=== PATIENT | male | born 1985 | race Caucasian/White ===

== ENCOUNTER 2018-01-03 23:23 | Emergency (ER) | payer BC, SELFPAY ==
--- OUTSIDE RECORDS SUMMARY | 2018-01-03 23:26 | XMS REPORT | Clinical Summary ---
:1985 Author Organization [facility] Address [address] [place] [address] Care Team Providers Name Role Phone Asked, No Pcp Primary Care Provider Unavailable Allergies No Known Allergies Current Medications No known medications Active Problems Not on file Encounters Date Type Specialty Care Team Description 01/11/2017 Emergency Emergency Medicine [place], Venessa Etienne MD Left lower quadrant pain (Primary Dx) after 01/02/2017 Social History Tobacco Use Types Packs/Day Years Used Date Current Every Day Smoker Alcohol Use Drinks/Week oz/Week Comments No Sex Assigned at Date Recorded Not on file Last Filed Vital Signs Vital Sign Reading Time Taken Blood Pressure 138/72 01/11/2017 3:10 PM CDT Pulse 68 01/11/2017 3:10 PM CDT Temperature 37.3 C (99.1 F) 01/11/2017 12:10 PM CDT Respiratory Rate 16 01/11/2017 3:10 PM CDT Oxygen Saturation 96% 01/11/2017 3:10 PM CDT Inhaled Oxygen Concentration - - Weight - - Height 182.9 cm (6') 01/11/2017 12:11 PM CDT Body Mass Index - - Plan of Treatment Health Maintenance Due Date Last Done Comments INFLUENZA VACCINE 03/05/[address] Abdomen Pelvis W Contrast (01/11/2017 2:27 PM) Specimen Performing Laboratory [facility] [address] [place] [address] Narrative EXAMINATION:CT ABDOMEN PELVIS W CONTRAST CLINICAL HISTORY:LLQ abdominal pain TECHNIQUE: Multiple axial images of the abdomen and pelvis were obtained following intravenous administration of iodinated contrast. Sagittal and coronal computerized reformatted images were also obtained. CT scans are performed using radiation dose reduction techniques. Technical factors are evaluated and adjusted to ensure appropriate moderation of exposure. Automated dose management technology is applied to adjust radiation exposure while achieving a diagnostic quality image. COMPARISON:11/05/2015 FINDINGS: Since previous examination, the patient has undergone right hemicolectomy. No bowel obstruction is present. There are no inflammatory changes around the large or small bowel. There are some diverticula within the colon without findings of diverticulitis. The spleen, adrenal glands, pancreas, gallbladder, and kidneys are normal. Mild diffuse fatty infiltration of liver is present. Abdominal aorta is normal in caliber. There is no lymphadenopathy or ascites. A healed midline ventral incision from laparotomy is present. A small fat- containing periumbilical hernia is noted. A small fat-containing right inguinal hernia is seen. There is no pelvic mass or pelvic lymphadenopathy. Bladder is partially distended with urine. Volume loss is present in the lung bases. Osseous structures are intact. IMPRESSION: No acute findings are seen. The patient has undergone right hemicolectomy since previous examination. No bowel obstruction is present. [facility]-[id number] Procedure Note Hm Interface, Radiology Results Incoming - 01/11/2017 2:40 PM CDT EXAMINATION: CT ABDOMEN PELVIS W CONTRAST CLINICAL HISTORY: LLQ abdominal pain TECHNIQUE: Multiple axial images of the abdomen and pelvis were obtained following intravenous administration of iodinated contrast. Sagittal and coronal computerized reformatted images were also obtained. CT scans are performed using radiation dose reduction techniques. Technical factors are evaluated and adjusted to ensure appropriate moderation of exposure. Automated dose management technology is applied to adjust radiation exposure while achieving a diagnostic quality image. COMPARISON: 11/05/2015 FINDINGS: Since previous examination, the patient has undergone right hemicolectomy. No bowel obstruction is present. There are no inflammatory changes around the large or small bowel. There are some diverticula within the colon without findings of diverticulitis. The spleen, adrenal glands, pancreas, gallbladder, and kidneys are normal. Mild diffuse fatty infiltration of liver is present. Abdominal aorta is normal in caliber. There is no lymphadenopathy or ascites. A healed midline ventral incision from laparotomy is present. A small fat- containing periumbilical hernia is noted. A small fat-containing right inguinal hernia is seen. There is no pelvic mass or pelvic lymphadenopathy. Bladder is partially distended with urine. Volume loss is present in the lung bases. Osseous structures are intact. IMPRESSION: No acute findings are seen. The patient has undergone right hemicolectomy since previous examination. No bowel obstruction is present. [id number] Urinalysis (01/11/2017 12:35 PM) Component Value Ref Range Glucose, UA Negative Negative Bilirubin, UA Negative Negative Ketones, UA Trace (A) Negative Specific gravity, UA 1.025 1.001 - 1.035 Blood, UA Trace (A) Negative pH, UA 5.5 5.0 - 8.5 Protein, UA Negative Negative Urobilinogen, UA <2.0 <2.0 Nitrite, UA Negative Negative Leukocyte esterase, UA Negative Negative Color, UA Yellow Appearance, UA Clear Specimen Performing Laboratory Urine DEPARTMENT OF PATHOLOGY AND GENOMIC MEDICINE, [address] [address] Estimated GFR (01/11/2017 12:25 PM) Component Value Ref Range GFR Non Af Amer 77 mL/min/1.73 m2 GFR Af Amer >90 mL/min/1.73 m2 Comment: Chronic kidney disease: <60 mL/min/1.73m2 Kidney failure: <15 mL/min/1.73m2 The estimated GFR is calculated from the IDMS-traceable Modification of Diet in Renal Disease Equation. The accuracy of the calculation is poor when the creatinine is normal. Calculated values >90 mL/min/1.73m2 are not reported. This equation has not been validated in children (<18 years), women, the elderly (>70 years), or ethnic groups other than Caucasians and Americans. Specimen Performing Laboratory Plasma specimen [facility] DEPARTMENT OF PATHOLOGY AND GENOMIC MEDICINE [address] [place] [id number] Lactic acid, I-Stat (01/11/2017 12:25 PM) Component Value Ref Range Lactic acid, I-Stat 2.4 (H) 0.5 - 2.2 mmol/L Specimen Performing Laboratory Plasma specimen [facility] DEPARTMENT OF PATHOLOGY AND GENOMIC MEDICINE [address] [place] [id number] Manual differential (01/11/2017 12:25 PM) Component Value Ref Range Manual differential PERFORMED Neutrophils 62.0 39.0 - 69.0 % Lymphocytes 22.0 (L) 25.0 - 45.0 % Monocytes 8.0 0.0 - 10.0 % Eosinophils 8.0 (H) 0.0 - 5.0 % Basophils 0.0 0.0 - 1.0 % Metamyelocytes 0 % Promyelocytes 0 % Platelet slide review [place]ha adequate Anisocytosis Moderate Polychromasia Moderate Ovalocytes Moderate Enlarged platelets Moderate (A) Specimen Performing Laboratory [facility] DEPARTMENT OF PATHOLOGY AND GENOMIC MEDICINE [address] [place] [id number] Amylase level (01/11/2017 12:25 PM) Component Value Ref Range Amylase 11 (L) 14 - 97 U/L Specimen Performing Laboratory Plasma specimen [facility] DEPARTMENT OF PATHOLOGY AND GENOMIC MEDICINE [address] [place] [id number] Comprehensive metabolic panel (01/11/2017 12:25 PM) Component Value Ref Range Sodium 137 135 - 148 mEq/L Potassium 3.5 3.5 - 5.0 mEq/L CO2 21 (L) 24 - 31 mEq/L Chloride 100 98 - 112 mEq/L Glucose 105 (H) 65 - 99 mg/dL Calcium 9.1 8.3 - 10.2 mg/dL BUN 14 6 - 20 mg/dL Creatinine 1.1 0.7 - 1.2 mg/dL Alkaline phosphatase 62 40 - 129 U/L ALT 43 5 - 50 U/L AST 25 10 - 50 U/L Total bilirubin 0.4 0.0 - 1.2 mg/dL Albumin 3.5 3.5 - 5.0 g/dL Protein 7.1 6.3 - 8.3 g/dL Comment: Arnold 4.6-7.0 g/dL 1 week 4.4-7.6 g/dL 7 months-1year5.1-7.3 g/dL 1-2 years5.6-7.5 g/dL >3 years6.0-8.0 g/dL 18-150 6.3-8.3 g/dL Anion gap 16 (H) 7 - 15 mEq/L Comment: Starting from November , anion gap calculation no longer incorporates potassium. Please note the change. A/G ratio 1.0 0.7 - 3.8 Specimen Performing Laboratory Plasma specimen [facility] DEPARTMENT OF PATHOLOGY AND [facility] MEDICINE [address] [place] [id number] after 01/02/2017
[2018-01-04] MEDS ORDERED: HYDROCODONE/APAP 10/325 TAB ONE (00:09)
--- NOTE | 2018-01-04 00:53 | EDPHYS ---
Physician Documentation [facility] Name: James Cuba Age: 32 yrs Sex: Male : 1985 Arrival Date: 01/03/2018 Time: 23:27 Bed 12 Private MD: ED Physician Tito Garcia HPI: 01/04 01:00 This 32 yrs old Male presents to ER via Ambulatory with complaints of Left pm1 elbow pain. 01:00 The patient or guardian complains of pain. The complaints affect the left elbow. pm1 Context: resulted from lifting or pulling, Patient working on his car and felt a pop in his left elbow two months ago. Patient reports pain is increased in the past few days. Onset: The symptoms/episode began/occurred 2 month(s) ago. Treatment prior to arrival includes: no previous treatment. Modifying factors: The symptoms are alleviated by remaining still, the symptoms are aggravated by bending arm. Associated signs and symptoms: Pertinent positives: Decreased ROM due to pain, Pertinent negatives: erythema, fever, numbness, tingling. Severity of symptoms: in the emergency department the symptoms are actually worse. The patient has not recently seen a physician. Historical: - Allergies: 01/03 23:35 No Known Allergies; bb - Home Meds: 23:35 albuterol sulfate 90 mcg/actuation Inhl HFAA 2 puffs as needed [Active]; citalopram 10 bb mg tab 1 tab once daily [Active]; Skelaxin 800 mg Oral tab 1 tab as needed [Active]; - PMHx: 23:35 hypoglycemia, asthma, gynecomastia; bb - PSHx: 23:35 Bowel resection; bb - Immunization history:: Adult Immunizations up to date. - Social history:: Smoking status: Patient/guardian denies using tobacco, Patient uses alcohol, occasionally. Patient/guardian denies using street drugs. - Ebola Screening: : No symptoms or risks identified at this time. ROS: 01/04 01:00 Constitutional: Negative for fever, chills, and weight loss, Eyes: Negative for injury, pm1 pain, redness, and discharge, ENT: Negative for injury, pain, and discharge, Neck: Negative for injury, pain, and swelling, Cardiovascular: Negative for chest pain, palpitations, and edema, Respiratory: Negative for shortness of breath, cough, wheezing, and pleuritic chest pain, Abdomen/GI: Negative for abdominal pain, nausea, vomiting, diarrhea, and constipation, Back: Negative for injury and pain. Skin: Negative for injury, rash, and discoloration, Neuro: Negative for headache, weakness, numbness, tingling, and seizure. MS/extremity: Positive for pain, of the left elbow, Negative for deformity, paresthesias, tingling. Exam: 01:00 Constitutional: This is a well developed, well nourished patient who is awake, alert, pm1 and in no acute distress. Head/Face: Normocephalic, atraumatic. 01:00 Skin: Warm, dry with normal turgor. Normal color with no rashes, no lesions, and no evidence of cellulitis. 01:00 Musculoskeletal/extremity: Extremities: grossly normal except: noted in the left elbow: pain, There is no evidence of deformity, Circulation is intact in all extremities. Pulses: noted to be 2+ in the left radial artery, Sensation intact. 01:00 Neuro: Orientation: is normal, Mentation: is normal, Gait: is steady, at a normal pace, without difficulty. Vital Signs: 01/03 23:35 BP 132 / 91; Pulse 98; Resp 20 S; Temp 97.3(O); Pulse Ox 96% on R/A; Weight 99.79 kg (R); Height 6 ft. 0 in. (182.88 cm) (R); Pain 9/10; 01/04 01:25 BP 144 / 92; Pulse 92; Resp 18 S; Temp 97.7(O); Pulse Ox 95% on R/A; Pain 8/10; 01/03 23:35 Body Mass Index 29.84 (99.79 kg, 182.88 cm) MDM: 00:10 Patient medically screened. pm1 00:52 Data reviewed: vital signs. Data interpreted: Pulse oximetry: on room air is 96 %. pm1 Interpretation: normal. Counseling: I had a detailed discussion with the patient and/or guardian regarding: the historical points, exam findings, and any diagnostic results supporting the discharge/admit diagnosis, radiology results, the need for outpatient follow up, a orthopedic surgeon, to return to the emergency department if symptoms worsen or persist or if there are any questions or concerns that arise at home. 01/03 23:36 Order name: XRAY Elbow LEFT 3 view; Complete Time: 16:49 bb 01/04 01:12 Order name: Sling; Complete Time: 01:13 pm1 Administered Medications: 00:06 Drug: [place] 10 mg-325 mg 1 tabs Route: PO; bb 00:59 Follow up: Response: No adverse reaction; Pain is unchanged, physician notified bb 01:20 Drug: morphine 4 mg Route: IM; Site: right gluteus; bb 01:28 Follow up: Response: Pain is decreased bb 01:20 Drug: Zofran 4 mg Route: PO; bb 01:29 Follow up: Response: No adverse reaction bb Disposition: 01/04/18 00:53 Discharged to Home. Impression: Pain in left elbow. - Condition is Stable. - Discharge Instructions: Arm Sling Use, [id number]. - Prescriptions for Tramadol 50 mg Oral Tablet - take 1 tablet by ORAL route every 8 hours as needed; 12 tablet. - Medication Reconciliation Form, Thank You Letter, Prescription Opioid Use form. - Follow up: Emergency Department; When: As needed; Reason: Worsening of condition. Follow up: Sly Pruitt MD; When: 2 - 3 days; Reason: Recheck today's complaints, Continuance of care, Re-evaluation by your physician. - Problem is new. - Symptoms have improved. Addendum: 01/06/2018 07:08 Co-signature as Attending Physician, Tito Garcia MD I agree with the assessment and c conklin plan of care. Signatures: Dispatcher [employer] Tito Aguilar MD MD cha Ballard, Brenda, RN RN bb Cory Barnett NP AVIONICS TEST TECHNICIAN pm1 Corrections: (The following items were deleted from the chart) 01/04 00:52 00:52 Counseling: I had a detailed discussion with the patient and/or guardian pm1 regarding: the historical points, exam findings, and any diagnostic results supporting the discharge/admit diagnosis, radiology results, the need for outpatient follow up, a orthopedic surgeon, to return to the emergency department if symptoms worsen or persist or if there are any questions or concerns that arise at home, pm1 01:32 00:53 01/04/2018 00:53 Discharged to Home. Impression: Pain in left elbow. Condition is bb Stable. Forms are Medication Reconciliation Form, Thank You Letter, Antibiotic Education, Prescription Opioid Use. Follow up: Emergency Department; When: As needed; Reason: Worsening of condition. Follow up: Sly Pruitt; When: 2 - 3 days; Reason: Recheck today's complaints, Continuance of care, Re-evaluation by your physician. Problem is new. Symptoms have improved. pm1
--- NOTE | 2018-01-04 00:53 | ER ---
Nurse's Notes [facility] Name: James Cuba Age: 32 yrs Sex: Male : 1985 Arrival Date: 01/03/2018 Time: 23:27 Bed 12 Private MD: Diagnosis: Pain in left elbow Presentation: 01/03 23:32 Presenting complaint: Patient states: he was working on his vehicle a couple of months bb ago and heard something pop in his left elbow was trying to wait for his insurance to kick in but tonight the pain has gotten much worse. Transition of care: patient was not received from another setting of care. Onset of symptoms was January 03, 2018. Risk Assessment: Do you want to hurt yourself or someone else? Patient reports no desire to harm self or others. Initial Sepsis Screen: Does the patient meet any 2 criteria? No. Patient's initial sepsis screen is negative. Does the patient have a suspected source of infection? No. Patient's initial sepsis screen is negative. Care prior to arrival: None. 23:32 Method Of Arrival: Ambulatory bb 23:32 Acuity: KIKI 4 bb Historical: - Allergies: 23:35 No Known Allergies; bb - Home Meds: 23:35 albuterol sulfate 90 mcg/actuation Inhl HFAA 2 puffs as needed [Active]; citalopram 10 bb mg tab 1 tab once daily [Active]; Skelaxin 800 mg Oral tab 1 tab as needed [Active]; - PMHx: 23:35 hypoglycemia, asthma, gynecomastia; bb - PSHx: 23:35 Bowel resection; bb - Immunization history:: Adult Immunizations up to date. - Social history:: Smoking status: Patient/guardian denies using tobacco, Patient uses alcohol, occasionally. Patient/guardian denies using street drugs. - Ebola Screening: : No symptoms or risks identified at this time. Screenin:37 Abuse screen: Denies threats or abuse. Nutritional screening: No deficits noted. bb Tuberculosis screening: No symptoms or risk factors identified. Fall Risk None identified. Assessment: 23:37 General: Appears uncomfortable, Behavior is cooperative, agitated, Reports pain in left bb elbow. Pain: Complains of pain in left elbow Pain currently is 9 out of 10 on a pain scale. Neuro: Level of Consciousness is awake, alert, obeys commands, Oriented to person, place, time, situation. Cardiovascular: No deficits noted. Respiratory: Respiratory effort is unlabored. GI: No signs and/or symptoms were reported involving the gastrointestinal system. : No signs and/or symptoms were reported regarding the genitourinary system. Derm: Skin is pink, warm \T\ dry. Musculoskeletal: Capillary refill < 3 seconds, Reports pain in left elbow. 01/04 00:59 Reassessment: pt states pain medication did not help his pain at all EDP notified no bb new orders received. 01:10 Reassessment: pt requested pain medication so that he could go home and sleep notified bb EDP new orders received pt medicated see OCT. 01:30 Reassessment: Patient is alert, oriented x 3, equal unlabored respirations, skin bb warm/dry/pink. sling placed to left arm, pt verbalized understanding of and agrees to plan of care discharge instructions given pt ambulated with steady gait to exit accompanied by family. Vital Signs: 01/03 23:35 BP 132 / 91; Pulse 98; Resp 20 S; Temp 97.3(O); Pulse Ox 96% on R/A; Weight 99.79 kg bb (R); Height 6 ft. 0 in. (182.88 cm) (R); Pain 9/10; 01/04 01:25 BP 144 / 92; Pulse 92; Resp 18 S; Temp 97.7(O); Pulse Ox 95% on R/A; Pain 8/10; bb 01/03 23:35 Body Mass Index 29.84 (99.79 kg, 182.88 cm) bb ED Course: 01/03 23:27 Patient arrived in ED. es 23:34 Triage completed. bb 23:35 Arm band placed on right wrist. Patient placed in an exam room, on a stretcher, on bb pulse oximetry. Family accompanied patient. 23:37 Sophia Ayala, RN is Primary Nurse. bb 23:37 Patient has correct armband on for positive identification. Call light in reach. bb 23:56 X-ray completed. Portable x-ray completed in exam room. Patient tolerated procedure jw2 well. 23:59 XRAY Elbow LEFT 3 view In Process Unspecified. EDMS 01/04 00:09 Cory Barnett NP is PHCP. pm1 00:09 Tito Garcia MD is Attending Physician. pm1 00:53 Sly Pruitt MD is Referral Physician. pm1 01:32 No provider procedures requiring assistance completed. Patient did not have IV access bb during this emergency room visit. Administered Medications: 00:06 Drug: [place] 10 mg-325 mg 1 tabs Route: PO; bb 00:59 Follow up: Response: No adverse reaction; Pain is unchanged, physician notified bb 01:20 Drug: morphine 4 mg Route: IM; Site: right gluteus; bb 01:28 Follow up: Response: Pain is decreased bb 01:20 Drug: Zofran 4 mg Route: PO; bb 01:29 Follow up: Response: No adverse reaction bb Outcome: 00:53 Discharge ordered by MD. pm1 01:32 Discharged to home ambulatory, with family. bb 01:32 Condition: stable 01:32 Discharge instructions given to patient, Instructed on discharge instructions, follow up and referral plans. medication usage, Demonstrated understanding of instructions, follow-up care, medications, Prescriptions given X 1. 01:32 Patient left the ED. bb Signatures: Dispatcher [employer] Kate Clayton Brenda, NASIR RN bb Cory Barnett, EDITH SENIOR CATEGORY MANAGER pm1 Fatmata Jefferson jw2
[2018-01-04] MEDS ORDERED: MORPHINE 4 MG/ML SYR ONE (01:21)
[2018-01-04] MEDS ORDERED: ONDANSETRON 4 MG (ODT) TAB ONE (01:21)
[2018-01-04 01:40] VITALS: BP 132/91; TEMP 97.3; O2SAT 96
--- NOTE | 2018-01-04 10:32 | RAD REPORT ---
EXAM DESCRIPTION: RAD - Elbow Left 3 View - 01/03/2018 11:58 pm CLINICAL HISTORY: Left elbow pain following trauma COMPARISON: None. FINDINGS: No fracture is identified and no elevated posterior fat pad. There is no dislocation or pe riosteal reaction noted. No foreign body or air in the soft tissue. Soft tissue assessment is limite d. IMPRESSION: No acute bone or joint finding. Concerns for soft tissue injury can be addressed with MR imaging.
== END 2018-01-04 01:32 | disposition home or self-care (01) ==
LOC: ER 23:23
DX: M25.522 Pain in left elbow (principal); J45.909 Unspecified asthma, uncomplicated; E16.2 Hypoglycemia, unspecified
CPT/HCPCS: 96372; 99284

== ENCOUNTER 2018-04-10 20:49 | Emergency (ER) | payer BC ==
--- OUTSIDE RECORDS SUMMARY | 2018-04-10 20:51 | XMS REPORT | Clinical Summary ---
:1985 Author Organization [facility] Address [address] [place] [id number] Care Team Providers Name Role Phone Asked, No Pcp Primary Care Provider Unavailable Allergies No Known Allergies Current Medications No known medications Active Problems Not on file Social History Tobacco Use Types Packs/Day Years Used Date Current Every Day Smoker Alcohol Use Drinks/Week oz/Week Comments No Sex Assigned at Date Recorded Not on file Last Filed Vital Signs Not on file Plan of Treatment Health Maintenance Due Date Last Done Comments INFLUENZA VACCINE 03/05/2018 Results Not on fileafter 04/09/2017
[2018-04-10] MEDS ORDERED: NA CHLORIDE 0.9% 2,000 ML ONE (21:33)
[2018-04-10] MEDS ORDERED: KETOROLAC 30 MG/ML INJ ONE (21:33)
--- NOTE | 2018-04-10 21:57 | RAD REPORT ---
EXAM DESCRIPTION: Jessica Single View04/10/2018 9:38 pm CLINICAL HISTORY: cough COMPARISON: February 2017 FINDINGS: The lungs appear clear of acute infiltrate. The heart is normal size IMPRESSION: No acute abnormalities displayed
[2018-04-10 22:00] LABS: Absolute Lymphocytes (CBC) 2.3 K/uL (0.7-4.9); Absolute Monocytes 0.8 K/uL (0.1-1.3); Absolute Neutrophil 4.5 K/uL (1.8-8.0); Basophils % 0.5 % (0-1.3); Eosinophils % 1.7 % (0-4.4); Hematocrit 47.9 % (39.6-49.0); Lymphocytes % 29.9 % (15.3-44.8); MCV 87.4 fL (80-100); MPV 8.3 fL (7.6-11.3); Monocytes % 9.9 % (3.3-12.3); RBC Red Blood Cell Count 5.48 M/uL (4.33-5.43)
[2018-04-10 23:05] LABS: Urine Blood NEGATIVE (NEG); Urine Glucose NEGATIVE (NEG); Urine Protein NEGATIVE (NEG); Urine pH 6.5 (5.0-7.0)
[2018-04-10 23:06] LABS: ALT/SGPT 71 U/L (12-78); AST/SGOT 30 U/L (15-37); Albumin 3.5 g/dL (3.4-5.0); Alkaline Phosphatase 54 U/L (45-117); BUN Blood Urea Nitrogen 17 mg/dL (7-18); Bicarbonate 28 mmol/L (21-32); Bilirubin Total 0.3 mg/dL (0.2-1.0); Glucose Level 75 mg/dL (74-106); Lipase 162 U/L (73-393); Potassium 3.9 mmol/L (3.5-5.1); Protein, Total 6.8 g/dL (6.4-8.2); Sodium Level 142 mmol/L (136-145); Troponin (Emerg Dept Use Only) < 0.02 ng/mL (0.0-0.045)
--- NOTE | 2018-04-10 23:31 | EDPHYS ---
Physician Documentation [facility] Name: James Cuba Age: 32 yrs Sex: Male : 1985 Arrival Date: 04/10/2018 Time: 20:50 Bed 27 Private MD: ED Physician Konstantin Mckinney HPI: 04/10 23:18 This 32 yrs old Male presents to ER via Ambulatory with complaints of Pain ps1 All Over, Nausea, Headache. 23:18 patient is s/p appendectomy and hemicolectomy several years ago with chronic diarrhea ps1 presenting with non-specific myalgias, chills, not feeling well for 2 days. Non-localizable pain but just feels as though he is getting worse. Has not taken any medications to improve situation. . Historical: - Allergies: 20:59 No Known Allergies; aj - Home Meds: 20:59 citalopram 10 mg tab 1 tab once daily [Active]; albuterol sulfate 90 mcg/actuation Inhl aj HFAA 2 puffs as needed [Active]; Skelaxin 800 mg Oral tab 1 tab as needed [Active]; Cialis oral oral [Active]; - PMHx: 20:59 Diabetes - NIDDM; aj - PSHx: 20:59 Bowel resection; Breast reduction; Appendectomy; Tonsillectomy; aj - Immunization history:: Adult Immunizations up to date. - Social history:: Smoking status: Patient/guardian denies using tobacco. - Ebola Screening: : Patient negative for fever greater than or equal to 101.5 degrees Fahrenheit, and additional compatible Ebola Virus Disease symptoms Patient denies exposure to infectious person Patient denies travel to an Ebola-affected area in the 21 days before illness onset No symptoms or risks identified at this time. ROS: 23:18 Eyes: Negative for injury, pain, redness, and discharge, ENT: Negative for injury, ps1 pain, and discharge, Cardiovascular: Negative for chest pain, palpitations, and edema, Respiratory: Negative for shortness of breath, cough, wheezing, and pleuritic chest pain, Back: Negative for injury and pain, Skin: Negative for injury, rash, and discoloration. 23:18 Constitutional: Positive for body aches, chills, fatigue. 23:18 Abdomen/GI: Positive for abdominal pain, nausea, vomiting, and diarrhea. Exam: 23:18 Constitutional: This is a well developed, well nourished patient who is awake, alert, ps1 and in no acute distress. Head/Face: Normocephalic, atraumatic. Eyes: Pupils equal round and reactive to light, extra-ocular motions intact. Lids and lashes normal. Conjunctiva and sclera are non-icteric and not injected. Chest/axilla: Normal chest wall appearance and motion. Nontender with no deformity. No lesions are appreciated. Cardiovascular: Regular rate and rhythm. No gallops, murmurs, or rubs. Normal PMI, no JVD. No pulse deficits. Respiratory: Lungs have equal breath sounds bilaterally, clear to auscultation and percussion. No rales, rhonchi or wheezes noted. No increased work of breathing, no retractions or nasal flaring. Abdomen/GI: Soft, non-tender, with normal bowel sounds. No distension or tympany. No guarding or rebound. No evidence of tenderness throughout. Skin: Warm, dry with normal turgor. Normal color with no rashes, no lesions, and no evidence of cellulitis. MS/ Extremity: Pulses equal, no cyanosis. Neurovascular intact. Full, normal range of motion. Neuro: Awake and alert, GCS 15, oriented to person, place, time, and situation. Cranial nerves II-XII grossly intact. Sensory grossly intact. 23:18 Constitutional: The patient appears patient appears uncomfortable but able to answer questions appropriately. 23:18 Psych: Behavior/mood is Affect is flat. Vital Signs: 20:59 BP 146 / 91; Pulse 85; Resp 16; Temp 98.8; Pulse Ox 96% on R/A; Weight 108.86 kg; aj Height 6 ft. 0 in. (182.88 cm); 22:07 BP 135 / 81; Pulse 83; Resp 18; Pulse Ox 100% on R/A; Pain 10/10; mg2 23:22 Pulse 85; Resp 18; Pulse Ox 100% on R/A; Pain 10/10; mg2 23:56 BP 130 / 70; Pulse 80; Resp 18; Pulse Ox 100% on R/A; Pain 2/10; mg2 20:59 Body Mass Index 32.55 (108.86 kg, 182.88 cm) aj MDM: 21:25 Patient medically screened. ps1 23:29 Data reviewed: vital signs, nurses notes, lab test result(s), radiologic studies, and ps1 as a result, I will discharge patient, prescribe pain medication. 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 04/10 21:18 Order name: CBC with Diff; Complete Time: 22:23 ps1 04/10 21:18 Order name: Lactate; Complete Time: 23:03 ps1 04/10 21:18 Order name: Lipase; Complete Time: 23:08 ps1 04/10 21:18 Order name: Troponin (emerg Dept Use Only); Complete Time: 23:08 ps1 04/10 21:18 Order name: CMP; Complete Time: 23:08 ps1 04/10 21:59 Order name: Urine Dipstick--Ancillary (enter results) rg2 04/10 21:18 Order name: Chest Single View XRAY; Complete Time: 22:12 ps1 04/10 21:59 Order name: Urine Dipstick-Ancillary; Complete Time: 23:08 EDMS 04/10 21:18 Order name: Accucheck; Complete Time: 21:52 ps1 04/10 21:18 Order name: Cardiac monitoring; Complete Time: 21:52 ps1 04/10 21:18 Order name: EKG - Nurse/Tech; Complete Time: 22:27 ps1 04/10 21:18 Order name: IV Saline Lock - Large Bore; Complete Time: 21:52 ps1 04/10 21:18 Order name: Labs collected and sent; Complete Time: 21:52 ps1 04/10 21:18 Order name: O2 Per Protocol; Complete Time: 21:52 ps1 04/10 21:18 Order name: O2 Sat Monitoring; Complete Time: 21:53 ps1 04/10 21:18 Order name: Urine Dipstick-Ancillary (obtain specimen); Complete Time: 21:53 ps1 Administered Medications: 21:52 Drug: TORadol 30 mg Route: IVP; Site: right antecubital; mg2 22:57 Follow up: Response: No adverse reaction mg2 21:53 Drug: NS 0.9% (30 ml/kg) 30 ml/kg Route: IV; Rate: bolus; Site: right antecubital; mg2 23:00 Follow up: Response: No adverse reaction; IV Status: Completed infusion mg2 23:42 Drug: Zofran 4 mg Route: IVP; Site: right antecubital; mg2 23:42 Follow up: Response: No adverse reaction mg2 23:43 Drug: Bentyl 20 mg Route: PO; mg2 23:56 Follow up: Response: No adverse reaction; Marked relief of symptoms mg2 23:43 Drug: morphine 4 mg Route: IVP; Site: right antecubital; mg2 23:55 Follow up: Response: No adverse reaction; Marked relief of symptoms mg2 23:50 Drug: Decadron - Dexamethasone 10 mg Route: IVP; Site: right antecubital; mg2 23:55 Follow up: Response: No adverse reaction; Medication administered at discharge. mg2 Disposition: 04/10/18 23:30 Discharged to Home. Impression: Viral syndrome. - Condition is Stable. - Discharge Instructions: Viral Gastroenteritis, Adult, [id number]. - Prescriptions for Anaprox DS 550 mg Oral Tablet - take 1 tablet by ORAL route every 12 hours As needed; 20 tablet. Bentyl 20 mg Oral Tablet - take 1 tablet by ORAL route every 6 hours As needed; 20 tablet. Carafate 1 gram Oral Tablet - take 1 tablet by ORAL route 4 times per day take on an empty stomach, beginning on waking and last dose at bedtime; 100 tablet. Zofran 4 mg Oral Tablet - take 1 tablet by ORAL route every 12 hours As needed; 20 tablet. - Medication Reconciliation Form, Thank You Letter, Antibiotic Education, Prescription Opioid Use form. - Follow up: Private Physician; When: As needed; Reason: Recheck today's complaints, Continuance of care, Re-evaluation by your physician. Follow up: Emergency Department; When: As needed; Reason: Fever > 102 F, Trouble breathing, Worsening of condition. - Problem is new. - Symptoms have improved. Signatures: Dispatcher [employer] EDMS Madelyn Seymour RN RN Konstantin Lopez MD MD ps1 Kelli Billingsley RN RN [id number] Anthony Meehan RN RN mg2 Corrections: (The following items were deleted from the chart) 23:57 23:30 04/10/2018 23:30 Discharged to Home. Impression: Viral syndrome. Condition is mg2 Stable. Forms are Medication Reconciliation Form, Thank You Letter, Antibiotic Education, Prescription Opioid Use. Follow up: Private Physician; When: As needed; Reason: Recheck today's complaints, Continuance of care, Re-evaluation by your physician. Follow up: Emergency Department; When: As needed; Reason: Fever > 102 F, Trouble breathing, Worsening of condition. Problem is new. Symptoms have improved. ps1
--- NOTE | 2018-04-10 23:31 | ER ---
Nurse's Notes [facility] Name: James Cuba Age: 32 yrs Sex: Male : 1985 Arrival Date: 04/10/2018 Time: 20:50 Bed 27 Private MD: Diagnosis: Viral syndrome Presentation: 04/10 20:57 Presenting complaint: Patient states: Body aches, nausea, fatigue since yesterday. aj Transition of care: patient was not received from another setting of care. Onset of symptoms was April 10, 2018. Risk Assessment: Do you want to hurt yourself or someone else? Patient reports no desire to harm self or others. Initial Sepsis Screen: Does the patient meet any 2 criteria? No. Patient's initial sepsis screen is negative. Does the patient have a suspected source of infection? No. Patient's initial sepsis screen is negative. Care prior to arrival: None. 20:57 Method Of Arrival: Ambulatory 20:57 Acuity: KIKI 4 aj Triage Assessment: 20:59 General: Appears in no apparent distress. comfortable, Behavior is calm, cooperative, aj appropriate for age. Pain: Complains of pain in right lower quadrant. Neuro: Level of Consciousness is awake, alert, obeys commands, Oriented to person, place, time, situation, Appropriate for age. Respiratory: Airway is patent Respiratory effort is even, unlabored, Respiratory pattern is regular, symmetrical. GI: Reports lower abdominal pain, nausea. Derm: Skin is intact, is healthy with good turgor, Skin is pink, warm \T\ dry. normal. Historical: - Allergies: 20:59 No Known Allergies; aj - Home Meds: 20:59 citalopram 10 mg tab 1 tab once daily [Active]; albuterol sulfate 90 mcg/actuation Inhl aj HFAA 2 puffs as needed [Active]; Skelaxin 800 mg Oral tab 1 tab as needed [Active]; Cialis oral oral [Active]; - PMHx: 20:59 Diabetes - NIDDM; aj - PSHx: 20:59 Bowel resection; Breast reduction; Appendectomy; Tonsillectomy; aj - Immunization history:: Adult Immunizations up to date. - Social history:: Smoking status: Patient/guardian denies using tobacco. - Ebola Screening: : Patient negative for fever greater than or equal to 101.5 degrees Fahrenheit, and additional compatible Ebola Virus Disease symptoms Patient denies exposure to infectious person Patient denies travel to an Ebola-affected area in the 21 days before illness onset No symptoms or risks identified at this time. Screenin:07 Abuse screen: Denies threats or abuse. Denies injuries from another. Nutritional mg2 screening: No deficits noted. Tuberculosis screening: No symptoms or risk factors identified. Fall Risk IV access (20 points). Assessment: 22:05 General: Appears uncomfortable, Behavior is cooperative, restless. Pain: Complains of mg2 pain in right lower quadrant Pain does not radiate. Pain currently is 10 out of 10 on a pain scale. Quality of pain is described as aching, Pain began gradually, 1 day ago. Is intermittent, Alleviated by medications. Neuro: Level of Consciousness is awake, alert, obeys commands, Oriented to person, place, time, situation. Cardiovascular: Capillary refill < 3 seconds Patient's skin is warm and dry. Respiratory: Airway is patent Respiratory effort is even, unlabored, Respiratory pattern is regular, symmetrical. GI: Reports upper abdominal pain. GI: Abdomen is round non-distended. : No signs and/or symptoms were reported regarding the genitourinary system. EENT: No signs and/or symptoms were reported regarding the EENT system. Derm: Skin is intact, Skin is pink, warm \T\ dry. normal. Musculoskeletal: No deficits noted. 23:57 Reassessment: Patient appears in no apparent distress at this time. Patient and/or mg2 family updated on plan of care and expected duration. Pain level reassessed. Patient is alert, oriented x 3, equal unlabored respirations, skin warm/dry/pink. Vital Signs: 20:59 BP 146 / 91; Pulse 85; Resp 16; Temp 98.8; Pulse Ox 96% on R/A; Weight 108.86 kg; aj Height 6 ft. 0 in. (182.88 cm); 22:07 BP 135 / 81; Pulse 83; Resp 18; Pulse Ox 100% on R/A; Pain 10/10; mg2 23:22 Pulse 85; Resp 18; Pulse Ox 100% on R/A; Pain 10/10; mg2 23:56 BP 130 / 70; Pulse 80; Resp 18; Pulse Ox 100% on R/A; Pain 2/10; mg2 20:59 Body Mass Index 32.55 (108.86 kg, 182.88 cm) aj ED Course: 20:50 Patient arrived in ED. am2 20:58 Triage completed. aj 20:59 Arm band placed on right wrist. Patient placed in an exam room. aj 21:10 Konstantin Mckinney MD is Attending Physician. ps1 21:25 Anthony Meehan, RN is Primary Nurse. mg2 21:36 Chest Single View XRAY In Process Unspecified. EDMS 21:53 Inserted saline lock: 20 gauge in right antecubital area, using aseptic technique. mg2 Blood collected. 22:07 Patient has correct armband on for positive identification. Side rails up X 1. Pulse ox mg2 on. NIBP on. 23:56 No provider procedures requiring assistance completed. IV discontinued, intact, mg2 bleeding controlled, No redness/swelling at site. Pressure dressing applied. Administered Medications: 21:52 Drug: TORadol 30 mg Route: IVP; Site: right antecubital; mg2 22:57 Follow up: Response: No adverse reaction mg2 21:53 Drug: NS 0.9% (30 ml/kg) 30 ml/kg Route: IV; Rate: bolus; Site: right antecubital; mg2 23:00 Follow up: Response: No adverse reaction; IV Status: Completed infusion mg2 23:42 Drug: Zofran 4 mg Route: IVP; Site: right antecubital; mg2 23:42 Follow up: Response: No adverse reaction mg2 23:43 Drug: Bentyl 20 mg Route: PO; mg2 23:56 Follow up: Response: No adverse reaction; Marked relief of symptoms mg2 23:43 Drug: morphine 4 mg Route: IVP; Site: right antecubital; mg2 23:55 Follow up: Response: No adverse reaction; Marked relief of symptoms mg2 23:50 Drug: Decadron - Dexamethasone 10 mg Route: IVP; Site: right antecubital; mg2 23:55 Follow up: Response: No adverse reaction; Medication administered at discharge. mg2 Outcome: 23:30 Discharge ordered by . ps1 23:57 Discharged to home ambulatory. mg2 23:57 Condition: stable 23:57 Discharge instructions given to patient, Instructed on discharge instructions, follow up and referral plans. medication usage, Demonstrated understanding of instructions, follow-up care, medications, Prescriptions given X 4. 23:57 Patient left the ED. mg2 Signatures: Dispatcher [employer] Madelyn Carrera, NASIR RN aj Madelyn Baum am2 Konstantin Mckinney MD MD ps1 Anthony Meehan RN RN mg2
[2018-04-10] MEDS ORDERED: ONDANSETRON 4 MG/2 ML VIAL ONE (23:32)
[2018-04-10] MEDS ORDERED: MORPHINE 4 MG/ML SYR ONE (23:32)
[2018-04-10] MEDS ORDERED: DICYCLOMINE HCL 10 MG CAP ONE (23:32)
[2018-04-10] MEDS ORDERED: DEXAMETHASONE 4 MG/ML VIAL ONE (23:51)
[2018-04-11 02:08] VITALS: TEMP 98.8
[2018-04-11 02:10] VITALS: O2SAT 100
[2018-04-11 02:12] VITALS: BP 130/70
--- NOTE | 2018-04-11 11:49 | EKG ---
Test Date: 2018-04-10 Test Time: 22:24:01 [employer]: MEASUREMENT RESULTS: Intervals: Rate: 68 OR: 156 QRSD: 120 QT: 398 QTc: 423 [place]: P: 54 OR: 156 QRS: 71 T: 64 INTERPRETIVE STATEMENTS: Normal sinus rhythm Nonspecific intraventricular conduction delay Borderline ECG Compared to ECG 02/14/2017 19:34:25 Intraventricular conduction delay now present Sinus arrhythmia no longer present Incomplete right bundle-branch block no longer present Electronically Signed On 04-11-18 11:48:13 CDT by Jarad Allen
== END 2018-04-10 23:57 | disposition home or self-care (01) ==
LOC: ER 20:49
DX: B34.9 Viral infection, unspecified (principal); E11.9 Type 2 diabetes mellitus without complications
CPT/HCPCS: 36415; 71045; 80053; 81003; 83605; 83690; 84484; 85025; 93005; 96361; 96365; 96374; 96375; 99284; J2405; J7030

== ENCOUNTER 2018-05-24 18:43 | Emergency (ER) | payer BC ==
--- OUTSIDE RECORDS SUMMARY | 2018-05-24 18:45 | XMS REPORT | Clinical Summary ---
:1985 Author Organization [facility] Address [address] [place] [id number] Care Team Providers Name Role Phone Asked, [...] INFLUENZA VACCINE 03/05/2018 Results Not on fileafter 05/23/2017
[2018-05-24] MEDS ORDERED: HYDROMORPHONE HCL 1 MG/ML INJ ONE ×2 (18:59→19:23)
[2018-05-24] MEDS ORDERED: NA CHLORIDE 0.9% 1,000 ML ONE ×2 (18:59→19:31)
[2018-05-24] MEDS ORDERED: ONDANSETRON 4 MG/2 ML VIAL ONE (18:59)
[2018-05-24 19:11] LABS: Absolute Lymphocytes (CBC) 2.9 K/uL (0.7-4.9); Basophils % 0.5 % (0-1.3); Eosinophils % 4.9 % (0-4.4); Hematocrit 50.9 % (39.6-49.0); Lymphocytes % 25.3 % (15.3-44.8); MCH 30.7 pg (27.0-35.0); MCV 88.6 fL (80-100); Monocytes % 8.4 % (3.3-12.3); RBC Red Blood Cell Count 5.75 M/uL (4.33-5.43)
[2018-05-24 19:19] LABS: ALT/SGPT 21 U/L (12-78); AST/SGOT 19 U/L (15-37); Albumin 3.3 g/dL (3.4-5.0); Alkaline Phosphatase 52 U/L (45-117); BUN Blood Urea Nitrogen 10 mg/dL (7-18); Bicarbonate 29 mmol/L (21-32); Bilirubin Direct < 0.1 mg/dL (0-0.2); Bilirubin Total 0.2 mg/dL (0.2-1.0); Glucose Level 118 mg/dL (74-106); Lipase 107 U/L (73-393); Potassium 4.2 mmol/L (3.5-5.1); Protein, Total 6.4 g/dL (6.4-8.2); Sodium Level 137 mmol/L (136-145)
--- NOTE | 2018-05-24 20:09 | RAD REPORT ---
EXAM DESCRIPTION: CT - Abdomen Pelvis W Contrast - 05/24/2018 7:45 pm CLINICAL HISTORY: Abdominal pain/epigastric pain COMPARISON: April 2017 TECHNIQUE: Computed axial tomography of the abdomen pelvis was obtained. 100 cc Isovue-300 was admin istered intravenously. Oral contrast was not requested which limits evaluation of bowel. All CT scans are performed using dose optimization technique as appropriate and may include automated exposure control or mA/KV adjustment according to patient size. FINDINGS: Liver has a diminished attenuation consistent with fatty infiltration Spleen, pancreas, adrenal and kidneys appear unremarkable. Right hemicolectomy has been performed. There is no evidence of diverticulitis. Bilateral inguinal hernias contain fat. Small umbilical hernia is seen. IMPRESSION: No acute abnormality is displayed.
--- NOTE | 2018-05-24 20:10 | RAD REPORT ---
EXAM DESCRIPTION: Jessica Single View05/24/2018 7:09 pm CLINICAL HISTORY: abd pain COMPARISON: February 2017 FINDINGS: The lungs appear clear of acute infiltrate. The heart is normal size IMPRESSION: No acute abnormalities displayed
[2018-05-24] MEDS ORDERED: METHYLPREDNISOLONE 125 MG INJ ONE (20:57)
--- NOTE | 2018-05-24 21:33 | EDPHYS ---
Physician Documentation [facility] Name: James Cuba Age: 32 yrs Sex: Male : 1985 Arrival Date: 05/24/2018 Time: 18:45 Bed 24 Private MD: ED Physician Luke Mcgill HPI: 05/24 19:05 This 32 yrs old Male presents to ER via Ambulatory with complaints of cp Abdominal Pain. 19:05 The patient presents with abdominal pain in the upper abdomen. cp 19:05 Onset: The symptoms/episode began/occurred suddenly, about 10 minutes [employer]. cp 19:05 The symptoms do not radiate. Associated signs and symptoms: Pertinent positives: cp nausea, Pertinent negatives: blood in stools, chest pain, diarrhea, fever, palpitations, testicular pain, vomiting. The symptoms are described as constant. Modifying factors: the symptoms are aggravated by movement, pressure. Severity of pain: in the emergency department the pain is unchanged. Historical: - Allergies: 18:57 No Known Allergies; aj1 - Home Meds: 18:57 Baclofen Oral [Active]; "mood stabilizer, I think it starts with C" [Active]; aj1 - PMHx: 18:57 hypoglycemia, asthma, gynecomastia; Bipolar disorder; Back pain; aj1 - PSHx: 18:57 Bowel resection; Appendectomy; aj1 - Immunization history:: Flu vaccine is not up to date. - Social history:: Smoking status: Patient/guardian denies using tobacco, Patient uses alcohol, on a daily basis. Reports drinking 2 beers daily. - Ebola Screening: : Patient denies travel to an Ebola-affected area in the 21 days before illness onset. ROS: 19:10 Constitutional: Negative for body aches, chills, fever, poor PO intake. cp 19:10 Eyes: Negative for injury, pain, redness, and discharge. cp 19:10 ENT: Negative for drainage from ear(s), ear pain, sore throat, difficulty swallowing, difficulty handling secretions. 19:10 Cardiovascular: Negative for chest pain, edema, palpitations. 19:10 Respiratory: Negative for cough, shortness of breath, wheezing. 19:10 Abdomen/GI: Positive for abdominal pain, nausea, Negative for vomiting, diarrhea, constipation, dysphagia, black/tarry stool, rectal bleeding. 19:10 Back: Negative for radiated pain. 19:10 : Negative for urinary symptoms, testicular pain 19:10 Skin: Negative for cellulitis, rash. 19:10 Neuro: Negative for altered mental status, dizziness, weakness. 19:10 All other systems are negative. Exam: 19:15 Constitutional: The patient appears alert, awake, non-diaphoretic, non-toxic, well cp developed, well nourished, in obvious distress, moderately distressed, in obvious pain, uncomfortable. 19:15 Head/Face: Normocephalic, atraumatic. cp 19:15 Eyes: Pupils equal round and reactive to light, extra-ocular motions intact. Lids and cp lashes normal. Conjunctiva and sclera are non-icteric and not injected. Cornea within normal limits. Periorbital areas with no swelling, redness, or edema. ENT: Nares patent. No nasal discharge, no septal abnormalities noted. Tympanic membranes are normal and external auditory canals are clear. Oropharynx with no redness, swelling, or masses, exudates, or evidence of obstruction, uvula midline. Mucous membranes moist. Chest/axilla: Normal chest wall appearance and motion. Nontender with no deformity. No lesions are appreciated. 19:15 Cardiovascular: Rate: tachycardic, Rhythm: regular, Heart sounds: murmur, not appreciated, rub, not appreciated, gallop, not appreciated, Edema: is not appreciated. 19:15 Respiratory: the patient does not display signs of respiratory distress, Respirations: normal, no use of accessory muscles, no retractions, no tachypnea, labored breathing, is not present. 19:15 Respiratory: Breath sounds: are clear throughout, no decreased breath sounds, no stridor, no wheezing. 19:15 Abdomen/GI: Inspection: distension, that is mild, Bowel sounds: active, all quadrants, Palpation: soft, in all quadrants, severe abdominal tenderness, in the right upper quadrant and left upper quadrant, rebound tenderness, is not appreciated, voluntary guarding, is elicited in the right upper quadrant and left upper quadrant. 19:15 Back: pain, is absent, ROM is normal. 19:15 Skin: cellulitis, is not appreciated, no rash present. 19:15 Neuro: Orientation: to person, place \\T\\ time. Mentation: is normal, Cerebellar function: is grossly normal, Motor: moves all fours, strength is normal, Sensation: is normal. Vital Signs: 18:57 BP 139 / 105; Pulse 115; Resp 28; Pulse Ox 95% on R/A; Weight 108.86 kg (R); Height 6 aj1 ft. 0 in. (182.88 cm) (R); Pain 10/10; 19:11 BP 143 / 94; Pulse 103; Resp 20; Pulse Ox 97% on R/A; kr2 20:27 BP 122 / 82; Pulse 89; Resp 16; Temp 98.1(O); Pulse Ox 98% 2 lpm ; kr2 21:45 BP 126 / 87; Pulse 80; Resp 16; Pulse Ox 99% on R/A; kr2 18:57 Body Mass Index 32.55 (108.86 kg, 182.88 cm) aj1 MDM: 18:54 Patient medically screened. cp 19:00 Differential diagnosis: appendicitis, bowel obstruction, cholecystitis, Cholelithiasis, cp diverticulitis, gastritis, pancreatitis, Peptic Ulcer Disease, Perf. Duodenal Ulcer, Perf. Gastric Ulcer, Ureterolithiasis, urinary tract infection, perforated bowel. 21:30 Data reviewed: vital signs, nurses notes, lab test result(s), radiologic studies, CT cp scan, plain films. 21:30 Response to treatment: the patient's symptoms have markedly improved after treatment. cp 21:32 ED course: VSS. Pain markedly improved. CT abdomen/pelvis negative for acute findings. cp Review of ED records show patient with concern for Crohns' disease. Will give IV steroids and treat with oral steroids and discharge to home for continued monitoring. Recommend f/u with GI. 05/24 18:49 Order name: Basic Metabolic Panel; Complete Time: 19:25 cp 05/24 18:49 Order name: CBC with Diff; Complete Time: 19:25 cp 05/24 19:36 Interpretation: Normal except: WBC 11.5; RBC 5.75; HCT 50.9; EOSINOPHIL % 4.9; EOSA 0.6.cp 05/24 18:49 Order name: Creatinine for Radiology; Complete Time: 19:35 cp 05/24 18:49 Order name: Hepatic Function; Complete Time: 19:25 cp 05/24 18:49 Order name: Lipase; Complete Time: 19:25 cp 05/24 18:53 Order name: ETOH Level cp 05/24 18:49 Order name: XRAY Chest (1 view); Complete Time: 20:24 cp 05/24 20:24 Interpretation: Report review. 05/24 18:50 Order name: CT Abd/Pelvis - W/Contrast: no oral contrast; Complete Time: 20:24 cp 05/24 20:20 Order name: Urine Dipstick--Ancillary (enter results) mw2 05/24 18:49 Order name: IV Saline Lock; Complete Time: 19:08 cp 05/24 18:49 Order name: Labs collected and sent; Complete Time: 19:08 cp 05/24 18:49 Order name: Urine Dipstick-Ancillary (obtain specimen); Complete Time: 20:24 cp Administered Medications: 18:59 Drug: Dilaudid 1 mg Route: IVP; Site: right antecubital; kr2 19:20 Follow up: Response: No adverse reaction; Pain is decreased; Pain is decreased but kr2 still severe 19:00 Drug: NS 0.9% 1000 ml Route: IV; Rate: 1 bolus; Site: right antecubital; kr2 20:06 Follow up: Response: No adverse reaction; IV Status: Completed infusion kr2 19:00 Drug: Zofran 4 mg Route: IVP; Site: right antecubital; kr2 19:20 Follow up: Response: No adverse reaction kr2 19:20 Drug: Dilaudid 1 mg Route: IVP; Site: right antecubital; kr2 20:05 Follow up: Response: No adverse reaction; Pain is decreased kr2 19:45 Drug: NS 0.9% 1000 ml Route: IV; Rate: 1 bolus; Site: right antecubital; kr2 21:00 Follow up: Response: No adverse reaction; IV Status: Completed infusion kr2 21:04 Drug: SOLU-Medrol 125 mg Route: IVP; Site: right antecubital; kr2 21:52 Follow up: Response: No adverse reaction kr2 21:39 Drug: Bentyl 20 mg Route: PO; kr2 21:52 Follow up: Response: Medication administered at discharge. kr2 21:39 Drug: GI Cocktail without - (Maalox Suspension 30 ml, Lidocaine Liquid 2 % 15 kr2 ml) Route: PO; 21:53 Follow up: Response: Medication administered at discharge. kr2 Disposition: 05/25 19:21 Co-signature as Attending Physician, Luke Mcgill MD. rn Disposition: 05/24/18 21:32 Discharged to Home. Impression: Other abdominal pain - with history of Crohn's disease. - Condition is Stable. - Discharge Instructions: Abdominal Pain, Adult, Crohn Disease. - Prescriptions for docusate sodium 100 mg Oral capsule - take 1 capsule by ORAL route 2 times per day As needed while taking pain medications; 20 capsule. Tylenol- Codeine #3 300-30 mg Oral Tablet - take 2 tablets by ORAL route every 6 hours As needed; 20 tablet. Medrol (Dusty) 4 mg Oral Tablets, Dose Pack - take 1 tablet by ORAL route as directed - follow package instructions; 1 packet. promethazine 25 mg Oral Tablet - take 1 tablet by ORAL route every 6 hours As needed; 20 tablet. - Medication Reconciliation Form, Thank You Letter, Antibiotic Education, Prescription Opioid Use, Work release form form. - Follow up: Nicholas Ding MD; When: 5 - 6 days; Reason: Recheck today's complaints. - Problem is new. - Symptoms have improved. Signatures: Dispatcher [employer] EDCarmen Zee RN RN aj1 Luke Mcgill MD MD rn Page, Corey, PA PA cp Ashleigh Warner RN RN kr2 Corrections: (The following items were deleted from the chart) 05/24 19:36 19:25 Normal except: WBC 11.5; RBC 5.75; HCT 50.9; EOSINOPHIL % 4.9. cp cp 22:01 21:32 05/24/2018 21:32 Discharged to Home. Impression: Other abdominal pain - with kr2 history of Crohn's disease. Condition is Stable. Forms are Medication Reconciliation Form, Thank You Letter, Antibiotic Education, Prescription Opioid Use. Follow up: Nicholas Ding; When: 5 - 6 days; Reason: Recheck today's complaints. Problem is new. Symptoms have improved. cp 05/25 06:20 10 19:05 The patient presents with abdominal pain that is diffuse, cp cp
--- NOTE | 2018-05-24 21:33 | ER ---
Nurse's Notes [facility] Name: James Cuba Age: 32 yrs Sex: Male : 1985 Arrival Date: 05/24/2018 Time: 18:45 Bed 24 Private MD: Diagnosis: Other abdominal pain-with history of Crohn's disease Presentation: 05/24 18:53 Presenting complaint: Patient states: He was at [employer] eating and having a drink when aj1 he suddenly started having severe epigastric pain. Reports pain starting approximately 10 minutes ago. Patient is restless, guarding, moaning appears distressed. Reports that he has been taking antibiotics for the past week to "get rid of any infection because my allergies are really bad". Transition of care: patient was not received from another setting of care. Onset of symptoms was May 24, 2018. Risk Assessment: Do you want to hurt yourself or someone else? Patient reports no desire to harm self or others. Initial Sepsis Screen: Does the patient meet any 2 criteria? HR > 90 bpm. No. Patient's initial sepsis screen is negative. Does the patient have a suspected source of infection? Yes: Acute abdominal pain. Care prior to arrival: None. 18:53 Method Of Arrival: Ambulatory aj1 18:53 Acuity: KIKI 2 aj1 Triage Assessment: 18:57 General: Appears distressed, uncomfortable, Behavior is cooperative, agitated, aj1 restless. Pain: Complains of pain in abdomen Pain currently is 10 out of 10 on a pain scale. Noted to be grimacing, guarding, moaning, resistant to movement, restless. Neuro: Level of Consciousness is awake, alert, obeys commands. Cardiovascular: Patient's skin is warm and dry. Respiratory: Airway is patent Respiratory effort is even, unlabored, Respiratory pattern is regular, symmetrical. GI: Reports upper abdominal pain. Historical: - Allergies: 18:57 No Known Allergies; aj1 - Home Meds: 18:57 Baclofen Oral [Active]; "mood stabilizer, I think it starts with C" [Active]; aj1 - PMHx: 18:57 hypoglycemia, asthma, gynecomastia; Bipolar disorder; Back pain; aj1 - PSHx: 18:57 Bowel resection; Appendectomy; aj1 - Immunization history:: Flu vaccine is not up to date. - Social history:: Smoking status: Patient/guardian denies using tobacco, Patient uses alcohol, on a daily basis. Reports drinking 2 beers daily. - Ebola Screening: : Patient denies travel to an Ebola-affected area in the 21 days before illness onset. Screenin:00 Abuse screen: Denies threats or abuse. Denies injuries from another. Nutritional kr2 screening: No deficits noted. Tuberculosis screening: No symptoms or risk factors identified. Fall Risk None identified. Assessment: 19:00 General: Appears in no apparent distress. uncomfortable, well groomed, Behavior is kr2 cooperative, restless, moaning . Pain: Complains of pain in epigastric area, umbilical area, right upper quadrant and left upper quadrant Pain radiates to abdomen Pain currently is 10 out of 10 on a pain scale. Quality of pain is described as sharp, shooting, stabbing, Pain began suddenly, Is continuous, Alleviated by nothing. Aggravated by increased activity, Noted to be grimacing, guarding, moaning. Neuro: Level of Consciousness is awake, alert, obeys commands, Oriented to person, place, time, situation. Cardiovascular: Capillary refill < 3 seconds in bilateral fingers Patient's skin is warm and dry. Respiratory: Airway is patent Respiratory effort is even, unlabored, Respiratory pattern is regular, symmetrical. GI: Bowel sounds present X 4 quads. Abd is soft X 4 quads Abdomen is tender to palpation X 4 quads. EENT: Oral mucosa is moist. Derm: Skin is intact, is healthy with good turgor, Skin is pink, warm \\T\\ dry. Musculoskeletal: Circulation, motion, and sensation intact. 20:10 Reassessment: Patient appears in no apparent distress at this time. Patient and/or kr2 family updated on plan of care and expected duration. Pain level reassessed. Patient sleeping, saturation 88% on room air, awakens easily, oxygen placed on via NC \\T\\ 2 LPM, saturation up to 96%. Patient provided urinal. Urine specimen obtained as ordered. 20:57 Reassessment: Patient appears in no apparent distress at this time. Patient and/or kr2 family updated on plan of care and expected duration. Pain level reassessed. Solu-Medrol on hold at this time per provider Patient states feeling better. 21:00 Reassessment: Per MONSTER Ruffin. give solu-medrol, see MAR. Patient alert, no distress, kr2 oxygen removed. 21:45 Reassessment: Patient appears in no apparent distress at this time. Patient and/or kr2 family updated on plan of care and expected duration. Pain level reassessed. Patient is alert, oriented x 3, equal unlabored respirations, skin warm/dry/pink. Patient's saturations on room air staying above 95%. Vital Signs: 18:57 BP 139 / 105; Pulse 115; Resp 28; Pulse Ox 95% on R/A; Weight 108.86 kg (R); Height 6 aj1 ft. 0 in. (182.88 cm) (R); Pain 10/10; 19:11 BP 143 / 94; Pulse 103; Resp 20; Pulse Ox 97% on R/A; kr2 20:27 BP 122 / 82; Pulse 89; Resp 16; Temp 98.1(O); Pulse Ox 98% 2 lpm ; kr2 21:45 BP 126 / 87; Pulse 80; Resp 16; Pulse Ox 99% on R/A; kr2 18:57 Body Mass Index 32.55 (108.86 kg, 182.88 cm) aj1 ED Course: 18:45 Patient arrived in ED. tw3 18:47 Ashleigh Warner, NASIR is Primary Nurse. kr2 18:48 Tito Isidro PA is PHCP. cp 18:48 Hunter Doyle MD is Attending Physician. cp 18:55 Triage completed. aj1 18:57 Arm band placed on Patient placed in an exam room, Patient triaged at bedside. roberto Gillespie PA at bedside during triage. 18:58 Inserted saline lock: 18 gauge in right antecubital area, using aseptic technique. ss Blood collected. 19:01 Patient has correct armband on for positive identification. Bed in low position. Call kr2 light in reach. Side rails up X2. Pulse ox on. NIBP on. Door closed. Warm blanket given. Head of bed elevated. 19:10 XRAY Chest (1 view) In Process Unspecified. EDMS 19:[address] via wheelchair. nj 19:43 CT completed. Patient tolerated procedure well. Patient moved back from CT. nj 19:45 CT Abd/Pelvis - W/Contrast: no oral contrast In Process Unspecified. EDMS 20:08 ETOH Level Sent. kr2 20:53 Luke Mcgill MD is Attending Physician. cp 21:31 Nicholas Ding MD is Referral Physician. cp 21:55 No provider procedures requiring assistance completed. IV discontinued, intact, kr2 bleeding controlled, No redness/swelling at site. Pressure dressing applied. Administered Medications: 18:59 Drug: Dilaudid 1 mg Route: IVP; Site: right antecubital; kr2 19:20 Follow up: Response: No adverse reaction; Pain is decreased; Pain is decreased but kr2 still severe 19:00 Drug: NS 0.9% 1000 ml Route: IV; Rate: 1 bolus; Site: right antecubital; kr2 20:06 Follow up: Response: No adverse reaction; IV Status: Completed infusion kr2 19:00 Drug: Zofran 4 mg Route: IVP; Site: right antecubital; kr2 19:20 Follow up: Response: No adverse reaction kr2 19:20 Drug: Dilaudid 1 mg Route: IVP; Site: right antecubital; kr2 20:05 Follow up: Response: No adverse reaction; Pain is decreased kr2 19:45 Drug: NS 0.9% 1000 ml Route: IV; Rate: 1 bolus; Site: right antecubital; kr2 21:00 Follow up: Response: No adverse reaction; IV Status: Completed infusion kr2 21:04 Drug: SOLU-Medrol 125 mg Route: IVP; Site: right antecubital; kr2 21:52 Follow up: Response: No adverse reaction kr2 21:39 Drug: Bentyl 20 mg Route: PO; kr2 21:52 Follow up: Response: Medication administered at discharge. kr2 21:39 Drug: GI Cocktail without - (Maalox Suspension 30 ml, Lidocaine Liquid 2 % 15 kr2 ml) Route: PO; 21:53 Follow up: Response: Medication administered at discharge. kr2 Outcome: 21:32 Discharge ordered by . cp 21:55 Discharged to home ambulatory, with family. kr2 21:55 Condition: improved 21:55 Discharge instructions given to patient, family, Instructed on discharge instructions, follow up and referral plans. medication usage, Demonstrated understanding of instructions, follow-up care, medications, Prescriptions given X 4. 22:01 Patient left the ED. kr2 Signatures: Dispatcher [employer] EDMS Carmen Browne RN RN aj1 Felecia Hodge RN RN ss Page, Corey, PA PA cp Jordan, Nathan nj Wade, [facility] tw3 Ashleigh Warner RN RN kr2 Corrections: (The following items were deleted from the chart) 20:48 20:27 BP 122 / 82; Pulse 89bpm; Resp 16bpm; Pulse Ox 98% RA; kr2 kr2 21:59 20:27 BP 122 / 82; Pulse 89bpm; Resp 16bpm; Pulse Ox 98% RA; Temp 98.1F Oral; kr2 kr2 22:01 21:45 Reassessment: Patient appears in no apparent distress at this time. Patient kr2 and/or family updated on plan of care and expected duration. Pain level reassessed. Patient is alert, oriented x 3, equal unlabored respirations, skin warm/dry/pink. kr2 22:01 21:00 Reassessment: Per MONSTER Ruffin. give solu-medrol, see MAR kr2 kr2 22:01 21:00 Reassessment: Per MONSTER Ruffin. give solu-medrol, see MAR. Patient alert, no kr2 distressed, oxygen removed. kr2
[2018-05-24 21:34] LABS: Urine Blood TRACE (NEG); Urine Glucose NEGATIVE (NEG); Urine Protein NEGATIVE (NEG); Urine Specific Gravity 1.015 (1.005-1.030)
[2018-05-24] MEDS ORDERED: MAGNE/ALUM HYDROXD 30 ML UCUP ONE (21:41)
[2018-05-24] MEDS ORDERED: DICYCLOMINE HCL 10 MG CAP ONE (21:41)
[2018-05-24] MEDS ORDERED: LIDOCAINE VISCOUS 2% SOLN 15 ML UDC ONE (21:41)
[2018-05-24 22:08] VITALS: TEMP 98.1
[2018-05-24 22:09] VITALS: BP 126/87; O2SAT 99
== END 2018-05-24 22:01 | disposition home or self-care (01) ==
LOC: ER 18:43
DX: R10.10 Upper abdominal pain, unspecified (principal); K50.90 Crohn's disease, unspecified, without complications; F31.9 Bipolar disorder, unspecified
CPT/HCPCS: 36415; 71045; 74177; 80048; 80076; 80320; 81003; 83690; 85025; 96361; 96374; 96375; 99284; J1170; J2405; J2930; J7030; Q9967

== ENCOUNTER 2018-06-12 19:24 | Emergency (ER) | payer BC ==
--- OUTSIDE RECORDS SUMMARY | 2018-06-12 19:26 | XMS REPORT | Clinical Summary ---
:1985 Author Organization [facility] Address [address] [place] [id number] Care Team Providers Name Role Phone Asked, [...] INFLUENZA VACCINE 03/05/2018 Results Not on fileafter 06/11/2017
[2018-06-12] MEDS ORDERED: NA CHLORIDE 0.9% 1,000 ML ONE (19:54)
[2018-06-12] MEDS ORDERED: ASPIRIN EC 81 MG TAB PO ONE (19:54)
[2018-06-12] MEDS ORDERED: ASPIRIN 81 MG CHEWABLE TABLET ONE (20:03)
[2018-06-12 20:10] LABS: Absolute Lymphocytes (CBC) 1.7 K/uL (0.7-4.9); Absolute Monocytes 0.7 K/uL (0.1-1.3); Absolute Neutrophil 5.5 K/uL (1.8-8.0); Basophils % 0.7 % (0-1.3); Eosinophils % 2.6 % (0-4.4); Hematocrit 48.5 % (39.6-49.0); Lymphocytes % 20.7 % (15.3-44.8); MCH 30.3 pg (27.0-35.0); MCV 89.2 fL (80-100); MPV 7.9 fL (7.6-11.3); Monocytes % 8.2 % (3.3-12.3); RBC Red Blood Cell Count 5.43 M/uL (4.33-5.43)
[2018-06-12 20:11] LABS: Protime INR 0.9
[2018-06-12 20:29] LABS: ALT/SGPT 59 U/L (12-78); AST/SGOT 25 U/L (15-37); Albumin 3.6 g/dL (3.4-5.0); Alkaline Phosphatase 70 U/L (45-117); BUN Blood Urea Nitrogen 12 mg/dL (7-18); Bicarbonate 29 mmol/L (21-32); Bilirubin Direct < 0.1 mg/dL (0-0.2); Bilirubin Total 0.3 mg/dL (0.2-1.0); Glucose Level 170 mg/dL (74-106); Magnesium 2.3 mg/dL (1.8-2.4); NT PRO-BNP 7 pg/mL (<125); Potassium 4.1 mmol/L (3.5-5.1); Protein, Total 7.1 g/dL (6.4-8.2); Sodium Level 138 mmol/L (136-145); Troponin (Emerg Dept Use Only) < 0.02 ng/mL (0.0-0.045)
--- NOTE | 2018-06-12 20:35 | RAD REPORT ---
EXAM DESCRIPTION: USExtrem Venous W Compress Bil06/12/2018 8:22 pm CLINICAL HISTORY: Bilateral leg pain COMPARISON: none FINDINGS: The common femoral, superficial femoral, popliteal and posterior tibial veins bilaterally are compressible and demonstrate augmentation. Doppler demonstrates good flow. IMPRESSION: No evidence of deep venous thrombosis involving either lower extremity.
[2018-06-12] MEDS ORDERED: KETOROLAC 30 MG/ML INJ ONE (20:54)
--- NOTE | 2018-06-12 21:01 | RAD REPORT ---
EXAM DESCRIPTION: Jessica Single View06/12/2018 8:35 pm CLINICAL HISTORY: Chest pain COMPARISON: May 2018 FINDINGS: The lungs appear clear of acute infiltrate. The heart is normal size IMPRESSION: No acute abnormalities displayed
--- NOTE | 2018-06-12 23:50 | EDPHYS ---
Physician Documentation [facility] Name: James Cuba Age: 33 yrs Sex: Male : 1985 Arrival Date: 06/12/2018 Time: 19:26 Bed 20 Private MD: ED Physician Pramod Dunn HPI: 06/12 19:45 This 33 yrs old Male presents to ER via Ambulatory with complaints of High cp Blood Pressure, Leg Pain, Chest Pain. 19:45 The patient has elevated blood pressure and discovered this at home, with a home device.cp 19:45 Onset: The symptoms/episode began/occurred gradually. Associated signs and symptoms: cp Pertinent positives: chest pain, bilateral leg pain. 19:45 Severity of symptoms: At its worst the blood pressure was 158 mm Hg. cp 19:45 Patient reports PCP stopped prescribed lisinopril for blood pressure due to complaints cp of leg pain. Patient reports noticing elevated blood pressure today and chest pain for past 2-3 days. Historical: - Allergies: 19:30 No Known Allergies; aj1 - Home Meds: 19:30 "mood stabilizer, I think it starts with C" [Active]; albuterol sulfate 90 aj1 mcg/actuation Inhl HFAA 2 puffs as needed [Active]; Baclofen Oral [Active]; Cialis Oral [Active]; citalopram 10 mg tab 1 tab once daily [Active]; Skelaxin 800 mg Oral tab 1 tab as needed [Active]; - PMHx: 19:30 Back pain; Bipolar disorder; Diabetes - NIDDM; hypoglycemia, asthma, gynecomastia; aj1 - Immunization history:: Flu vaccine is not up to date. - Social history:: Smoking status: Patient/guardian denies using tobacco. - Ebola Screening: : Patient denies travel to an Ebola-affected area in the 21 days before illness onset. ROS: 19:50 Constitutional: Negative for body aches, chills, fever, poor PO intake. cp 19:50 Eyes: Negative for injury, pain, redness, and discharge. cp 19:50 Neck: Negative for pain with movement, pain at rest, stiffness. 19:50 Cardiovascular: Positive for chest pain, Negative for edema, palpitations. 19:50 Respiratory: Negative for cough, shortness of breath, wheezing. 19:50 Abdomen/GI: Negative for abdominal pain, nausea, vomiting, and diarrhea, constipation, black/tarry stool, rectal bleeding. 19:50 : Negative for urinary symptoms. 19:50 Skin: Negative for cellulitis, rash. 19:50 Neuro: Negative for altered mental status, dizziness, headache, syncope, near syncope, weakness. 19:50 All other systems are negative. Exam: 19:58 ECG was reviewed by the Attending Physician. cp 20:00 Constitutional: The patient appears in no acute distress, alert, awake, cp non-diaphoretic, non-toxic, well developed, well nourished. 20:00 Head/Face: Normocephalic, atraumatic. Eyes: Pupils equal round and reactive to light, cp extra-ocular motions intact. Lids and lashes normal. Conjunctiva and sclera are non-icteric and not injected. Cornea within normal limits. Periorbital areas with no swelling, redness, or edema. ENT: Nares patent. No nasal discharge, no septal abnormalities noted. Tympanic membranes are normal and external auditory canals are clear. Oropharynx with no redness, swelling, or masses, exudates, or evidence of obstruction, uvula midline. Mucous membranes moist. Neck: Trachea midline, no thyromegaly or masses palpated, and no cervical lymphadenopathy. Supple, full range of motion without nuchal rigidity, or vertebral point tenderness. No Meningismus. Chest/axilla: Normal chest wall appearance and motion. Nontender with no deformity. No lesions are appreciated. 20:00 Cardiovascular: Rate: normal, Rhythm: regular, Pulses: Pulses are 2+ in right radial artery and left radial artery. Heart sounds: murmur, not appreciated, rub, not appreciated, gallop, not appreciated, Edema: is not appreciated, JVD: is not appreciated. 20:00 Respiratory: the patient does not display signs of respiratory distress, Respirations: normal, no use of accessory muscles, no retractions, no splinting, no tachypnea, labored breathing, is not present, Breath sounds: are clear throughout, no decreased breath sounds, no stridor, no wheezing. 20:00 Abdomen/GI: Inspection: abdomen appears normal, Bowel sounds: active, all quadrants, Palpation: abdomen is soft and non-tender, in all quadrants, rebound tenderness, is not appreciated, involuntary guarding, is not appreciated. 20:00 Back: pain, is absent, ROM is normal. 20:00 Musculoskeletal/extremity: DVT Exam: no swelling, no erythema, no increased warmth, pain, that is moderate, of the right leg, of the left leg. 20:00 Skin: cellulitis, is not appreciated, no rash present. 20:00 Neuro: Orientation: to person, place \\T\\ time. Mentation: is normal, Cerebellar function: is grossly normal, Motor: is normal, Sensation: is normal. 22:37 ECG was reviewed by the Attending Physician. cp Vital Signs: 19:30 BP 140 / 86; Pulse 99; Resp 20; Temp 97.2; Pulse Ox 96% on R/A; Weight 111.13 kg (R); aj1 Height 6 ft. 0 in. (182.88 cm) (R); Pain 6/10; 20:30 BP 115 / 66; Pulse 83; Resp 18; Pulse Ox 97% on R/A; jb4 21:20 BP 134 / 86; Pulse 81; Resp 18; Pulse Ox 98% on R/A; jb4 22:51 BP 134 / 76; Pulse 86; Resp 18; Pulse Ox 98% on R/A; jb4 23:52 BP 134 / 69; Pulse 76; Resp 16; Pulse Ox 97% on R/A; jb4 19:30 Body Mass Index 33.23 (111.13 kg, 182.88 cm) aj1 MDM: 19:37 Patient medically screened. cp 20:00 Differential diagnosis: hypertensive crisis, Malignant HTN, CVA, intracerebral cp hemorrhage, acute IA, DVT. 23:49 Data reviewed: vital signs, nurses notes, lab test result(s), EKG, radiologic studies, cp plain films, ultrasound. 23:49 Test interpretation: by ED physician or midlevel provider: ECG, plain radiologic cp studies. Counseling: I had a detailed discussion with the patient and/or guardian regarding: the historical points, exam findings, and any diagnostic results supporting the discharge/admit diagnosis, lab results, radiology results, the need for outpatient follow up, a family practitioner, to return to the emergency department if symptoms worsen or persist or if there are any questions or concerns that arise at home. Response to treatment: the patient's symptoms have markedly improved after treatment, VSS. Pain improved with IV fluids and meds. Blood pressure improved. Will discharge to home for continued monitoring. 06/12 19:41 Order name: Basic Metabolic Panel; Complete Time: 20:35 cp 06/12 20:35 Interpretation: Normal except: GLUC 170; GFR 69. 06/12 19:41 Order name: CBC with Diff; Complete Time: 20:35 cp 06/12 19:41 Order name: LFT's; Complete Time: 20:35 06/12 20:46 Interpretation: Normal except: A/G 1.0. 06/12 19:41 Order name: Magnesium; Complete Time: 20:35 cp 06/12 19:41 Order name: NT PRO-BNP; Complete Time: 20:35 cp 06/12 19:41 Order name: PT-INR; Complete Time: 20:35 06/12 19:41 Order name: Troponin (emerg Dept Use Only); Complete Time: 20:35 06/12 19:41 Order name: XRAY Chest (1 view); Complete Time: 21:14 06/12 21:14 Interpretation: Report review. 06/12 19:41 Order name: EKG; Complete Time: 19:42 06/12 19:41 Order name: US Extremity Venous W Compression Gabriel; Complete Time: 20:45 06/12 20:46 Interpretation: Report reviewed. 06/12 22:30 Order name: Troponin I; Complete Time: 23:48 06/12 19:41 Order name: Cardiac monitoring; Complete Time: 19:58 06/12 19:41 Order name: EKG - Nurse/Tech; Complete Time: 19:57 06/12 19:41 Order name: IV Saline Lock; Complete Time: 19:57 06/12 19:41 Order name: Labs collected and sent; Complete Time: 19:57 06/12 19:41 Order name: O2 Per Protocol; Complete Time: 19:57 cp 06/12 19:41 Order name: O2 Sat Monitoring; Complete Time: 19:57 06/12 22:30 Order name: EKG; Complete Time: 22:30 06/12 22:30 Order name: EKG - Nurse/Tech; Complete Time: 22:37 cp EC:58 Rate is 88 beats/min. Rhythm is regular. TX interval is normal. QRS interval is cp prolonged at 118 msec. QT interval is normal. T waves are Flattened in lead aVL. Interpreted by me. Reviewed by me. 22:37 Rate is 66 beats/min. Rhythm is regular. TX interval is normal. QRS interval is cp prolonged at 116 msec. QT interval is normal. Interpreted by me. Reviewed by me. Administered Medications: 19:57 Drug: NS 0.9% 1000 ml Route: IV; Rate: 1 bolus; Site: right antecubital; jb4 21:00 Follow up: Response: No adverse reaction; IV Status: Completed infusion jb4 19:57 Drug: Aspirin Chewable Tablet 324 mg Route: PO; jb4 22:37 Follow up: Response: No adverse reaction jb4 20:48 Drug: TORadol 30 mg Route: IVP; Site: right antecubital; jb4 22:37 Follow up: Response: No adverse reaction; Pain is decreased jb4 Disposition: 06/12/18 23:49 Discharged to Home. Impression: Chest pain, unspecified, Elevated blood-pressure reading, without diagnosis of hypertension, Hyperglycemia, unspecified, Pain in left leg, Pain in right leg. - Condition is Stable. - Discharge Instructions: Nonspecific Chest Pain, Hyperglycemia, Musculoskeletal Pain, Blood Glucose Monitoring, Adult, How to Take Your Blood Pressure, [id number], Aspirin and Your Heart. - Prescriptions for Anaprox DS 550 mg Oral Tablet - take 1 tablet by ORAL route every 12 hours As needed; 20 tablet. - Medication Reconciliation Form, Thank You Letter, Antibiotic Education, Prescription Opioid Use form. - Follow up: Private Physician; When: Tomorrow; Reason: Recheck today's complaints. - Problem is new. - Symptoms have improved. Addendum: 06/14/2018 04:06 Co-signature as Attending Physician, Pramod Dunn MD I agree with the assessment and w a plan of care. Signatures: Dispatcher [employer] EDCarmen Zee RN RN aj1 Tito Isidro PA PA cp Bryson, James, RN RN jb4 Pramod Dunn MD MD me Corrections: (The following items were deleted from the chart) 06/13 00:06 06/12 23:49 06/12/2018 23:49 Discharged to Home. Impression: Chest pain, unspecified; jb4 Elevated blood-pressure reading, without diagnosis of hypertension; Hyperglycemia, unspecified; Pain in left leg; Pain in right leg. Condition is Stable. Forms are Medication Reconciliation Form, Thank You Letter, Antibiotic Education, Prescription Opioid Use. Follow up: Private Physician; When: Tomorrow; Reason: Recheck today's complaints. Problem is new. Symptoms have improved. cp
--- NOTE | 2018-06-12 23:50 | ER ---
Nurse's Notes [facility] Name: James Cuba Age: 33 yrs Sex: Male : 1985 Arrival Date: 06/12/2018 Time: 19:26 Bed 20 Private MD: Diagnosis: Chest pain, unspecified;Elevated blood-pressure reading, without diagnosis of hypertension;Hyperglycemia, unspecified;Pain in left leg;Pain in right leg Presentation: 06/12 19:28 Presenting complaint: Patient states: "I started blood pressure medicine Saturday because aj1 my blood pressure was high. Today they took me off of it because my legs were like Mayank horses, I checked my blood pressure when I got home and it was 158/104." Reports chest tightness since Saturday. Transition of care: patient was not received from another setting of care. Onset of symptoms was June 2018. Risk Assessment: Do you want to hurt yourself or someone else? Patient reports no desire to harm self or others. Initial Sepsis Screen: Does the patient meet any 2 criteria? No. Patient's initial sepsis screen is negative. Does the patient have a suspected source of infection? No. Patient's initial sepsis screen is negative. Care prior to arrival: None. 19:28 Method Of Arrival: Ambulatory aj1 19:28 Acuity: KIKI 3 aj1 Triage Assessment: 19:30 General: Appears in no apparent distress. comfortable, Behavior is calm, cooperative, aj1 appropriate for age. Pain: Complains of pain in mid-sternal area Pain currently is 6 out of 10 on a pain scale. Neuro: Level of Consciousness is awake, alert, obeys commands. Cardiovascular: Reports chest pain, Patient's skin is warm and dry. Respiratory: Airway is patent Respiratory effort is even, unlabored, Respiratory pattern is regular, symmetrical. Historical: - Allergies: 19:30 No Known Allergies; aj1 - Home Meds: 19:30 "mood stabilizer, I think it starts with C" [Active]; albuterol sulfate 90 aj1 mcg/actuation Inhl HFAA 2 puffs as needed [Active]; Baclofen Oral [Active]; Cialis Oral [Active]; citalopram 10 mg tab 1 tab once daily [Active]; Skelaxin 800 mg Oral tab 1 tab as needed [Active]; - PMHx: 19:30 Back pain; Bipolar disorder; Diabetes - NIDDM; hypoglycemia, asthma, gynecomastia; aj1 - Immunization history:: Flu vaccine is not up to date. - Social history:: Smoking status: Patient/guardian denies using tobacco. - Ebola Screening: : Patient denies travel to an Ebola-affected area in the 21 days before illness onset. Screenin:00 Abuse screen: Denies threats or abuse. Nutritional screening: No deficits noted. jb4 Tuberculosis screening: No symptoms or risk factors identified. Fall Risk None identified. Assessment: 19:55 Reassessment: Patient appears in no apparent distress at this time. Pt taken to u/s at aa1 this time via wheelchair. 20:00 General: Appears in no apparent distress. uncomfortable, Behavior is calm, cooperative, jb4 appropriate for age. Pain: Complains of pain in chest, right leg and left leg Pain does not radiate. Pain currently is 6 out of 10 on a pain scale. at worst was 10 out of 10 on a pain scale. Pain began 2-3 days ago. Neuro: Level of Consciousness is awake, alert, obeys commands, Oriented to person, place, time, situation. Cardiovascular: Reports chest tightness. Heart tones S1 S2 present Patient's skin is warm and dry. Rhythm is sinus rhythm. Respiratory: Airway is patent Respiratory effort is even, unlabored, Respiratory pattern is regular, symmetrical, Breath sounds are clear bilaterally. GI: No signs and/or symptoms were reported involving the gastrointestinal system. : No signs and/or symptoms were reported regarding the genitourinary system. EENT: No signs and/or symptoms were reported regarding the EENT system. Derm: Skin is intact, Skin is pink, warm \\T\\ dry. Musculoskeletal: Circulation, motion, and sensation intact. 21:19 Reassessment: Patient appears in no apparent distress at this time. Patient and/or jb4 family updated on plan of care and expected duration. Pain level reassessed. Patient is alert, oriented x 3, equal unlabored respirations, skin warm/dry/pink. Patient states feeling better. 22:27 Reassessment: Patient appears in no apparent distress at this time. Patient and/or jb4 family updated on plan of care and expected duration. Pain level reassessed. Patient is alert, oriented x 3, equal unlabored respirations, skin warm/dry/pink. 23:15 Reassessment: Patient appears in no apparent distress at this time. Patient and/or jb4 family updated on plan of care and expected duration. Pain level reassessed. Patient is alert, oriented x 3, equal unlabored respirations, skin warm/dry/pink. 06/13 00:04 Reassessment: Patient appears in no apparent distress at this time. Patient and/or jb4 family updated on plan of care and expected duration. Pain level reassessed. Patient is alert, oriented x 3, equal unlabored respirations, skin warm/dry/pink. discussed D/c, F/u with pt, denies questions or concerns. Vital Signs: 06/12 19:30 BP 140 / 86; Pulse 99; Resp 20; Temp 97.2; Pulse Ox 96% on R/A; Weight 111.13 kg (R); aj1 Height 6 ft. 0 in. (182.88 cm) (R); Pain 6/10; 20:30 BP 115 / 66; Pulse 83; Resp 18; Pulse Ox 97% on R/A; jb4 21:20 BP 134 / 86; Pulse 81; Resp 18; Pulse Ox 98% on R/A; jb4 22:51 BP 134 / 76; Pulse 86; Resp 18; Pulse Ox 98% on R/A; jb4 23:52 BP 134 / 69; Pulse 76; Resp 16; Pulse Ox 97% on R/A; jb4 19:30 Body Mass Index 33.23 (111.13 kg, 182.88 cm) aj1 ED Course: 19:26 Patient arrived in ED. al2 19:30 Triage completed. aj1 19:30 Arm band placed on Patient placed in an exam room. aj1 19:32 Tito Isidro PA is PHCP. cp 19:32 Prmaod Dunn MD is Attending Physician. cp 19:36 Cristi Dickey, NASIR is Primary Nurse. jb4 19:50 Initial lab(s) drawn, by me, sent to lab. Inserted saline lock: 18 gauge in right aa1 antecubital area, using aseptic technique. Blood collected. 20:00 Patient has correct armband on for positive identification. Bed in low position. Call jb4 light in reach. Side rails up X 1. classroom monitor on. Pulse ox on. NIBP on. 20:00 Patient maintains SpO2 saturation greater than 95% on room air. jb4 20:22 US Extremity Venous W Compression Gabriel In Process Unspecified. EDMS 20:36 XRAY Chest (1 view) In Process Unspecified. EDMS 06/13 00:05 No provider procedures requiring assistance completed. jb4 00:05 IV discontinued, intact, bleeding controlled. jb4 Administered Medications: 06/12 19:57 Drug: NS 0.9% 1000 ml Route: IV; Rate: 1 bolus; Site: right antecubital; jb4 21:00 Follow up: Response: No adverse reaction; IV Status: Completed infusion jb4 19:57 Drug: Aspirin Chewable Tablet 324 mg Route: PO; jb4 22:37 Follow up: Response: No adverse reaction jb4 20:48 Drug: TORadol 30 mg Route: IVP; Site: right antecubital; jb4 22:37 Follow up: Response: No adverse reaction; Pain is decreased jb4 Outcome: 23:49 Discharge ordered by MD. smith 06/13 00:06 Discharged to home ambulatory. jb4 Condition: stable Discharge instructions given to patient, Instructed on discharge instructions, follow up and referral plans. medication usage, Demonstrated understanding of instructions, follow-up care, medications, Prescriptions given X 1. 00:06 Patient left the ED. jb4 Signatures: Dispatcher [employer] EDCarmen Zee RN RN aj1 Shahida Marroquin RN RN aa1 Tito Isidro PA PA cp Bryson, James, RN RN jb4 [place] Frost2
[2018-06-13 00:32] VITALS: TEMP 97.2
[2018-06-13 00:37] VITALS: BP 134/69; O2SAT 97
--- NOTE | 2018-06-13 07:07 | EKG ---
Test Date: 2018-06-12 Test Time: 22:30:47 Slubber Frame Changer: CONG MEASUREMENT RESULTS: Intervals: Rate: 66 DE: 158 QRSD: 116 QT: 406 QTc: 425 [place]: P: 37 DE: 158 QRS: 83 T: 72 INTERPRETIVE STATEMENTS: Normal sinus rhythm Incomplete right bundle branch block Borderline ECG Compared to ECG 06/12/2018 19:44:17 No significant changes Electronically Signed On 06-13-18 07:06:57 STADIUM MANAGER by Jarad Allen
--- NOTE | 2018-06-13 07:08 | EKG ---
Test Date: 2018-06-12 Test Time: 19:44:17 Box Feeder: CONG MEASUREMENT RESULTS: Intervals: Rate: 88 CT: 142 QRSD: 118 QT: 378 QTc: 457 [place]: P: 70 CT: 142 QRS: 82 T: 75 INTERPRETIVE STATEMENTS: Normal sinus rhythm Incomplete right bundle branch block Borderline ECG Compared to ECG 04/10/2018 22:24:01 Incomplete right bundle-branch block now present Intraventricular conduction delay no longer present Electronically Signed On 06-13-18 07:07:00 RELATIONS MGR by Jarad Allen
== END 2018-06-13 00:06 | disposition home or self-care (01) ==
LOC: ER 19:24
DX: R03.0 Elevated blood-pressure reading, without diagnosis of hypertension (principal); E11.65 Type 2 diabetes mellitus with hyperglycemia; M79.605 Pain in left leg; M79.604 Pain in right leg; F31.9 Bipolar disorder, unspecified
CPT/HCPCS: 36415; 71045; 80048; 80076; 83735; 83880; 84484; 85025; 85610; 93005; 93970; 96361; 96374; 99285; J7030

== ENCOUNTER 2018-09-05 22:12 | Emergency (ER) | payer BC ==
--- OUTSIDE RECORDS SUMMARY | 2018-09-05 22:14 | XMS REPORT | Clinical Summary ---
:1985 Author Organization [facility] Address [address] [place] [address] Care Team Providers Name Role Phone Asked, No Pcp Primary Care Provider Unavailable Allergies No Known Allergies Medications No known medications Active Problems Not on file Social History Tobacco Use Types Packs/Day Years Used Date Current Every Day Smoker Alcohol Use Drinks/Week oz/Week Comments No Sex Assigned at Date Recorded Not on file Job Start Date Occupation Industry Not on file Not on file Not on file Travel History Travel Start Travel End No recent travel history available. Last Filed Vital Signs Not on file Plan of Treatment Health Maintenance Due Date Last Done Comments INFLUENZA VACCINE 03/05/2018 Results Not on fileafter 09/04/2017 Advance Directives Patient has advance care planning documents on file. For more information, please contact:[facility] [place] [address]
[2018-09-05] MEDS ORDERED: ALBUTEROL 2.5 MG/3 ML NEB SOL ONE (22:42)
[2018-09-05] MEDS ORDERED: IPRATROPIUM BROM 0.5MG/2.5ML ONE (22:42)
[2018-09-05] MEDS ORDERED: AZITHROMYCIN 250 MG TAB ONE (22:51)
[2018-09-05] MEDS ORDERED: predniSONE 20 MG TAB ONE (22:51)
--- NOTE | 2018-09-05 23:07 | ER ---
Nurse's Notes [facility] Name: James Cuba Age: 33 yrs Sex: Male : 1985 Arrival Date: 09/05/2018 Time: 22:14 Bed X-Ray Private MD: Farhad Newman Diagnosis: Dyspnea;Asthma Presentation: 09/05 22:25 Presenting complaint: Patient states: he had been having shortness of breath, coughing, bb difficulty breathing for several days he has used his albuterol inhaler and neb txs with no improvement along with OTC medication. Transition of care: patient was not received from another setting of care. Onset of symptoms was September 02, 2018. Risk Assessment: Do you want to hurt yourself or someone else? Patient reports no desire to harm self or others. Initial Sepsis Screen: Does the patient meet any 2 criteria? No. Patient's initial sepsis screen is negative. Does the patient have a suspected source of infection? No. Patient's initial sepsis screen is negative. Care prior to arrival: None. 22:25 Method Of Arrival: Ambulatory bb 22:25 Acuity: KIKI 3 bb Historical: - Allergies: 22:30 No Known Allergies; bb - Home Meds: 22:30 albuterol sulfate 90 mcg/actuation Inhl HFAA 2 puffs as needed [Active]; Cialis Oral bb [Active]; citalopram 10 mg tab 1 tab once daily [Active]; Albuterol Nebulizer [Active]; - PMHx: 22:30 Back pain; Bipolar disorder; Diabetes - NIDDM; hypoglycemia, asthma, gynecomastia; bb Asthma; - PSHx: 22:30 Appendectomy; Tonsillectomy; Bowel resection; gynocomastia; bb - Immunization history:: Adult Immunizations unknown. - Social history:: Smoking status: Patient uses tobacco products, smokes one-half pack cigarettes per day, Patient uses alcohol, on a daily basis. Patient/guardian denies using street drugs. - Ebola Screening: : No symptoms or risks identified at this time. Screenin/02 00:02 Abuse screen: Denies threats or abuse. Nutritional screening: No deficits noted. tl2 Tuberculosis screening: No symptoms or risk factors identified. Fall Risk None identified. Assessment: 09/05 22:30 General: Appears in no apparent distress. uncomfortable, Behavior is calm, cooperative, tl2 appropriate for age. Pain: Denies pain. Neuro: Level of Consciousness is awake, alert, obeys commands, Oriented to person, place, time, situation. Cardiovascular: Denies chest pain. Respiratory: Reports shortness of breath cough that is Airway is patent Respiratory effort is even, labored, Respiratory pattern is tachypnea Breath sounds with wheezes bilaterally. GI: No signs and/or symptoms were reported involving the gastrointestinal system. : No signs and/or symptoms were reported regarding the genitourinary system. Derm: Skin is pink, warm \T\ dry. 09/06 00:01 Reassessment: Patient appears in no apparent distress at this time. Patient and/or tl2 family updated on plan of care and expected duration. Pain level reassessed. Patient is alert, oriented x 3, equal unlabored respirations, skin warm/dry/pink. pt verbalized understanding of discharge instructions, need for follow up and prescription usage. Vital Signs: 09/05 22:30 BP 141 / 97; Pulse 86; Resp 18 S; Temp 97.9(O); Pulse Ox 96% on R/A; Weight 113.4 kg bb (R); Height 6 ft. 0 in. (182.88 cm) (R); Pain 0/10; 09/06 00:01 BP 113 / 79; Pulse 78; Resp 18; Pulse Ox 96% on R/A; tl2 09/05 22:30 Body Mass Index 33.91 (113.40 kg, 182.88 cm) bb ED Course: 09/05 22:14 Patient arrived in ED. am2 22:14 Farhad Newman MD is Private Physician. am2 22:22 Tito Garcia MD is Attending Physician. farhan 22:27 Triage completed. bb 22:30 Arm band placed on Patient placed in an exam room, on a stretcher, on pulse oximetry. bb 22:30 Patient has correct armband on for positive identification. Bed in low position. Call tl2 light in reach. Side rails up X 1. 22:30 No provider procedures requiring assistance completed. Patient did not have IV access tl2 during this emergency room visit. 22:41 Radiology exam delayed due to patient receiving breathing treatment at this time. az 22:43 Beatris Roa, RN is Primary Nurse. tl1 23:07 Farhad Newman MD is Referral Physician. [facility] 23:07 Aayush Pennington MD is Referral Physician. [facility] 23:39 Chest Pa And Lat (2 Views) XRAY In Process Unspecified. EDMS Administered Medications: 22:35 Drug: Albuterol - atroVENT (3:1) (2.5 mg - 0.5 mg) 3 ml Route: Nebulizer; tl1 09/06 00:04 Follow up: Response: No adverse reaction tl2 09/05 22:43 Drug: predniSONE 60 mg Route: PO; tl1 09/06 00:04 Follow up: Response: No adverse reaction tl2 09/05 22:43 Drug: Zithromax 500 mg Route: PO; tl1 09/06 00:05 Follow up: Response: No adverse reaction tl2 Outcome: 09/05 23:07 Discharge ordered by . [facility] 09/06 00:03 Discharged to home ambulatory. tl2 Condition: stable Discharge instructions given to patient, Instructed on discharge instructions, follow up and referral plans. medication usage, Demonstrated understanding of instructions, follow-up care, medications. 00:05 Patient left the ED. tl2 Signatures: Dispatcher [employer] EDMS Tito Garcia MD MD cha Ballard, Brenda, RN RN bb Lasagna, Tonya, RN RN tl1 Janet Bernal RN RN tl2 Madelyn Baum [facility] Jen Marte
--- NOTE | 2018-09-05 23:08 | EDPHYS ---
Physician Documentation [facility] Name: James Cuba Age: 33 yrs Sex: Male : 1985 Arrival Date: 09/05/2018 Time: 22:14 Bed X-Ray Private MD: Farhad Newman ED Physician Tito Garcia HPI: 09/05 22:36 This 33 yrs old Male presents to ER via Ambulatory with complaints of farhan Breathing Difficulty. 22:36 The patient has shortness of breath at rest, with light activity. Onset: The farhan symptoms/episode began/occurred 3 day(s) ago. Duration: The symptoms are continuous, and are steadily getting worse. The patient's shortness of breath is aggravated by nothing. Associated signs and symptoms: The patient has no apparent associated signs or symptoms. Severity of symptoms: At their worst the symptoms were mild moderate in the emergency department the symptoms are unchanged. The patient has experienced similar episodes in the past, several times. Historical: - Allergies: 22:30 No Known Allergies; bb - Home Meds: 22:30 albuterol sulfate 90 mcg/actuation Inhl HFAA 2 puffs as needed [Active]; Cialis Oral bb [Active]; citalopram 10 mg tab 1 tab once daily [Active]; Albuterol Nebulizer [Active]; - PMHx: 22:30 Back pain; Bipolar disorder; Diabetes - NIDDM; hypoglycemia, asthma, gynecomastia; bb Asthma; - PSHx: 22:30 Appendectomy; Tonsillectomy; Bowel resection; gynocomastia; bb - Immunization history:: Adult Immunizations unknown. - Social history:: Smoking status: Patient uses tobacco products, smokes one-half pack cigarettes per day, Patient uses alcohol, on a daily basis. Patient/guardian denies using street drugs. - Ebola Screening: : No symptoms or risks identified at this time. ROS: 22:38 Constitutional: Negative for fever, chills, and weight loss, Eyes: Negative for injury, farhan pain, redness, and discharge, ENT: Negative for injury, pain, and discharge, Neck: Negative for injury, pain, and swelling, Cardiovascular: Negative for chest pain, palpitations, and edema, Abdomen/GI: Negative for abdominal pain, nausea, vomiting, diarrhea, and constipation, Back: Negative for injury and pain, : Negative for injury, bleeding, discharge, and swelling, MS/Extremity: Negative for injury and deformity, Skin: Negative for injury, rash, and discoloration, Neuro: Negative for headache, weakness, numbness, tingling, and seizure, Psych: Negative for depression, anxiety, suicide ideation, homicidal ideation, and hallucinations, Allergy/Immunology: Negative for hives, rash, and allergies, Endocrine: Negative for neck swelling, polydipsia, polyuria, polyphagia, and marked weight changes, Hematologic/Lymphatic: Negative for swollen nodes, abnormal bleeding, and unusual bruising. 22:38 Respiratory: Positive for cough, with white sputum, wheezing, expiratory. Exam: 22:38 Constitutional: This is a well developed, well nourished patient who is awake, alert, farhan and in no acute distress. Head/Face: Normocephalic, atraumatic. Eyes: Pupils equal round and reactive to light, extra-ocular motions intact. Lids and lashes normal. Conjunctiva and sclera are non-icteric and not injected. Cornea within normal limits. Periorbital areas with no swelling, redness, or edema. ENT: Nares patent. No nasal discharge, no septal abnormalities noted. Tympanic membranes are normal and external auditory canals are clear. Oropharynx with no redness, swelling, or masses, exudates, or evidence of obstruction, uvula midline. Mucous membranes moist. Neck: Trachea midline, no thyromegaly or masses palpated, and no cervical lymphadenopathy. Supple, full range of motion without nuchal rigidity, or vertebral point tenderness. No Meningismus. Chest/axilla: Normal chest wall appearance and motion. Nontender with no deformity. No lesions are appreciated. Cardiovascular: Regular rate and rhythm with a normal S1 and S2. No gallops, murmurs, or rubs. Normal PMI, no JVD. No pulse deficits. Abdomen/GI: Soft, non-tender, with normal bowel sounds. No distension or tympany. No guarding or rebound. No evidence of tenderness throughout. Back: No spinal tenderness. No costovertebral tenderness. Full range of motion. Male : Normal genitalia with no discharge or lesions. Skin: Warm, dry with normal turgor. Normal color with no rashes, no lesions, and no evidence of cellulitis. MS/ Extremity: Pulses equal, no cyanosis. Neurovascular intact. Full, normal range of motion. Neuro: Awake and alert, GCS 15, oriented to person, place, time, and situation. Cranial nerves II-XII grossly intact. Motor strength 5/5 in all extremities. Sensory grossly intact. Cerebellar exam normal. Normal gait. Psych: Awake, alert, with orientation to person, place and time. Behavior, mood, and affect are within normal limits. 22:38 Respiratory: mild respiratory distress is noted, Respirations: labored breathing, that is mild, Breath sounds: bronchial sounds, rhonchi, wheezing: expiratory Vital Signs: 22:30 BP 141 / 97; Pulse 86; Resp 18 S; Temp 97.9(O); Pulse Ox 96% on R/A; Weight 113.4 kg (R); Height 6 ft. 0 in. (182.88 cm) (R); Pain 0/10; 09/06 00:01 BP 113 / 79; Pulse 78; Resp 18; Pulse Ox 96% on R/A; tl2 09/05 22:30 Body Mass Index 33.91 (113.40 kg, 182.88 cm) MDM: 09/05 22:22 Patient medically screened. [facility] 22:38 Data reviewed: vital signs, nurses notes, radiologic studies, plain films. [facility] 09/05 22:35 Order name: Chest Pa And Lat (2 Views) XRAY [facility] Administered Medications: 22:35 Drug: Albuterol - atroVENT (3:1) (2.5 mg - 0.5 mg) 3 ml Route: Nebulizer; 1 09/06 00:04 Follow up: Response: No adverse reaction [facility] 09/05 22:43 Drug: predniSONE 60 mg Route: PO; 1 09/06 00:04 Follow up: Response: No adverse reaction 2 09/05 22:43 Drug: Zithromax 500 mg Route: PO; 1 09/06 00:05 Follow up: Response: No adverse reaction 2 Disposition: 09/05/18 23:07 Discharged to Home. Impression: Dyspnea, Asthma. - Condition is Stable. - Discharge Instructions: Asthma, Adult, Asthma, Adult, [id number]. - Prescriptions for Albuterol Sulfate 2.5 mg /3 mL (0.083 %) Inhalation Solution for Nebulization - inhale 1 unit by NEBULIZATION route every 8 hours As needed; 1 box. Zithromax Z- Dusty 250 mg Oral Tablet - take 1 tablet by ORAL route as directed for 5 days Day 1 - take two (2) tablets one time. Day 2, 3, 4 , 5 take one (1) tablet once daily.; 6 tablet. Prednisone 20 mg Oral Tablet - take 2 tablet by ORAL route once daily for 5 days; 10 tablet. Albuterol Sulfate 90 mcg/actuation - inhale 1-2 puff by INHALATION route every 4-6 hours; 1 Inhaler. - Medication Reconciliation Form, Thank You Letter, Antibiotic Education, Prescription Opioid Use form. - Follow up: Farhad Newman; When: 2 - 3 days; Reason: Recheck today's complaints, Continuance of care, Re-evaluation by your physician. Follow up: Aayush Pennington MD; When: 2 - 3 days; Reason: Recheck today's complaints, Continuance of care, Re-evaluation by your physician. - Problem is new. - Symptoms have improved. Signatures: Dispatcher [employer] EDMS Tito Garcia MD MD cha Ballard, Brenda RN RN Beatris Valentino RN RN tl1 Janet Bernal RN RN tl2 Corrections: (The following items were deleted from the chart) 09/05 23:07 23:07 09/05/2018 23:07 Discharged to Home. Impression: Dyspnea; Asthma. Condition is farhan Stable. Discharge Instructions: Asthma, Adult, Asthma, Adult, [id number]. Prescriptions for Albuterol Sulfate 2.5 mg /3 mL (0.083 %) Inhalation Solution for Nebulization - inhale 1 unit by NEBULIZATION route every 8 hours As needed; 1 box, Zithromax Z-Dusty 250 mg Oral Tablet - take 1 tablet by ORAL route as directed for 5 days Day 1 - take two (2) tablets one time. Day 2, 3, 4 , 5 take one (1) tablet once daily.; 6 tablet, Prednisone 20 mg Oral Tablet - take 2 tablet by ORAL route once daily for 5 days; 10 tablet, Albuterol Sulfate 90 mcg/actuation - inhale 1-2 puff by INHALATION route every 4-6 hours; 1 Inhaler. and Forms are Medication Reconciliation Form, Thank You Letter, Antibiotic Education, Prescription Opioid Use. Follow up: Farhad Newman; When: 2 - 3 days; Reason: Recheck today's complaints, Continuance of care, Re-evaluation by your physician. Problem is new. Symptoms have improved. [facility] 09/06 00:05 09/05 23:07 09/05/2018 23:07 Discharged to Home. Impression: Dyspnea; Asthma. Condition tl2 is Stable. Discharge Instructions: Asthma, Adult, Asthma, Adult, [id number]. Prescriptions for Albuterol Sulfate 2.5 mg /3 mL (0.083 %) Inhalation Solution for Nebulization - inhale 1 unit by NEBULIZATION route every 8 hours As needed; 1 box, Zithromax Z-Dusty 250 mg Oral Tablet - take 1 tablet by ORAL route as directed for 5 days Day 1 - take two (2) tablets one time. Day 2, 3, 4 , 5 take one (1) tablet once daily.; 6 tablet, Prednisone 20 mg Oral Tablet - take 2 tablet by ORAL route once daily for 5 days; 10 tablet, Albuterol Sulfate 90 mcg/actuation - inhale 1-2 puff by INHALATION route every 4-6 hours; 1 Inhaler. and Forms are Medication Reconciliation Form, Thank You Letter, Antibiotic Education, Prescription Opioid Use. Follow up: Farhad Newman; When: 2 - 3 days; Reason: Recheck today's complaints, Continuance of care, Re-evaluation by your physician. Follow up: Aayush Pennington; When: 2 - 3 days; Reason: Recheck today's complaints, Continuance of care, Re-evaluation by your physician. Problem is new. Symptoms have improved. [facility]
[2018-09-06 00:39] VITALS: TEMP 97.9; O2SAT 96
[2018-09-06 00:41] VITALS: BP 113/79
--- NOTE | 2018-09-06 07:43 | RAD REPORT ---
EXAM DESCRIPTION: RAD - Chest Pa And Lat (2 Views) - 09/05/2018 11:38 pm CLINICAL HISTORY: Cough, shortness of breath COMPARISON: June 2018 TECHNIQUE: PA and lateral views of the chest were obtained. FINDINGS: The lungs are clear. Lung markings are similar to comparison. Left hilar fullness is stab le. Heart size is normal and central vasculature is within normal limits. No pleural effusion or pne umothorax seen. No acute bony finding noted. No aortic abnormality. IMPRESSION: No acute cardiopulmonary process. No significant interval change.
== END 2018-09-06 00:05 | disposition home or self-care (01) ==
LOC: ER 22:12
DX: J45.909 Unspecified asthma, uncomplicated (principal); R06.00 Dyspnea, unspecified; F31.9 Bipolar disorder, unspecified; F17.210 Nicotine dependence, cigarettes, uncomplicated
CPT/HCPCS: 71046; 94640; 99284; J7512

== ENCOUNTER 2018-12-21 17:44 | Emergency (ER) | payer SELFPAY ==
--- OUTSIDE RECORDS SUMMARY | 2018-12-21 17:47 | XMS REPORT | Clinical Summary ---
:1985 Author Organization [facility] Address [address] [place] [address] Care Team Providers Name Role Phone Asked, [...] Due Date Last Done Comments INFLUENZA VACCINE 03/05/2019 Results Not on fileafter 12/20/2017 Advance Directives Patient has advance care planning documents on file. For more information, please contact:[facility] [place] [address]
[2018-12-21] MEDS ORDERED: LEVALBUTEROL 1.25 MG/3 ML NEB ONE ×2 (18:24→20:27)
[2018-12-21] MEDS ORDERED: IPRATROPIUM BROM 0.5MG/2.5ML ONE (18:24)
[2018-12-21 18:38] LABS: Absolute Lymphocytes (CBC) 2.2 K/uL (0.7-4.9); Absolute Monocytes 0.9 K/uL (0.1-1.3); Absolute Neutrophil 6.3 K/uL (1.8-8.0); Basophils % 0.7 % (0-1.3); Eosinophils % 1.6 % (0-4.4); Hematocrit 52.5 % (39.6-49.0); MPV 7.7 fL (7.6-11.3); Monocytes % 9.5 % (3.3-12.3); RBC Red Blood Cell Count 6.05 M/uL (4.33-5.43)
[2018-12-21] MEDS ORDERED: NA CHLORIDE 0.9% 1,000 ML ONE (18:43)
[2018-12-21] MEDS ORDERED: METHYLPREDNISOLONE 125 MG INJ ONE (18:43)
[2018-12-21 19:06] LABS: ALT/SGPT 31 U/L (12-78); AST/SGOT 18 U/L (15-37); Albumin 3.5 g/dL (3.4-5.0); Alkaline Phosphatase 93 U/L (45-117); BUN Blood Urea Nitrogen 15 mg/dL (7-18); Bicarbonate 22 mmol/L (21-32); Bilirubin Total 0.3 mg/dL (0.2-1.0); Glucose Level 117 mg/dL (74-106); Protein, Total 7.5 g/dL (6.4-8.2); Sodium Level 143 mmol/L (136-145); Troponin (Emerg Dept Use Only) < 0.02 ng/mL (0.0-0.045)
[2018-12-21] MEDS ORDERED: FENTANYL CITR 100 MCG/2 ML ONE (19:53)
--- NOTE | 2018-12-21 20:01 | RAD REPORT ---
EXAM DESCRIPTION: RAD - Chest Pa And Lat (2 Views) - 12/21/2018 7:22 pm CLINICAL HISTORY: COUGH Chest pain. COMPARISON: Chest Pa And Lat (2 Views) dated 09/05/2018; Chest Single View dated 06/12/2018; Chest Sing le View dated 05/24/2018; Chest Single View dated 04/10/2018 FINDINGS: The lungs are clear. The heart is normal in size. No displaced fractures. IMPRESSION: No acute or concerning finding suspected.
--- NOTE | 2018-12-21 20:01 | RAD REPORT ---
EXAM DESCRIPTION: CT - Chest Abd Pelvis Wo Con - 12/21/2018 7:50 pm CLINICAL HISTORY: Chest and abdomen pain. chest pain, back pain COMPARISON: CTANGIO CHEST FOR PE dated 11/07/2012 TECHNIQUE: A limited noncontrast study was performed. All CT scans are performed using dose optimization technique as appropriate and may include automated exposure control or mA/KV adjustment according to patient size. FINDINGS: The lungs are clear.No pleural or pericardial effusion.No intrathoracic adenopathy. The liver, spleen, pancreas, adrenal glands and kidneys are within normal limits. No bowel obstruction, free air, free fluid or abscess. Appendectomy. Small fat containing umbilical h ernia. No pathologic lymphadenopathy in the abdomen or pelvis. No worrisome osseous finding. Small fat containing right inguinal hernia. IMPRESSION: No acute process is identified.
--- NOTE | 2018-12-21 21:28 | EDPHYS ---
Physician Documentation [facility] Name: James Cuba Age: 33 yrs Sex: Male : 1985 Arrival Date: 12/21/2018 Time: 17:47 Bed 25 Private MD: ED Physician Nadir Ochoa HPI: 12/21 18:15 This 33 yrs old Male presents to ER via Ambulatory with complaints of Cough, jmm Back Pain. 18:15 The patient or guardian reports cough. Onset: The symptoms/episode began/occurred jmm gradually, 3 day(s) ago. Associated signs and symptoms: Pertinent positives: chest pain, with cough. This is a 33 year old male with a history of asthma, bipolar, DM that presents to the ED with complaints of cough worsening today with chest pain and lower back pain with cough. Patient denies similar episode of pain with cough. Patient has used home albuterol with no relief. . Historical: - Allergies: 20:08 No Known Allergies; la1 - PMHx: 18:05 Asthma; Back pain; Bipolar disorder; Diabetes - NIDDM; ph 20:08 hypoglycemia, asthma, gynecomastia; la1 - PSHx: 18:05 Appendectomy; Tonsillectomy; Bowel resection; gynocomastia; ph - Immunization history:: Adult Immunizations up to date. - Social history:: Smoking status: Patient/guardian denies using tobacco. - Ebola Screening: : No symptoms or risks identified at this time. ROS: 18:15 Constitutional: Negative for fever, chills, and weight loss. [facility] 18:15 Cardiovascular: Positive for chest pain, with cough. 18:15 Respiratory: Positive for cough, wheezing. 18:15 Back: Positive for pain at rest. 18:15 All other systems are negative. Exam: 18:15 Head/Face: atraumatic. Eyes: EOMI, no conjunctival erythema appreciated ENT: Moist jm Mucus Membranes Neck: Trachea midline, Supple Chest/axilla: Normal chest wall appearance and motion. 18:15 Constitutional: The patient appears alert, awake, anxious. 18:15 Cardiovascular: Rate: normal, Rhythm: regular. 18:15 Respiratory: mild respiratory distress is noted, Respirations: normal, Breath sounds: wheezing: that is moderate, is scattered. 18:15 Abdomen/GI: Inspection: abdomen appears normal, Bowel sounds: normal, Palpation: abdomen is soft and non-tender, in all quadrants. 18:15 Back: ROM is normal. 18:15 Musculoskeletal/extremity: ROM: intact in all extremities. 18:15 Skin: Appearance: Color: normal in color. 18:15 Neuro: Orientation: is normal, Mentation: is normal, Memory: is normal. 18:15 Psych: Behavior/mood is pleasant, cooperative, anxious. Vital Signs: 18:03 BP 125 / 90; Pulse 108; Resp 18; Temp 97.6; Pulse Ox 98% on R/A; la1 20:08 BP 124 / 74; Pulse 97; Resp 20; Temp 98.6; Pulse Ox 98% on R/A; la1 21:14 BP 116 / 90; Pulse 94; Resp 18; Temp 98.2; Pulse Ox 98% on R/A; la1 MDM: 18:13 Patient medically screened. [facility] 21:27 Data reviewed: vital signs, nurses notes. Counseling: I had a detailed discussion with domenico the patient and/or guardian regarding: the historical points, exam findings, and any diagnostic results supporting the discharge/admit diagnosis, radiology results, the need for outpatient follow up, to return to the emergency department if symptoms worsen or persist or if there are any questions or concerns that arise at home. 21:43 ED course: Decreased wheezing on reevaluation. VS have been stable. Imaging studies [facility] negative. Patient is advised to follow up with PCP and otherwise given strict return precautions. Patient understood and agrees with the plan of care. . 12/21 18:14 Order name: CBC with Diff; Complete Time: 19:05 [facility] 12/21 18:14 Order name: CMP; Complete Time: 19:09 [facility] 12/21 18:14 Order name: Chest Pa And Lat (2 Views) XRAY; Complete Time: 20:02 [facility] 12/21 18:14 Order name: Troponin (emerg Dept Use Only); Complete Time: 19:09 [facility] 12/21 18:28 Order name: Flu; Complete Time: 20:55 [facility] 12/21 18:14 Order name: Saline Lock; Complete Time: 18:29 [facility] 12/21 19:28 Order name: CT Chest Abdomen Pelvis W/O Contrast; Complete Time: 20:02 [facility] 12/21 18:14 Order name: EKG - Nurse/Tech; Complete Time: 18:34 [facility] Administered Medications: 18:16 Drug: Xopenex (3) 1.25 mg Route: Inhalation; la1 18:34 Drug: NS 0.9% 1000 ml Route: IV; Rate: 1 bolus; Site: left forearm; la1 19:30 Follow up: IV Status: Completed infusion la1 18:34 Drug: SOLU-Medrol 125 mg Route: IVP; Site: left forearm; la1 20:07 Follow up: Response: No adverse reaction la1 19:42 Drug: fentaNYL (PF) 25 mcg Route: IVP; Site: left antecubital; rv 20:07 Follow up: Response: No adverse reaction; Pain is decreased la1 21:36 Follow up: Response: No adverse reaction; Pain is decreased la1 20:16 Drug: Xopenex (3) 1.25 mg Route: Inhalation; la1 20:16 Not Given (Other Intervention Used): Magnesium Sulfate 1 grams IVPB once over 1 hrs la1 Disposition: 12/21/18 21:27 Discharged to Home. Impression: Unspecified asthma with (acute) exacerbation. - Condition is Stable. - Discharge Instructions: Asthma, Adult. - Prescriptions for Prednisone 20 mg Oral Tablet - take 3 tablet by ORAL route once daily for 5 days; 15 tablet. - Medication Reconciliation Form, Thank You Letter, Antibiotic Education, Prescription Opioid Use, Work release form form. - Follow up: Private Physician; When: Tomorrow; Reason: Recheck today's complaints, Continuance of care, Re-evaluation by your physician. Addendum: 12/25/2018 22:33 Co-signature as Attending Physician, Nadir Ochoa MD. g s Signatures: Dispatcher [employer] EDMS Barrett Crow PA PA Charly Wilburn RN RN la1 Madai Downs RN RN Nadir Ochoa MD MD Girish Mayen, RN RN rv Corrections: (The following items were deleted from the chart) 12/21 21:36 21:27 12/21/2018 21:27 Discharged to Home. Impression: Unspecified asthma with (acute) la1 exacerbation. Condition is Stable. Forms are Medication Reconciliation Form, Thank You Letter, Antibiotic Education, Prescription Opioid Use. Follow up: Private Physician; When: Tomorrow; Reason: Recheck today's complaints, Continuance of care, Re-evaluation by your physician. domenico
--- NOTE | 2018-12-21 21:28 | ER ---
Nurse's Notes [facility] Name: James Cuba Age: 33 yrs Sex: Male : 1985 Arrival Date: 12/21/2018 Time: 17:47 Bed 25 Private MD: Diagnosis: Unspecified asthma with (acute) exacerbation Presentation: 12/21 18:03 Presenting complaint: Patient states: Persistent cough x 4 days, coughing up yellow ph mucus, also reports slight SOB and pain in back and chest. Transition of care: patient was not received from another setting of care. Onset of symptoms was December 21, 2018. Risk Assessment: Do you want to hurt yourself or someone else? Patient reports no desire to harm self or others. Initial Sepsis Screen: Does the patient meet any 2 criteria? No. Patient's initial sepsis screen is negative. Does the patient have a suspected source of infection? Yes: Productive cough/pneumonia. Care prior to arrival: None. 18:03 Method Of Arrival: Ambulatory ph 18:03 Acuity: KIKI 3 ph Triage Assessment: 20:08 General: Appears in no apparent distress. Behavior is calm, cooperative. Pain: Denies la1 pain. Musculoskeletal: Circulation, motion, and sensation intact. Historical: - Allergies: 20:08 No Known Allergies; la1 - PMHx: 18:05 Asthma; Back pain; Bipolar disorder; Diabetes - NIDDM; ph 20:08 hypoglycemia, asthma, gynecomastia; la1 - PSHx: 18:05 Appendectomy; Tonsillectomy; Bowel resection; gynocomastia; ph - Immunization history:: Adult Immunizations up to date. - Social history:: Smoking status: Patient/guardian denies using tobacco. - Ebola Screening: : No symptoms or risks identified at this time. Screenin:08 Abuse screen: Denies threats or abuse. Nutritional screening: No deficits noted. la1 Tuberculosis screening: No symptoms or risk factors identified. Fall Risk None identified. Assessment: 20:07 Reassessment: Patient appears in no apparent distress at this time. No changes from la1 previously documented assessment. Patient and/or family updated on plan of care and expected duration. Pain level reassessed. Patient is alert, oriented x 3, equal unlabored respirations, skin warm/dry/pink. 20:08 General: Appears in no apparent distress. Behavior is calm, cooperative. Pain: Denies la1 pain. Neuro: Level of Consciousness is awake, alert, obeys commands, Oriented to person, place, time, situation. Cardiovascular: Capillary refill < 3 seconds Patient's skin is warm and dry. Respiratory: Airway is patent Respiratory effort is even, unlabored, Respiratory pattern is regular, symmetrical, Breath sounds with wheezes bilaterally. GI: No signs and/or symptoms were reported involving the gastrointestinal system. : No signs and/or symptoms were reported regarding the genitourinary system. 21:35 Reassessment: Patient appears in no apparent distress at this time. No changes from la1 previously documented assessment. Patient and/or family updated on plan of care and expected duration. Pain level reassessed. Patient is alert, oriented x 3, equal unlabored respirations, skin warm/dry/pink. Patient states feeling better. Patient states symptoms have improved. Vital Signs: 18:03 BP 125 / 90; Pulse 108; Resp 18; Temp 97.6; Pulse Ox 98% on R/A; la1 20:08 BP 124 / 74; Pulse 97; Resp 20; Temp 98.6; Pulse Ox 98% on R/A; la1 21:14 BP 116 / 90; Pulse 94; Resp 18; Temp 98.2; Pulse Ox 98% on R/A; la1 ED Course: 17:47 Patient arrived in ED. tw3 17:56 Barrett Crow PA is PHCP. [facility] 17:56 Nadir Ochoa MD is Attending Physician. [facility] 17:58 Charly Thornton, RN is Primary Nurse. la1 18:04 Triage completed. ph 18:05 Arm band placed on Patient placed in an exam room, on a stretcher, on pulse oximetry. ph 18:28 Initial lab(s) drawn, by sd, sent to lab. Inserted saline lock: 20 gauge in left lt1 forearm, using aseptic technique. 19:16 Chest Pa And Lat (2 Views) XRAY In Process Unspecified. EDMS 19:[address] 19:51 CT completed. Patient tolerated procedure well. Patient moved back from CT. mw3 19:51 CT Chest Abdomen Pelvis W/O Contrast In Process Unspecified. EDMS 20:08 Bed in low position. Call light in reach. Side rails up X 1. la1 21:36 No provider procedures requiring assistance completed. IV discontinued, intact, la1 bleeding controlled, No redness/swelling at site. Pressure dressing applied. Administered Medications: 18:16 Drug: Xopenex (3) 1.25 mg Route: Inhalation; la1 18:34 Drug: NS 0.9% 1000 ml Route: IV; Rate: 1 bolus; Site: left forearm; la1 19:30 Follow up: IV Status: Completed infusion la1 18:34 Drug: SOLU-Medrol 125 mg Route: IVP; Site: left forearm; la1 20:07 Follow up: Response: No adverse reaction la1 19:42 Drug: fentaNYL (PF) 25 mcg Route: IVP; Site: left antecubital; rv 20:07 Follow up: Response: No adverse reaction; Pain is decreased la1 21:36 Follow up: Response: No adverse reaction; Pain is decreased la1 20:16 Drug: Xopenex (3) 1.25 mg Route: Inhalation; la1 20:16 Not Given (Other Intervention Used): Magnesium Sulfate 1 grams IVPB once over 1 hrs la1 Outcome: 21:27 Discharge ordered by . yoni 21:36 Discharged to home ambulatory. la1 21:36 Condition: stable 21:36 Discharge instructions given to patient, Instructed on discharge instructions, follow up and referral plans. medication usage, Demonstrated understanding of instructions, follow-up care, medications, Prescriptions given X 1. 21:36 Patient left the ED. la1 Signatures: Dispatcher [employer] EDMS Barrett Crow PA PA jmm Hagler, Ervin eh Attema, Lee RN RN la1 Madai Downs RN RN ph Wade, Shannon tw3 Olivia Knight mw3 Girish Mayen RN RN rv Tran, Jazlyn 1
[2018-12-21 21:56] VITALS: O2SAT 98
[2018-12-21 21:59] VITALS: BP 116/90; TEMP 98.2
--- NOTE | 2018-12-22 12:52 | EKG ---
Test Date: 2018-12-21 Test Time: 18:36:18 Law Enforcement Officer: [employer] MEASUREMENT RESULTS: Intervals: Rate: 89 MN: 144 QRSD: 108 QT: 380 QTc: 462 [place]: P: 67 MN: 144 QRS: 73 T: 68 INTERPRETIVE STATEMENTS: Normal sinus rhythm Incomplete right bundle branch block Borderline ECG Compared to ECG 06/12/2018 22:30:47 No significant changes Electronically Signed On 12-22-18 12:50:42 CDT by Ishaan Ga
== END 2018-12-21 21:36 | disposition home or self-care (01) ==
LOC: ER 17:44
DX: J45.901 Unspecified asthma with (acute) exacerbation (principal)
CPT/HCPCS: 36415; 71046; 71250; 74176; 80053; 84484; 85025; 87804; 93005; 99285; J2930; J3010; J7030

== ENCOUNTER 2019-05-22 02:16 | Emergency (ER) | payer SELFPAY ==
[2019-05-22] MEDS ORDERED: ONDANSETRON 4 MG/2 ML VIAL ONE (02:37)
[2019-05-22] MEDS ORDERED: predniSONE 20 MG TAB ONE (03:41)
[2019-05-22] MEDS ORDERED: FAMOTIDINE 20 MG TAB ONE (03:42)
[2019-05-22 04:00] LABS: Absolute Lymphocytes (CBC) 2.4 K/uL (0.7-4.9); Basophils % 1.2 % (0-1.3); Hematocrit 46.9 % (39.6-49.0); Lymphocytes % 28.2 % (15.3-44.8); RBC Red Blood Cell Count 5.33 M/uL (4.33-5.43)
[2019-05-22 04:10] LABS: BUN Blood Urea Nitrogen 12 mg/dL (7-18); Bicarbonate 28 mmol/L (21-32); Glucose Level 94 mg/dL (74-106); Potassium ND mmol/L (3.5-5.1); Sodium Level 142 mmol/L (136-145)
--- NOTE | 2019-05-22 04:40 | EDPHYS ---
Physician Documentation [facility] Name: James Cuba Age: 33 yrs Sex: Male : 1985 Arrival Date: 05/22/2019 Time: 02:14 Bed 8 Private MD: ED Physician Hunter Doyle HPI: 05/22 04:30 This 33 yrs old Male presents to ER via EMS with complaints of Flu Symptoms. kdr 04:30 The patient or guardian reports cough, that is intermittent, described as mild, kdr difficulty breathing, flu symptoms, arthralgias, myalgias, no appetite. Onset: The symptoms/episode began/occurred gradually, 2 day(s) ago. Modifying factors: The symptoms are alleviated by nothing. the symptoms are aggravated by. Associated signs and symptoms: Pertinent positives: chest pain, diarrhea, nausea, rhinorrhea, vomiting, Conogestion, this patient has no pertinent positive symptoms. Severity of symptoms: At their worst the symptoms were moderate in the emergency department the symptoms are unchanged. The patient has not experienced similar symptoms in the past. The patient has not recently seen a physician. Historical: - Allergies: 02:19 Morphine; ak1 - Home Meds: 02:19 None [Active]; ak1 - PMHx: 02:19 Asthma; Bipolar disorder; hypoglycemia, asthma, gynecomastia; Diabetes - NIDDM; Back ak1 pain; - PSHx: 02:19 Appendectomy; Tonsillectomy; Bowel resection; gynocomastia; ak1 - Immunization history:: Adult Immunizations unknown. - Social history:: Smoking status: Patient uses tobacco products, smokes one pack cigarettes per day. - Ebola Screening: : No symptoms or risks identified at this time. ROS: 04:30 Constitutional: Negative for weight loss - he has had subjective fever and chills Eyes: kdr Negative for injury, pain, redness, and discharge, Neck: Negative for injury, pain, and swelling, Cardiovascular: Negative for chest pain, palpitations, and edema, Abdomen/GI: Negative for abdominal pain, nausea, vomiting, diarrhea, and constipation, Back: Negative for injury and pain, : Negative for injury, bleeding, discharge, and swelling, MS/Extremity: Negative for injury and deformity, Skin: Negative for injury, rash, and discoloration, Neuro: Negative for headache, weakness, numbness, tingling, and seizure activity. Psych: Negative for depression, anxiety, suicide ideation, homicidal ideation, and hallucinations, Allergy/Immunology: Negative for hives, rash, and allergies, Endocrine: Negative for neck swelling, polydipsia, polyuria, polyphagia, and marked weight changes, Hematologic/Lymphatic: Negative for swollen nodes, abnormal bleeding, and unusual bruising. 04:30 ENT: Positive for nasal discharge, rhinorrhea, sinus congestion. 04:30 Respiratory: Positive for cough, dyspnea on exertion, shortness of breath, on exertion. Negative for hemoptysis, orthopnea, pleurisy. Exam: 04:30 Constitutional: This is a well developed, well nourished patient who is awake, alert, kdr and in mild distress. Head/Face: Normocephalic, atraumatic. Eyes: Pupils equal round and reactive to light, extra-ocular motions intact. Lids and lashes normal. Conjunctiva and sclera are non-icteric and not injected. Cornea within normal limits. Periorbital areas with no swelling, redness, or edema. Neck: Trachea midline, no thyromegaly or masses palpated, and no cervical lymphadenopathy. Supple, full range of motion without nuchal rigidity, or vertebral point tenderness. No Meningismus. Chest/axilla: Normal chest wall appearance and motion. Nontender with no deformity. No lesions are appreciated. Cardiovascular: Regular rate and rhythm with a normal S1 and S2. No gallops, murmurs, or rubs. Normal PMI, no JVD. No pulse deficits. Respiratory: Lungs have equal breath sounds bilaterally, clear to auscultation and percussion. No rales, rhonchi or wheezes noted. No increased work of breathing, no retractions or nasal flaring. Abdomen/GI: Soft, non-tender, with normal bowel sounds. No distension or tympany. No guarding or rebound. No evidence of tenderness throughout. Back: No spinal tenderness. No costovertebral tenderness. Full range of motion. Skin: Warm, dry with normal turgor. Normal color with no rashes, no lesions, and no evidence of cellulitis. MS/ Extremity: Pulses equal, no cyanosis. Neurovascular intact. Full, normal range of motion. Neuro: Awake and alert, GCS 15, oriented to person, place, time, and situation. Cranial nerves II-XII grossly intact. Motor strength 5/5 in all extremities. Sensory grossly intact. Cerebellar exam normal. Normal gait. Psych: Awake, alert, with orientation to person, place and time. Behavior, mood, and affect are within normal limits. Vital Signs: 02:15 BP 130 / 85; Pulse 90; Resp 20; Temp 97.8(O); Pulse Ox 98% on R/A; Weight 99.79 kg (R); ak1 Height 6 ft. 0 in. (182.88 cm) (R); Pain 08/14; 04:26 BP 101 / 60; Pulse 73; Resp 20; Pulse Ox 97% on R/A; ak1 02:15 Body Mass Index 29.84 (99.79 kg, 182.88 cm) ak1 MDM: 04:30 Data reviewed: vital signs, nurses notes, lab test result(s). Counseling: I had a kdr detailed discussion with the patient and/or guardian regarding: the historical points, exam findings, and any diagnostic results supporting the discharge/admit diagnosis, lab results, the need for outpatient follow up. 04:39 Patient medically screened. kdr 05/22 02:31 Order name: Flu; Complete Time: 03:35 ak1 05/22 02:31 Order name: CBC with Diff; Complete Time: 04:29 ak1 05/22 02:31 Order name: Basic Metabolic Panel; Complete Time: 04:29 ak1 05/22 03:21 Order name: Labs - recollect needed; Complete Time: 03:51 em1 Administered Medications: 02:47 Drug: Zofran 4 mg Route: IVP; Site: left forearm; ak1 03:51 Follow up: Response: No adverse reaction; Nausea is decreased ak1 03:44 Drug: predniSONE 60 mg Route: PO; ea 03:44 Drug: Pepcid 20 mg Route: PO; ea Disposition: 05/22/19 04:39 Discharged to Home. Impression: Acute upper respiratory infection, unspecified, Viral infection of unspecified site. - Condition is Stable. - Discharge Instructions: Upper Respiratory Infection, Adult, [id number], Viral Respiratory Infection, [id number]. - Prescriptions for Zyrtec- D 5-120 mg Oral Tablet Sustained Release 12 hr - take 1 tablet by ORAL route every 12 hours As needed; 20 tablet. Medrol (Dusty) 4 mg Oral Tablets, Dose Pack - take 1 tablet by ORAL route as directed - follow package instructions; 1 packet. Ibuprofen 800 mg Oral Tablet - take 1 tablet by ORAL route every 12 hours As needed take with food; 20 tablet. - Medication Reconciliation Form, Thank You Letter form. - Follow up: Private Physician; When: 2 - 3 days; Reason: If symptoms return, Further diagnostic work-up, Recheck today's complaints, Continuance of care, Re-evaluation by your physician. - Problem is new. - Symptoms have improved. Signatures: Dispatcher [employer] EDMS Hunter Doyle MD MD kdr Martinez, Eric emBetina Miller RN RN akEvelyn Mackey RN RN laine Corrections: (The following items were deleted from the chart) 04:48 04:39 05/22/2019 04:39 Discharged to Home. Impression: Acute upper respiratory ak1 infection, unspecified; Viral infection of unspecified site. Condition is Stable. Forms are Medication Reconciliation Form, Thank You Letter, Antibiotic Education, Prescription Opioid Use. Follow up: Private Physician; When: 2 - 3 days; Reason: If symptoms return, Further diagnostic work-up, Recheck today's complaints, Continuance of care, Re-evaluation by your physician. Problem is new. Symptoms have improved. kdr
--- NOTE | 2019-05-22 04:40 | ER ---
Nurse's Notes [facility] Name: James Cuba Age: 33 yrs Sex: Male : 1985 Arrival Date: 05/22/2019 Time: 02:14 Bed 8 Private MD: Diagnosis: Acute upper respiratory infection, unspecified;Viral infection of unspecified site Presentation: 05/22 02:21 Presenting complaint: EMS states: pt with allergy and flu symptoms for 4 days. pt ak1 started OTC medications that are not helping. pt c/o cough, pt c/o nausea. pt given albuterol and Atrovent neb in route. Transition of care: patient was not received from another setting of care. Onset of symptoms is unknown. Risk Assessment: Do you want to hurt yourself or someone else? Patient reports no desire to harm self or others. Initial Sepsis Screen: Does the patient meet any 2 criteria? No. Patient's initial sepsis screen is negative. Does the patient have a suspected source of infection? No. Patient's initial sepsis screen is negative. Care prior to arrival: None. 02:21 Acuity: KIKI 4 ak1 02:21 Method Of Arrival: EMS: [facility] ak1 Triage Assessment: 02:21 General: Appears in no apparent distress. Behavior is cooperative. ak1 Historical: - Allergies: 02:19 Morphine; ak1 - Home Meds: 02:19 None [Active]; ak1 - PMHx: 02:19 Asthma; Bipolar disorder; hypoglycemia, asthma, gynecomastia; Diabetes - NIDDM; Back ak1 pain; - PSHx: 02:19 Appendectomy; Tonsillectomy; Bowel resection; gynocomastia; ak1 - Immunization history:: Adult Immunizations unknown. - Social history:: Smoking status: Patient uses tobacco products, smokes one pack cigarettes per day. - Ebola Screening: : No symptoms or risks identified at this time. Screenin:19 Abuse screen: Denies threats or abuse. Denies injuries from another. Nutritional ak1 screening: No deficits noted. Tuberculosis screening: No symptoms or risk factors identified. Fall Risk None identified. Assessment: 02:16 General: Appears in no apparent distress. Behavior is calm, cooperative. Pain: Denies ak1 pain. Neuro: No deficits noted. Cardiovascular: No deficits noted. Respiratory: Reports cough that is Airway is patent Respiratory effort is unlabored. GI: Abdomen is round non-distended, Reports nausea. : No signs and/or symptoms were reported regarding the genitourinary system. EENT: Reports nasal discharge. Derm: No signs and/or symptoms reported regarding the dermatologic system. Musculoskeletal: No signs and/or symptoms reported regarding the musculoskeletal system. 04:25 Reassessment: pt ambulated to restroom. pt informed of wait for lab results. ak1 Vital Signs: 02:15 BP 130 / 85; Pulse 90; Resp 20; Temp 97.8(O); Pulse Ox 98% on R/A; Weight 99.79 kg (R); ak1 Height 6 ft. 0 in. (182.88 cm) (R); Pain 08/14; 04:26 BP 101 / 60; Pulse 73; Resp 20; Pulse Ox 97% on R/A; ak1 02:15 Body Mass Index 29.84 (99.79 kg, 182.88 cm) ak1 ED Course: 02:14 Patient arrived in ED. ak1 02:15 Arm band placed on Patient placed in an exam room, on a stretcher, Patient notified of ak1 wait time. 02:19 Patient has correct armband on for positive identification. Bed in low position. Call ak1 light in reach. Side rails up X 1. Pulse ox on. NIBP on. 02:19 Maintain EMS IV. Dressing intact. Site clean \T\ dry. Gauge \T\ site: 18g left forearm. ak 1 02:20 Hunter Doyle MD is Attending Physician. kdr 02:22 Triage completed. ak1 02:47 Betina Hameed, NASIR is Primary Nurse. ak1 04:41 No provider procedures requiring assistance completed. ak1 04:48 IV discontinued, intact, bleeding controlled, No redness/swelling at site. Pressure ak1 dressing applied. Administered Medications: 02:47 Drug: Zofran 4 mg Route: IVP; Site: left forearm; ak1 03:51 Follow up: Response: No adverse reaction; Nausea is decreased ak1 03:44 Drug: predniSONE 60 mg Route: PO; ea 03:44 Drug: Pepcid 20 mg Route: PO; ea Outcome: 04:39 Discharge ordered by . kdr 04:41 Discharged to home ambulatory, with family. ak1 04:41 Condition: stable 04:41 Discharge instructions given to patient, Instructed on discharge instructions, follow up and referral plans. no drinking with medication, no driving heavy equipment, medication usage, Demonstrated understanding of instructions, follow-up care, medications, Prescriptions given X 3. 04:48 Patient left the ED. ak1 Signatures: Hunter Doyle MD MD kdr Krenek, Amber RN RN ak1 Evelyn Ochoa RN RN ea Corrections: (The following items were deleted from the chart) 02:20 02:16 Inserted saline lock: 18 gauge in left forearm, using aseptic technique. ak1 ak1
[2019-05-22 05:25] VITALS: BP 101/60; O2SAT 97
== END 2019-05-22 04:48 | disposition home or self-care (01) ==
LOC: ER 02:16
DX: J06.9 Acute upper respiratory infection, unspecified (principal); B34.9 Viral infection, unspecified; Z88.6 Allergy status to analgesic agent; F17.210 Nicotine dependence, cigarettes, uncomplicated
CPT/HCPCS: 36415; 80048; 85025; 87804; 96374; 99284; J2405; J7512

== ENCOUNTER 2019-07-10 10:15 | Emergency (ER) | payer SELFPAY ==
[2012-03-02 11:47] VITALS: BP 131/84
[2019-07-10] MEDS ORDERED: KETOROLAC 30 MG/ML INJ ONE (10:56)
[2019-07-10] MEDS ORDERED: HYDROCODONE/APAP 7.5/325 MG TAB ONE (10:57)
[2019-07-10 11:00] LABS: Urine Blood NEGATIVE (NEG); Urine Glucose NEGATIVE (NEG); Urine Protein NEGATIVE (NEG); Urine Specific Gravity 1.025 (1.005-1.030)
--- NOTE | 2019-07-10 12:30 | RAD REPORT ---
EXAM DESCRIPTION: CT - Stone Protocol - 07/10/2019 12:21 pm CLINICAL HISTORY: Flank pain. FLANK PAIN COMPARISON: Abdomen Pelvis W Contrast dated 05/24/2018 TECHNIQUE: Axial images were obtained without oral or IV contrast. Lack of contrast limits solid org an and vascular assessment. The [id number] spans the entirety of the system partially obscuring uppermost abdomen and lung bases. Coronal reformatted images were obtained and reviewed. All CT scans are performed using dose optimization technique as appropriate and may include automated exposure control or mA/KV adjustment according to patient size. FINDINGS: The lower lung dotson are clear. Imaged portions of the liver and spleen show no suspicious findings on non-contrast imaging. The panc reas and adrenal glands are normal. No pathologic lymphadenopathy in the abdomen or pelvis. No urinary tract stones or obstructive uropathy. No bowel obstruction, free air, free fluid or abscess. Right hemicolectomy is been performed.Small fa t containing umbilical hernia. No significant bony abnormality. IMPRESSION: No urinary tract stones or obstructive uropathy.
--- NOTE | 2019-07-10 12:40 | ER ---
Nurse's Notes [facility] Name: James Cuba Age: 34 yrs Sex: Male : 1985 Arrival Date: 07/10/2019 Time: 10:15 Bed 20 Private MD: Diagnosis: Low back pain Presentation: 07/10 10:28 Presenting complaint: Patient states: pain started 0700 complain all over but more em specifically in lower back, left are and chest pressure, denies fever, reports nausea. Transition of care: patient was not received from another setting of care. Onset of symptoms was July 10, 2019. Risk Assessment: Do you want to hurt yourself or someone else? Patient reports no desire to harm self or others. Initial Sepsis Screen: Does the patient meet any 2 criteria? No. Patient's initial sepsis screen is negative. Does the patient have a suspected source of infection? No. Patient's initial sepsis screen is negative. Care prior to arrival: None. 10:28 Method Of Arrival: Ambulatory em 10:28 Method Of Arrival: Ambulatory em 10:53 Acuity: KIKI 3 iw Historical: - Allergies: 10:30 Morphine; em - PMHx: 10:30 Asthma; Bipolar disorder; Back pain; Diabetes - NIDDM; hypoglycemia, asthma, em gynecomastia; - Immunization history:: Last tetanus immunization: up to date Flu vaccine is not up to date. - Social history:: Smoking status: Patient uses tobacco products. - Ebola Screening: : Patient negative for fever greater than or equal to 101.5 degrees Fahrenheit, and additional compatible Ebola Virus Disease symptoms Patient denies exposure to infectious person Patient denies travel to an Ebola-affected area in the 21 days before illness onset No symptoms or risks identified at this time. Screenin:36 Abuse screen: Denies threats or abuse. Nutritional screening: No deficits noted. em Tuberculosis screening: No symptoms or risk factors identified. Fall Risk None identified. Assessment: 10:30 General: Appears in no apparent distress. uncomfortable, Behavior is calm, cooperative, em Denies fever. Pain: Complains of pain in low back area Pain currently is 7 out of 10 on a pain scale. Pain began this morning. Neuro: Level of Consciousness is awake, alert, obeys commands, Oriented to person, place, time, situation, Appropriate for age. Cardiovascular: Capillary refill < 3 seconds Patient's skin is warm and dry. Respiratory: Airway is patent Respiratory effort is even, unlabored, Respiratory pattern is regular, symmetrical. GI: Abdomen is flat, Reports nausea, Patient currently denies vomiting. : Denies burning with urination. Derm: Skin is intact, is healthy with good turgor, Skin is pink, warm \T\ dry. Musculoskeletal: Capillary refill < 3 seconds, Range of motion: intact in all extremities. 10:45 Reassessment: Patient appears in no apparent distress at this time. I agree with the iw assessment made by TEMO Holloway. 11:45 Reassessment: Patient appears in no apparent distress at this time. Patient and/or em family updated on plan of care and expected duration. Pain level reassessed. Patient is alert, oriented x 3, equal unlabored respirations, skin warm/dry/pink. rates pain 3/10 Patient states feeling better. Patient states symptoms have improved. 12:58 Reassessment: Patient appears in no apparent distress at this time. Patient and/or em family updated on plan of care and expected duration. Pain level reassessed. Patient is alert, oriented x 3, equal unlabored respirations, skin warm/dry/pink. Vital Signs: 10:35 BP 135 / 99; Pulse 84; Resp 18; Temp 98.4(O); Pulse Ox 97% on R/A; Weight 99.79 kg; em Height 6 ft. 0 in. (182.88 cm); Pain 7/10; 11:46 BP 112 / 73; Pulse 67; Resp 18; Pulse Ox 95% on R/A; em 12:59 BP 111 / 63; Pulse 64; Resp 16; Pulse Ox 97% on R/A; Pain 3/10; em 10:35 Body Mass Index 29.84 (99.79 kg, 182.88 cm) em ED Course: 10:15 Patient arrived in ED. as 10:18 Analy [facility] kb 10:18 Hunter Doyle MD is Attending Physician. kb 10:21 Jewel Rajput LVN is Primary Nurse. em 10:35 Arm band placed on. em 10:36 Patient has correct armband on for positive identification. Bed in low position. Call em light in reach. 10:41 Urine collected: clean catch specimen, clear, Amount Voided: 40mL. ms 10:50 CT Stone Protocol In Process Unspecified. EDMS 10:53 Triage completed. iw 12:57 No provider procedures requiring assistance completed. Patient did not have IV access em during this emergency room visit. Administered Medications: 11:00 Drug: TORadol 30 mg Route: IM; Site: right deltoid; em 12:00 Follow up: Response: No adverse reaction; Pain is decreased em 11:00 Drug: Gilbert (7.5 mg-325 mg) 1 tabs Route: PO; em 12:00 Follow up: Response: No adverse reaction; Marked relief of symptoms; RASS: Alert and em Calm (0) Outcome: 12:39 Discharge ordered by . kb 12:57 Discharged to home ambulatory. em 12:57 Condition: good 12:57 Discharge instructions given to patient, Instructed on discharge instructions, follow up and referral plans. no drinking with medication, no driving heavy equipment, medication usage, Demonstrated understanding of instructions, follow-up care, medications, Prescriptions given X 2. 13:06 Patient left the ED. em Signatures: Dispatcher [employer] EDAnaly Chen, TOOL AND DIE REPAIR-C TOOL AND DIE REPAIR-Ckb Jewel Rajput, BASEBALL COACH BASEBALL COACH em Marissa Jenkins as Brittani Shaver, NASIR RN Soni Barton ms Corrections: (The following items were deleted from the chart) 10:30 10:25 Presenting complaint: em em 13:00 12:17 Response: No adverse reaction; Pain is decreased em em
--- NOTE | 2019-07-10 12:40 | EDPHYS ---
Physician Documentation [facility] Name: James Cuba Age: 34 yrs Sex: Male : 1985 Arrival Date: 07/10/2019 Time: 10:15 Bed 20 Private MD: ED Physician Hunter Doyle HPI: 07/10 10:33 This 34 yrs old Male presents to ER via Ambulatory with complaints of Pain kb All Over. 10:33 The patient presents with pain that is acute, and decreased range of motion, and kb tenderness. The symptoms are located in the low back. Onset: The symptoms/episode began/occurred this morning, at 07:00. The pain does not radiate. Associated signs and symptoms: Pertinent positives: none. The problem was sustained without known cause. Modifying factors: The patient symptoms are alleviated by nothing, the patient symptoms are aggravated by any movement. Severity of symptoms: At their worst the symptoms were moderate, in the emergency department the symptoms are unchanged. The patient has not experienced similar symptoms in the past. The patient has not recently seen a physician. Pt c/o low back pain that started at 0700. Denies any injury or trauma, urinary symptoms. Pt reports he moved the box out of his truck yesterday and pushed/pulled it through the yard. "but that was yesterday and I wasn't hurting yesterday.". Historical: - Allergies: 10:30 Morphine; em - PMHx: 10:30 Asthma; Bipolar disorder; Back pain; Diabetes - NIDDM; hypoglycemia, asthma, em gynecomastia; - Immunization history:: Last tetanus immunization: up to date Flu vaccine is not up to date. - Social history:: Smoking status: Patient uses tobacco products. - Ebola Screening: : Patient negative for fever greater than or equal to 101.5 degrees Fahrenheit, and additional compatible Ebola Virus Disease symptoms Patient denies exposure to infectious person Patient denies travel to an Ebola-affected area in the 21 days before illness onset No symptoms or risks identified at this time. ROS: 10:31 Constitutional: Negative for fever, chills, and weight loss, Neck: Negative for injury, kb pain, and swelling, Cardiovascular: Negative for chest pain, palpitations, and edema, Respiratory: Negative for shortness of breath, cough, wheezing, and pleuritic chest pain, Abdomen/GI: Negative for abdominal pain, nausea, vomiting, diarrhea, and constipation, : Negative for injury, bleeding, discharge, and swelling, MS/Extremity: Negative for injury and deformity, Skin: Negative for injury, rash, and discoloration, Neuro: Negative for headache, weakness, numbness, tingling, and seizure. 10:31 Back: Positive for pain at rest, pain with movement, of the low back area and mid back area. Exam: 10:31 Constitutional: This is a well developed, well nourished patient who is awake, alert, kb and in no acute distress. Head/Face: Normocephalic, atraumatic. Chest/axilla: Normal chest wall appearance and motion. Nontender with no deformity. No lesions are appreciated. Cardiovascular: Regular rate and rhythm with a normal S1 and S2. No gallops, murmurs, or rubs. Normal PMI, no JVD. No pulse deficits. Respiratory: Lungs have equal breath sounds bilaterally, clear to auscultation and percussion. No rales, rhonchi or wheezes noted. No increased work of breathing, no retractions or nasal flaring. Abdomen/GI: Soft, non-tender, with normal bowel sounds. No distension or tympany. No guarding or rebound. No evidence of tenderness throughout. Skin: Warm, dry with normal turgor. Normal color with no rashes, no lesions, and no evidence of cellulitis. MS/ Extremity: Pulses equal, no cyanosis. Neurovascular intact. Full, normal range of motion. Neuro: Awake and alert, GCS 15, oriented to person, place, time, and situation. Cranial nerves II-XII grossly intact. Motor strength 5/5 in all extremities. Sensory grossly intact. Cerebellar exam normal. Normal gait. 10:31 Back: pain, that is moderate, of the left low back and right low back, ROM is painful, with all movement, normal spinal alignment noted. Vital Signs: 10:35 BP 135 / 99; Pulse 84; Resp 18; Temp 98.4(O); Pulse Ox 97% on R/A; Weight 99.79 kg; em Height 6 ft. 0 in. (182.88 cm); Pain 7/10; 11:46 BP 112 / 73; Pulse 67; Resp 18; Pulse Ox 95% on R/A; em 12:59 BP 111 / 63; Pulse 64; Resp 16; Pulse Ox 97% on R/A; Pain 3/10; em 10:35 Body Mass Index 29.84 (99.79 kg, 182.88 cm) em MDM: 10:19 Patient medically screened. kb 10:31 Data reviewed: vital signs, nurses notes. Data interpreted: Pulse oximetry: on room air kb is 100 %. Interpretation: normal. 12:38 Counseling: I had a detailed discussion with the patient and/or guardian regarding: the kb historical points, exam findings, and any diagnostic results supporting the discharge/admit diagnosis, lab results, radiology results, the need for outpatient follow up, a family practitioner, to return to the emergency department if symptoms worsen or persist or if there are any questions or concerns that arise at home. 07/10 10:41 Order name: Urine Dipstick--Ancillary (enter results); Complete Time: 11:05 eb 07/10 10:28 Order name: CT Stone Protocol; Complete Time: 12:38 kb 07/10 10:28 Order name: Urine Dipstick-Ancillary (obtain specimen); Complete Time: 10:41 kb Administered Medications: 11:00 Drug: TORadol 30 mg Route: IM; Site: right deltoid; em 12:00 Follow up: Response: No adverse reaction; Pain is decreased em 11:00 Drug: Hiram (7.5 mg-325 mg) 1 tabs Route: PO; em 12:00 Follow up: Response: No adverse reaction; Marked relief of symptoms; RASS: Alert and em Calm (0) Disposition: 16:48 Co-signature as Attending Physician, Hunter Doyle MD I agree with the assessment and kdr plan of care. Disposition: 07/10/19 12:39 Discharged to Home. Impression: Low back pain. - Condition is Stable. - Discharge Instructions: Back Injury Prevention, Jecg-rg-Hebb, Back Pain, Adult, Pdyy-wz-Ydvr, Back Exercises, Tlji-[id number]. - Prescriptions for Cyclobenzaprine 10 mg Oral Tablet - take 1 tablet by ORAL route every 8 hours As needed; 21 tablet. Diclofenac Sodium 75 mg Oral Tablet, Delayed Release (E.C.) - take 1 tablet by ORAL route 2 times per day As needed; 30 tablet. - Medication Reconciliation Form, Thank You Letter, Antibiotic Education, Prescription Opioid Use, Work release form form. - Follow up: Emergency Department; When: As needed; Reason: Worsening of condition. Follow up: Private Physician; When: 2 - 3 days; Reason: Recheck today's complaints, Continuance of care, Re-evaluation by your physician. Signatures: Dispatcher [employer] EDAnaly Chen, MASHA LAB TECH-Hunter Reynolds MD MD kdr Munoz, Edgar, FULFILLMENT MAIL CLERK FULFILLMENT MAIL CLERK em Corrections: (The following items were deleted from the chart) 13:06 12:39 07/10/2019 12:39 Discharged to Home. Impression: Low back pain. Condition is em Stable. Forms are Medication Reconciliation Form, Thank You Letter, Antibiotic Education, Prescription Opioid Use. Follow up: Emergency Department; When: As needed; Reason: Worsening of condition. Follow up: Private Physician; When: 2 - 3 days; Reason: Recheck today's complaints, Continuance of care, Re-evaluation by your physician. kb
== END 2019-07-10 13:06 | disposition home or self-care (01) ==
LOC: ER 10:15
DX: M54.5 Low back pain (principal); Z72.0 Tobacco use; Z88.5 Allergy status to narcotic agent
CPT/HCPCS: 74176; 76377; 81003; 96372; 99284

== ENCOUNTER 2020-04-01 00:16 | Emergency (ER) | payer SELFPAY ==
--- OUTSIDE RECORDS SUMMARY | 2020-04-01 00:18 | XMS REPORT | Clinical Summary ---
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
[2020-04-01] MEDS ORDERED: THIAMINE 200 MG/2 ML INJ ONE (00:37)
[2020-04-01] MEDS ORDERED: ONDANSETRON 4 MG/2 ML VIAL ONE ×2 (00:38→01:51)
[2020-04-01] MEDS ORDERED: KETOROLAC 30 MG/ML INJ ONE (00:38)
[2020-04-01] MEDS ORDERED: NA CHLORIDE 0.9% 1,000 ML ONE ×2 (00:38→01:45)
[2020-04-01] MEDS ORDERED: DIAZEPAM 10 MG/2 ML INJ SYRINGE ONE (00:38)
[2020-04-01 00:52] LABS: Absolute Lymphocytes (CBC) 3.1 K/uL (0.7-4.9); Hematocrit 49.5 % (39.6-49.0); Lymphocytes % 31.8 % (15.3-44.8); MPV 8.3 fL (7.6-11.3); RBC Red Blood Cell Count 5.46 M/uL (4.33-5.43)
[2020-04-01] MEDS ORDERED: FENTANYL CITR 100 MCG/2 ML ONE (00:55)
[2020-04-01 01:07] LABS: ALT/SGPT 81 U/L (12-78); AST/SGOT 32 U/L (15-37); Albumin 3.7 g/dL (3.4-5.0); Alkaline Phosphatase 66 U/L (45-117); BUN Blood Urea Nitrogen 15 mg/dL (7-18); Bicarbonate 23 mmol/L (21-32); Bilirubin Total 0.3 mg/dL (0.2-1.0); Glucose Level 121 mg/dL (74-106); Potassium 3.2 mmol/L (3.5-5.1); Protein, Total 7.4 g/dL (6.4-8.2); Sodium Level 142 mmol/L (136-145); Troponin (Emerg Dept Use Only) < 0.02 ng/mL (0.0-0.045)
--- NOTE | 2020-04-01 01:57 | ER ---
Nurse's Notes [facility] Name: James Cuba Age: 34 yrs Sex: Male : 1985 Arrival Date: 04/01/2020 Time: 00:18 Bed 5 Private MD: Diagnosis: Strain of muscle and tendon of back wall of thorax;Alcohol abuse with intoxication;Bipolar disorder;Type 2 diabetes mellitus;Hypokalemia Presentation: 04/01 00:21 Chief complaint: EMS states: he has left scapular pain tonight. alcohol on board. mg2 denies recent trauma. Coronavirus screen: Client denies travel out of the [place] in the last 14 days. Ebola Screen: No symptoms or risks identified at this time. Initial Sepsis Screen: Does the patient meet any 2 criteria? No. Patient's initial sepsis screen is negative. Does the patient have a suspected source of infection? No. Patient's initial sepsis screen is negative. Risk Assessment: Do you want to hurt yourself or someone else? Patient reports no desire to harm self or others. Onset of symptoms was April 01, 2020. 00:21 Method Of Arrival: EMS: [facility] [place] Acuity: KIKI 3 mg2 Triage Assessment: 04:21 Injury Description: just pain. mg2 Historical: - Allergies: 00:24 Morphine; mg2 - Home Meds: 00:24 Baclofen Oral [Active]; Flexeril Oral [Active]; mg2 - PMHx: 00:24 Asthma; Back pain; Bipolar disorder; Diabetes - NIDDM; hypoglycemia, asthma, mg2 gynecomastia; - PSHx: 00:24 bowel resection; tumor removal; mg2 - Immunization history:: Flu vaccine status is unknown. - Social history:: Smoking status: unknown Patient uses alcohol, patient/guardian reports recent binge of alcohol consumption. Screenin:24 Abuse screen: Denies threats or abuse. Nutritional screening: No deficits noted. ea Tuberculosis screening: No symptoms or risk factors identified. Fall Risk None identified. Assessment: 00:40 General: Appears in no apparent distress. Behavior is restless. General: Smells of mg2 alcohol. Pain: Complains of pain in posterior aspect of left shoulder. Neuro: Level of Consciousness is awake, alert, obeys commands, Oriented to person, place, time, situation. Cardiovascular: Capillary refill < 3 seconds Patient's skin is warm and dry. Respiratory: Airway is patent Respiratory effort is even, unlabored, Respiratory pattern is regular, symmetrical. GI: No signs and/or symptoms were reported involving the gastrointestinal system. : No signs and/or symptoms were reported regarding the genitourinary system. EENT: No signs and/or symptoms were reported regarding the EENT system. Derm: Skin is intact, is healthy with good turgor, Skin is flushed. Musculoskeletal: Circulation, motion, and sensation intact. Capillary refill < 3 seconds, Reports pain in left scapular area. 01:17 Reassessment: Patient and/or family updated on plan of care and expected duration. Pain ea level reassessed. Patient states feeling better. Patient states symptoms have improved. 02:02 Reassessment: patient for dc after completing the potassium drip. mg2 02:38 Reassessment: Patient and/or family updated on plan of care and expected duration. Pain ea level reassessed. Pt resting with eyes closed, respirations even and unlabored, chest expansions even and symmetrical. 03:00 Reassessment: Sulma () [phone]. ea Vital Signs: 00:19 BP 122 / 81 RA; Pulse 116; Resp 19; Temp 98.4; Pulse Ox 99% ; mg2 00:21 Resp 18; Temp 98.4; Pulse Ox 100% on R/A; Weight 111.13 kg; Height 6 ft. 0 in. (182.88 mg2 cm); 00:42 BP 112 / 78 LA; Pulse 111; Resp 18; Pulse Ox 95% on R/A; mg2 01:18 BP 112 / 78; Pulse 97; Resp 18; Pulse Ox 98% on R/A; ea 02:02 Pulse 102; Resp 18; Pulse Ox 97% on R/A; mg2 02:09 BP 100 / 62; mg2 04:17 BP 110 / 70; Pulse 90; Resp 18; Pulse Ox 99% on R/A; ea 00:21 Body Mass Index 33.23 (111.13 kg, 182.88 cm) mg2 ED Course: 00:18 Patient arrived in ED. iw 00:20 Tito Garcia MD is Attending Physician. farhan 00:21 Anthony Meehan, NASIR is Primary Nurse. mg2 00:23 Triage completed. mg2 00:23 Arm band placed on. mg2 00:25 Patient has correct armband on for positive identification. Bed in low position. Call ea light in reach. Side rails up X2. 00:39 No provider procedures requiring assistance completed. Inserted saline lock: 20 gauge mg2 in right antecubital area, using aseptic technique. Blood collected. by NASIR Rivas. 00:59 Chest Single View XRAY In Process Unspecified. EDMS 01:33 Shoulder Left (2 View) XRAY In Process Unspecified. EDMS 01:54 Chetan Seymour MD is Referral Physician. farhan 03:12 UDS Sent. ds4 04:21 IV discontinued, intact, bleeding controlled, No redness/swelling at site. Pressure mg2 dressing applied. 04:49 Sling applied to left arm. mg2 Administered Medications: 00:28 Not Given (Duplicate Order): morphine 4 mg IVP once; RASS on ADMIN: Combtv4, Very farhan Agttd3, Agttd2, Rstlss1, AlertClm0, Drwsy-1, Lt Sdtn-2, Mod Sdtn-3, Dp Sdtn-4, UnArsble-5 00:38 Drug: Zofran (Ondansetron) 4 mg Route: IVP; Site: right antecubital; mg2 01:17 Follow up: Response: No adverse reaction ea 00:39 Drug: Valium 5 mg Route: IVP; Site: right antecubital; mg2 01:18 Follow up: Response: No adverse reaction ea 00:39 Drug: TORadol 30 mg Route: IVP; Site: right antecubital; mg2 01:18 Follow up: Response: No adverse reaction ea 00:39 Drug: NS 0.9% 1000 ml Route: IV; Rate: 1 bolus; Site: right antecubital; mg2 04:11 Follow up: Response: No adverse reaction; IV Status: Completed infusion; IV Intake: mg2 1000ml 00:39 Drug: Thiamine 100 mg Route: IV; Rate: bolus; Site: right antecubital; mg2 04:11 Follow up: Response: No adverse reaction; IV Status: Completed infusion mg2 00:46 Drug: fentaNYL (PF) 50 mcg Route: IVP; Site: right antecubital; ea 01:17 Follow up: Response: No adverse reaction; Pain is decreased; RASS: Alert and Calm (0) ea 01:36 Drug: NS 0.9% 1000 ml Route: IV; Rate: 1 bolus; Site: right antecubital; ea 04:11 Follow up: Response: No adverse reaction; IV Status: Completed infusion; IV Intake: mg2 1000ml 01:43 Drug: Zofran (Ondansetron) 4 mg Route: IVP; Site: right antecubital; ea 02:30 Follow up: Response: No adverse reaction; Nausea is decreased ea 01:54 Not Given (Duplicate Order): Potassium Effervescent Tablet 50 mEq PO once; dissolve in [facility] 4 ounces of water or juice 02:01 Drug: Decadron - Dexamethasone 10 mg Route: IVP; Site: right antecubital; mg2 03:30 Follow up: Response: No adverse reaction ea 02:01 Drug: Potassium Chloride 20 mEq Route: IV; Rate: calculated rate; Site: right mg2 antecubital; 04:06 Follow up: Response: No adverse reaction; IV Status: Completed infusion ea 02:01 Drug: Phenergan 12.5 mg Route: IVP; Site: right antecubital; mg2 03:30 Follow up: Response: No adverse reaction; Nausea is decreased ea Intake: 04:11 IV: 1000ml; Total: 1000ml. mg2 04:11 IV: 1000ml; Total: 2000ml. mg2 Output: 03:04 Urine: 700ml (Voided); Total: 700ml. mg2 Outcome: 01:56 Discharge ordered by . [facility] 04:49 Discharged to home via wheelchair. mg2 04:49 Condition: stable 04:49 Discharge instructions given to patient, family, Instructed on discharge instructions, follow up and referral plans. Demonstrated understanding of instructions, follow-up care, medications, Prescriptions given X 3. 04:50 Patient left the ED. mg2 Signatures: Dispatcher [employer] EDNH Tito Garcia MD MD cha Williams, Irene, RN RN iw Swanson, Donovan ds4 Evelyn Ochoa RN RN ea Gardose, Michele, RN RN mg2 Corrections: (The following items were deleted from the chart) 00:42 00:19 BP 122 / 81; Pulse 116bpm; Resp 19bpm; Pulse Ox 99%; Temp 98.4F; ea mg2
--- NOTE | 2020-04-01 01:57 | EDPHYS ---
Physician Documentation [facility] Name: James Cuba Age: 34 yrs Sex: Male : 1985 Arrival Date: 04/01/2020 Time: 00:18 Bed 5 Private MD: ED Physician Tito Garica HPI: 04/01 00:24 This 34 yrs old Male presents to ER via EMS with complaints of Arm Injury. farhan 00:24 The patient or guardian complains of decreased range of motion, pain, that is acute. farhan The complaints affect the anterior aspect of left shoulder, left bicep, posterior aspect of left shoulder and left tricep. Historical: - Allergies: 00:24 Morphine; mg2 - Home Meds: 00:24 Baclofen Oral [Active]; Flexeril Oral [Active]; mg2 - PMHx: 00:24 Asthma; Back pain; Bipolar disorder; Diabetes - NIDDM; hypoglycemia, asthma, mg2 gynecomastia; - PSHx: 00:24 bowel resection; tumor removal; mg2 - Immunization history:: Flu vaccine status is unknown. - Social history:: Smoking status: unknown Patient uses alcohol, patient/guardian reports recent binge of alcohol consumption. ROS: 00:25 Constitutional: Negative for fever, chills, and weight loss, Eyes: Negative for injury, farhan pain, redness, and discharge, ENT: Negative for injury, pain, and discharge, Neck: Negative for injury, pain, and swelling, Respiratory: Negative for shortness of breath, cough, wheezing, and pleuritic chest pain, Abdomen/GI: Negative for abdominal pain, nausea, vomiting, diarrhea, and constipation, : Negative for injury, bleeding, discharge, and swelling, Skin: Negative for injury, rash, and discoloration, Neuro: Negative for headache, weakness, numbness, tingling, and seizure, Psych: Negative for depression, anxiety, suicide ideation, homicidal ideation, and hallucinations, Allergy/Immunology: Negative for hives, rash, and allergies, Endocrine: Negative for neck swelling, polydipsia, polyuria, polyphagia, and marked weight changes, Hematologic/Lymphatic: Negative for swollen nodes, abnormal bleeding, and unusual bruising. 00:25 Cardiovascular: Positive for palpitations. 00:25 Respiratory: Positive for cough. 00:25 Abdomen/GI: Negative for abdominal pain. 00:25 MS/extremity: Positive for decreased range of motion, pain, tenderness, of the left trapezius and left scapular area. Exam: 00:26 Constitutional: This is a well developed, well nourished patient who is awake, alert, farhan and in no acute distress. Head/Face: Normocephalic, atraumatic. Eyes: Pupils equal round and reactive to light, extra-ocular motions intact. Lids and lashes normal. Conjunctiva and sclera are non-icteric and not injected. Cornea within normal limits. Periorbital areas with no swelling, redness, or edema. ENT: Nares patent. No nasal discharge, no septal abnormalities noted. Tympanic membranes are normal and external auditory canals are clear. Oropharynx with no redness, swelling, or masses, exudates, or evidence of obstruction, uvula midline. Mucous membranes moist. Neck: Trachea midline, no thyromegaly or masses palpated, and no cervical lymphadenopathy. Supple, full range of motion without nuchal rigidity, or vertebral point tenderness. No Meningismus. Chest/axilla: Normal chest wall appearance and motion. Nontender with no deformity. No lesions are appreciated. Respiratory: Lungs have equal breath sounds bilaterally, clear to auscultation and percussion. No rales, rhonchi or wheezes noted. No increased work of breathing, no retractions or nasal flaring. Abdomen/GI: Soft, non-tender, with normal bowel sounds. No distension or tympany. No guarding or rebound. No evidence of tenderness throughout. Male : Normal genitalia with no discharge or lesions. Skin: Warm, dry with normal turgor. Normal color with no rashes, no lesions, and no evidence of cellulitis. MS/ Extremity: Pulses equal, no cyanosis. Neurovascular intact. Full, normal range of motion. Neuro: Awake and alert, GCS 15, oriented to person, place, time, and situation. Cranial nerves II-XII grossly intact. Motor strength 5/5 in all extremities. Sensory grossly intact. Cerebellar exam normal. Normal gait. Psych: Awake, alert, with orientation to person, place and time. Behavior, mood, and affect are within normal limits. 00:26 Cardiovascular: Rate: tachycardic, Rhythm: regular, Pulses: Pulses are 4+ in bilateral radial, brachial, femoral, popliteal, posterior tibial and and dorsalis pedis arteries.. Heart sounds: normal, Edema: is not appreciated, JVD: is not appreciated. 00:26 Back: pain, that is mild, that is moderate, ROM is painful, normal spinal alignment noted, CVA tenderness, is absent, muscle spasm, is appreciated in the left scapular area and left subscapular area. Vital Signs: 00:19 BP 122 / 81 RA; Pulse 116; Resp 19; Temp 98.4; Pulse Ox 99% ; mg2 00:21 Resp 18; Temp 98.4; Pulse Ox 100% on R/A; Weight 111.13 kg; Height 6 ft. 0 in. (182.88 mg2 cm); 00:42 BP 112 / 78 LA; Pulse 111; Resp 18; Pulse Ox 95% on R/A; mg2 01:18 BP 112 / 78; Pulse 97; Resp 18; Pulse Ox 98% on R/A; ea 02:02 Pulse 102; Resp 18; Pulse Ox 97% on R/A; mg2 02:09 BP 100 / 62; mg2 04:17 BP 110 / 70; Pulse 90; Resp 18; Pulse Ox 99% on R/A; ea 00:21 Body Mass Index 33.23 (111.13 kg, 182.88 cm) mg2 MDM: 00:29 Patient medically screened. [facility] 01:53 Differential diagnosis: dislocation, closed fracture, contusion, tendonitis. [facility] 04/01 00:24 Order name: CBC with Diff; Complete Time: 01:02 [facility] 04/01 00:24 Order name: Comprehensive Metabolic Panel; Complete Time: 01:51 [facility] 04/01 00:24 Order name: ETOH Level; Complete Time: 01:51 [facility] 04/01 00:24 Order name: UDS [facility] 04/01 00:24 Order name: Troponin (emerg Dept Use Only); Complete Time: 01:51 [facility] 04/01 03:13 Order name: Urine Dipstick--Ancillary (enter results) ds4 04/01 00:24 Order name: Chest Single View XRAY [facility] 04/01 01:02 Order name: Shoulder Left (2 View) XRAY [facility] 04/01 00:24 Order name: EKG; Complete Time: 00:25 [facility] 04/01 00:24 Order name: EKG - Nurse/Tech; Complete Time: 00:39 [facility] 04/01 00:24 Order name: Bilateral blood pressure; Complete Time: 00:39 farhan 04/01 01:52 Order name: Sling; Complete Time: 04:49 farhan Administered Medications: 00:28 Not Given (Duplicate Order): morphine 4 mg IVP once; RASS on ADMIN: Combtv4, Very farhan Agttd3, Agttd2, Rstlss1, AlertClm0, Drwsy-1, Lt Sdtn-2, Mod Sdtn-3, Dp Sdtn-4, UnArsble-5 00:38 Drug: Zofran (Ondansetron) 4 mg Route: IVP; Site: right antecubital; mg2 01:17 Follow up: Response: No adverse reaction ea 00:39 Drug: Valium 5 mg Route: IVP; Site: right antecubital; mg2 01:18 Follow up: Response: No adverse reaction ea 00:39 Drug: TORadol 30 mg Route: IVP; Site: right antecubital; mg2 01:18 Follow up: Response: No adverse reaction ea 00:39 Drug: NS 0.9% 1000 ml Route: IV; Rate: 1 bolus; Site: right antecubital; mg2 04:11 Follow up: Response: No adverse reaction; IV Status: Completed infusion; IV Intake: mg2 1000ml 00:39 Drug: Thiamine 100 mg Route: IV; Rate: bolus; Site: right antecubital; mg2 04:11 Follow up: Response: No adverse reaction; IV Status: Completed infusion mg2 00:46 Drug: fentaNYL (PF) 50 mcg Route: IVP; Site: right antecubital; ea 01:17 Follow up: Response: No adverse reaction; Pain is decreased; RASS: Alert and Calm (0) ea 01:36 Drug: NS 0.9% 1000 ml Route: IV; Rate: 1 bolus; Site: right antecubital; ea 04:11 Follow up: Response: No adverse reaction; IV Status: Completed infusion; IV Intake: mg2 1000ml 01:43 Drug: Zofran (Ondansetron) 4 mg Route: IVP; Site: right antecubital; ea 02:30 Follow up: Response: No adverse reaction; Nausea is decreased ea 01:54 Not Given (Duplicate Order): Potassium Effervescent Tablet 50 mEq PO once; dissolve in [facility] 4 ounces of water or juice 02:01 Drug: Decadron - Dexamethasone 10 mg Route: IVP; Site: right antecubital; mg2 03:30 Follow up: Response: No adverse reaction ea 02:01 Drug: Potassium Chloride 20 mEq Route: IV; Rate: calculated rate; Site: right mg2 antecubital; 04:06 Follow up: Response: No adverse reaction; IV Status: Completed infusion ea 02:01 Drug: Phenergan 12.5 mg Route: IVP; Site: right antecubital; mg2 03:30 Follow up: Response: No adverse reaction; Nausea is decreased ea Disposition: 04/01/20 01:56 Discharged to Home. Impression: Strain of muscle and tendon of back wall of thorax, Alcohol abuse with intoxication, Bipolar disorder, Type 2 diabetes mellitus, Hypokalemia. - Condition is Stable. - Discharge Instructions: Alcohol Intoxication, Back Pain, Adult, Type 2 Diabetes Mellitus, Diagnosis, Adult, Potassium Content of Foods, Alcohol Intoxication, [id number], Alcohol Abuse and Nutrition, Back Pain, Adult, [id number]-[id number], Type 2 Diabetes Mellitus, Diagnosis, Adult, Dmad-gj-Apmm, Hypokalemia. - Prescriptions for Ibuprofen 600 mg Oral Tablet - take 1 tablet by ORAL route every 8 hours As needed take with food; 21 tablet. Medrol (Dusty) 4 mg Oral Tablets, Dose Pack - take 1 tablet by ORAL route as directed - follow package instructions; 1 packet. Cyclobenzaprine 5 mg Oral Tablet - take 1 tablet by ORAL route 3 times per day As needed; 15 tablet. - Medication Reconciliation Form, Thank You Letter, Antibiotic Education, Prescription Opioid Use form. - Work release form (04/01/20 04:53). ea - Family Work Release (04/01/20 04:53). ea - Follow up: Private Physician; When: 1 - 2 days; Reason: Recheck today's complaints, Continuance of care, Re-evaluation by your physician. Follow up: Chetan Seymour MD; When: 2 - 3 days; Reason: Recheck today's complaints, Continuance of care, Re-evaluation by your physician. - Problem is new. - Symptoms have improved. Signatures: Dispatcher [employer] Tito Palumbo MD MD cha Antunez, Elena, RN RN ea Gardose, Michele, RN RN mg2 Corrections: (The following items were deleted from the chart) 04:50 01:56 04/01/2020 01:56 Discharged to Home. Impression: Strain of muscle and tendon of mg2 back wall of thorax; Alcohol abuse with intoxication; Bipolar disorder; Type 2 diabetes mellitus; Hypokalemia. Condition is Stable. Forms are Medication Reconciliation Form, Thank You Letter, Antibiotic Education, Prescription Opioid Use. Follow up: Private Physician; When: 1 - 2 days; Reason: Recheck today's complaints, Continuance of care, Re-evaluation by your physician. Follow up: Chetan Seymour; When: 2 - 3 days; Reason: Recheck today's complaints, Continuance of care, Re-evaluation by your physician. Problem is new. Symptoms have improved. farhan
[2020-04-01] MEDS ORDERED: POTASSIUM 25 MEQ EFFERV TAB ONE (02:05)
[2020-04-01] MEDS ORDERED: PROMETHAZINE INJ 25 MG/ML AMP ONE (02:07)
[2020-04-01] MEDS ORDERED: dexAMETHasone 10 MG/ML VIAL ONE (02:07)
[2020-04-01] MEDS ORDERED: NA CHLORIDE 0.9% 500 ML ONE (02:08)
[2020-04-01] MEDS ORDERED: KCL 20 MEQ/100 mL IVPB 20 MEQ/100 ML BAG IV ONE (02:08)
[2020-04-01 03:48] LABS: Barbiturates NEGATIVE (NEGATIVE); Benzodiazepines NEGATIVE (NEGATIVE); Cocaine NEGATIVE (NEGATIVE); METHAMPHETAM NEGATIVE (NEGATIVE); Methadone NEGATIVE (NEGATIVE); Opiates NEGATIVE (NEGATIVE); Phencyclidine NEGATIVE (NEGATIVE); THC Cannibis NEGATIVE (NEGATIVE)
[2020-04-01 04:04] LABS: Urine Blood NEGATIVE (NEG); Urine Glucose NEGATIVE (NEG); Urine Protein NEGATIVE (NEG); Urine pH 5.5 (5.0-7.0)
--- NOTE | 2020-04-01 07:15 | RAD REPORT ---
EXAM DESCRIPTION: RAD - Chest Single View - 04/01/2020 12:58 am CLINICAL HISTORY: COUGH, left-sided chest and scapular pain TECHNIQUE: AP portable chest image was obtained 04/01/2020 12:58 am . FINDINGS: Lung volumes are low. Lung dotson are clear. Interstitial pattern within normal range. Hea rt and vasculature are normal. No measurable pleural effusion and no pneumothorax. No acute bony abno rmality seen. No acute aortic findings suspected. IMPRESSION: No acute cardiopulmonary process. No suspicious change from comparison.
--- NOTE | 2020-04-01 07:53 | EKG ---
Test Date: 2020-04-01 Test Time: 00:34:01 Senior Quality Manager: ANTIONETTE MEASUREMENT RESULTS: Intervals: Rate: 112 OR: 150 QRSD: 116 QT: 354 QTc: 483 [place]: P: 75 OR: 150 QRS: 83 T: 70 INTERPRETIVE STATEMENTS: Sinus tachycardia Incomplete right bundle branch block Borderline ECG Compared to ECG 12/21/2018 18:36:18 Sinus rhythm no longer present Electronically Signed On 04-01-20 07:53:05 CDT by Jarad Allen
--- NOTE | 2020-04-01 08:07 | RAD REPORT ---
EXAM DESCRIPTION: RAD - Shoulder Left 2 View - 04/01/2020 1:33 am CLINICAL HISTORY: PAINleft shoulder and scapular pain COMPARISON: No comparisons TECHNIQUE: Internal and external rotation views of the left shoulder were obtained. FINDINGS: There is no fracture or dislocation. AC joint is normal in appearance. No acute or suspici ous findings. IMPRESSION: Negative two-view left shoulder examination for acute findings.
[2020-04-05 09:35] VITALS: TEMP 98.4
[2020-04-05 10:00] VITALS: BP 110/70; O2SAT 99
== END 2020-04-01 04:50 | disposition home or self-care (01) ==
LOC: ER 00:16
DX: S29.012A Strain of muscle and tendon of back wall of thorax, initial encounter (principal); F10.129 Alcohol abuse with intoxication, unspecified; E87.6 Hypokalemia; F31.9 Bipolar disorder, unspecified; E11.9 Type 2 diabetes mellitus without complications; Z88.5 Allergy status to narcotic agent
CPT/HCPCS: 36415; 71045; 80053; 80307; 80320; 81003; 84484; 85025; 93005; 96365; 96366; 96375; 99284; J1100; J2405; J2550; J3010; J3360; J3411; J3480; J7030; J7040

== ENCOUNTER 2020-04-04 10:09 | Emergency (ER) | payer SELFPAY ==
[2012-03-02 11:47] VITALS: BP 131/84
--- OUTSIDE RECORDS SUMMARY | 2020-04-04 11:08 | XMS REPORT | Clinical Summary ---
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
[2020-04-04] MEDS ORDERED: ONDANSETRON 4 MG/2 ML VIAL ONE (11:23)
[2020-04-04] MEDS ORDERED: MEPERIDINE HCL 50 MG/ML ONE ×2 (11:23→12:49)
[2020-04-04 11:33] LABS: Absolute Lymphocytes (CBC) 2.5 K/uL (0.7-4.9); Basophils % 0.7 % (0-1.3); Hematocrit 51.1 % (39.6-49.0); Lymphocytes % 29.1 % (15.3-44.8); RBC Red Blood Cell Count 5.66 M/uL (4.33-5.43)
[2020-04-04 11:49] LABS: Albumin 3.5 g/dL (3.4-5.0); Bilirubin Direct 0.1 mg/dL (0-0.2); Bilirubin Total 0.5 mg/dL (0.2-1.0); Potassium 4.1 mmol/L (3.5-5.1); Protein, Total 7.4 g/dL (6.4-8.2)
--- NOTE | 2020-04-04 12:20 | RAD REPORT ---
EXAM DESCRIPTION: CT - Abdomen Pelvis W Contrast - 04/04/2020 12:04 pm CLINICAL HISTORY: Abdominal pain COMPARISON: 2018 TECHNIQUE: Computed axial tomography of the abdomen pelvis was obtained. 100 cc Isovue-300 was admin istered intravenously. Oral contrast was not requested which limits evaluation of bowel. All CT scans are performed using dose optimization technique as appropriate and may include automated exposure control or mA/KV adjustment according to patient size. FINDINGS: Due to technical factors images in the arterial and venous phase were not obtained. Delaye d images were obtained Fatty liver Spleen, pancreas, adrenal and kidneys appear unremarkable. Right toño colectomy. No obstruction. No evidence diverticulitis. Small bilateral inguinal hernias contain fat. Small umbilical hernia IMPRESSION: No acute abnormality is displayed.
[2020-04-04] MEDS ORDERED: DICYCLOMINE HCL 10 MG CAP ONE (12:49)
--- NOTE | 2020-04-04 12:49 | ER ---
Nurse's Notes [facility] Name: James Cuba Age: 34 yrs Sex: Male : 1985 Arrival Date: 04/04/2020 Time: 10:11 Bed 30 Private MD: Diagnosis: Diarrhea, unspecified;Generalized abdominal pain Presentation: 04/04 10:43 Chief complaint: Patient states: abd pain, diarrhea. Pt states "I was here recently for aa5 the diarrhea". Pt sates "I feel like my head is foggy and it's hard to concentrate". Pt denies vomiting. 10:43 Coronavirus screen: Client denies travel out of the [place] in the last 14 days. Ebola aa5 Screen: Patient negative for fever greater than or equal to 101.5 degrees Fahrenheit, and additional compatible Ebola Virus Disease symptoms. Initial Sepsis Screen: Does the patient meet any 2 criteria? No. Patient's initial sepsis screen is negative. Does the patient have a suspected source of infection? No. Patient's initial sepsis screen is negative. Risk Assessment: Do you want to hurt yourself or someone else? Patient reports no desire to harm self or others. Onset of symptoms was March 2020. 10:43 Acuity: KIKI 3 aa5 10:43 Method Of Arrival: Wheelchair aa5 Historical: - Allergies: 10:47 Morphine; aa5 - PMHx: 10:47 Asthma; Back pain; Bipolar disorder; Diabetes - NIDDM; hypoglycemia, asthma, aa5 gynecomastia; - PSHx: 10:47 Bowel resection; tumor removal; aa5 - Immunization history:: Adult Immunizations unknown. - Social history:: Smoking status: Patient reports the use of cigarette tobacco products, smokes one-half pack cigarettes per day. - Family history:: not pertinent. - Hospitalizations: : No recent hospitalization is reported. Screenin:08 Abuse screen: Denies threats or abuse. Nutritional screening: No deficits noted. em Tuberculosis screening: No symptoms or risk factors identified. Fall Risk None identified. Assessment: 11:15 General: Appears in no apparent distress. uncomfortable, Behavior is calm, cooperative, em appropriate for age, Denies fever. Pain: Complains of pain in right upper quadrant and left upper quadrant Pain currently is 6 out of 10 on a pain scale. Neuro: Level of Consciousness is awake, alert, obeys commands, Oriented to person, place, time, situation, Appropriate for age. Cardiovascular: Denies chest pain, shortness of breath, Capillary refill < 3 seconds Patient's skin is warm and dry. Respiratory: Airway is patent Respiratory effort is even, unlabored, Respiratory pattern is regular, symmetrical. GI: Abdomen is round non-distended, Bowel sounds present X 4 quads. Abd is soft X 4 quads Abdomen is tender to palpation in right upper quadrant and left upper quadrant Reports diarrhea, nausea, Patient currently denies vomiting. Derm: Skin is intact, is healthy with good turgor, Skin is pink, warm \\T\\ dry. Musculoskeletal: Capillary refill < 3 seconds, Range of motion: intact in all extremities. 12:30 Reassessment: pt reports pain is coming back, provider notified, received new orders. em Vital Signs: 10:45 BP 151 / 89; Pulse 85; Resp 20 S; Temp 97.6(TE); Pulse Ox 97% on R/A; Weight 108.86 kg aa5 (R); Height 6 ft. 0 in. (182.88 cm) (R); Pain 7/10; 12:43 BP 148 / 79; Pulse 78; Resp 18; Pulse Ox 99% on R/A; em 10:45 Body Mass Index 32.55 (108.86 kg, 182.88 cm) aa5 ED Course: 10:11 Patient arrived in ED. ag5 10:45 Arm band placed on. aa5 10:46 Triage completed. aa5 10:51 Luke Mcgill MD is Attending Physician. rn 11:08 Jewel Rajput RN is Primary Nurse. em 11:08 Patient has correct armband on for positive identification. Bed in low position. Call em light in reach. Pulse ox on. NIBP on. 11:18 Initial lab(s) drawn, by me, sent to lab. Inserted saline lock: 20 gauge in left em antecubital area, using aseptic technique. Blood collected. 11:57 CT Abd/Pelvis - IV Contrast Only In Process Unspecified. EDMS 12:42 No provider procedures requiring assistance completed. em 13:13 IV discontinued, intact, bleeding controlled, No redness/swelling at site. Pressure em dressing applied. Administered Medications: 11:20 Drug: Zofran (Ondansetron) 4 mg Route: IVP; Site: left antecubital; em 12:00 Follow up: Response: No adverse reaction; Marked relief of symptoms; Nausea is decreasedem 11:22 Drug: Demerol 50 mg Route: IVP; Site: left antecubital; em 12:00 Follow up: Response: No adverse reaction; Marked relief of symptoms; Pain is decreased em 12:42 Drug: Demerol 50 mg Route: IVP; Site: left antecubital; em 13:13 Follow up: Response: No adverse reaction; Marked relief of symptoms; Pain is decreased em 12:42 Drug: Bentyl 20 mg Route: PO; em 13:13 Follow up: Response: No adverse reaction em 13:10 Drug: LoMOTIL 2 tabs Route: PO; em 13:13 Follow up: Response: Medication administered at discharge. em Outcome: 12:48 Discharge ordered by MD. rn 13:12 Discharged to home ambulatory. em 13:12 Condition: good 13:12 Discharge instructions given to patient, Instructed on discharge instructions, follow up and referral plans. medication usage, Demonstrated understanding of instructions, follow-up care, medications, Prescriptions given X 2. 13:14 Patient left the ED. em Signatures: Dispatcher [employer] Jewel Hancock RN RN em Nieto, Roman, MD MD rn Calderon, Audri, RN RN aa5 Louann Martinez ag5 Corrections: (The following items were deleted from the chart) 10:49 10:43 Chief complaint: Patient states: abd pain, diarrhea. Pt states "I was here aa5 recently for the diarrhea". Pt sates "I feel like my head is foggy and it's hard to concentrate" aa5
--- NOTE | 2020-04-04 12:49 | EDPHYS ---
Physician Documentation [facility] Name: James Cuba Age: 34 yrs Sex: Male : 1985 Arrival Date: 04/04/2020 Time: 10:11 Bed 30 Private MD: ED Physician Luke Mcgill HPI: 04/04 11:32 This 34 yrs old Male presents to ER via Wheelchair with complaints of rn Abdominal Pain, Diarrhea. 11:32 The patient presents to the emergency department with nausea, diarrhea, abdominal pain. rn 11:32 Onset: The symptoms/episode began/occurred at an unknown time. Possible causes: rn unknown. The symptoms are aggravated by nothing. The symptoms are alleviated by nothing. Severity of symptoms: At their worst the symptoms were moderate in the emergency department the symptoms are unchanged. The patient has experienced similar episodes in the past. The patient has not recently seen a physician. Reports abd pain, non-bloody diarrhea, similar episodes in past, no fever, no vomiting, + mild nausea. Reports generalized weakness and dehydration. . Historical: - Allergies: 10:47 Morphine; aa5 - PMHx: 10:47 Asthma; Back pain; Bipolar disorder; Diabetes - NIDDM; hypoglycemia, asthma, aa5 gynecomastia; - PSHx: 10:47 Bowel resection; tumor removal; aa5 - Immunization history:: Adult Immunizations unknown. - Social history:: Smoking status: Patient reports the use of cigarette tobacco products, smokes one-half pack cigarettes per day. - Family history:: not pertinent. - Hospitalizations: : No recent hospitalization is reported. ROS: 11:32 Constitutional: Negative for fever, chills, and weight loss, Eyes: Negative for injury, rn pain, redness, and discharge, Cardiovascular: Negative for chest pain, palpitations, and edema, Respiratory: Negative for shortness of breath, cough, wheezing, and pleuritic chest pain, Abdomen/GI: Negative for constipation MS/Extremity: Negative for injury and deformity, Skin: Negative for injury, rash, and discoloration, Neuro: Negative for headache, numbness, tingling, and seizure. Exam: 11:32 Constitutional: This is a well developed, well nourished patient who is awake, alert, rn appears uncomfortable Head/Face: Normocephalic, atraumatic. Cardiovascular: Regular rate and rhythm. No pulse deficits. Respiratory: No increased work of breathing, no retractions or nasal flaring. Abdomen/GI: soft, + tenderness all 4 quadrants, no distension Skin: Warm, dry MS/ Extremity: Pulses equal, no cyanosis. Neurovascular intact. Full, normal range of motion. Equal circumference. Neuro: Awake and alert, GCS 15 Vital Signs: 10:45 BP 151 / 89; Pulse 85; Resp 20 S; Temp 97.6(TE); Pulse Ox 97% on R/A; Weight 108.86 kg aa5 (R); Height 6 ft. 0 in. (182.88 cm) (R); Pain 7/10; 12:43 BP 148 / 79; Pulse 78; Resp 18; Pulse Ox 99% on R/A; em 10:45 Body Mass Index 32.55 (108.86 kg, 182.88 cm) aa5 MDM: 10:51 Patient medically screened. rn 12:45 Differential diagnosis: Nonspecific abd pain, gastritis, diverticulitis, viral rn gastroenteritis, gastroenteritis. Data reviewed: vital signs, nurses notes, lab test result(s), radiologic studies, CT scan, and as a result, I will discharge patient. Counseling: I had a detailed discussion with the patient and/or guardian regarding: the historical points, exam findings, and any diagnostic results supporting the discharge/admit diagnosis, lab results, radiology results, the need for outpatient follow up, to return to the emergency department if symptoms worsen or persist or if there are any questions or concerns that arise at home. Special discussion: Based on the patient's Hx, exam, and Dx evaluation, there is no indication for emergent surgery or inpatient Tx. It is understood by the patient/guardian that if the Sx's persist or worsen they need to return immediately for re-evaluation. I discussed with the patient/guardian in detail that at this point there is no indication for admission to the hospital. It is understood, however, that if the symptoms persist or worsen the patient needs to return immediately for re-evaluation. 04/04 11: Order name: Basic Metabolic Panel; Complete Time: 11:55 rn 04/04 11: Order name: CBC with Diff; Complete Time: : rn 04/04 11: Order name: Hepatic Function; Complete Time: : rn 04/04 11:01 Order name: Lipase; Complete Time: 11:55 rn 04/04 11:01 Order name: CT Abd/Pelvis - IV Contrast Only; Complete Time: 12:54 rn 04/04 11:01 Order name: IV Start; Complete Time: 11:23 rn 04/04 11:01 Order name: Labs collected and sent; Complete Time: 11:23 rn Administered Medications: 11:20 Drug: Zofran (Ondansetron) 4 mg Route: IVP; Site: left antecubital; em 12:00 Follow up: Response: No adverse reaction; Marked relief of symptoms; Nausea is decreasedem 11:22 Drug: Demerol 50 mg Route: IVP; Site: left antecubital; em 12:00 Follow up: Response: No adverse reaction; Marked relief of symptoms; Pain is decreased em 12:42 Drug: Demerol 50 mg Route: IVP; Site: left antecubital; em 13:13 Follow up: Response: No adverse reaction; Marked relief of symptoms; Pain is decreased em 12:42 Drug: Bentyl 20 mg Route: PO; em 13:13 Follow up: Response: No adverse reaction em 13:10 Drug: LoMOTIL 2 tabs Route: PO; em 13:13 Follow up: Response: Medication administered at discharge. em Disposition: 04/04/20 12:48 Discharged to Home. Impression: Diarrhea, unspecified, Generalized abdominal pain. - Condition is Stable. - Discharge Instructions: Abdominal Pain, Adult, Diarrhea, Adult. - Prescriptions for Zofran ODT 4 mg Oral tablet,disintegrating - place 1 tablet by TRANSLINGUAL route every 8 hours As needed; 20 tablet. Bentyl 20 mg Oral Tablet - take 1 tablet by ORAL route every 6 hours As needed; 20 tablet. - Work release form, Medication Reconciliation Form, Thank You Letter, Antibiotic Education, Prescription Opioid Use form. - Follow up: Private Physician; When: As needed; Reason: Recheck today's complaints, Re-evaluation by your physician. - Problem is new. - Symptoms have improved. Signatures: Dispatcher [employer] Jewel Hancock RN RN em Luke Mcgill MD MD rn Calderon, Audri, RN RN aa5 Corrections: (The following items were deleted from the chart) 13:14 12:48 04/04/2020 12:48 Discharged to Home. Impression: Diarrhea, unspecified; em Generalized abdominal pain. Condition is Stable. Forms are Medication Reconciliation Form, Thank You Letter, Antibiotic Education, Prescription Opioid Use. Follow up: Private Physician; When: As needed; Reason: Recheck today's complaints, Re-evaluation by your physician. Problem is new. Symptoms have improved. rn
[2020-04-04] MEDS ORDERED: DIPHENOX/ATROP SULF 1 TAB PO ONE (13:14)
== END 2020-04-04 13:14 | disposition home or self-care (01) ==
LOC: ER 10:09
DX: R19.7 Diarrhea, unspecified (principal); F17.210 Nicotine dependence, cigarettes, uncomplicated; Z88.5 Allergy status to narcotic agent
CPT/HCPCS: 36415; 74177; 80048; 80076; 83690; 85025; 96374; 96375; 99284; J2175; J2405; Q9967

== ENCOUNTER 2020-05-17 20:33 | Emergency (ER) | payer SELFPAY ==
--- OUTSIDE RECORDS SUMMARY | 2020-05-17 20:35 | XMS REPORT | Clinical Summary ---
:1985 Author Organization [facility] Address [address] [place] [id number] Care Team Providers Name Role Phone Asked, Pcp Primary Care Provider Unavailable Allergies No Known Active Allergies Medications No known medications Active Problems Not on file Surgical History Surgery Date Site/Laterality Comments APPENDECTOMY TONSILLECTOMY COLECTOMY PARTIAL / TOTAL partia l EXPLORATORY LAPAROTOMY Medical History Medical History Date Comments Gynecomastia Bowel trouble Pt states "My bowel collapsed." Social History Tobacco Use Types Packs/Day Years Used Date Current Every Day Smoker Alcohol Use Drinks/Week oz/Week Comments No Sex Assigned at Date Recorded Not on file Last Filed Vital Signs Not on file Plan of Treatment Health Maintenance Due Date Last Done Comments INFLUENZA VACCINE 03/05/2020 Results Not on fileafter 05/17/2019 Advance Directives For more information, please contact: [phone] Type Date 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
[2020-05-17 20:56] LABS: Absolute Lymphocytes (CBC) 2.7 K/uL (0.7-4.9); Basophils % 0.8 % (0-1.3); Hematocrit 50.1 % (39.6-49.0); Lymphocytes % 28.4 % (15.3-44.8); MPV 7.7 fL (7.6-11.3); RBC Red Blood Cell Count 5.71 M/uL (4.33-5.43)
[2020-05-17] MEDS ORDERED: ONDANSETRON 4 MG/2 ML VIAL ONE ×2 (21:03→22:27)
[2020-05-17] MEDS ORDERED: FENTANYL CITR 100 MCG/2 ML ONE (21:03)
[2020-05-17] MEDS ORDERED: NA CHLORIDE 0.9% 1,000 ML ONE (21:03)
[2020-05-17 21:07] LABS: Albumin 4.1 g/dL (3.4-5.0); Bilirubin Direct 0.1 mg/dL (0-0.2); Bilirubin Total 0.3 mg/dL (0.2-1.0); Potassium 3.6 mmol/L (3.5-5.1); Protein, Total 7.6 g/dL (6.4-8.2)
[2020-05-17] MEDS ORDERED: PANTOPRAZOLE 40 MG INJ ONE (21:21)
[2020-05-17] MEDS ORDERED: MEPERIDINE HCL 50 MG/ML ONE (21:21)
--- NOTE | 2020-05-17 22:52 | ER ---
Nurse's Notes [facility] Name: James Cuba Age: 34 yrs Sex: Male : 1985 Arrival Date: 05/17/2020 Time: 20:34 Bed 8 Private MD: Diagnosis: Epigastric pain Presentation: 05/17 20:34 Chief complaint: EMS states: "pt reports a history of bowel resection and has periodic jd3 times of sharp stabbing pain.". Coronavirus screen: At this time, the client does not indicate any symptoms associated with coronavirus-19. Ebola Screen: Patient negative for fever greater than or equal to 101.5 degrees Fahrenheit, and additional compatible Ebola Virus Disease symptoms. Initial Sepsis Screen: Does the patient meet any 2 criteria? No. Patient's initial sepsis screen is negative. Does the patient have a suspected source of infection? No. Patient's initial sepsis screen is negative. Risk Assessment: Do you want to hurt yourself or someone else? Patient reports no desire to harm self or others. Onset of symptoms was May 17, 2020. 20:34 Method Of Arrival: EMS: [facility] jd3 20:34 Acuity: KIKI 3 jd3 Historical: - Allergies: 20:36 Morphine; jd3 20:39 Phenergan; jd3 - Home Meds: 20:36 Flexeril Oral [Active]; Baclofen Oral [Active]; jd3 - PMHx: 20:36 hypoglycemia, asthma, gynecomastia; Diabetes - NIDDM; Bipolar disorder; Back pain; jd3 Asthma; - PSHx: 20:36 tumor removal; Bowel resection; jd3 - Immunization history:: Adult Immunizations up to date. - Social history:: Smoking status: unknown. Screenin:10 Abuse screen: Denies threats or abuse. Denies injuries from another. Nutritional lp1 screening: No deficits noted. Tuberculosis screening: No symptoms or risk factors identified. 22:53 Fall Risk None identified. lp1 Assessment: 21:09 General: Appears uncomfortable, Behavior is anxious, restless. Pain: Complains of pain lp1 in right upper quadrant and right lower quadrant Pain currently is 10 out of 10 on a pain scale. Quality of pain is described as sharp, Pain began gradually, Noted to be agitated, guarding, moaning, restless. Neuro: Level of Consciousness is awake, alert, obeys commands, Oriented to person, place, situation. Cardiovascular: Capillary refill < 3 seconds in bilateral fingers. Respiratory: Respiratory effort is even. GI: Abdomen is round Bowel sounds present X 4 quads. Abdomen is tender to palpation in right upper quadrant and right lower quadrant. : No signs and/or symptoms were reported regarding the genitourinary system. EENT: No signs and/or symptoms were reported regarding the EENT system. Derm: Skin is intact, Skin is diaphoretic, Skin is normal. Musculoskeletal: No deficits noted. 22:10 Reassessment: Patient returned from CT at this time, tolerating glycerin swab, reports lp1 nausea; Provider notified. 22:53 Reassessment: Patient ambulated to bathroom independently at this time. lp1 Vital Signs: 20:36 BP 126 / 73 LA Supine (auto/lg); Pulse 106 MON; Resp 22 S; Pulse Ox 96% on R/A; Weight ds4 111.13 kg (R); Height 6 ft. 0 in. (182.88 cm) (R); Pain 8/10; 22:00 BP 121 / 60; Pulse 82; Resp 18; Pulse Ox 96% on R/A; lp1 20:36 Body Mass Index 33.23 (111.13 kg, 182.88 cm) ds4 ED Course: 20:34 Patient arrived in ED. jd3 20:35 Tito Isidro PA is PHCP. cp 20:35 Hari Head MD is Attending Physician. cp 20:36 Triage completed. jd3 20:37 Arm band placed on. jd3 20:37 Inserted saline lock: 20 gauge in right forearm, using aseptic technique. Blood ea collected. 21:08 Tamika Chow, RN is Primary Nurse. lp1 21:10 Patient has correct armband on for positive identification. Bed in low position. Call lp1 light in reach. Pulse ox on. NIBP on. 22:03 CT Abd/Pelvis - IV Contrast Only In Process Unspecified. EDMS 22:50 IV discontinued, No redness/swelling at site. Pressure dressing applied. lp1 22:51 Justin Guerrier MD is Referral Physician. cp 22:52 No provider procedures requiring assistance completed. lp1 Administered Medications: 20:52 Drug: Zofran (Ondansetron) 4 mg Route: IVP; Site: right forearm; ea 21:30 Follow up: Response: No adverse reaction lp1 20:55 Drug: fentaNYL (PF) 25 mcg Route: IVP; Site: right forearm; ea 21:10 Follow up: Response: Pain is unchanged, physician notified ea 20:55 Drug: NS 0.9% 1000 ml Route: IV; Rate: 1 bolus; Site: right forearm; ea 22:21 Follow up: IV Status: Completed infusion; IV Intake: 1000ml lp1 21:04 Not Given (Patient Refused): fentaNYL (PF) 25 mcg IVP once; RASS on ADMIN: Combtv4, ea Very Agttd3, Agttd2, Rstlss1, AlertClm0, Drwsy-1, Lt Sdtn-2, Mod Sdtn-3, Dp Sdtn-4, UnArsble-5 21:13 Drug: Demerol 50 mg {Note: raas 0.} Route: IVP; Site: right forearm; ea 21:30 Follow up: Response: Pain is decreased lp1 21:13 Drug: ProTONIX 40 mg Route: IVP; Site: right forearm; ea 22:22 Follow up: Response: No adverse reaction lp1 22:21 Drug: Zofran (Ondansetron) 4 mg {Note: Verbal order per MONSTER De La Cruz.} Route: IVP; lp1 Site: right forearm; 22:50 Follow up: Response: Nausea is decreased lp1 Intake: 22:21 IV: 1000ml; Total: 1000ml. lp1 Outcome: 22:51 Discharge ordered by . cp 22:55 Discharged to home ambulatory, with family. lp1 22:55 Condition: good 22:55 Discharge instructions given to patient, Instructed on discharge instructions, follow up and referral plans. medication usage, Demonstrated understanding of instructions, follow-up care, medications, Prescriptions given X 3. 23:03 Patient left the ED. lp1 Signatures: Dispatcher [employer] EDMS Tamika Chow RN RN lp1 Walter Sousa ds4 Tito Isidro PA PA cp Antunez, Elena, RN RN ea Davies, Jonathon RN RN jd3 Corrections: (The following items were deleted from the chart) 20:38 20:36 111.13 kg Reported; Height 6 ft. 0 in. Reported; BMI: 33.2; Pain 8/10; jd3 ds4
--- NOTE | 2020-05-17 22:52 | EDPHYS ---
Physician Documentation [facility] Name: James Cuba Age: 34 yrs Sex: Male : 1985 Arrival Date: 05/17/2020 Time: 20:34 Bed 8 Private MD: ED Physician Hari Head HPI: 05/17 21:00 This 34 yrs old Male presents to ER via EMS with complaints of Abdominal Pain.cp 21:00 The patient presents with abdominal pain. cp 21:00 Onset: The symptoms/episode began/occurred suddenly, today. The symptoms do not cp radiate. Associated signs and symptoms: Pertinent positives: constipation, nausea, Pertinent negatives: blood in stools, diarrhea, dysuria, fever, vomiting. The symptoms are described as sharp. Severity of pain: in the emergency department the pain is unchanged despite EMS interventions. The patient has experienced similar episodes in the past, multiple times. Historical: - Allergies: 20:36 Morphine; jd3 20:39 Phenergan; jd3 - Home Meds: 20:36 Flexeril Oral [Active]; Baclofen Oral [Active]; jd3 - PMHx: 20:36 hypoglycemia, asthma, gynecomastia; Diabetes - NIDDM; Bipolar disorder; Back pain; jd3 Asthma; - PSHx: 20:36 tumor removal; Bowel resection; jd3 - Immunization history:: Adult Immunizations up to date. - Social history:: Smoking status: unknown. ROS: 21:05 Constitutional: Negative for chills, fever, poor PO intake. cp 21:05 Eyes: Negative for injury, pain, redness, and discharge. cp 21:05 ENT: Negative for ear pain, sore throat, difficulty swallowing, difficulty handling secretions. 21:05 Cardiovascular: Negative for chest pain, edema, palpitations. 21:05 Respiratory: Negative for cough, shortness of breath, wheezing. 21:05 Abdomen/GI: Positive for abdominal pain, nausea, Negative for vomiting, diarrhea, constipation. 21:05 Back: Negative for radiated pain. 21:05 : Negative for urinary symptoms, testicular pain 21:05 Neuro: Negative for altered mental status, headache, weakness. 21:05 All other systems are negative. Exam: 21:10 Constitutional: The patient appears in no acute distress, alert, awake, cp non-diaphoretic, non-toxic, well developed, well nourished, uncomfortable. 21:10 Head/Face: Normocephalic, atraumatic. cp 21:10 Eyes: Periorbital structures: appear normal, Conjunctiva: normal, no exudate, no injection, Sclera: no appreciated abnormality, Lids and lashes: appear normal, bilaterally. 21:10 ENT: External ear(s): are unremarkable, Nose: is normal, Posterior pharynx: Airway: no evidence of obstruction, patent. 21:10 Chest/axilla: Inspection: normal, Palpation: is normal, no crepitus, no tenderness. 21:10 Cardiovascular: Rate: tachycardic, Rhythm: regular. 21:10 Respiratory: the patient does not display signs of respiratory distress, Respirations: normal, no use of accessory muscles, no retractions, labored breathing, is not present, Breath sounds: are clear throughout, no decreased breath sounds. 21:10 Abdomen/GI: Inspection: scar(s), midline incisional scar, Bowel sounds: active, all quadrants, Palpation: soft, in all quadrants, severe abdominal tenderness, in the epigastric area, rebound tenderness, is not appreciated, voluntary guarding, is elicited in the epigastric area. 21:10 Back: pain, is absent, ROM is normal. 21:10 Neuro: Orientation: to person, place \T\ time. Mentation: is normal. Vital Signs: 20:36 BP 126 / 73 LA Supine (auto/lg); Pulse 106 MON; Resp 22 S; Pulse Ox 96% on R/A; Weight ds4 111.13 kg (R); Height 6 ft. 0 in. (182.88 cm) (R); Pain 8/10; 22:00 BP 121 / 60; Pulse 82; Resp 18; Pulse Ox 96% on R/A; lp1 20:36 Body Mass Index 33.23 (111.13 kg, 182.88 cm) ds4 MDM: 20:45 Patient medically screened. cp 21:00 Differential diagnosis: bowel obstruction, cholecystitis, Cholelithiasis, cp gastroesophageal reflux disease, non-specific abd pain, pancreatitis, Peptic Ulcer Disease, Perf. Duodenal Ulcer, Perf. Gastric Ulcer, Ureterolithiasis, urinary tract infection. 22:50 Data reviewed: vital signs, nurses notes, lab test result(s), radiologic studies, CT cp scan. 22:50 Counseling: I had a detailed discussion with the patient and/or guardian regarding: the cp historical points, exam findings, and any diagnostic results supporting the discharge/admit diagnosis, lab results, radiology results, to return to the emergency department if symptoms worsen or persist or if there are any questions or concerns that arise at home. Response to treatment: the patient's symptoms have markedly improved after treatment. Special discussion: Based on the patient's Hx, exam, and Dx evaluation, there is no indication for emergent surgery or inpatient Tx. It is understood by the patient/guardian that if the Sx's persist or worsen they need to return immediately for re-evaluation. 05/17 20:37 Order name: Basic Metabolic Panel; Complete Time: 21:22 ea 05/17 21:22 Interpretation: Normal except: CL 108; GFR 73. cp 05/17 20:37 Order name: CBC with Diff; Complete Time: 21:03 05/17 21:03 Interpretation: Normal except: RBC 5.71; HCT 50.1. cp 05/17 20:37 Order name: Hepatic Function; Complete Time: 21:22 ea 05/17 20:37 Order name: Lipase; Complete Time: 21:22 05/17 20:46 Order name: CT Abd/Pelvis - IV Contrast Only 05/17 20:37 Order name: IV Saline Lock; Complete Time: 20:38 ea 05/17 20:37 Order name: Labs collected and sent; Complete Time: 20:59 ea Administered Medications: 20:52 Drug: Zofran (Ondansetron) 4 mg Route: IVP; Site: right forearm; ea 21:30 Follow up: Response: No adverse reaction lp1 20:55 Drug: fentaNYL (PF) 25 mcg Route: IVP; Site: right forearm; ea 21:10 Follow up: Response: Pain is unchanged, physician notified ea 20:55 Drug: NS 0.9% 1000 ml Route: IV; Rate: 1 bolus; Site: right forearm; ea 22:21 Follow up: IV Status: Completed infusion; IV Intake: 1000ml lp1 21:04 Not Given (Patient Refused): fentaNYL (PF) 25 mcg IVP once; RASS on ADMIN: Combtv4, ea Very Agttd3, Agttd2, Rstlss1, AlertClm0, Drwsy-1, Lt Sdtn-2, Mod Sdtn-3, Dp Sdtn-4, UnArsble-5 21:13 Drug: Demerol 50 mg {Note: raas 0.} Route: IVP; Site: right forearm; ea 21:30 Follow up: Response: Pain is decreased lp1 21:13 Drug: ProTONIX 40 mg Route: IVP; Site: right forearm; ea 22:22 Follow up: Response: No adverse reaction lp1 22:21 Drug: Zofran (Ondansetron) 4 mg {Note: Verbal order per MONSTER De La Cruz.} Route: IVP; lp1 Site: right forearm; 22:50 Follow up: Response: Nausea is decreased lp1 Disposition: 05/18 01:15 Co-signature as Attending Physician, Hari Head MD. [email or web address] Disposition: 05/17/20 22:51 Discharged to Home. Impression: Epigastric pain. - Condition is Stable. - Discharge Instructions: Abdominal Pain, Adult. - Prescriptions for Bentyl 20 mg Oral Tablet - take 2 tablets by ORAL route every 6 hours As needed; 30 tablet. Protonix 40 mg Oral Tablet - take 1 tablet by ORAL route once daily; 30 tablet. Zofran 4 mg Oral Tablet - take 1 tablet by ORAL route every 12 hours As needed; 20 tablet. - Medication Reconciliation Form, Thank You Letter, Antibiotic Education, Prescription Opioid Use form. - Follow up: Justin Guerrier MD; When: 1 - 2 days; Reason: Recheck today's complaints. - Problem is new. - Symptoms have improved. Signatures: Dispatcher [employer] EDPR Tamika Chow RN RN lp1 Tito Isidro PA PA cp Antunez, Elena, RN RN ea Davies, Jonathon, RN RN jd3 Holmes, Maurice, MD MD 7 Corrections: (The following items were deleted from the chart) 05/17 23:03 22:51 05/17/2020 22:51 Discharged to Home. Impression: Epigastric pain. Condition is lp1 Stable. Forms are Medication Reconciliation Form, Thank You Letter, Antibiotic Education, Prescription Opioid Use. Follow up: Justin Guerrier; When: 1 - 2 days; Reason: Recheck today's complaints. Problem is new. Symptoms have improved. cp
[2020-05-17 23:11] VITALS: O2SAT 96
[2020-05-17 23:13] VITALS: BP 121/60
--- NOTE | 2020-05-18 10:53 | RAD REPORT ---
EXAM DESCRIPTION: CT - Abdomen Pelvis W Contrast - 05/18/2020 6:44 am CLINICAL HISTORY: EPIGASTRIC PAIN COMPARISON: 04/04/2020. TECHNIQUE: CT ABDOMEN PELVIS WITH IV CONTRAST on 05/17/2020 8:46 PM CDT This exam was performed according to our departmental dose-optimization program, which includes autom ated exposure control, adjustment of the mA and/or kV according to patient size and/or use of iterati ve reconstruction technique. FINDINGS: Lower lungs are clear. Abdomen: Liver is fatty in attenuation. There is no biliary dilatation. Gallbladder is decompressed. Right hemicolectomy was performed. The pancreas and spleen are normal in appearance. The adrenal glan ds and kidneys are unremarkable. Abdominal aorta is normal in course and caliber without aneurysm. There is no free air. There is no r etroperitoneal adenopathy. Pelvis: There is no bowel obstruction. Urinary bladder is unremarkable. There is no free fluid. Skeleton: There are no acute osseous findings. No suspicious bony lesions. IMPRESSION: No acute process. Electronically signed by: Sherman Sandoval MD 05/17/2020 10:27 PM CDT Due to temporary technical issues with the PACS/Fluency reporting system, reports are being signed by the in house radiologist without review as a courtesy to ensure prompt reporting. The interpreting r adiologist is fully responsible for the content of the report.
== END 2020-05-17 23:03 | disposition home or self-care (01) ==
LOC: ER 20:33
DX: R10.13 Epigastric pain (principal); F31.9 Bipolar disorder, unspecified; Z88.5 Allergy status to narcotic agent; Z88.8 Allergy status to other drugs, medicaments and biological substances
CPT/HCPCS: 36415; 74177; 80048; 80076; 83690; 85025; 96361; 96374; 96375; 99284; C9113; J2175; J2405; J3010; J7030; Q9967

== ENCOUNTER 2020-12-04 09:38 | Emergency (ER) | payer SELFPAY ==
[2020-12-04 10:08] LABS: Hematocrit 44.5 % (39.6-49.0); MPV 7.6 fL (7.6-11.3); RBC Red Blood Cell Count 5.02 M/uL (4.33-5.43)
[2020-12-04 10:09] LABS: Absolute Lymphocytes (CBC) 1.2 K/uL (0.7-4.9); Basophils % 0.5 % (0-1.3); Lymphocytes % 16.1 % (15.3-44.8)
[2020-12-04] MEDS ORDERED: ONDANSETRON 4 MG/2 ML VIAL ONE (10:10)
[2020-12-04] MEDS ORDERED: NA CHLORIDE 0.9% 1,000 ML ONE (10:10)
[2020-12-04] MEDS ORDERED: MEPERIDINE HCL 50 MG/ML ONE (10:10)
[2020-12-04 10:47] LABS: ALT/SGPT 44 U/L (12-78); AST/SGOT 18 U/L (15-37); Albumin 3.3 g/dL (3.4-5.0); Alkaline Phosphatase 60 U/L (45-117); BUN Blood Urea Nitrogen 14 mg/dL (7-18); Bicarbonate 26 mmol/L (21-32); Bilirubin Direct < 0.1 mg/dL (0-0.2); Bilirubin Total 0.4 mg/dL (0.2-1.0); Glucose Level 89 mg/dL (74-106); Lipase 223 U/L (73-393); Potassium 3.8 mmol/L (3.5-5.1); Protein, Total 6.4 g/dL (6.4-8.2); Sodium Level 143 mmol/L (136-145)
--- NOTE | 2020-12-04 10:48 | RAD REPORT ---
EXAM DESCRIPTION: CTAbdomen Pelvis W Contrast - 12/04/2020 10:25 am CLINICAL HISTORY: Abdominal pain. ABD PAIN COMPARISON: Abdomen Pelvis W Contrast dated 05/17/2020; Abdomen Pelvis W Contrast dated 0; Abdomen Pelvis W Contrast dated 05/24/2018; Abdomen Pelvis W Contrast dated 04/25/2017 TECHNIQUE: Biphasic CT imaging of the abdomen and pelvis was performed with 100 ml non-ionic IV cont rast. All CT scans are performed using dose optimization technique as appropriate and may include automated exposure control or mA/KV adjustment according to patient size. FINDINGS: The lung bases are clear. The liver demonstrates diffuse fatty infiltration. The spleen, pancreas, adrenal glands and kidneys a re within normal limits. No bowel obstruction, free air, free fluid or abscess. Ovoid 5 cm fatty structure in the right lower quadrant is unchanged. The appendix is normal. No evidence of significant lymphadenopathy. No suspicious bony findings. IMPRESSION: No acute intra-abdominal or pelvic finding. Diffuse fatty liver.
--- NOTE | 2020-12-04 10:53 | RAD REPORT ---
EXAM DESCRIPTION: US - Scrotum Testicles - 12/04/2020 10:23 am CLINICAL HISTORY: testicular pain Pain and swelling COMPARISON: No comparisons FINDINGS: The right testicle 4.4 x 3.4 x 2.2 cm. No intratesticular masses or evidence of testicular torsion. The left testicle 4.1 x 3.0 x 2.3 cm. No intratesticular masses or evidence of testicular torsion. Both epididymides are normal in size and appearance. No pathologic fluid collections. Small left varicocele. IMPRESSION: Unremarkable study.
[2020-12-04 11:18] LABS: Urine Blood Trace-intact (Negative); Urine Glucose Trace (Negative); Urine Protein Negative (Negative); Urine pH 5.5 (5.0-7.0)
--- NOTE | 2020-12-04 11:22 | ER ---
Nurse's Notes [facility] Name: James Cuba Age: 35 yrs Sex: Male : 1985 Arrival Date: 12/04/2020 Time: 09:39 Bed 7 Private MD: Diagnosis: Generalized abdominal pain Presentation: 12/04 09:40 Chief complaint: EMS states: Abdominal pain that radiates to testicles x 1 hour. NS hb bolus and Fentanyl 100mcg administered to 20g RAC MUSIC THERAPIST. Coronavirus screen: At this time, the client does not indicate any symptoms associated with coronavirus-19. Ebola Screen: No symptoms or risks identified at this time. Initial Sepsis Screen: Does the patient meet any 2 criteria? No. Patient's initial sepsis screen is negative. Does the patient have a suspected source of infection? No. Patient's initial sepsis screen is negative. Risk Assessment: Do you want to hurt yourself or someone else? Patient reports no desire to harm self or others. Onset of symptoms was December 04, 2020. 09:40 Method Of Arrival: EMS: [facility] 09:40 Acuity: KIKI 3 hb Triage Assessment: 09:41 General: Appears uncomfortable, Behavior is cooperative. Pain: Pain currently is 10 out hb of 10 on a pain scale. EENT: No signs and/or symptoms were reported regarding the EENT system. Neuro: Level of Consciousness is awake, alert, obeys commands, Oriented to person, place, time, situation. Cardiovascular: Patient's skin is warm and dry. Respiratory: Respiratory effort is even, unlabored, Respiratory pattern is regular, symmetrical. GI: Reports lower abdominal pain, upper abdominal pain. : No signs and/or symptoms were reported regarding the genitourinary system. Derm: Skin is pink, warm \T\ dry. Musculoskeletal: No signs and/or symptoms reported regarding the musculoskeletal system. Historical: - Allergies: 09:43 Morphine; hb 09:43 Phenergan; hb - PMHx: 09:43 Asthma; Back pain; Bipolar disorder; Diabetes - NIDDM; hypoglycemia, asthma, hb gynecomastia; - PSHx: 09:43 tumor removal; Bowel resection; hb - Immunization history:: Adult Immunizations up to date. - Social history:: Smoking status: Patient denies any tobacco usage or history of. Screenin:44 Abuse screen: Denies threats or abuse. Denies injuries from another. Nutritional hb screening: No deficits noted. Tuberculosis screening: No symptoms or risk factors identified. Fall Risk None identified. Assessment: 09:45 General: see triage . hb 10:30 Reassessment: Patient appears in no apparent distress at this time. Patient and/or hb family updated on plan of care and expected duration. Pain level reassessed. Patient is alert, oriented x 3, equal unlabored respirations, skin warm/dry/pink. 11:30 Reassessment: Patient appears in no apparent distress at this time. Patient and/or hb family updated on plan of care and expected duration. Pain level reassessed. Patient is alert, oriented x 3, equal unlabored respirations, skin warm/dry/pink. Vital Signs: 09:40 BP 141 / 96; Pulse 86; Resp 18; Temp 98.2; Pulse Ox 95% on R/A; Pain 10/10; hb 11:00 BP 109 / 65; Pulse 88; Resp 17; Pulse Ox 92% ; hb ED Course: 09:39 Patient arrived in ED. hb 09:40 Analy Shankar FNP-C is PHCP. kb 09:40 Josh Olsen MD is Attending Physician. kb 09:40 Arm band placed on. hb 09:43 Triage completed. hb 09:44 Patient has correct armband on for positive identification. Bed in low position. Call hb light in reach. 09:44 Maintain EMS IV. Dressing intact. Good blood return noted. Site clean \T\ dry. Gauge \T\ hb site: 20g RAC. 09:46 Jennie Mccarthy, RN is Primary Nurse. hb 10:23 Ultrasound completed. Patient tolerated well. sg3 10:32 CT completed. Patient tolerated procedure well. Patient moved back from CT. mw3 11:37 No provider procedures requiring assistance completed. IV discontinued, intact, hb bleeding controlled, No redness/swelling at site. Administered Medications: 09:45 Drug: NS 0.9% 1000 ml Route: IV; Rate: 1000 ml; Site: right antecubital; ap3 10:40 Follow up: Response: No adverse reaction; IV Status: Completed infusion; IV Intake: hb 1000ml 09:45 Drug: Zofran (Ondansetron) 4 mg Route: IVP; Site: right antecubital; ap3 10:30 Follow up: Response: No adverse reaction hb 09:45 Drug: Demerol (meperidine) 50 mg Route: IVP; Site: right antecubital; ap3 10:20 Follow up: Response: No adverse reaction hb 09:49 CANCELLED (Other Intervention Used): morphine 4 mg IVP once; RASS on ADMIN: Combtv4, kb Very Agttd3, Agttd2, Rstlss1, AlertClm0, Drwsy-1, Lt Sdtn-2, Mod Sdtn-3, Dp Sdtn-4, UnArsble-5 11:10 Drug: fentaNYL (PF) 50 mcg {Note: pt alert complaining of pain 05/14.} Route: IVP; ap3 Site: right antecubital; 11:41 Follow up: Response: No adverse reaction hb 11:21 Drug: Bentyl (dicyclomine) 20 mg Route: PO; hb 11:41 Follow up: Response: No adverse reaction hb 11:30 Drug: TORadol (ketorolac) 30 mg Route: IVP; Site: right antecubital; hb 11:41 Follow up: Response: Medication administered at discharge. hb Intake: 10:40 IV: 1000ml; Total: 1000ml. hb Outcome: 11:22 Discharge ordered by . kb 11:37 Discharged to home ambulatory. hb 11:37 Condition: stable 11:37 Discharge instructions given to patient, Instructed on discharge instructions, follow up and referral plans. medication usage, Demonstrated understanding of instructions, follow-up care, medications, Prescriptions given X 3. 11:42 Patient left the ED. hb Signatures: Analy Shankar, APRIL-C BINDERY MACHINE SETTER-Jennie Wright, RN RN Porsha Spencer 3 Madelyn Davidson RN RN ap3 Olivia Knight mw3
--- NOTE | 2020-12-04 11:22 | EDPHYS ---
Physician Documentation [facility] Name: James Cuba Age: 35 yrs Sex: Male : 1985 Arrival Date: 12/04/2020 Time: 09:39 Bed 7 Private MD: ED Physician Josh Olsen HPI: 12/04 11:10 This 35 yrs old Male presents to ER via EMS with complaints of Abdominal Pain.kb 11:10 The patient presents with abdominal pain that is diffuse. Onset: The symptoms/episode kb began/occurred at 08:30. The symptoms do not radiate. Associated signs and symptoms: Pertinent positives: testicular pain. The symptoms are described as constant. Modifying factors: The symptoms are alleviated by nothing, the symptoms are aggravated by pressure. Severity of pain: At its worst the pain was severe in the emergency department the pain is unchanged. The patient has not experienced similar symptoms in the past. The patient has not recently seen a physician. Pt reports diffuse abd and testicular pain that started at 0830.. Historical: - Allergies: 09:43 Morphine; hb 09:43 Phenergan; hb - PMHx: 09:43 Asthma; Back pain; Bipolar disorder; Diabetes - NIDDM; hypoglycemia, asthma, hb gynecomastia; - PSHx: 09:43 tumor removal; Bowel resection; hb - Immunization history:: Adult Immunizations up to date. - Social history:: Smoking status: Patient denies any tobacco usage or history of. ROS: 11:07 Constitutional: Negative for fever, chills, and weight loss, Cardiovascular: Negative kb for chest pain, palpitations, and edema, Respiratory: Negative for shortness of breath, cough, wheezing, and pleuritic chest pain, : Negative for injury, bleeding, discharge, and swelling, MS/Extremity: Negative for injury and deformity, Skin: Negative for injury, rash, and discoloration, Neuro: Negative for headache, weakness, numbness, tingling, and seizure. 11:07 Abdomen/GI: Positive for abdominal pain, Negative for nausea, vomiting, and diarrhea. 11:10 : Positive for testicular pain kb Exam: 11:07 Constitutional: This is a well developed, well nourished patient who is awake, alert, kb and in no acute distress. Head/Face: Normocephalic, atraumatic. Cardiovascular: Regular rate and rhythm with a normal S1 and S2. No gallops, murmurs, or rubs. No pulse deficits. Respiratory: Respirations even and unlabored. No increased work of breathing, no retractions or nasal flaring. Skin: Warm, dry with normal turgor. Normal color. MS/ Extremity: Pulses equal, no cyanosis. Neurovascular intact. Full, normal range of motion. Neuro: Awake and alert, GCS 15, oriented to person, place, time, and situation. Moves all extremities. Normal gait. 11:07 Abdomen/GI: Inspection: abdomen appears normal, Bowel sounds: normal, Palpation: moderate abdominal tenderness, in all quadrants. 11:07 : Male external genitalia: tenderness, of the left testicle and right testicle is noted, that is moderate. Vital Signs: 09:40 BP 141 / 96; Pulse 86; Resp 18; Temp 98.2; Pulse Ox 95% on R/A; Pain 10/10; hb 11:00 BP 109 / 65; Pulse 88; Resp 17; Pulse Ox 92% ; hb MDM: 09:40 Patient medically screened. kb 11:06 Data reviewed: vital signs, nurses notes. Data interpreted: Pulse oximetry: on room air kb is 95 %. Interpretation: normal. Counseling: I had a detailed discussion with the patient and/or guardian regarding: the historical points, exam findings, and any diagnostic results supporting the discharge/admit diagnosis, lab results, radiology results, the need for outpatient follow up, a family practitioner, a smoke chaser, to return to the emergency department if symptoms worsen or persist or if there are any questions or concerns that arise at home. 12/04 09:41 Order name: Basic Metabolic Panel kb 12/04 09:41 Order name: CBC with Diff kb 12/04 09:41 Order name: Hepatic Function kb 12/04 09:41 Order name: Lipase kb 12/04 10:13 Order name: CBC with Automated Diff; Complete Time: 10:19 EDMS 12/04 10:47 Order name: Basic Metabolic Panel; Complete Time: 10:52 EDMS 12/04 09:41 Order name: CT Abd/Pelvis - IV Contrast Only kb 12/04 09:41 Order name: US Scrotum Testicles kb 12/04 10:47 Order name: Liver (Hepatic) Function; Complete Time: 10:52 EDMS 12/04 10:47 Order name: Lipase; Complete Time: 10:52 EDMS 12/04 10:49 Order name: CT; Complete Time: 10:52 EDMS 12/04 10:54 Order name: US; Complete Time: 11:02 EDMS 12/04 11:18 Order name: Urine Dipstick-Ancillary; Complete Time: 11:21 EDMS 12/04 09:41 Order name: IV Saline Lock; Complete Time: 10:11 kb 12/04 09:41 Order name: Labs collected and sent; Complete Time: 10:11 kb Administered Medications: 09:45 Drug: NS 0.9% 1000 ml Route: IV; Rate: 1000 ml; Site: right antecubital; ap3 10:40 Follow up: Response: No adverse reaction; IV Status: Completed infusion; IV Intake: hb 1000ml 09:45 Drug: Zofran (Ondansetron) 4 mg Route: IVP; Site: right antecubital; ap3 10:30 Follow up: Response: No adverse reaction hb 09:45 Drug: Demerol (meperidine) 50 mg Route: IVP; Site: right antecubital; ap3 10:20 Follow up: Response: No adverse reaction hb 09:49 CANCELLED (Other Intervention Used): morphine 4 mg IVP once; RASS on ADMIN: Combtv4, kb Very Agttd3, Agttd2, Rstlss1, AlertClm0, Drwsy-1, Lt Sdtn-2, Mod Sdtn-3, Dp Sdtn-4, UnArsble-5 11:10 Drug: fentaNYL (PF) 50 mcg {Note: pt alert complaining of pain 05/14.} Route: IVP; ap3 Site: right antecubital; 11:41 Follow up: Response: No adverse reaction hb 11:21 Drug: Bentyl (dicyclomine) 20 mg Route: PO; hb 11:41 Follow up: Response: No adverse reaction hb 11:30 Drug: TORadol (ketorolac) 30 mg Route: IVP; Site: right antecubital; hb 11:41 Follow up: Response: Medication administered at discharge. hb Disposition: 12/05 11:07 Co-signature as Attending Physician, Josh Olsen MD. ma2 Disposition: 12/04/20 11:22 Discharged to Home. Impression: Generalized abdominal pain. - Condition is Stable. - Discharge Instructions: Abdominal Pain, Adult, [id number]. - Prescriptions for Bentyl 20 mg Oral Tablet - take 1 tablet by ORAL route every 6 hours As needed; 20 tablet. Zofran 4 mg Oral Tablet - take 1 tablet by ORAL route every 6 hours As needed; 20 tablet. Diclofenac Sodium 75 mg Oral Tablet, Delayed Release (E.C.) - take 1 tablet by ORAL route 2 times per day As needed; 30 tablet. - Medication Reconciliation Form, Thank You Letter, Antibiotic Education, Prescription Opioid Use form. - Work release form (12/04/20 12:00). aa5 - Follow up: Emergency Department; When: As needed; Reason: Worsening of condition. Follow up: Private Physician; When: 2 - 3 days; Reason: Recheck today's complaints, Continuance of care, Re-evaluation by your physician. Signatures: Dispatcher [employer] EDMS Analy Shankar, APRIL-C HORSE SHOW MANAGER-Jennie Wright, NASIR RN Josh Olsen MD MD ma2 Madelyn Davidson RN RN ap3 Cecelia Abad RN aa5 Corrections: (The following items were deleted from the chart) 12/04 09:49 09:41 morphine 4 mg IVP once; RASS on ADMIN: Combtv4, Very Agttd3, Agttd2, Rstlss1, kb AlertClm0, Drwsy-1, Lt Sdtn-2, Mod Sdtn-3, Dp Sdtn-4, UnArsble-5 ordered. kb 11:42 11:22 12/04/2020 11:22 Discharged to Home. Impression: Generalized abdominal pain. hb Condition is Stable. Forms are Medication Reconciliation Form, Thank You Letter, Antibiotic Education, Prescription Opioid Use. Follow up: Emergency Department; When: As needed; Reason: Worsening of condition. Follow up: Private Physician; When: 2 - 3 days; Reason: Recheck today's complaints, Continuance of care, Re-evaluation by your physician. kb
[2020-12-04] MEDS ORDERED: FENTANYL CITR 100 MCG/2 ML ONE (11:26)
[2020-12-04] MEDS ORDERED: DICYCLOMINE HCL 10 MG CAP ONE (11:39)
[2020-12-04] MEDS ORDERED: KETOROLAC 30 MG/ML INJ ONE (11:50)
[2020-12-04 11:51] VITALS: TEMP 98.2
[2020-12-04 11:52] VITALS: BP 109/65; O2SAT 92
== END 2020-12-04 11:42 | disposition home or self-care (01) ==
LOC: ER 09:38
DX: R10.84 Generalized abdominal pain (principal); J45.909 Unspecified asthma, uncomplicated; F31.9 Bipolar disorder, unspecified; E11.9 Type 2 diabetes mellitus without complications
CPT/HCPCS: 36415; 74177; 76870; 80048; 80076; 81003; 82565; 83690; 85025; 96361; 96374; 96375; 99284; J2175; J2405; J3010; J7030; Q9967

== ENCOUNTER 2021-06-01 18:10 | Emergency (ER) | payer SELFPAY ==
--- NOTE | 2021-06-01 19:07 | RAD REPORT ---
EXAM DESCRIPTION: RAD - Chest Single View - 06/01/2021 6:47 pm CLINICAL HISTORY: COUGH COMPARISON: Chest Single View dated 04/01/2020; Chest Pa And Lat (2 Views) dated 12/21/2018; Chest Pa And Lat (2 Views) dated 09/05/2018; Chest Single View dated 06/12/2018 FINDINGS: Lines: None. Lungs: No evidence of edema or pneumonia. Pleural: No significant pleural effusions or pneumothorax. Cardiac: The heart size is within normal limits. Bones: No acute fractures. Other: IMPRESSION: No acute cardiopulmonary disease.
--- NOTE | 2021-06-01 19:50 | EDPHYS ---
Physician Documentation [facility] Name: James Cuba Age: 36 yrs Sex: Male : 1985 Arrival Date: 06/01/2021 Time: 18:13 Bed 17 Private MD: ED Physician Hari Head HPI: 06/01 19:15 This 36 yrs old Male presents to ER via Ambulatory with complaints of Cough, cp Breathing Difficulty, Diarrhea. 19:15 The patient or guardian reports cough, that is intermittent, with no sputum, difficulty cp breathing. Onset: The symptoms/episode began/occurred 4 day(s) ago. Severity of symptoms: in the emergency department the symptoms are unchanged, despite home interventions. Associated signs and symptoms: Pertinent positives: diarrhea, nausea, bowel incontinence, Pertinent negatives: chest pain, fever, vomiting. Historical: - Allergies: 18:19 Morphine; ch5 18:19 Phenergan; ch5 - Home Meds: 18:19 citalopram [Active]; Prilosec Oral [Active]; ch5 - PMHx: 18:19 Asthma; Back pain; Bipolar disorder; hypoglycemia, asthma, gynecomastia; ch5 - Immunization history:: Adult Immunizations not immunized. - Social history:: Smoking status: Patient reports the use of cigarette tobacco products, smokes one-half pack cigarettes per day. ROS: 19:20 Constitutional: Negative for body aches, chills, fever, poor PO intake. cp 19:20 Eyes: Negative for injury, pain, redness, and discharge. cp 19:20 ENT: Negative for ear pain, sore throat, difficulty swallowing, difficulty handling secretions. 19:20 Cardiovascular: Negative for chest pain. 19:20 Respiratory: Positive for cough, with no reported sputum, shortness of breath, at rest. 19:20 Abdomen/GI: Positive for abdominal pain, diarrhea, bowel incontinence, Negative for constipation. 19:20 Back: Negative for radiated pain. 19:20 Neuro: Negative for altered mental status, headache, weakness. 19:20 All other systems are negative. Exam: 19:25 Constitutional: The patient appears in no acute distress, alert, awake, cp non-diaphoretic, non-toxic, well developed, well nourished, obese. 19:25 Head/Face: Normocephalic, atraumatic. cp 19:25 Eyes: Periorbital structures: appear normal, Conjunctiva: normal, no exudate, no injection, Sclera: no appreciated abnormality, Lids and lashes: appear normal, bilaterally. 19:25 ENT: External ear(s): are unremarkable, Nose: is normal, Mouth: Lips: moist, Oral mucosa: pink and intact, moist, Posterior pharynx: Airway: no evidence of obstruction, patent, Tonsils: are normal in appearance, erythema, is not appreciated, exudate, is not appreciated. 19:25 Neck: ROM/movement: is normal, is supple, without pain, no range of motions limitations, no meningismus. 19:25 Chest/axilla: Inspection: normal, Palpation: is normal, no crepitus, no tenderness. 19:25 Cardiovascular: Rate: tachycardic, Rhythm: regular, Edema: is not appreciated, JVD: is not appreciated. 19:25 Respiratory: the patient does not display signs of respiratory distress, Respirations: labored breathing, is not present, intercostal retractions, are absent, Breath sounds: bronchial sounds, that are moderate, are heard diffusely, stridor, is not appreciated, + upper airway congestion. wheezing: that is mild, is heard diffusely. 19:25 Abdomen/GI: Inspection: obese Bowel sounds: active, all quadrants, Palpation: soft, in all quadrants, mild abdominal tenderness, in the right lower quadrant and left lower quadrant, rebound tenderness, is not appreciated, involuntary guarding, is not appreciated. 19:25 Back: pain, is absent, ROM is normal. 19:25 Skin: no rash present. 19:25 Neuro: Orientation: to person, place \T\ time. Mentation: is normal, Motor: moves all fours, strength is normal, Sensation: is normal. Vital Signs: 18:16 BP 150 / 117; Pulse 114; Resp 24; Temp 98.7(TE); Pulse Ox 96% on R/A; Weight 124.74 kg; ch5 Height 6 ft. (182.88 cm); Pain 4/10; 19:30 BP 143 / 89; Pulse 117; Resp 22; Pulse Ox 97% on R/A; cc4 18:16 Body Mass Index 37.30 (124.74 kg, 182.88 cm) [facility] MDM: 19:11 Patient medically screened. cp 19:45 Data reviewed: vital signs, nurses notes. cp 06/01 19:31 Order name: Basic Metabolic Panel cp 06/01 18:33 Order name: XRAY Chest (1 view); Complete Time: 19:19 rn 06/01 19:31 Order name: EKG; Complete Time: 19:32 cp 06/01 19:31 Order name: Cardiac monitoring cp 06/01 19:31 Order name: EKG - Nurse/Tech cp 06/01 19:31 Order name: IV Saline Lock cp 06/01 19:31 Order name: Labs collected and sent 06/01 19:31 Order name: O2 Per Protocol cp 06/01 19:31 Order name: O2 Sat Monitoring cp Administered Medications: No medications were administered Disposition: 06/02 03:43 Co-signature as Attending Physician, Hari Head MD. 7 Disposition Summary: 06/01/21 19:49 Eloped Disposition: after being seen by provider cp Problem: new cp Symptoms: are unchanged cp Reason: other cp Condition: Stable cp Diagnosis - Unspecified asthma with (acute) exacerbation cp Followup: cp - With: Private Physician - When: As needed - Reason: Worsening of condition Signatures: Dispatcher [employer] EDMS Tito Isidro PA PA cp Hari Head MD MD 7 Martínez Puente, RN RN ch5 Emelyn Valencia RN RN cc4 Corrections: (The following items were deleted from the chart) 06/01 19:52 19:40 PMHx: Diabetes - NIDDM; cc4 cc4
--- NOTE | 2021-06-01 19:50 | ER ---
Nurse's Notes [facility] Name: James Cuba Age: 36 yrs Sex: Male : 1985 Arrival Date: 06/01/2021 Time: 18:13 Bed 17 Private MD: Diagnosis: Unspecified asthma with (acute) exacerbation Presentation: 06/01 18:16 Chief complaint: Patient states: SHOB, Cough, stool incontinence at night x 4 days. ch5 Coronavirus screen: Vaccine status: Patient reports being unvaccinated. Ebola Screen: Patient negative for fever greater than or equal to 101.5 degrees Fahrenheit, and additional compatible Ebola Virus Disease symptoms Patient denies exposure to infectious person. Patient denies travel to an Ebola-affected area in the 21 days before illness onset. No symptoms or risks identified at this time. Initial Sepsis Screen: Does the patient meet any 2 criteria? No. Patient's initial sepsis screen is negative. Does the patient have a suspected source of infection? No. Patient's initial sepsis screen is negative. Risk Assessment: Do you want to hurt yourself or someone else? Patient reports no desire to harm self or others. 18:16 Method Of Arrival: Ambulatory 5 18:16 Acuity: KIKI 3 ch5 19:40 Onset of symptoms was May 28, 2021. cc4 Triage Assessment: 18:19 General: Appears uncomfortable, Behavior is cooperative, agitated. Respiratory: Airway ch5 is patent Respiratory effort is labored, dry cough Onset: The symptoms/episode began/occurred the patient has moderate shortness of breath. Historical: - Allergies: 18:19 Morphine; ch5 18:19 Phenergan; ch5 - Home Meds: 18:19 citalopram [Active]; Prilosec Oral [Active]; ch5 - PMHx: 18:19 Asthma; Back pain; Bipolar disorder; hypoglycemia, asthma, gynecomastia; ch5 - Immunization history:: Adult Immunizations not immunized. - Social history:: Smoking status: Patient reports the use of cigarette tobacco products, smokes one-half pack cigarettes per day. Screenin:42 Abuse screen: Denies threats or abuse. Nutritional screening: No deficits noted. sl2 Tuberculosis screening: No symptoms or risk factors identified. Fall Risk None identified. Assessment: 18:41 Reassessment: Portable CXR in progress at bedside. sl2 18:42 General: Appears in no apparent distress. uncomfortable, well developed, Behavior is sl2 calm, cooperative, Reports Persistent Cough and SOB. Pain: Complains of pain in Generalized body ache Pain currently is 4 out of 10 on a pain scale. at worst was 6 out of 10 on a pain scale. Quality of pain is described as aching, Pain began gradually. Neuro: No deficits noted. Cardiovascular: No deficits noted. Respiratory: Airway is patent Trachea midline Respiratory effort is even, unlabored, Respiratory pattern is regular, Breath sounds are clear Breath sounds are diminished bilaterally. GI: Reports constipation. : No deficits noted. EENT: No deficits noted. Derm: No deficits noted. Musculoskeletal: No deficits noted. 19:30 Reassessment: MONSTER Ruffin \\T\\ myself in assessing pt with freq. nonproductive cough noted; cc4 CM applied \\T\\ monitoring sinus tachycardia with no ectopy; VR 117; O2 sat 97% on RA; expiratory wheezing noted bilaterally lung dotson; reports h/o asthma as a child; reports being unvaccinated for Covid-19; changing into gown. 19:35 Reassessment: Instructed on swabbing for flu and covid; states, "I have had that done 5 cc4 times" instructed on need to test due to symptoms; allowing only partial swab, stating that's enough; MONSTER Gillespie in speaking with pt need for proper swab to pssibly receive monal-clonal antibodies if postive with pt stating that "She's not going to the back of my nose". 19:40 Cardiovascular: Rhythm is sinus tachycardia. cc4 Vital Signs: 18:16 BP 150 / 117; Pulse 114; Resp 24; Temp 98.7(TE); Pulse Ox 96% on R/A; Weight 124.74 kg; ch5 Height 6 ft. (182.88 cm); Pain 4/10; 19:30 BP 143 / 89; Pulse 117; Resp 22; Pulse Ox 97% on R/A; cc4 18:16 Body Mass Index 37.30 (124.74 kg, 182.88 cm) 5 ED Course: 18:13 Patient arrived in ED. mr 18:19 Triage completed. 5 18:19 Arm band placed on right wrist. 5 18:40 Alka Mckeon, RN is Primary Nurse. sl2 18:42 Patient has correct armband on for positive identification. Bed in low position. sl2 18:47 XRAY Chest (1 view) In Process Unspecified. EDMS 18:58 Tito Isidro PA is PHCP. cp 18:58 Luke Mcglil MD is Attending Physician. cp 19:20 Hari Head MD is Attending Physician. cp 19:40 No provider procedures requiring assistance completed. cc4 19:40 Patient did not have IV access during this emergency room visit. cc4 Administered Medications: No medications were administered Outcome: 19:40 Condition: stable cc4 19:40 Eloped from patient exam room, after seeing physician 1940- exited ER # 17 fully cc4 dressed stating, "Have a good evening" \\T\\ ambulated thru exit of ED. 20:00 Patient left the ED. cc4 Signatures: Dispatcher [employer] EDNY Fany Araujo mr Tito Isidro PA PA cp Martínez Puente, RN RN ch5 Emelyn Valencia RN RN cc4 Alka Mckeon, RN RN sl2 Corrections: (The following items were deleted from the chart) 19:52 19:40 PMHx: Diabetes - NIDDM; cc4 cc4
[2021-06-01 20:07] VITALS: TEMP 98.7
[2021-06-01 20:08] VITALS: BP 143/89; O2SAT 97
== END 2021-06-01 20:00 | disposition left against medical advice (07) ==
LOC: ER 18:10
DX: J45.901 Unspecified asthma with (acute) exacerbation (principal); F17.210 Nicotine dependence, cigarettes, uncomplicated; Z88.5 Allergy status to narcotic agent; Z88.8 Allergy status to other drugs, medicaments and biological substances
CPT/HCPCS: 71045; 93005; 99284

== ENCOUNTER 2021-06-03 17:26 | Inpatient (IN) | payer SELFPAY ==
[2021-06-03 18:01] LABS: Absolute Lymphocytes (CBC) 1.3 K/uL (0.7-4.9); Basophils % 0.3 % (0-1.3); Hematocrit 50.8 % (39.6-49.0); Lymphocytes % 13.7 % (15.3-44.8); MPV 7.4 fL (7.6-11.3); RBC Red Blood Cell Count 5.81 M/uL (4.33-5.43)
[2021-06-03 18:16] LABS: Albumin 3.6 g/dL (3.4-5.0); Bilirubin Direct 0.2 mg/dL (0-0.2); Bilirubin Total 0.6 mg/dL (0.2-1.0); Potassium 3.9 mmol/L (3.5-5.1); Protein, Total 8.2 g/dL (6.4-8.2)
[2021-06-03] MEDS ORDERED: ONDANSETRON 4 MG/2 ML VIAL ONE (18:47)
[2021-06-03] MEDS ORDERED: KETOROLAC 30 MG/ML INJ ONE (18:47)
[2021-06-03] MEDS ORDERED: METHYLPREDNISOLONE 125 MG INJ ONE (18:47)
[2021-06-03] MEDS ORDERED: NA CHLORIDE 0.9% 1,000 ML ONE (18:47)
[2021-06-03] MEDS ORDERED: ALBUTEROL 2.5 MG/3 ML NEB SOL ONE ×3 (19:30→22:47)
--- NOTE | 2021-06-03 19:41 | RAD REPORT ---
EXAM DESCRIPTION: CT - Chest For Pe Angio - 06/03/2021 7:22 pm CLINICAL HISTORY: cough COMPARISON: 2019 TECHNIQUE: Dynamically enhanced axial 3 mm thick images of the chest were obtained during administra tion of <100> mL Isovue 370 IV contrast. Coronal and oblique reconstruction images were generated and reviewed. Exam utilizes a protocol for optimal evaluation of pulmonary arterial tree. Maximum intensity projections 3D imaging was utilized All CT scans are performed using dose optimization technique as appropriate and may include automated exposure control or mA/KV adjustment according to patient size. FINDINGS: Suboptimal opacification the pulmonary arteries. A gross pulmonary embolus is not seen. A thoracic aortic aneurysm is not noted. A pleural effusion is not seen. A pericardial effusion is not seen. 1 centimeter ground-glass opacity right upper lobe Fatty liver IMPRESSION: No gross central pulmonary embolus seen 1 centimeter ground-glass opacity right upper lobe probably inflammatory or infectious. Neoplasm is d oubtful. A followup unenhanced CT chest in 3 months recommended for re-evaluation
--- NOTE | 2021-06-03 19:42 | RAD REPORT ---
EXAM DESCRIPTION: Alisat Single View06/03/2021 7:17 pm CLINICAL HISTORY: cough COMPARISON: CT chest June 03, 2021 FINDINGS: 1 centimeter right upper lobe opacity seen on CT chest same date not visualized on this e xam. Please refer to CT chest report for recommendation The lungs appear clear of acute infiltrate. The heart is normal size
--- NOTE | 2021-06-03 19:49 | EDPHYS ---
Physician Documentation [facility] Name: James Cuba Age: 36 yrs Sex: Male : 1985 Arrival Date: 06/03/2021 Time: 17:26 Bed 18 Private MD: ED Physician Josh Olsen HPI: 06/03 18:03 This 36 yrs old Male presents to ER via Wheelchair with complaints of Cough, kb Chest Pain. 18:03 The patient or guardian reports cough, that is intermittent, described as moderate, kb difficulty breathing, flu symptoms, myalgias. Onset: The symptoms/episode began/occurred 5 day(s) ago. Severity of symptoms: At their worst the symptoms were moderate, in the emergency department the symptoms are unchanged. Modifying factors: The symptoms are alleviated by nothing, the symptoms are aggravated by nothing. Associated signs and symptoms: Pertinent positives: chest pain, nausea, vomiting, Pertinent negatives: diarrhea, ear ache, fever, rhinorrhea, sore throat. The patient has not experienced similar symptoms in the past. The patient has not recently seen a physician. Pt reports cough, congestion, shortness of breath, headache, bodyaches from top of head to pelvis, left abd pain, n/v for 5 days. Historical: - Allergies: 17:31 Morphine; aa5 17:31 Phenergan; aa5 - Home Meds: 22:49 citalopram [Active]; Prilosec Oral [Active]; df1 - PMHx: 17:31 Asthma; Back pain; Bipolar disorder; hypoglycemia, asthma, gynecomastia; aa5 - PSHx: 20:40 Appendectomy; Tonsillectomy; bowel resection; df1 - Immunization history:: Client reports having NOT received the Covid vaccine. - Social history:: Smoking status: Patient reports the use of cigarette tobacco products. ROS: 18:02 Cardiovascular: Negative for chest pain, palpitations, and edema. kb 18:02 Constitutional: Positive for body aches, fatigue, malaise. 18:02 ENT: Positive for sinus congestion. 18:02 Respiratory: Positive for cough, dyspnea on exertion, shortness of breath, Negative for hemoptysis, orthopnea, pleurisy. 18:02 Abdomen/GI: Positive for abdominal pain, nausea and vomiting, Negative for diarrhea, constipation. 18:02 Neuro: Positive for headache. 18:02 All other systems are negative. Exam: 17:52 Constitutional: This is a well developed, well nourished patient who is awake, alert, kb and in no acute distress. Head/Face: Normocephalic, atraumatic. ENT: Moist Mucous membranes Cardiovascular: Regular rate and rhythm with a normal S1 and S2. No gallops, murmurs, or rubs. No pulse deficits. Skin: Warm, dry with normal turgor. Normal color. MS/ Extremity: Pulses equal, no cyanosis. Neurovascular intact. Full, normal range of motion. Neuro: Awake and alert, GCS 15, oriented to person, place, time, and situation. Moves all extremities. Normal gait. Psych: Awake, alert, with orientation to person, place and time. Behavior, mood, and affect are within normal limits. 17:52 Respiratory: the patient does not display signs of respiratory distress, Respirations: normal, Breath sounds: wheezing: expiratory that is mild, that is moderate, is scattered. 17:52 Abdomen/GI: Inspection: abdomen appears normal, Bowel sounds: normal, Palpation: soft, in all quadrants, moderate abdominal tenderness, in the left upper quadrant and left lower quadrant. 17:53 ECG was reviewed by the Attending Physician. Vital Signs: 17:29 BP 138 / 99; Pulse 109; Resp 24 S; Temp 98.7(TE); Pulse Ox 95% on R/A; Weight 124.74 kg aa5 (R); Height 6 ft. 2 in. (187.96 cm) (R); 18:15 BP 120 / 69; Pulse 109; Resp 16; Temp 98.2; Pulse Ox 99% on 2 lpm NC; sl2 20:26 BP 153 / 70; Pulse 118; Resp 24; Pulse Ox 93% on 3 lpm NC; Pain 10/10; sl2 22:47 BP 146 / 91; Pulse 111; Resp 24; Pulse Ox 91% on 4 lpm NC; Pain 0/10; df1 17:29 Body Mass Index 35.31 (124.74 kg, 187.96 cm) aa5 MDM: 17:32 Patient medically screened. 18:02 Data reviewed: vital signs, nurses notes. Data interpreted: Pulse oximetry: on room air kb is 95 %. Interpretation: normal. 19:46 Counseling: I had a detailed discussion with the patient and/or guardian regarding: the kb historical points, exam findings, and any diagnostic results supporting the discharge/admit diagnosis, lab results, radiology results, the need for further work-up and treatment in the hospital. Physician consultation: Charly FLANAGAN was contacted at 19:47, regarding admission, to the telemetry unit. patient's condition, and will see patient in ED, shortly. 06/03 17:33 Order name: Flu; Complete Time: 18:25 kb 06/03 17:33 Order name: COVID-19 SARS RT PCR (Document "Date of Onset" if Symptomatic); Complete kb Time: 18:49 06/03 17:33 Order name: Basic Metabolic Panel; Complete Time: 18:18 kb 06/03 17:33 Order name: CBC with Diff; Complete Time: 18:05 kb 06/03 17:33 Order name: Hepatic Function; Complete Time: 18:18 kb 06/03 17:33 Order name: Lipase; Complete Time: 18:18 kb 06/03 17:52 Order name: [place] Screen Profile; Complete Time: 19:02 kb 06/03 18:57 Order name: Chest Single View XRAY; Complete Time: 19:45 kb 06/03 19:07 Order name: CT Chest For PE Angio; Complete Time: 19:45 kb 06/03 20:00 Order name: ABG kb 06/03 17:33 Order name: IV Saline Lock; Complete Time: 17:43 kb 06/03 17:33 Order name: Labs collected and sent; Complete Time: 17:43 kb EC:53 Rate is 115 beats/min. Rhythm is regular. QRS [place] is Normal. MS interval is normal at kb 138 msec. QRS interval is normal at 106 msec. QT interval is normal at 330 msec. Administered Medications: 17:50 Drug: Zofran (Ondansetron) 4 mg Route: IVP; Site: right antecubital; sl2 18:28 Follow up: Response: No adverse reaction; Nausea is decreased sl2 17:53 Drug: NS 0.9% 1000 ml Route: IV; Rate: 1000 ml; Site: right antecubital; sl2 18:28 Follow up: Response: No adverse reaction sl2 20:28 Follow up: IV Status: Completed infusion; IV Intake: 1000ml sl2 17:53 Drug: SOLU-Medrol (methylPrednisoLONE) 125 mg Route: IVP; Site: right antecubital; sl2 18:28 Follow up: Response: No adverse reaction sl2 17:59 Drug: Ketorolac 30 mg Route: IVP; Site: right antecubital; sl2 18:28 Follow up: Response: No adverse reaction; Pain is decreased sl2 18:31 Drug: DuoNeb (albuterol 2.5 mg, ipratropium 0.5 mg) (3:1) (2.5 mg - 0.5 mg) 3 ml Route: sl2 Nebulizer; 20:28 Follow up: Response: Marked relief of symptoms sl2 20:10 Drug: Albuterol 2.5 mg Route: Inhalation; sl2 20:27 Follow up: Response: Marked relief of symptoms sl2 20:16 Drug: Magnesium Sulfate 1 grams Route: IVPB; Infused Over: 30 mins; Site: right sl2 antecubital; 20:39 Drug: traMADol 50 mg Route: PO; df1 21:46 Follow up: Response: Pain is decreased la1 21:50 Drug: Albuterol 2.5 mg Route: Inhalation; la1 21:50 Drug: Albuterol 2.5 mg Route: Inhalation; la1 Disposition Summary: 06/03/21 19:48 Hospitalization Ordered Hospitalization Status: Observation kb Provider: Harpreet Mcgill Location: Telemetry/MedSurg (observation) kb Condition: Stable kb Problem: new kb Symptoms: are unchanged kb Bed/Room Type: Standard Room Assignment: 220(06/03/21 21:45) Diagnosis - Unspecified asthma with (acute) exacerbation kb - Hypoxia kb Forms: - Medication Reconciliation Form kb - SBAR form kb Addendum: 06/05/2021 23:02 Co-signature as Attending Physician, Josh Olsen MD PA/MULTIFOCAL LENS INSPECTOR's history reviewed, m a2 patient interviewed, and examined. I agree with assessment and care plan and confirm the diagnosis (es) above. Signatures: Dispatcher [employer] Analy Ramirez, Cecelia Goodrich RN RN aa5 Charly Thornton FNP-C FNP-Shreyas1 Holly Nascimento RN RN Josh Olsen MD MD ma2 Barb Huynh df1 Alka Mckeon, RN RN sl2 Corrections: (The following items were deleted from the chart) 06/03 19:04 18:19 Abdomen Pelvis W Con+CT.RAD.BRZ ordered. EDMS EDMS 19:04 18:21 Chest For PE Angio+CT.RAD.BRZ ordered. EDMS EDMS 21:45 19:48 kb cg
--- NOTE | 2021-06-03 19:49 | ER ---
Nurse's Notes [facility] Name: James Cuba Age: 36 yrs Sex: Male : 1985 Arrival Date: 06/03/2021 Time: 17:26 Bed 18 Private MD: Diagnosis: Unspecified asthma with (acute) exacerbation;Hypoxia Presentation: 06/03 17:29 Chief complaint: Patient states: "I hurt from the top of my head, my eyeballs, my aa5 chest, and my stomach". Pt reports productive cough, pt reports he was seen here yesterday and eloped. Coronavirus screen: cough unrelated to allergies. Ebola Screen: No symptoms or risks identified at this time. Initial Sepsis Screen: Does the patient meet any 2 criteria? RR > 20 per min. HR > 90 bpm. Yes Does the patient have a suspected source of infection? Yes: Productive cough/pneumonia. Risk Assessment: Do you want to hurt yourself or someone else? Patient reports no desire to harm self or others. Onset of symptoms was May 2021. 17:29 Acuity: KIKI 3 aa5 17:29 Method Of Arrival: Wheelchair aa5 22:45 Note Pt completed 2nd Albuterol trt. Pt 91% on 4 L NC R24. Symptoms have not improved. df1 Historical: - Allergies: 17:31 Morphine; aa5 17:31 Phenergan; aa5 - Home Meds: 22:49 citalopram [Active]; Prilosec Oral [Active]; df1 - PMHx: 17:31 Asthma; Back pain; Bipolar disorder; hypoglycemia, asthma, gynecomastia; aa5 - PSHx: 20:40 Appendectomy; Tonsillectomy; bowel resection; df1 - Immunization history:: Client reports having NOT received the Covid vaccine. - Social history:: Smoking status: Patient reports the use of cigarette tobacco products. Screenin:30 Abuse screen: Denies threats or abuse. sl2 17:30 Nutritional screening: No deficits noted. Tuberculosis screening: No symptoms or risk sl2 factors identified. Fall Risk None identified. Assessment: 17:40 General: Appears distressed, uncomfortable, unkempt, well developed, Behavior is sl2 cooperative, anxious, crying, fussy, restless, Reports cough, abdominal pain. 17:40 Pain: Complains of pain in left lower quadrant and left upper quadrant Pain does not sl2 radiate. Pain currently is 8 out of 10 on a pain scale. at worst was 10 out of 10 on a pain scale. level that patient reports is acceptable is 2 out of 10 on a pain scale. Quality of pain is described as aching, sharp, shooting. Pain: Pain began gradually. Neuro: No deficits noted. Cardiovascular: No deficits noted. Respiratory: Reports cough that is Breath sounds are diminished GI: No deficits noted. GI: No deficits noted. Reports lower abdominal pain, upper abdominal pain, nausea, Patient currently denies diarrhea. : : No deficits noted. EENT: No deficits noted. Derm: No deficits noted. Musculoskeletal: No deficits noted. 20:26 Respiratory: Airway is patent Trachea midline Respiratory effort is even, labored, sl2 Respiratory pattern is regular, symmetrical, Breath sounds with wheezes bilaterally. Vital Signs: 17:29 BP 138 / 99; Pulse 109; Resp 24 S; Temp 98.7(TE); Pulse Ox 95% on R/A; Weight 124.74 kg aa5 (R); Height 6 ft. 2 in. (187.96 cm) (R); 18:15 BP 120 / 69; Pulse 109; Resp 16; Temp 98.2; Pulse Ox 99% on 2 lpm NC; sl2 20:26 BP 153 / 70; Pulse 118; Resp 24; Pulse Ox 93% on 3 lpm NC; Pain 10/10; sl2 22:47 BP 146 / 91; Pulse 111; Resp 24; Pulse Ox 91% on 4 lpm NC; Pain 0/10; df1 17:29 Body Mass Index 35.31 (124.74 kg, 187.96 cm) aa5 ED Course: 17:26 Patient arrived in ED. as 17:27 Analy Shankar FNP-C [facility] kb 17:27 Josh Olsen MD is Attending Physician. kb 17:29 Arm band placed on. aa5 17:30 Patient has correct armband on for positive identification. Bed in low position. sl2 night monitor on. Pulse ox on. 17:30 Oxygen administration via nasal cannula \\T\\ 2L/min. sl2 17:31 Triage completed. aa5 17:40 Initial lab(s) drawn, by me, sent to lab. Inserted saline lock: 20 gauge in right 3 antecubital area, using aseptic technique. Blood collected. 17:48 Alka Mckeon, RN is Primary Nurse. sl2 17:55 COVID-19 SARS RT PCR (Document "Date of Onset" if Symptomatic) Sent. dh3 17:55 Flu Sent. dh3 18:10 [place] Screen Profile Sent. dh3 19:17 Chest Single View XRAY In Process Unspecified. EDMS 19:22 CT Chest For PE Angio In Process Unspecified. EDMS 19:47 Luke Mcgill MD is Hospitalizing Provider. kb 19:48 Harpreet Mcgill MD is Hospitalizing Provider. kb 20:16 ABG Sent. sl2 22:49 No provider procedures requiring assistance completed. df1 23:07 Patient admitted, IV remains in place. df1 Administered Medications: 17:50 Drug: Zofran (Ondansetron) 4 mg Route: IVP; Site: right antecubital; sl2 18:28 Follow up: Response: No adverse reaction; Nausea is decreased sl2 17:53 Drug: NS 0.9% 1000 ml Route: IV; Rate: 1000 ml; Site: right antecubital; sl2 18:28 Follow up: Response: No adverse reaction sl2 20:28 Follow up: IV Status: Completed infusion; IV Intake: 1000ml sl2 17:53 Drug: SOLU-Medrol (methylPrednisoLONE) 125 mg Route: IVP; Site: right antecubital; sl2 18:28 Follow up: Response: No adverse reaction sl2 17:59 Drug: Ketorolac 30 mg Route: IVP; Site: right antecubital; sl2 18:28 Follow up: Response: No adverse reaction; Pain is decreased sl2 18:31 Drug: DuoNeb (albuterol 2.5 mg, ipratropium 0.5 mg) (3:1) (2.5 mg - 0.5 mg) 3 ml Route: sl2 Nebulizer; 20:28 Follow up: Response: Marked relief of symptoms sl2 20:10 Drug: Albuterol 2.5 mg Route: Inhalation; sl2 20:27 Follow up: Response: Marked relief of symptoms sl2 20:16 Drug: Magnesium Sulfate 1 grams Route: IVPB; Infused Over: 30 mins; Site: right sl2 antecubital; 20:39 Drug: traMADol 50 mg Route: PO; df1 21:46 Follow up: Response: Pain is decreased la1 21:50 Drug: Albuterol 2.5 mg Route: Inhalation; la1 21:50 Drug: Albuterol 2.5 mg Route: Inhalation; la1 Intake: 20:28 IV: 1000ml; Total: 1000ml. sl2 Outcome: 19:48 Decision to Hospitalize by Provider. kb 23:06 Admitted to Tele accompanied by tech. df1 23:06 Condition: stable 23:06 Instructed on the need for admit. 23:07 Patient left the ED. df1 Signatures: Dispatcher [employer] EDMS Analy Shankar, TEACHER VOCATIONAL TRAINING-C TEACHER VOCATIONAL TRAINING-Marissa Douglas Audri, NASIR RN aa5 Charly Thornton FNP-C TEACHER VOCATIONAL TRAINING-Shreyas1 Ariadne Field dh3 Barb Huynh df1 Alka Mckoen RN RN sl2 Corrections: (The following items were deleted from the chart) 18:26 18:15 BP 120 / 69; Pulse 109bpm; Resp 16bpm; Pulse Ox 99%; Temp 98.2F; sl2 sl2
--- NOTE | 2021-06-03 20:11 | P.HP ---
Certification for Inpatient Patient admitted to: Inpatient With expected LOS: >2 Midnights Patient will require the following post-hospital care: None Practitioner: I am a practitioner with admitting privileges, knowledge of patient current condition, hospital course, and medical plan of care. Services: Services provided to patient in accordance with Admission requirements found in Title 42 Section 412.3 of the Code of Federal Regulations Patient History Date of Service: 06/03/21 Primary Care Provider: Dr. Jett Reason for admission: Asthma exacerbation History of Present Illness: 36-year-old male with history of asthma, bipolar disorder presents emergency department for shortness of breath. Patient reports ongoing shortness of breath over the course of the last day or two. On exam patient did have significant expiratory wheezing found to be hypoxic with saturations in the high 80s on room air labs were unremarkable aside from glucose 218, ABG pending. Patient still wheezing and hypoxic after multiple rounds of nebulizer treatments and IV steroids, ED progress to admit for further evaluation and management of asthma exacerbation. CT a chest demonstrated 1 cm groundglass opacity right upper lobe probably inflammatory infectious neoplasm is doubtful follow-up CT in 3 months recommended. Allergies morphine Allergy (Unverified 11/14/14 19:13) Unknown NKDA Allergy (Uncoded 09/20/15 18:50) Unknown No Known Allergies Allergy (Uncoded 04/10/16 17:23) Unknown Home Medications: Albuterol Inhaler [Ventolin Inhaler*] 1 puff IH Q6HP PRN 10/23/14 Metformin HCl [Glucophage*] 500 mg PO DAILY 10/23/14 Ciprofloxacin HCl [Cipro] 500 mg PO BID #10 tablet 10/25/14 Hydrocodone/Acetaminophen [Vicodin 5-300 mg Tablet] 1 each PO Q4H PRN #40 tablet 10/25/14 Promethazine Tab [Phenergan -Tab] 25 mg PO Q6HP PRN #10 tab 10/25/14 metroNIDAZOLE [Flagyl] 500 mg PO Q6H #20 tablet 10/25/14 - Past Medical/Surgical History Diabetic: Yes -: Asthma -: kidney stones -: chronic pain -: Diabetes type 2 -: Colitis -: tonsillectomy -: tumor removal from chest Psychosocial/ Personal History: Patient lives at home with his patient - Family History Father -: Heart disease, Hypertension, Diabetes, Liver disease - Social History Smoking Status: Current every day smoker Counseled patient to stop smoking for: less than 10 minutes Smoking therapy provided: No (Patient declined) Alcohol use: Yes CD- Drugs: No Caffeine use: Yes Place of Residence: Home Review of Systems 10-point ROS is otherwise unremarkable Respiratory: Cough, Shortness of Breath, SOB with Excertion, Wheezing Physical Examination - Physical Exam General: Alert, In no apparent distress, Oriented x3 HEENT: Atraumatic, PERRLA, Mucous membr. moist/pink, EOMI, Sclerae nonicteric Neck: Supple, 2+ carotid pulse no bruit, No LAD, Without JVD or thyroid abnormality Respiratory: Expiratory wheezes Cardiovascular: Regular rate/rhythm, Normal S1 S2 Gastrointestinal: Normal bowel sounds, No tenderness Musculoskeletal: No tenderness Integumentary: No rashes Neurological: Normal gait, Normal speech, Normal strength at 5/5 x4 extr, Normal tone, Normal affect Lymphatics: No axilla or inguinal lymphadenopathy - Studies Laboratory Data (last 24 hrs) 06/03/21 17:40: WBC 9.70, Hgb 16.9, Hct 50.8 H, Plt Count 333 06/03/21 17:40: Sodium 138, Potassium 3.9, BUN 13, Creatinine 1.28, Glucose 218 H, Total Bilirubin 0.6, AST 26, ALT 72, Alkaline Phosphatase 91, Lipase 165 Microbiology Data (last 24 hrs): 06/03/21 17:49 Nasopharnyx Influenza Type A Antigen Screen - Final 06/03/21 17:49 Nasopharnyx Influenza Type B Antigen Screen - Final Assessment and Plan - Plan Assessment: Acute hypoxic respiratory failure secondary to asthma exacerbation Incidental finding 1 cm groundglass pulmonary groundglass opacity Diabetes mellitus type 2 Bipolar disorder Tobacco abuse Plan: Acute hypoxic respiratory failure secondary to asthma exacerbation: Continue with scheduled nebs, IV steroids,ICS pulmonology consult in place. Supplemental oxygen as needed. Potassium magnesium protocols in place. Dispo clinical improvement over the course next 24 to 48 hours. Incidental finding 1 cm groundglass pulmonary groundglass opacity: Discussed with patient, recommendation is for 3-month follow-up CT. CT doubt neoplasm. Diabetes mellitus type 2: A [facility] Accu-Chek sliding scale insulin continue home meds Bipolar disorder: Continue home meds Tobacco abuse: Counseled on need for tobacco cessation, patient declined inpatient treatment. DVT PPX: Lovenox Code status: Full Discharge Plan: Home Plan to discharge in: 48 Hours - Advance Directives Does patient have a Living Will: No Does patient have a Durable POA for Healthcare: No - Code Status/Comfort Care Code Status Assessed: Yes (Full code) Critical Care: No Time Spent Managing Pts Care (In Minutes): 55
[2021-06-03] MEDS ORDERED: MAGNESIUM SULFATE 1 gm IVPB 1 GM/100 ML BAG IV ONE (20:56)
[2021-06-03] MEDS ORDERED: TRAMADOL HCL 50 MG TAB ONE (21:34)
[2021-06-03] MEDS ORDERED: ONDANSETRON 4 MG/2 ML VIAL IV PRN (23:19)
[2021-06-03] MEDS ORDERED: GLUCAGON 1 MG/VIAL IM PRN (23:19)
[2021-06-03] MEDS: INSULIN -REGULAR HUMAN 50 UNIT/0.5 ML ML SQ SCH (23:19)
[2021-06-03] MEDS ORDERED: D50W 25 GM/50 ML SYRINGE IV PRN (23:19)
[2021-06-04] MEDS ORDERED: CITALOPRAM 10 MG TABLET PO ONE (00:06)
[2021-06-04] MEDS ORDERED: NICOTINE 14 MG/PAT TD ONE (00:08)
[2021-06-04] MEDS: METHYLPREDNISOLONE 40 MG INJ IV SCH ×3 (00:28→21:02)
[2021-06-04] MEDS ORDERED: MELATONIN 5 MG TABLET PO ONE (00:47)
[2021-06-04 00:52] LABS: Arterial Blood Carboxyhemoglob 0.9 % (0-1.5); Blood Gas Oxyhemoglobin 92.5 % (94-97); Blood O2 Saturation 94.8 % (92-98.5)
[2021-06-04 01:28] LABS: Urine Appearance CLEAR (Clear); Urine Bilirubin NEGATIVE (Negative); Urine Blood TRACE (Negative); Urine Color YELLOW (Yellow); Urine Glucose 3+ (Negative); Urine Protein NEGATIVE (Negative); Urine Specific Gravity >=1.030 (1.005-1.030)
[2021-06-04 01:44] LABS: Urine Microscopic Reflex ORDER UMIC
[2021-06-04 01:45] LABS: Urine Bacteria <20 /HPF (NONE SEEN)
[2021-06-04] MEDS: ALBUTEROL 2.5 MG/3 ML NEB SOL NEB SCH ×4 (02:00→20:00)
[2021-06-04] MEDS: IPRATROPIUM BROM 0.5MG/2.5ML NEB SCH ×4 (02:00→20:00)
[2021-06-04 05:51] LABS: Absolute Lymphocytes (CBC) 0.9 K/uL (0.7-4.9); Basophils % 0.3 % (0-1.3); Lymphocytes % 6.9 % (15.3-44.8); MPV 7.6 fL (7.6-11.3); RBC Red Blood Cell Count 5.42 M/uL (4.33-5.43)
[2021-06-04 06:17] LABS: Albumin 3.4 g/dL (3.4-5.0); Bilirubin Total 0.3 mg/dL (0.2-1.0); Magnesium 2.6 mg/dL (1.8-2.4); Potassium 4.7 mmol/L (3.5-5.1); Protein, Total 7.9 g/dL (6.4-8.2); Thyroid Stimulating Hormone 0.246 uIU/mL (0.360-3.740)
--- NOTE | 2021-06-04 06:19 | P.PN ---
Date of Service: 06/04/21 Subjective: no acute events overnight. Continues on BiPAP 40% FiO2 feels like he is breathing more comfortably, but states it gets worse if he takes the mask off no new complaints ROS: 10 point ROS as noted above, otherwise negative Physical exam GEN: Alert, oriented, NAD HEENT: BiPAP mask in place CV: Regular rate and rhythm, no edema Pulm: Tachypnea, mild labored respirations on BiPAP, bilateral expiratory wheezing throughout ABD: Soft, nontender, nondistended MSK: No joint tenderness Integumentary: No rashes Neuro: Normal speech, normal affect Problem List Acute hypoxic respiratory failure secondary to asthma/COPD exacerbation Incidental finding 1 cm groundglass pulmonary groundglass opacity Hyperglycemia, without diagnosis diabetes mellitus type 2 Bipolar disorder Tobacco abuse Likely COPD exacerbation Continued nebs, steroids, inhalers BiPAP as needed Pulmonology consulted Wean oxygen as tolerated Patient feels as though he is improving, still on 40% FiO2, with SpO2: 90% CT negative for PE, noted right 1 cm pulmonary groundglass opacitylikely inflammatory versus infectious. Counseled patient on nicotine dependence/cessation. Patient agreeable to nicotine replacement with patch. His goal is to quit Hyperglycemia, patient denies history of diabetes mellitus type 2, will obtain A1c Time Spent Managing Pts Care (In Minutes): 35 VTE: Lovenox Code: Full Dispo: Anticipate discharge home in ~2 days
[2021-06-04 06:23] LABS: Blood Morphology Comment NOT SEEN (NOT SEEN); Platelet Estimate ADEQ; White Blood Cell Scan OK (OK)
[2021-06-04] MEDS: INSULIN -REGULAR HUMAN 50 UNIT/0.5 ML ML SQ SCH ×4 (08:38→21:04)
[2021-06-04] MEDS: ENOXAPARIN 40 MG/0.4 ML SQ SCH (08:38)
[2021-06-04] MEDS: DULERA 200/5 (MOMETASONE/FORMOTEROL) INHALER IH SCH ×2 (08:38→21:00)
[2021-06-04] MEDS: NICOTINE 21 MG/PAT TD SCH (11:53)
[2021-06-04] MEDS ORDERED: TRAZODONE 50 MG TABLET PO PRN (12:34)
[2021-06-04] MEDS: ACETAMINOPHEN 500 MG TAB PO PRN ×2 (18:04→21:04)
[2021-06-04] MEDS ORDERED: BISACODYL E.C. 5 MG TAB PO ONE (19:04)
[2021-06-04 21:34] VITALS: BMI 30.8
[2021-06-05] MEDS: IPRATROPIUM BROM 0.5MG/2.5ML NEB SCH ×4 (02:00→20:10)
[2021-06-05] MEDS: ALBUTEROL 2.5 MG/3 ML NEB SOL NEB SCH ×4 (02:00→20:10)
[2021-06-05 04:06] LABS: Absolute Lymphocytes (CBC) 0.9 K/uL (0.7-4.9); Basophils % 0.1 % (0-1.3); Hematocrit 45.9 % (39.6-49.0); Lymphocytes % 3.7 % (15.3-44.8); RBC Red Blood Cell Count 5.22 M/uL (4.33-5.43)
[2021-06-05 04:21] LABS: Albumin 3.2 g/dL (3.4-5.0); Bilirubin Total 0.2 mg/dL (0.2-1.0); Protein, Total 7.1 g/dL (6.4-8.2)
[2021-06-05 04:31] LABS: Magnesium 2.3 mg/dL (1.8-2.4); Potassium 4.4 mmol/L (3.5-5.1)
[2021-06-05 04:40] LABS: Blood Morphology Comment NOT SEEN (NOT SEEN); Platelet Estimate ADEQ
[2021-06-05 04:52] LABS: C-Reactive Protein 33.3 mg/L (<3.00)
[2021-06-05] MEDS ORDERED: AZITHROMYCIN IV 500 MG in NA CHLORIDE 0.9% 250 ML IVPB SCH (05:00)
[2021-06-05] MEDS ORDERED: AZITHROMYCIN 500 MG INJ IVPB ONE (06:27)
[2021-06-05] MEDS ORDERED: NA CHLORIDE 0.9% 250 ML ONE (06:36)
--- NOTE | 2021-06-05 07:26 | RAD REPORT ---
EXAM DESCRIPTION: RAD - Chest Single View - 06/05/2021 5:31 am CLINICAL HISTORY: SOB, Elevated WBC COMPARISON: June 03 CT chest, June 03 portable chest TECHNIQUE: AP portable chest image was obtained 06/05/2021 5:31 am . FINDINGS: No new or progressive lung parenchymal process. Interstitial pattern is stable. Heart and vasculature are normal. No measurable pleural effusion and no pneumothorax. No acute bony abnormality seen. No acute aortic findings suspected. CT chest finding detailed June 03 is not clearly eviden t on this examination. IMPRESSION: Stable chest examination compared to June 03 portable study. Please see CT chest report of June 03 for finding warranting follow-up.
[2021-06-05] MEDS ORDERED: POLYETHYL GLY 3350 17 GM/DOSE PO ONE (07:28)
[2021-06-05] MEDS: INSULIN -REGULAR HUMAN 50 UNIT/0.5 ML ML SQ SCH ×4 (07:30→21:00)
[2021-06-05] MEDS: NICOTINE 21 MG/PAT TD SCH (08:28)
[2021-06-05] MEDS: ACETAMINOPHEN 500 MG TAB PO PRN (08:28)
[2021-06-05] MEDS: ENOXAPARIN 40 MG/0.4 ML SQ SCH (08:29)
[2021-06-05] MEDS: METHYLPREDNISOLONE 40 MG INJ IV SCH ×2 (08:30→21:00)
[2021-06-05] MEDS: GUAIFENESIN 600 MG SA TAB PO SCH ×2 (08:30→21:00)
[2021-06-05] MEDS: DULERA 200/5 (MOMETASONE/FORMOTEROL) INHALER IH SCH ×2 (08:32→21:00)
[2021-06-05] MEDS ORDERED: CODEINE 30MG/APAP 300MG TAB PO PRN (08:44)
[2021-06-05] MEDS ORDERED: CEFTRIAXONE 1 GM/NS 50 ML 1 GM/50 ML BAG IV SCH (09:00)
[2021-06-05] MEDS: levoFLOXacin 750 MG TAB PO SCH (09:09)
[2021-06-05] MEDS ORDERED: TRAMADOL HCL 50 MG TAB PO PRN (09:36)
--- NOTE | 2021-06-05 12:15 | P.CNS ---
Date of Consult: 06/05/21 Primary Care Provider: Dr. Jett Chief Complaint: Shortness of breath and cough History of Present Illness: Patient is 36 years of age admitted with 4-day history of acute cough shortness of breath discomfort on coughing and is a heavy smoker remittent alcohol abuse has not done very well since admission headache mild exacerbations before Allergies morphine Allergy (Severe, Verified 06/04/21 00:15) Hives promethazine [From Phenergan] Allergy (Verified 06/04/21 00:16) Hives/Rash Home Medications: Citalopram Hydrobromide [Citalopram HBr] 1 tab PO DAILY 06/04/21 Omeprazole Magnesium [Prilosec Otc] 1 tab PO DAILY 06/04/21 tadalafiL [Tadalafil] 1 tab PO DAILY 06/04/21 - Past Medical/Surgical History Diabetic: Yes -: Asthma -: kidney stones -: chronic pain -: Diabetes type 2 -: Colitis -: tonsillectomy -: tumor removal from chest Psychosocial/ Personal History: Patient lives at home with his patient - Family History Father Medical History: Heart disease, Hypertension, Diabetes, Liver disease - Social History Smoking Status: Current every day smoker Alcohol use: Yes CD- Drugs: No Caffeine use: Yes Place of Residence: Home Review of Systems 10-point ROS is otherwise unremarkable General: Weakness Respiratory: Cough, Shortness of Breath Physical Examination Temp Pulse Resp BP Pulse Ox 96.9 F 72 19 111/63 94 06/05/21 12:00 06/05/21 12:00 06/05/21 12:00 06/05/21 12:00 06/05/21 12:00 General: Alert, Moderate distress HEENT: Atraumatic Neck: Supple Respiratory: Expiratory wheezes Cardiovascular: No edema, Regular rate/rhythm Gastrointestinal: Normal bowel sounds, Soft and benign - Problems (1) COPD exacerbation Current Visit: Yes Status: Acute Plan: Patient is 36 years of age admitted with acute onset of cough shortness of breath presumed COPD exacerbation continue with steroids have also added antibiotic nonspecific changes on CAT scan no evidence of pulmonary embolism or pneumonia oxygenation satisfactory off BiPAP
--- NOTE | 2021-06-05 17:35 | RAD REPORT ---
EXAM DESCRIPTION: RAD - Abdomen 1 View (KUB) - 06/05/2021 4:12 pm CLINICAL HISTORY: to evaluate stool burden COMPARISON: <Comparisons> FINDINGS: Nonobstructive bowel gas pattern. No acute osseous abnormality.Visualized lungs are unrema rkable.No abnormal calcifications. Low stool burden. IMPRESSION: Nonobstructive bowel gas pattern. Low formed stool burden.
--- NOTE | 2021-06-05 19:02 | P.PN ---
Date of Service: 06/05/21 Subjective: no acute events overnight. Continues on BiPAP 40% FiO2 -more so because he is able to wear nasal cannula due to drying out his nose and comfortable Reports some bloating and has been a while since his had a bowel movement, + flatus no new complaints ROS: 10 point ROS as noted above, otherwise negative Physical exam GEN: Alert, oriented, NAD HEENT: BiPAP mask in place CV: Regular rate and rhythm, no edema Pulm: non labored respirations on BiPAP, bilateral expiratory wheezing throughout ABD: Soft, nontender, nondistended Neuro: Normal speech, normal affect Problem List Acute hypoxic respiratory failure secondary to asthma/COPD exacerbation Incidental finding 1 cm groundglass pulmonary groundglass opacity Hyperglycemia, without diagnosis diabetes mellitus type 2 Bipolar disorder Tobacco abuse COPD exacerbation Continued nebs, steroids, inhalers BiPAP as needed Pulmonology consulted Wean oxygen as tolerated Patient feels as though he is improving, still on 40% FiO2, with SpO2: 95% CT negative for PE, noted right 1 cm pulmonary groundglass opacitylikely inflammatory versus infectious. Counseled patient on nicotine dependence/cessation. Patient agreeable to nicotine replacement with patch. His goal is to quit Hyperglycemia, patient denies history of diabetes mellitus type 2, will obtain A1c VTE: Lovenox Code: Full Dispo: Anticipate discharge home in ~1-2 days Time Spent Managing Pts Care (In Minutes): 35
[2021-06-06] MEDS ORDERED: TRAZODONE 50 MG TABLET ONE (00:31)
[2021-06-06] MEDS: ALBUTEROL 2.5 MG/3 ML NEB SOL NEB SCH ×2 (01:45→08:00)
[2021-06-06] MEDS: IPRATROPIUM BROM 0.5MG/2.5ML NEB SCH ×2 (01:45→08:00)
[2021-06-06 05:48] LABS: Basophils % 0.3 % (0-1.3); Lymphocytes % 5.3 % (15.3-44.8); MPV 7.6 fL (7.6-11.3); RBC Red Blood Cell Count 5.41 M/uL (4.33-5.43)
[2021-06-06 06:03] LABS: Albumin 3.2 g/dL (3.4-5.0); Bilirubin Total 0.2 mg/dL (0.2-1.0); Magnesium 2.4 mg/dL (1.8-2.4); Potassium 5.1 mmol/L (3.5-5.1); Protein, Total 7.3 g/dL (6.4-8.2)
[2021-06-06] MEDS: INSULIN -REGULAR HUMAN 50 UNIT/0.5 ML ML SQ SCH ×2 (07:30→11:30)
[2021-06-06] MEDS: levoFLOXacin 750 MG TAB PO SCH (08:25)
[2021-06-06] MEDS: NICOTINE 21 MG/PAT TD SCH (08:26)
[2021-06-06] MEDS: ENOXAPARIN 40 MG/0.4 ML SQ SCH ×2 (08:26→08:41)
[2021-06-06] MEDS: METHYLPREDNISOLONE 40 MG INJ IV SCH (08:26)
[2021-06-06] MEDS: GUAIFENESIN 600 MG SA TAB PO SCH (08:26)
[2021-06-06] MEDS: DULERA 200/5 (MOMETASONE/FORMOTEROL) INHALER IH SCH (08:27)
[2021-06-06] MEDS ORDERED: predniSONE 20 MG TAB PO SCH (09:00)
[2021-06-06 10:42] VITALS: O2SAT 92
--- NOTE | 2021-06-06 11:30 | P.DS ---
Admission Date: 06/03/21 Discharge Date: 06/06/21 Primary Care Provider: Dr. Jett Disposition: ROUTINE DISCHARGE Discharge Condition: FAIR Reason for Admission: Shortness of breath and cough Vital Signs/Physical Exam: Temp Pulse Resp BP Pulse Ox 96.9 F 58 14 125/68 98 06/06/21 08:00 06/06/21 08:00 06/06/21 08:00 06/06/21 08:00 06/06/21 08:00 Laboratory Data at Discharge: WBC 19.80 K/uL (4.3-10.9) H D 06/06/21 05:15 Hgb 15.5 g/dL (13.6-17.9) 06/06/21 05:15 Hct 48.0 % (39.6-49.0) 06/06/21 05:15 Plt Count 334 K/uL (152-406) 06/06/21 05:15 Sodium 139 mmol/L (136-145) 06/06/21 05:15 Potassium 5.1 mmol/L (3.5-5.1) 06/06/21 05:15 BUN 13 mg/dL (7-18) 06/06/21 05:15 Creatinine 1.07 mg/dL (0.55-1.3) 06/06/21 05:15 Glucose 199 mg/dL (74-106) H 06/06/21 05:15 Magnesium 2.4 mg/dL (1.8-2.4) 06/06/21 05:15 Total Bilirubin 0.2 mg/dL (0.2-1.0) 06/06/21 05:15 AST 21 U/L (15-37) 06/06/21 05:15 ALT 76 U/L (12-78) 06/06/21 05:15 Alkaline Phosphatase 80 U/L (45-117) 06/06/21 05:15 Triglycerides 84 mg/dL (<150) 06/04/21 05:22 Cholesterol 225 mg/dL (<200) H 06/04/21 05:22 HDL Cholesterol 58 mg/dL (40-60) 06/04/21 05:22 Cholesterol/HDL Ratio 3.88 06/04/21 05:22 Lipase 165 U/L (73-393) 06/03/21 17:40 Home Medications: Citalopram Hydrobromide [Citalopram HBr] 1 tab PO DAILY 06/04/21 Omeprazole Magnesium [Prilosec Otc] 1 tab PO DAILY 06/04/21 tadalafiL [Tadalafil] 1 tab PO DAILY 06/04/21 Albuterol Sulfate [Albuterol Sulfate Hfa] 8.5 gm IH Q6H #1 hfa.aer.ad 06/06/21 Mometasone/Formoterol [Dulera 200 Mcg/5 Mcg Inhaler] 2 puff IH BID #1 inhaler 06/06/21 guaiFENesin [Guaifenesin ER] 600 mg PO BID #10 tab.er.12h 06/06/21 levoFLOXacin [Levaquin*] 750 mg PO DAILY #3 tab 06/06/21 predniSONE [Deltasone] 40 mg PO DAILY #6 tab 06/06/21 New Medications: Albuterol Sulfate [Albuterol Sulfate Hfa] 8.5 gm IH Q6H #1 hfa.aer.ad Mometasone/Formoterol [Dulera 200 Mcg/5 Mcg Inhaler] 2 puff IH BID #1 inhaler guaiFENesin [Guaifenesin ER] 600 mg PO BID #10 tab.er.12h levoFLOXacin [Levaquin*] 750 mg PO DAILY #3 tab predniSONE [Deltasone] 40 mg PO DAILY #6 tab Diet: Regular Activity: Ad albino Followup: NONE,NONE [Primary Care Provider] - Aayush Pennington MD [ACTIVE - CAN ADMIT] - 1-2 Weeks
[2021-06-06 12:04] VITALS: BP 122/55; TEMP 97.3
--- NOTE | 2021-06-06 13:28 | P.DS ---
Admission Date: 06/03/21 Discharge Date: 06/06/21 Primary Care Provider: Dr. Jett Disposition: ROUTINE DISCHARGE Discharge Condition: FAIR Reason for Admission: Shortness of breath and cough - Problems (1) COPD exacerbation Status: Acute Brief History of Present Illness: 36-year-old male with history of asthma, bipolar disorder presented to the emergency department for shortness of breath. Patient reported ongoing shortness of breath over the course of 2 days. Patient did have significant expiratory wheezing found to be hypoxic with saturations in the high 80s on room air. Patient was still wheezing and hypoxic after multiple rounds of nebulizer treatments and IV steroids. CT a chest demonstrated 1 cm groundglass opacity right upper lobe probably inflammatory or infectious neoplasm is doubtful. Patient admitted for further management. Hospital Course: Diagnosis Acute hypoxic respiratory failure secondary to asthma/COPD exacerbation Pulmonary nodule Hyperglycemia, without diagnosis diabetes mellitus type 2 Bipolar disorder Tobacco abuse Patient admitted to the medical floor treated for asthma exacerbation versus COPD exacerbation. Patient continues to smoke. He was using BiPAP some for for respiratory distress. Was treated with IV steroid, scheduled bronchodilators and Levaquin. Patient clinically improved with treatment and was eventually weaned off oxygen to room air. He ambulated in the hallway without shortness of breath today and not hypoxic with exertion. Patient has improved to baseline and deemed stable for discharge. He is informed to follow with Dr. Pennington for further evaluation for the wheezing, including workup for COPD versus asthma. He has a solitary pulmonary that need to be followed with a CT chest with in 3 months. Vital Signs/Physical Exam: Temp Pulse Resp BP Pulse Ox 97.3 F 69 16 122/55 L 90 L 06/06/21 12:00 06/06/21 12:00 06/06/21 12:00 06/06/21 12:00 06/06/21 12:00 General: Alert, In no apparent distress, Oriented x3 HEENT: Mucous membr. moist/pink Neck: JVD not distended Respiratory: Clear to auscultation bilaterally, Normal air movement Cardiovascular: No edema, Regular rate/rhythm, Normal S1 S2 Gastrointestinal: Normal bowel sounds, Soft and benign, Non-distended, No tenderness Musculoskeletal: No swelling Integumentary: No rashes, No tenderness/swelling Neurological: Normal strength at 5/5 x4 extr Laboratory Data at Discharge: WBC 19.80 K/uL (4.3-10.9) H D 06/06/21 05:15 Hgb 15.5 g/dL (13.6-17.9) 06/06/21 05:15 Hct 48.0 % (39.6-49.0) 06/06/21 05:15 Plt Count 334 K/uL (152-406) 06/06/21 05:15 Sodium 139 mmol/L (136-145) 06/06/21 05:15 Potassium 5.1 mmol/L (3.5-5.1) 06/06/21 05:15 BUN 13 mg/dL (7-18) 06/06/21 05:15 Creatinine 1.07 mg/dL (0.55-1.3) 06/06/21 05:15 Glucose 199 mg/dL (74-106) H 06/06/21 05:15 Magnesium 2.4 mg/dL (1.8-2.4) 06/06/21 05:15 Total Bilirubin 0.2 mg/dL (0.2-1.0) 06/06/21 05:15 AST 21 U/L (15-37) 06/06/21 05:15 ALT 76 U/L (12-78) 06/06/21 05:15 Alkaline Phosphatase 80 U/L (45-117) 06/06/21 05:15 Triglycerides 84 mg/dL (<150) 06/04/21 05:22 Cholesterol 225 mg/dL (<200) H 06/04/21 05:22 HDL Cholesterol 58 mg/dL (40-60) 06/04/21 05:22 Cholesterol/HDL Ratio 3.88 06/04/21 05:22 Lipase 165 U/L (73-393) 06/03/21 17:40 Home Medications: Citalopram Hydrobromide [Citalopram HBr] 1 tab PO DAILY 06/04/21 Omeprazole Magnesium [Prilosec Otc] 1 tab PO DAILY 06/04/21 tadalafiL [Tadalafil] 1 tab PO DAILY 06/04/21 Albuterol Sulfate [Albuterol Sulfate Hfa] 8.5 gm IH Q6H #1 hfa.aer.ad 06/06/21 Budesonide/Formoterol Fumarate [Symbicort 160-4.5 Mcg Inhaler] 1 puff IH BID #1 hfa.aer.ad 06/06/21 guaiFENesin [Guaifenesin ER] 600 mg PO BID #10 tab.er.12h 06/06/21 levoFLOXacin [Levaquin*] 750 mg PO DAILY #3 tab 06/06/21 predniSONE [Deltasone] 40 mg PO DAILY #6 tab 06/06/21 New Medications: Albuterol Sulfate [Albuterol Sulfate Hfa] 8.5 gm IH Q6H #1 hfa.aer.ad guaiFENesin [Guaifenesin ER] 600 mg PO BID #10 tab.er.12h levoFLOXacin [Levaquin*] 750 mg PO DAILY #3 tab predniSONE [Deltasone] 40 mg PO DAILY #6 tab Budesonide/Formoterol Fumarate [Symbicort 160-4.5 Mcg Inhaler] 1 puff IH BID #1 hfa.aer.ad Diet: Regular Activity: Ad albino Followup: Aayush Pennington MD [ACTIVE - CAN ADMIT] - 1-2 Weeks NONE,NONE [Primary Care Provider] - Time spent managing pt's care (in minutes): 38
== END 2021-06-06 12:00 | disposition home or self-care (01) | DRG 190 ==
LOC: ER 17:26 → ERHOLD 20:12 → 2ND 21:47
PROVIDERS: ADMIT Hospitalist; ATTEND Internal Medicine
PROC: 5A09457 Assistance with Respiratory Ventilation, 24-96 Consecutive Hours, Continuous Positive Airway Pressure (ICD-10-PCS; principal; 2021-06-03)
DX: J44.1 Chronic obstructive pulmonary disease with (acute) exacerbation (principal); J96.01 Acute respiratory failure with hypoxia; J45.901 Unspecified asthma with (acute) exacerbation; F31.9 Bipolar disorder, unspecified; F17.210 Nicotine dependence, cigarettes, uncomplicated; R73.9 Hyperglycemia, unspecified; Z88.8 Allergy status to other drugs, medicaments and biological substances; Z92.859 Personal history of cellular therapy, unspecified; Z79.899 Other long term (current) drug therapy; Z79.52 Long term (current) use of systemic steroids; Z90.49 Acquired absence of other specified parts of digestive tract; Z88.5 Allergy status to narcotic agent; Z79.84 Long term (current) use of oral hypoglycemic drugs; Z20.822 Contact with and (suspected) exposure to COVID-19
CPT/HCPCS: 36415; 71045; 71275; 74018; 80048; 80053; 80061; 80076; 81003; 81015; 82805; 82947; 83036; 83690; 83735; 84145; 84439; 84443; 85025; 86140; 86308; 87040; 87070; 87205; 87804; 94640; 94660; 94760; 96361; 96374; 96375; 99285; J0456; J0696; J1650; J2405; J2920; J2930; J3475; J7030; J7050; J7606; Q9967; U0003

== ENCOUNTER 2021-12-20 05:41 | Emergency (ER) | payer SELFPAY ==
--- OUTSIDE RECORDS SUMMARY | 2021-12-20 05:43 | XMS REPORT | Continuity of Care Document ---
:1985 Author Organization [facility] t Address [address] [place] [address] Care Team Providers Name Role Phone LOCK Attending Clinician Unavailable MD DENEEN Attending Clinician Unavailable WENDI ZARAGOZA Attending Clinician Unavailable DENEEN Admitting Clinician Unavailable MD DENEEN Admitting Clinician Unavailable Problems This patient has no known problems. Allergies, Adverse Reactions, Alerts Allergy Allergy Status Severity Reaction(s) Onset Inactive Treating Comm ents Source Name Type Date Date Clinician NO KNOWN Drug [facility] This patient has no known medications. Procedures This patient has no known procedures. Encounters Start End Encounter Admission Attending Care Care Encounter Source Date/Time Date/Time Type Type Clinicians Facility Department ID 2020-12-05 2020-12-07 Outpatient LOCK, [facility] [id number] 00:00:00 00:00:00 LEANNA [address] 2020-12-05 2020-12-05 Emergency X Shital ZARAGOZA [facility] ERT [id number] [facility]:09[facility]00 [facility] Test Description Test Time Test Comments Results Result Comments Source SARS-CoV-2 (COVID-19) RNA [Presence] in Respiratory sp ecimen by 2020-12-06 04:40:18 SHINE with probe detection Test Item Value Reference Range Interpretation Comme nts SARS-CoV-2 (COVID-19) RNA [Presence] in Respiratory Not detected No t-Detected specimen by SHINE with probe detection (test code = 43616-1) Whether patient is employed in a healthcare setting (test code = 93733-0) Whether the patient has symptoms related to condition of interest (test code = 20589-4) Patient was hospitalized because of this condition (test code = 11228-2) Whether the patient was admitted to intensive care unit (ICU) for condition of interest (test code = 49929-7) Whether patient resides in a congregate care setting (test code = 49337-8)
[2021-12-20] MEDS ORDERED: FAMOTIDINE 20 MG/2 ML VIAL IV ONE (07:33)
[2021-12-20] MEDS ORDERED: ONDANSETRON 4 MG/2 ML VIAL ONE ×2 (07:33→09:48)
[2021-12-20 07:41] LABS: Urine Blood Negative (Negative); Urine Glucose Negative (Negative); Urine Protein Negative (Negative); Urine Specific Gravity 1.025 (1.005-1.030)
[2021-12-20 08:00] LABS: Absolute Lymphocytes (CBC) 1.8 K/uL (0.7-4.9); Hematocrit 46.2 % (39.6-49.0); Lymphocytes % 23.5 % (15.3-44.8); MPV 7.7 fL (7.6-11.3); RBC Red Blood Cell Count 5.38 M/uL (4.33-5.43)
[2021-12-20 08:11] LABS: Urine Bacteria NONE SEEN /HPF (NONE SEEN); Urine RBC NONE SEEN /HPF (NONE SEEN)
[2021-12-20 08:14] LABS: Albumin 3.6 g/dL (3.4-5.0); Bilirubin Total 0.2 mg/dL (0.2-1.0); Protein, Total 7.2 g/dL (6.4-8.2)
--- NOTE | 2021-12-20 09:46 | RAD REPORT ---
EXAM DESCRIPTION: CT - Abdomen Pelvis W Contrast - 12/20/2021 9:11 am CLINICAL HISTORY: Abdominal pain COMPARISON: May 2021 TECHNIQUE: Computed axial tomography of the abdomen pelvis was obtained. 100 cc Isovue-300 was admin istered intravenously. Oral contrast was not requested which limits evaluation of bowel and appendix All CT scans are performed using dose optimization technique as appropriate and may include automated exposure control or mA/KV adjustment according to patient size. FINDINGS: Fatty liver The spleen, pancreas, adrenals and kidneys unremarkable Right hemicolectomy. No bowel obstruction. No omental/mesenteric nodules Small inguinal hernias. Small ventral hernia There is no evidence of diverticulitis. IMPRESSION: No acute abnormality is displayed.
--- NOTE | 2021-12-20 10:41 | ER ---
Nurse's Notes [facility] Name: James Cuba Age: 36 yrs Sex: Male : 1985 Arrival Date: 12/20/2021 Time: 05:43 Bed 19 Private MD: Diagnosis: Abdominal pain, Generalized;Abdominal pain, unspecified Presentation: 12/20 07:00 Chief complaint: Patient states: ABDOMINAL PAIN. Coronavirus screen: At this time, the bp client does not indicate any symptoms associated with coronavirus-19. Ebola Screen: No symptoms or risks identified at this time. Initial Sepsis Screen: Does the patient meet any 2 criteria? No. Patient's initial sepsis screen is negative. Does the patient have a suspected source of infection? No. Patient's initial sepsis screen is negative. Risk Assessment: Do you want to hurt yourself or someone else? Patient reports no desire to harm self or others. Onset of symptoms is unknown. 07:00 Method Of Arrival: Ambulatory bp 07:00 Acuity: KIKI 3 bp Triage Assessment: 07:00 General: Appears distressed, uncomfortable, obese, unkempt, Behavior is cooperative, bp appropriate for age, anxious. Pain: Complains of pain in abdomen. EENT: No deficits noted. Neuro: No deficits noted. Cardiovascular: No deficits noted. Respiratory: No deficits noted. GI: Reports upper abdominal pain. : No signs and/or symptoms were reported regarding the genitourinary system. Derm: No deficits noted. Musculoskeletal: No deficits noted. Historical: - Allergies: 08:14 Morphine; bp 08:14 Phenergan; bp - Home Meds: 08:14 citalopram [Active]; Prilosec Oral [Active]; bp - PMHx: 08:14 Asthma; Back pain; Bipolar disorder; hypoglycemia, asthma, gynecomastia; bp - PSHx: 08:14 Appendectomy; bowel resection; Tonsillectomy; bp - Immunization history:: Adult Immunizations up to date. - Social history:: Smoking status: unknown. Screenin:00 Abuse screen: Denies threats or abuse. Denies injuries from another. Nutritional bp screening: No deficits noted. Tuberculosis screening: No symptoms or risk factors identified. Fall Risk None identified. Assessment: 07:00 General: SEE TRIAGE NOTE. bp 08:00 Reassessment: No changes from previously documented assessment. Patient and/or family bp updated on plan of care and expected duration. Pain level reassessed. 09:38 Reassessment: PT RETURNED FROM CT. bp 10:52 Reassessment: PT D/C HOME AMBULATORY, DX WITH GENERALIZED ABDOMINAL PAIN. bp Vital Signs: 06:49 BP 119 / 75 LA Supine (auto/lg); Pulse 80 MON; Resp 20 S; Temp 97.6(O); Pulse Ox 96% on ds4 R/A; Weight 111.13 kg (R); Height 6 ft. 0 in. (182.88 cm) (R); Pain 10/10; 08:00 BP 90 / 70; Pulse 63; Resp 16; Pulse Ox 98% ; bp 09:49 BP 112 / 52; Pulse 69; Resp 16; Pulse Ox 95% ; bp 10:52 BP 131 / 93; Pulse 60; Resp 16; Pulse Ox 95% ; bp 06:49 Body Mass Index 33.23 (111.13 kg, 182.88 cm) ds4 ED Course: 05:43 Patient arrived in ED. bp1 06:44 Yi Sandoval, NASIR is Primary Nurse. ke1 06:45 Inserted saline lock: 20 gauge in right antecubital area, using aseptic technique. ke1 07:00 Arm band placed on. bp 07:02 Dieudonne Edmonds DO is Attending Physician. ms3 07:08 Primary Nurse role handed off by Yi Sandoval, NASIR bp 07:08 Vijay Marroquin, NASIR is Primary Nurse. bp 08:00 Patient has correct armband on for positive identification. Bed in low position. Call bp light in reach. Side rails up X2. 08:14 Triage completed. bp 09:13 CT Abd/Pelvis - IV Contrast Only In Process Unspecified. EDMS 10:40 Nestor Cabrera MD is Referral Physician. ms3 10:52 No provider procedures requiring assistance completed. IV discontinued, intact, bp bleeding controlled, No redness/swelling at site. Pressure dressing applied. Administered Medications: 07:30 Drug: Pepcid (famotidine) 20 mg Route: IVP; Site: right antecubital; bp 09:51 Follow up: Response: No adverse reaction bp 07:30 Drug: Zofran (Ondansetron) 4 mg Route: IVP; Site: right antecubital; bp 09:51 Follow up: Response: No adverse reaction bp 09:45 Drug: Zofran (Ondansetron) 4 mg Route: IVP; Site: right antecubital; bp 09:51 Follow up: Response: No adverse reaction bp Medication: 08:00 VIS not applicable for this client. bp Outcome: 10:41 Discharge ordered by . ms3 10:52 Discharged to home ambulatory. bp 10:52 Condition: stable 10:52 Discharge instructions given to patient, Instructed on discharge instructions, follow up and referral plans. medication usage, Demonstrated understanding of instructions, follow-up care, medications, Prescriptions given X 1. 10:54 Patient left the ED. bp Signatures: Dispatcher [employer] EDMS Walter Sousa ds4 Vijay Marroquin, RN RN bp Dieudonne Edmonds DO DO ms3 Margaux Lam Kouassi, RN RN ke1
--- NOTE | 2021-12-20 10:41 | EDPHYS ---
Physician Documentation [facility] Name: James Cuba Age: 36 yrs Sex: Male : 1985 Arrival Date: 12/20/2021 Time: 05:43 Bed 19 Private MD: ED Physician Dieudonne Edmonds HPI: 12/20 10:40 This 36 yrs old Male presents to ER via Ambulatory with complaints of Abdominal Pain. ms3 10:41 The patient presents with abdominal pain that is diffuse. Onset: The symptoms/episode ms3 began/occurred acutely, 1.5 hour(s) ago. The symptoms do not radiate. Associated signs and symptoms: Pertinent positives: nausea, Pertinent negatives: diarrhea, vomiting. The symptoms are described as constant. Modifying factors: The symptoms are alleviated by nothing, the symptoms are aggravated by movement. Severity of pain: At its worst the pain was moderate in the emergency department the pain is unchanged. Historical: - Allergies: 08:14 Morphine; bp 08:14 Phenergan; bp - Home Meds: 08:14 citalopram [Active]; Prilosec Oral [Active]; bp - PMHx: 08:14 Asthma; Back pain; Bipolar disorder; hypoglycemia, asthma, gynecomastia; bp - PSHx: 08:14 Appendectomy; bowel resection; Tonsillectomy; bp - Immunization history:: Adult Immunizations up to date. - Social history:: Smoking status: unknown. ROS: 10:41 Constitutional: Negative for fever, and chills. Eyes: Negative for injury, pain, ms3 redness, and discharge, Neck: Negative for injury, pain, and swelling, Cardiovascular: Negative for chest pain, and palpitations. Respiratory: Negative for shortness of breath, cough, wheezing, and pleuritic chest pain, MS/Extremity: Negative for injury and deformity, Skin: Negative for injury, rash, and discoloration. 10:41 Abdomen/GI: Positive for abdominal pain, nausea, Negative for vomiting. 10:41 All other systems are negative. Exam: 10:41 Constitutional: This is a well developed, well nourished patient who is awake, alert, ms3 and in no acute distress. Head/Face: Normocephalic, atraumatic. Neck: Trachea midline, no cervical lymphadenopathy. Supple, full range of motion without nuchal rigidity, or vertebral point tenderness. No Meningismus. Chest/axilla: Normal chest wall appearance and motion. Nontender with no deformity. Cardiovascular: Regular rate and rhythm with a normal S1 and S2. No gallops, murmurs, or rubs. Normal PMI, no JVD. No pulse deficits. Respiratory: Lungs have equal breath sounds bilaterally, clear to auscultation and percussion. No rales, rhonchi or wheezes noted. No increased work of breathing, no retractions or nasal flaring. Skin: Warm, dry with normal turgor. Normal color with no rashes, no lesions, and no evidence of cellulitis. Psych: Awake, alert, with orientation to person, place and time. Behavior, mood, and affect are within normal limits. 10:41 Abdomen/GI: Inspection: scar(s), are noted in the right upper quadrant, left upper quadrant, right lower quadrant and left lower quadrant, Bowel sounds: normal, Palpation: moderate abdominal tenderness, in all quadrants. Vital Signs: 06:49 BP 119 / 75 LA Supine (auto/lg); Pulse 80 MON; Resp 20 S; Temp 97.6(O); Pulse Ox 96% on ds4 R/A; Weight 111.13 kg (R); Height 6 ft. 0 in. (182.88 cm) (R); Pain 10/10; 08:00 BP 90 / 70; Pulse 63; Resp 16; Pulse Ox 98% ; bp 09:49 BP 112 / 52; Pulse 69; Resp 16; Pulse Ox 95% ; bp 10:52 BP 131 / 93; Pulse 60; Resp 16; Pulse Ox 95% ; bp 06:49 Body Mass Index 33.23 (111.13 kg, 182.88 cm) ds4 MDM: 07:10 Patient medically screened. ms3 10:41 Differential diagnosis: bowel obstruction, gastritis, gastroesophageal reflux disease, ms3 Perf. Duodenal Ulcer, Perf. Gastric Ulcer, Peritonitis. Data reviewed: vital signs, nurses notes, lab test result(s), radiologic studies. Data interpreted: Pulse oximetry: on room air is 95 %. Counseling: I had a detailed discussion with the patient and/or guardian regarding: the historical points, exam findings, and any diagnostic results supporting the discharge/admit diagnosis, lab results, radiology results, the need for outpatient follow up, to return to the emergency department if symptoms worsen or persist or if there are any questions or concerns that arise at home. ED course: Discussed labs, CT, physical exam findings with patient. Patient to follow-up with primary care physician in2-3 days. Patient understands and agrees with plan. All questions were answered. Return precautions discussed include worsening symptoms, or any other concerns. On reevaluation patient is alert and oriented x4, in no apparent distress, nontoxic-appearing, speaking full sentences, ambulatory in emergency department. . 12/20 07:11 Order name: CBC with Diff; Complete Time: 08:49 ms3 12/20 07:11 Order name: CMP; Complete Time: 08:49 ms3 12/20 07:11 Order name: Lipase; Complete Time: 08:49 ms3 12/20 07:11 Order name: Urine Microscopic Only; Complete Time: 08:49 ms3 12/20 07:11 Order name: CT Abd/Pelvis - IV Contrast Only; Complete Time: 10:13 ms3 12/20 07:41 Order name: Urine Dipstick-Ancillary; Complete Time: 08:49 EDMS 12/20 07:11 Order name: IV Saline Lock; Complete Time: 07:44 ms3 12/20 07:11 Order name: Labs collected and sent; Complete Time: 07:44 ms3 12/20 07:11 Order name: Urine Dipstick-Ancillary (obtain specimen); Complete Time: 07:44 ms3 Administered Medications: 07:30 Drug: Pepcid (famotidine) 20 mg Route: IVP; Site: right antecubital; bp 09:51 Follow up: Response: No adverse reaction bp 07:30 Drug: Zofran (Ondansetron) 4 mg Route: IVP; Site: right antecubital; bp 09:51 Follow up: Response: No adverse reaction bp 09:45 Drug: Zofran (Ondansetron) 4 mg Route: IVP; Site: right antecubital; bp 09:51 Follow up: Response: No adverse reaction bp Disposition Summary: 12/20/21 10:41 Discharge Ordered Location: Home ms3 Condition: Stable ms3 Diagnosis - Abdominal pain, Generalized ms3 - Abdominal pain, unspecified ms3 Followup: ms3 - With: Nestor Cabrera MD - When: 2 - 3 days - Reason: Recheck today's complaints Discharge Instructions: - Discharge Summary Sheet ms3 - Abdominal Pain, Adult ms3 Forms: - Medication Reconciliation Form ms3 - Thank You Letter ms3 - Work release form bd - Antibiotic Education ms3 - Prescription Opioid Use ms3 Prescriptions: - Zofran 4 mg Oral Tablet - take 1 tablet by ORAL route every 12 hours As needed; 20 tablet; Refills: 0, ms3 Product Selection Permitted Signatures: Dispatcher [employer] Vijay Calixto RN RN Dieudonne Ames DO DO ms3
[2021-12-20 11:17] VITALS: TEMP 97.6
[2021-12-20 11:19] VITALS: O2SAT 95
[2021-12-20 11:21] VITALS: BP 131/93
== END 2021-12-20 10:54 | disposition home or self-care (01) ==
LOC: ER 05:41
DX: R10.84 Generalized abdominal pain (principal); R11.0 Nausea; F31.9 Bipolar disorder, unspecified; Z88.5 Allergy status to narcotic agent; Z88.8 Allergy status to other drugs, medicaments and biological substances
CPT/HCPCS: 36415; 74177; 80053; 81003; 81015; 83690; 85025; 96374; 96375; 99284; J2405; J3490; Q9967

== ENCOUNTER 2022-08-10 15:30 | Observation (INO) | payer SELFPAY ==
--- OUTSIDE RECORDS SUMMARY | 2022-08-10 15:34 | XMS REPORT | Continuity of Care Document ---
:1985 Author Organization [facility] t Address [address] [place] [address] [address] [place] [address] Care Team Providers Name Role Phone SUKH CHRISTIE Primary Care Physician Unavailable DR SUKH CHRISTIE Attending Clinician Unavailable [phone] Attending Clinician Unavailable LEANNA CISNEROS Attending Clinician Unavailable MD SHERWIN BROTHERS Attending Clinician Unavailable Shital ZARAGOZA Attending Clinician Unavailable DR SUKH CHRISTIE Admitting Clinician Unavailable SHERWIN BROTHERS Admitting Clinician Unavailable MD SHERWIN BROTHERS Admitting Clinician Unavailable Problems Condition Condition Condition Status Onset Resolution Last Treating Co mments Source Name Details Category Date Date Treatment Clinician Date Lower Lower Disease Active [facility] abdominal abdominal 5-03 st pain pain 00:00: Hospita 00 l Allergies, Adverse Reactions, Alerts Allergy Allergy Status Severity Reaction(s) Onset Inactive Treating Comm ents Source Name Type Date Date Clinician NO KNOWN Drug Active [facility] ALLERGIE Class [facility] of [facility] Family History Family Member Diagnosis Comments Start Date Stop Date Source Natural father Diabetes [facility] Natural father Heart disease [facility] Social History Social Habit Start Date Stop Date Quantity Comments Source History of Smokes tobacco [facility] tobacco use daily Hospital Tobacco use and 2020-12-05 2020-12-05 User of smokeless [facility] exposure 00:00:00 00:00:00 tobacco Hospital Alcohol intake 2020-12-05 2020-12-05 Current drinker [facility] 00:00:00 00:00:00 of alcohol Hospital (finding) Alcohol Comment 2020-12-05 2020-12-05 sometimes [facility] 00:00:00 00:00:00 Hospital Sex Ass[birth year] At [birth year] [facility] 00:00:00 00:00:00 Hospital Smoking Status Start Date Stop Date Source Never smoker (Never Smoked) Smokes tobacco daily 2020-12-05 00:00:00 [facility] Medications Ordered Filled Start Stop Current Ordering Indication Dosage Frequency Signature Comments Components Source Medication Medication Date Date Medication? Clinician (SIG) Name Name omeprazole Yes 1{capsu QD Take 1 [facility] magnesium 5-05 le} capsule by st (PRILOSEC 19:00: mouth Hospita ORAL) 00 daily. l tadalafiL Yes TAKE ONE Meth deniz (CIALIS) 10 -[address] MG tablet 00:00: MOUTH MAX Hos pamela 00 ONCE DAILY l FOR FOR ERECTILE DYSFUNCTIO N atorvastati 2021- No 10mg Take 10 mg [facility] n (LIPITOR) 18 09-[address] 10 mg 00:00: 05:59 Hospita tablet 00 :00 l Procedures This patient has no known procedures. Plan of Care Planned Activity Planned Date Details Comments Source Future Scheduled 2022-07-18 COVID-19 VACCINE (#1) [facility] Test 11:59:44 [code = COVID-19 VACCINE (#1)] Future Scheduled 2022-07-18 Pneumococcal Vaccine: [facility] Test 11:59:44 Pediatrics (0 to 5 Years) and At-Risk Patients (6 to 64 Years) (1 - PCV) [code = Pneumococcal Vaccine: Pediatrics (0 to 5 Years) and At-Risk Patients (6 to 64 Years) (1 - PCV)] Future Scheduled 2022-07-18 Hepatitis C screening [facility] Test 11:59:44 (procedure) [code = 778178449] Future Scheduled 2022-07-18 INFLUENZA VACCINE Method [facility] Test 11:59:44 [code = INFLUENZA VACCINE] Encounters Start End Encounter Admission Attending Care Care Encounter Source Date/Time Date/Time Type Type Clinicians Facility Department ID 2022-05-11 2022-05-11 [id number]:05:00 13:05:00 [id number] [facility] 2022-05-11 2022-05-11 Outpatient [id number] 13:05:00 13:05:00 [id number] 2022-05-11 2022-05-11 Essential 1.3.6.1.4 1.3.6.1.4.1 d [id number] 13:05:00 13:05:00 (primary) .[id number] hypertensi [id number] on 05/11/2022 SNOMED-CT 2020-12-05 2020-12-07 Outpatient L[facility], [facility] [id number] [place] 00:00:00 00:00:00 LEANNA [address] 2020-12-05 2020-12-05 Emergency X Shital ZARAGOZA [facility] ERT [id number] [facility] 12:09:00 12:09:00 [facility] Results Test Description Test Time Test Comments Results Result Comments Source THYROID PROFILE 2022-05-11 12:52:00 Test Item Value Reference Range Interpretation Comme nts T3 UPTAKE (test code = T3 UPTAKE) 34 % 31-39 T4 TOTAL (test code = 3026-2) 4.7-13.3 TSH (test code = 07466-1) 0.74 uIU/mL 0.35-3.74 T7 INDEX (test code = T7 INDEX) 0-0 GLYCO [id number] 12:52:00 Test Item Value Reference Range Interpretation Comments GLYCO HGB (test code = 3432-2) 6.1 % 4.2-6.5 CBC W/AUTO [id number] 12:52:00 Test Item Value Reference Range Interpretation Comments WBC (test code = 6690-2) 9.9 K/uL 4.1-11 RBC (test code = 45893-5) 5.83 M/uL 4.2-5.8 H HEMOGLOBIN (test code = 717-9) 17.7 g/dL 13.4-17.4 H HEMATOCRIT (test code = 52.9 % 40-52 H 68476-5) MCV (test code = 787-2) 91 fL 82-96 MCH (test code = 785-6) 30.3 pg 27-33 MCHC (test code = MCHC) 33 g/dL 32-35 RDW (test code = 788-0) 12.8 % 11.6-16 PLATELETS (test code = 777-3) 295 K/uL 135-367 MPV (test code = 78642-9) 8.2 fL 6.9-9.8 %NEUT (test code = 770-8) 67.1 % 42.2-75.2 %LYMPH (test code = 736-9) 22 % 20-51 %MONO (test code = 5905-5) 5 % 2-15 %EOS (test code = 40093-1) 4 % 0-10 %BASO (test code = 19039-7) 1 % 0-2 MANUAL DIFF (test code = MANUAL NOT INDICATED DIFF) RBC MORPH (test code = 6742-1) NOT INDICATED LIPID [id number] 12:52:00 Test Item Value Reference Range Interpretation Comments CHOLESTEROL (test code = 2093-3) 302 mg/dL 0-200 H TRIGLYCERIDES (test code = 2571-8) 181 mg/dL 30-150 H HDL (test code = 2085-9) 56 mg/dL 40-60 LDL (test code = 41182-8) 210 mg/dL RISK FACTOR (test code = RISK 5.4 FACTOR) LDL/HDL (test code = LDL/HDL) 4 COMP META [id number] 12:52:00 Test Item Value Reference Range Interpretation Comments SODIUM (test code = 2951-2) 140 mmol/L 136-145 POTASSIUM (test code = POTASSIUM) 4.5 mmol/L 3.5-5.1 CHLORIDE (test code = 2075-0) 101 mmol/L 98-107 CO2 (test code = 1963-8) 33.2 mmol/L 21-32 H ANION GAP (test code = ANION GAP) 6 GLUCOSE (test code = 2345-7) 95 mg/dL 74-106 BUN (test code = 3091-6) 13 mg/dL 5-27 CREATININE (test code = 2160-0) 1.07 mg/dL 0.6-1.3 BUN/CREAT (test code = BUN/CREAT) 12 TOTAL PROTEIN (test code = TOTAL 7.8 g/dL 6.4-8.2 PROTEIN) ALBUMIN (test code = ALBUMIN) 3.9 g/dL 3.4-5 GLOBULIN (test code = GLOBULIN) 3.9 g/dL 1.9-3.7 H A/G RATIO (test code = A/G RATIO) 1.0 1-2.6 CALCIUM (test code = 04916-1) 9.3 mg/dL 8.5-10.1 TOTAL BILI (test code = 1975-2) 0.6 mg/dL 0.2-1 ALKALINE PHOS (test code = 66 U/L 46-116 ALKALINE PHOS) SGOT/AST (test code = 1920-8) 50 U/L 15-37 H SGPT/ALT (test code = 1744-2) 109 U/L 12-78 H AGE (test code = AGE) 36 yrs AFR AMER GFR (test code = AFR 94 mL/min AMER GFR) NON-AA GFR (test code = NON-AA 77 mL/min GFR) [id number] 12:52:00 Test Item Value Reference Range Interpretation Comments TSH (test code = 54974-0) 0.74 uIU/mL 0.35-3.74 [id number] 12:50:00 SPEC SOURCE: CLEAN CATCH COLOR Yellow NORMAL: Straw 5778-6 LOINC CLARITY Clear NORMAL: Clear 5767-9 LOINC SPEC GRAVITY 1.025 1.005 - 1.020 5811-5 LOINC A pH 6.0 5.5 - 7.5 5803-2 LOINC GLUCOSE Negative NORMAL: Negative 5792-7 LOINC BILIRUBIN Negative NORMAL: Negative 5770-3 LOINC KETONE Negative NORMAL: Negative 2514-8 LOINC PROTEIN Negative NORMAL: Negative 71883-2 LOINC NITRITE Negative NORMAL: Negative 5802-4 LOINC BLOOD Negative NORMAL: Negative 67782-4 LOINC LEUK EST Negative NORMAL: Negative 5799-2 LOINC UROBILINOGEN 0.2 0.2 - 1.0 mg/dL 28623-7 LOINC MICROSCOPIC Not Indicated CU LTURE? Not IndicatedCULTURE [id number] 12:50:00 CULTURE, URINE SPECIMEN NUMBER: [id number] (COVID-19) RNA [Presence] in Respiratory specimen by SHINE with probe [id number] 04:40:18 Test Item Value Reference Range Interpretation Comments SARS-CoV-2 (COVID-19) RNA Not detected Not-Detected [Presence] in Respiratory specimen by SHINE with probe detection (test code = 46330-5) Whether patient is employed in a healthcare setting (test code = 52116-6) Whether the patient has symptoms related to condition of interest (test code = 11410-0) Patient was hospitalized because of this condition (test code = 44992-2) Whether the patient was admitted to intensive care unit (ICU) for condition of interest (test code = 63212-5) Whether patient resides in a congregate care setting (test code = 50031-7) JOHN HANSEN
[2022-08-10] MEDS ORDERED: ALBUTEROL 2.5 MG/3 ML NEB SOL ONE ×2 (16:14→17:50)
[2022-08-10] MEDS ORDERED: predniSONE 20 MG TAB ONE (16:14)
[2022-08-10] MEDS ORDERED: IPRATROPIUM BROM 0.5MG/2.5ML ONE (16:15)
--- NOTE | 2022-08-10 17:05 | RAD REPORT ---
EXAM DESCRIPTION: RAD - Chest Pa And Lat (2 Views) - 08/10/2022 4:57 pm CLINICAL HISTORY: SOB COMPARISON: Portable 06/05/2021 TECHNIQUE: Frontal and lateral views of the chest were obtained. FINDINGS: The lungs are clear. Interstitial pattern is similar or less prominent than the compariso n. No acute failure or volume overload. Mediastinal and hilar regions show no new mass or lymphadenopathy findings. Heart size is normal and central vasculature is within normal limits. No pleural effusion or pneumothorax seen. No acute bon y finding noted. No aortic abnormality. No significant change from comparison study. IMPRESSION: No acute cardiopulmonary process.
[2022-08-10] MEDS ORDERED: Magnesium Sulfate 2gm IVPB 2 G/50 ML BAG IV ONE (17:51)
--- NOTE | 2022-08-10 18:01 | ER ---
Nurse's Notes [facility] Name: James Cuba Age: 37 yrs Sex: Male : 1985 Arrival Date: 08/10/2022 Time: 15:32 Bed 16 Private MD: Diagnosis: Unspecified asthma with status asthmaticus;Shortness of breath;Cough Presentation: 08/10 15:36 Chief complaint: Patient states: asthma exacerbation worsening since Saturday. PCP shirley3 called in multiple medications to pharmacy including inhalers, steroids, nebs, and antibiotics but [facility] is out and the pharmacy cannot fill prescriptions at this time. Coronavirus screen: Vaccine status: Patient reports being unvaccinated. Client denies travel out of the [place] in the last 14 days. Ebola Screen: Patient negative for fever greater than or equal to 101.5 degrees Fahrenheit, and additional compatible Ebola Virus Disease symptoms Patient denies exposure to infectious person. Patient denies travel to an Ebola-affected area in the 21 days before illness onset. Initial Sepsis Screen: Does the patient meet any 2 criteria? No. Patient's initial sepsis screen is negative. Does the patient have a suspected source of infection? No. Patient's initial sepsis screen is negative. Risk Assessment: Do you want to hurt yourself or someone else? Patient reports no desire to harm self or others. Onset of symptoms was August 07, 2022. 15:36 Method Of Arrival: Ambulatory kb3 15:36 Acuity: KIKI 3 kb3 Triage Assessment: 15:38 General: Appears in no apparent distress. uncomfortable, Behavior is calm, cooperative. kb3 Pain: Denies pain. Historical: - Allergies: 15:38 Morphine; kb3 15:38 Phenergan; kb3 - Home Meds: 15:38 citalopram [Active]; Prilosec Oral [Active]; kb3 - PMHx: 15:38 Asthma; Back pain; Bipolar disorder; hypoglycemia, asthma, gynecomastia; kb3 - PSHx: 15:38 Appendectomy; bowel resection; Tonsillectomy; kb3 - Immunization history:: Adult Immunizations up to date, Client reports having NOT received the Covid vaccine. Last tetanus immunization: up to date. - Social history:: Smoking status: Patient reports the use of cigarette tobacco products, smokes one-half pack cigarettes per day. Screenin:15 [facility] ED Fall Risk Assessment (Adult) History of falling in the last 3 months, bp including since admission No falls in past 3 months (0 pts). Abuse screen: Denies threats or abuse. Denies injuries from another. Nutritional screening: No deficits noted. Tuberculosis screening: No symptoms or risk factors identified. Assessment: 16:00 Reassessment: SEE TRIAGE NOTE. bp 18:00 Reassessment: ADMIT INITIATED. bp 19:20 General: Appears in no apparent distress. comfortable, well groomed, well developed, pf1 Behavior is calm, cooperative, appropriate for age. 19:20 Pain: Denies pain. Neuro: No deficits noted. Level of Consciousness is awake, alert, pf1 obeys commands, Oriented to person, place, time, situation. Cardiovascular: No deficits noted. Capillary refill < 3 seconds. Respiratory: Airway is patent Trachea midline Respiratory effort is even, labored, Respiratory pattern is symmetrical, tachypnea Breath sounds with wheezes bilaterally. GI: No deficits noted. No signs and/or symptoms were reported involving the gastrointestinal system. Abdomen is round non-distended, Bowel sounds present X 4 quads. : No deficits noted. No signs and/or symptoms were reported regarding the genitourinary system. EENT: No deficits noted. No signs and/or symptoms were reported regarding the EENT system. Derm: No deficits noted. No signs and/or symptoms reported regarding the dermatologic system. 20:16 Reassessment: Patient appears in no apparent distress at this time. No changes from pf1 previously documented assessment. Patient and/or family updated on plan of care and expected duration. Pain level reassessed. Patient states feeling better. Patient states symptoms have improved. 21:26 Reassessment: Patient appears in no apparent distress at this time. No changes from pf1 previously documented assessment. Patient and/or family updated on plan of care and expected duration. Pain level reassessed. Vital Signs: 15:36 BP 152 / 97; Pulse 72; Resp 22; Temp 97.5; Pulse Ox 98% ; Weight 115.67 kg; Height 6 kb3 ft. 0 in. (182.88 cm); Pain 0/10; 18:00 BP 133 / 79; Pulse 88; Resp 16; Pulse Ox 98% ; bp 19:00 BP 143 / 90; Pulse 93; Resp 16; Pulse Ox 98% ; bp 20:00 BP 134 / 83; Pulse 103; Resp 23; Temp 98.2; Pulse Ox 92% on 2 lpm NC; Pain 0/10; pf1 21:00 BP 152 / 90; Pulse 104; Resp 25; Pulse Ox 92% on 2 lpm NC; Pain 0/10; pf1 15:36 Body Mass Index 34.58 (115.67 kg, 182.88 cm) kb3 ED Course: 15:32 Patient arrived in ED. as 15:38 Triage completed. kb3 15:38 Arm band placed on right wrist. kb3 15:43 Vijay Marroquin, RN is Primary Nurse. bp 15:44 Dieudonne Edmonds DO is Attending Physician. ms3 16:15 Patient has correct armband on for positive identification. Bed in low position. Call bp light in reach. Side rails up X2. 16:59 Chest Pa And Lat (2 Views) XRAY In Process Unspecified. EDMS 17:50 Inserted saline lock: 20 gauge in left antecubital area, using aseptic technique. Blood bp collected. 18:00 Toym Baer MD is Hospitalizing Provider. ms3 20:13 COVID-19/FLU A+B Sent. pf1 21:25 No provider procedures requiring assistance completed. Patient admitted, IV remains in pf1 place. Administered Medications: 16:15 Drug: Albuterol - atroVENT (ipratropium) (3:1) (2.5 mg - 0.5 mg) 3 ml Route: Nebulizer; bp 17:40 Follow up: Response: No adverse reaction bp 16:15 Drug: predniSONE 60 mg Route: PO; bp 17:40 Follow up: Response: No adverse reaction bp 17:50 Drug: Albuterol 2.5 mg Route: Inhalation; bp 17:50 Drug: Magnesium Sulfate 2 grams Route: IVPB; Infused Over: 2 hrs; Site: left bp antecubital; 18:57 Follow up: IV Status: Completed infusion; IV Intake: 50ml bp 18:10 Drug: Albuterol 2.5 mg Route: Inhalation; bp 18:30 Drug: Albuterol 2.5 mg Route: Inhalation; bp Medication: 21:25 VIS not applicable for this client. pf1 Intake: 18:57 IV: 50ml; Total: 50ml. bp Outcome: 18:01 Decision to Hospitalize by Provider. ms3 21:50 Admitted to Med/surg accompanied by tech, via wheelchair, room 228, with oxygen, with pf1 chart, Report called to NASIR Shaikh 21:50 Condition: stable 21:50 Instructed on the need for admit, Demonstrated understanding of instructions. 22:26 Patient left the ED. pf1 Signatures: Dispatcher [employer] EDMS Marissa Jenkins Brian, RN RN bp Dieudonne Edmonds, DO ms3 Mary Roman, RN RN kb3 Sully zacarias, RN RN pf1
--- NOTE | 2022-08-10 18:01 | EDPHYS ---
Physician Documentation [facility] Name: James Cuba Age: 37 yrs Sex: Male : 1985 Arrival Date: 08/10/2022 Time: 15:32 Bed 16 Private MD: ED Physician Dieudonne Edmonds HPI: 08/10 16:03 This 37 yrs old Male presents to ER via Ambulatory with complaints of Asthma ms3 Exacerbation. 16:03 37-year-old male with past medical history of asthma, back pain, bipolar, hypoglycemia ms3 presents for shortness of breath that began on Saturday while in [place]. Patient states he called his primary care physician who called him and medications and while he was at [facility] getting his medications filled the power went out causing him to come to the emergency department. Patient states this is his typical asthma exacerbation; however, he also has a productive cough. Patient denies fevers, chills, chest pain.. Historical: - Allergies: 15:38 Morphine; kb3 15:38 Phenergan; kb3 - Home Meds: 15:38 citalopram [Active]; Prilosec Oral [Active]; kb3 - PMHx: 15:38 Asthma; Back pain; Bipolar disorder; hypoglycemia, asthma, gynecomastia; kb3 - PSHx: 15:38 Appendectomy; bowel resection; Tonsillectomy; kb3 - Immunization history:: Adult Immunizations up to date, Client reports having NOT received the Covid vaccine. Last tetanus immunization: up to date. - Social history:: Smoking status: Patient reports the use of cigarette tobacco products, smokes one-half pack cigarettes per day. ROS: 16:03 Constitutional: Negative for fever, and chills. Neck: Negative for injury, pain, and ms3 swelling, Cardiovascular: Negative for chest pain, and palpitations. 16:03 Abdomen/GI: Negative for abdominal pain, nausea, vomiting, diarrhea, and constipation, Skin: Negative for injury, rash, and discoloration. 16:03 Respiratory: Positive for cough, with yellow sputum. Exam: 16:03 Constitutional: This is a well developed, well nourished patient who is awake, alert, ms3 and in no acute distress. Head/Face: Normocephalic, atraumatic. Chest/axilla: Normal chest wall appearance and motion. Nontender with no deformity. Cardiovascular: Regular rate and rhythm with a normal S1 and S2. No gallops, murmurs, or rubs. Normal PMI, no JVD. No pulse deficits. 16:03 Respiratory: mild respiratory distress is noted, Breath sounds: wheezing: expiratory that is mild, is heard diffusely. Vital Signs: 15:36 BP 152 / 97; Pulse 72; Resp 22; Temp 97.5; Pulse Ox 98% ; Weight 115.67 kg; Height 6 kb3 ft. 0 in. (182.88 cm); Pain 0/10; 18:00 BP 133 / 79; Pulse 88; Resp 16; Pulse Ox 98% ; bp 19:00 BP 143 / 90; Pulse 93; Resp 16; Pulse Ox 98% ; bp 20:00 BP 134 / 83; Pulse 103; Resp 23; Temp 98.2; Pulse Ox 92% on 2 lpm NC; Pain 0/10; pf1 21:00 BP 152 / 90; Pulse 104; Resp 25; Pulse Ox 92% on 2 lpm NC; Pain 0/10; pf1 15:36 Body Mass Index 34.58 (115.67 kg, 182.88 cm) kb3 MDM: 16:03 Differential diagnosis: acute asthma, URI, Pneumonia. ms3 16:05 Patient medically screened. ms3 19:18 Data reviewed: vital signs, nurses notes, lab test result(s), radiologic studies, and ms3 as a result, I will admit patient. Counseling: I had a detailed discussion with the patient and/or guardian regarding: the historical points, exam findings, and any diagnostic results supporting the discharge/admit diagnosis, lab results, radiology results, the need for further work-up and treatment in the hospital. ED course: Discussed necessity for admission with patient. Patient understands agrees with plan. Patient improved, however states patient still has mild work of breathing and wheezing. Discussed case with nurse duyen Molina, and he accepts patient on behalf of Dr. Baer. Consideration of hospitalization: Patient placed in observation Discussion of management of care with other providers: nurse duyen Parksaccepts patient on behalf of of Dr. Davis Independent interpretations: Chest x-ray interpretation by me negative. Patient given albuterol, Atrovent, prednisone, magnesium in the emergency department History obtained from patient . 08/10 17:34 Order name: CBC with Diff; Complete Time: 21:09 ms3 08/10 17:34 Order name: BMP; Complete Time: 21:09 ms3 08/10 16:03 Order name: Chest Pa And Lat (2 Views) XRAY; Complete Time: 17:09 ms3 08/10 17:56 Order name: COVID-19/FLU A+B; Complete Time: 21:09 la1 Administered Medications: 16:15 Drug: Albuterol - atroVENT (ipratropium) (3:1) (2.5 mg - 0.5 mg) 3 ml Route: Nebulizer; bp 17:40 Follow up: Response: No adverse reaction bp 16:15 Drug: predniSONE 60 mg Route: PO; bp 17:40 Follow up: Response: No adverse reaction bp 17:50 Drug: Albuterol 2.5 mg Route: Inhalation; bp 17:50 Drug: Magnesium Sulfate 2 grams Route: IVPB; Infused Over: 2 hrs; Site: left bp antecubital; 18:57 Follow up: IV Status: Completed infusion; IV Intake: 50ml bp 18:10 Drug: Albuterol 2.5 mg Route: Inhalation; bp 18:30 Drug: Albuterol 2.5 mg Route: Inhalation; bp Disposition Summary: 08/10/22 18:01 Hospitalization Ordered Hospitalization Status: Observation ms3 Provider: Tomy Baer ms3 Location: Telemetry/MedSurg (observation) ms3 Condition: Stable ms3 Problem: new ms3 Symptoms: are unchanged ms3 Bed/Room Type: Standard ms3 Room Assignment: 228(08/10/22 21:01) Diagnosis - Unspecified asthma with status asthmaticus ms3 - Shortness of breath ms3 - Cough ms3 Forms: - Medication Reconciliation Form ms3 - SBAR form ms3 Addendum: 08/12/2022 08:48 Addendum: 35 min of critical care time was spent with patient on date of service.. m s3 Signatures: Dispatcher [employer] EDMS Charly Thornton FNP-C FNP-Cla1 Holly Nascimento RN RN cg Vijay Marroquin RN RN Dieudonne Ames DO DO ms3 Mary Roman RN RN kb3 Corrections: (The following items were deleted from the chart) 08/10 21:01 18:01 ms3 cg
[2022-08-10 18:17] LABS: Absolute Lymphocytes (CBC) 2.1 K/uL (0.7-4.9); Hematocrit 47.5 % (39.6-49.0); Lymphocytes % 22.7 % (15.3-44.8); MCV 87.6 fL (80-100); MPV 7.5 fL (7.6-11.3); RBC Red Blood Cell Count 5.42 M/uL (4.33-5.43)
[2022-08-10 18:28] LABS: Potassium 3.7 mmol/L (3.5-5.1)
--- NOTE | 2022-08-10 19:10 | P.HP ---
Certification for Inpatient Patient admitted to: Observation With expected LOS: <2 Midnights Patient will require the following post-hospital care: None Practitioner: I am a practitioner with admitting privileges, knowledge of patient current condition, hospital course, and medical plan of care. Services: Services provided to patient in accordance with Admission requirements found in Title 42 Section 412.3 of the Code of Federal Regulations <Charly Thornton - Last Filed: 08/10/22 19:08> Patient History Date of Service: 08/10/22 Reason for admission: Asthma exacerbation History of Present Illness: 37-year-old male with history of asthma, BPD presents emergency department for dyspnea, asthma exacerbation. He reports having difficulty with his asthma since Saturday, he was seen by his PCP today and given prescriptions but the pharmacy was closed due to a power outage, he was becoming more short of breath so he came to the emergency department for treatment/evaluation. His labs are unremarkable chest x-ray without any acute process noted. Patient was given prednisone, nebulizer treatments, IV magnesium and temporary improvement but then began having dyspnea, wheezing again. ED provider wishes to admit under observation for asthma exacerbation. Patient reports 1 previous hospitalization for asthma exacerbation, has never been intubated. - Past Medical/Surgical History Diabetic: Yes -: Asthma -: kidney stones -: chronic pain -: Diabetes type 2 -: Colitis -: tonsillectomy -: tumor removal from chest Psychosocial/ Personal History: Patient lives at home with his patient - Family History Father -: Heart disease, Hypertension, Diabetes, Liver disease - Social History Smoking Status: Current every day smoker Counseled patient to stop smoking for: less than 10 minutes Smoking therapy provided: No Alcohol use: Yes CD- Drugs: No Caffeine use: Yes Place of Residence: Home <Charly Thornton - Last Filed: 08/10/22 19:08> Date of Service: 08/11/22 <Tomy Baer - Last Filed: 08/11/22 12:44> Allergies morphine Allergy (Severe, Verified 06/04/21 00:15) Hives promethazine [From Phenergan] Allergy (Verified 06/04/21 00:16) Hives/Rash Home Medications: Albuterol Neb [Proventil 0.083% Neb Soln] 2.5 mg NEB [id number] PRN amp 08/11/22 Mometasone/Formoterol [Dulera 100 Mcg/5 Mcg Inhaler] 2 puff IH BID #1 inhaler 08/11/22 predniSONE [Prednisone*] 20 mg PO BID 7 Days #14 tab 08/11/22 Review of Systems 10-point ROS is otherwise unremarkable Respiratory: Cough, Shortness of Breath, SOB with Excertion, Wheezing <Charly Thornton - Last Filed: 08/10/22 19:08> Physical Examination - Physical Exam General: Alert, In no apparent distress, Oriented x3 HEENT: Atraumatic, PERRLA, Mucous membr. moist/pink, EOMI, Sclerae nonicteric Neck: Supple, 2+ carotid pulse no bruit, No LAD, Without JVD or thyroid abnormality Respiratory: Expiratory wheezes Cardiovascular: Regular rate/rhythm, Normal S1 S2 Gastrointestinal: Normal bowel sounds, No tenderness Musculoskeletal: No tenderness Integumentary: No rashes Neurological: Normal gait, Normal speech, Normal strength at 5/5 x4 extr, Normal tone, Normal affect Lymphatics: No axilla or inguinal lymphadenopathy - Studies Laboratory Data (last 24 hrs) 08/10/22 17:55: Sodium 138, Potassium 3.7, BUN 12, Creatinine 1.30, Glucose 111 H 08/10/22 17:55: WBC 9.20, Hgb 15.9, Hct 47.5, Plt Count 288 <Charly Thornton - Last Filed: 08/10/22 19:08> - Studies Laboratory Data (last 24 hrs) 08/10/22 17:55: Sodium 138, Potassium 3.7, BUN 12, Creatinine 1.30, Glucose 111 H 08/10/22 17:55: WBC 9.20, Hgb 15.9, Hct 47.5, Plt Count 288 <Tomy Baer - Last Filed: 08/11/22 12:44> Assessment and Plan - Plan Assessment: Dyspnea secondary to asthma with exacerbation Tobacco abuse Plan: Dyspnea secondary to asthma with exacerbation: Continue p.o. steroids, ICS, as needed nebulizer treatments. Patient also received IV magnesium in ED. Will reassess this evening. Tobacco abuse: Counseled on importance of tobacco cessation. DVT PPX: Lovenox Code status: Full Discharge Plan: Home Plan to discharge in: 24 Hours - Advance Directives Does patient have a Living Will: No Does patient have a Durable POA for Healthcare: No - Code Status/Comfort Care Code Status Assessed: Yes (Full code) Critical Care: No Time Spent Managing Pts Care (In Minutes): 55 <Charly Thornton - Last Filed: 08/10/22 19:08> Physician Review: Patient Assessed, Agree with Above Assessment and Plan <Tomy Baer - Last Filed: 08/11/22 12:44>
[2022-08-10 20:54] LABS: SARS-COV-2 RT PCR NEGATIVE (NEGATIVE)
[2022-08-10] MEDS ORDERED: ACETAMINOPHEN 500 MG TAB PO PRN (21:50)
[2022-08-10] MEDS ORDERED: ALBUTEROL 2.5 MG/3 ML NEB SOL NEB PRN (21:50)
[2022-08-10] MEDS ORDERED: ONDANSETRON 4 MG/2 ML VIAL IV PRN (21:50)
[2022-08-10 23:23] VITALS: BMI 35.2
[2022-08-10] MEDS ORDERED: MELATONIN 5 MG TABLET PO PRN (23:48)
[2022-08-11] MEDS: DULERA 100/5 (MOMETASONE/FORMOTEROL) INHALER IH SCH ×2 (00:44→08:37)
[2022-08-11] MEDS: NICOTINE 21 MG/PAT TD SCH ×2 (00:45→08:36)
[2022-08-11] MEDS ORDERED: TRAZODONE 50 MG TABLET PO PRN (02:20)
[2022-08-11 05:14] LABS: Absolute Lymphocytes (CBC) 1.1 K/uL (0.7-4.9); Hematocrit 44.8 % (39.6-49.0); Lymphocytes % 9.6 % (15.3-44.8); MCV 87.7 fL (80-100); MPV 7.8 fL (7.6-11.3); RBC Red Blood Cell Count 5.11 M/uL (4.33-5.43)
[2022-08-11 05:27] LABS: Potassium 4.3 mmol/L (3.5-5.1)
[2022-08-11] MEDS ORDERED: ENOXAPARIN 40 MG/0.4 ML SQ SCH ×2 (09:00)
[2022-08-11] MEDS ORDERED: predniSONE 20 MG TAB PO SCH (09:00)
--- NOTE | 2022-08-11 09:58 | P.CNS ---
Date of Consult: 08/11/22 Chief Complaint: Asthma exacerbation History of Present Illness: Patient is 37 years of age with a history of asthma uses albuterol nebulizers apparently went to [place] became sick appeared in the emergency room with exacerbation of asthma not take any inhaled steroids has had asthma for a long time patient does not smoke is doing a little better Allergies morphine Allergy (Severe, Verified 06/04/21 00:15) Hives promethazine [From Phenergan] Allergy (Verified 06/04/21 00:16) Hives/Rash Home Medications: Unobtainable 08/10/22 - Past Medical/Surgical History Diabetic: Yes -: Asthma -: kidney stones -: chronic pain -: Diabetes type 2-not currently on medication -: Colitis -: gynecomastia -: tonsillectomy -: tumor removal from chest -: Appendectomy -: Bowel Resection Psychosocial/ Personal History: Patient lives at home with his patient - Family History Father Medical History: Heart disease, Hypertension, Diabetes, Stroke, Liver disease - Social History Smoking Status: Current every day smoker Alcohol use: Yes CD- Drugs: No Caffeine use: Yes Place of Residence: Home Review of Systems 10-point ROS is otherwise unremarkable Respiratory: Cough, Shortness of Breath Physical Examination Temp Pulse Resp BP Pulse Ox 97.0 F 86 18 124/74 90 L 08/11/22 08:00 08/11/22 08:00 08/11/22 08:00 08/11/22 08:00 08/11/22 08:00 General: Alert, In no apparent distress, Oriented x3 Respiratory: Expiratory wheezes Cardiovascular: No edema, Regular rate/rhythm, Normal S1 S2 Laboratory Data (last 24 hrs) 08/10/22 17:55: Sodium 138, Potassium 3.7, BUN 12, Creatinine 1.30, Glucose 111 H 08/10/22 17:55: WBC 9.20, Hgb 15.9, Hct 47.5, Plt Count 288 - Problems (1) Asthma exacerbation Current Visit: Yes Status: Acute Plan: Patient is 37 years of age admitted with an exacerbation of his asthma he uses albuterol and nebs at home cannot afford any steroid inhalers labs chest x-rays reviewed reviewed with is prednisone 20 mg twice a day for a week and will be given some Dulera to take home to follow-up with me in 2 weeks I will arrange for him to get an inhaled steroids at home if his sats are above 90 patient can go home chest x-ray is clear Qualifiers: Asthma severity: moderate
[2022-08-11 10:39] VITALS: O2SAT 94
[2022-08-11 12:14] VITALS: BP 126/74; TEMP 97.8
--- NOTE | 2022-08-11 12:32 | P.DS ---
Admission Date: 08/10/22 Discharge Date: 08/11/22 Disposition: ROUTINE DISCHARGE Discharge Condition: GOOD Reason for Admission: Asthma exacerbation Consultations: 1. Pulmonary Medicine Hospital Course: DIAGNOSES: # Acute Asthma Exacerbation # Steroid-Induced Hyperglycemia in Diet-Controlled Type II Diabetes Mellitus # Obstructive Sleep Apnea on home CPAP # Tobacco Use Disorder # Obesity - BMI 35.3 kg/m2 HOSPITAL COURSE: Mr. James Cuba is a 37 year old male with a past medical history significant for asthma, type II diabetes mellitus, and obstructive sleep apnea who was admitted to the [facility] on 08/10/2022 for shortness of breath. He was admitted to the Medicine service. Upon further evaluation, he was found to have an acute asthma exacerbation. He was treated with steroids and bronchodilators, with significant improvement in his symptoms. He was ambulated around the nursing station and had no episodes of hypoxia or shortness of breath. Pulmonary Medicine was consulted and he was evaluated by Dr. Pennington. Dr. Pennington has cleared him for discharge home with outpatient follow-up. On 08/11/2022, he was seen on morning rounds and deemed medically stable for discharge. He was discharged with instructions to schedule follow-up appointments with his PCP (MONSTER Jett) and with Pulmonology (Dr. Pennington). He was provided prescriptions for prednisone and Dulera. He has an unfilled prescription for albuterol sitting at his pharmacy. He was counseled extensively on tobacco cessation. He was given the opportunity to ask questions and reported no further questions. Furthermore, all questions were answered to the best of my ability. A copy of this discharge summary will be sent to the above providers to facilitate continuity of care. Today, I personally spent 25 minutes on his case, of which greater than 50% of the time was spent in patient education, counseling, and coordination of care as described above. Vital Signs/Physical Exam: Temp Pulse Resp BP Pulse Ox 97.8 F 95 H 18 126/74 92 08/11/22 12:00 08/11/22 12:00 08/11/22 12:00 08/11/22 12:00 08/11/22 12:00 General: Alert, In no apparent distress, Oriented x3 HEENT: Atraumatic, Mucous membr. moist/pink, EOMI, Sclerae nonicteric Neck: JVD not distended Respiratory: Clear to auscultation bilaterally, Normal air movement Cardiovascular: No edema, Regular rate/rhythm, Normal S1 S2, No gallops, No rubs, No murmurs Gastrointestinal: Normal bowel sounds, Soft and benign, Non-distended, No tenderness, No rebound, No guarding Musculoskeletal: No clubbing Integumentary: No rashes Neurological: Normal speech, Cranial nerves 3-12 intact, Normal affect Laboratory Data at Discharge: WBC 11.10 K/uL (4.3-10.9) H 08/11/22 04:27 Hgb 14.9 g/dL (13.6-17.9) 08/11/22 04:27 Hct 44.8 % (39.6-49.0) 08/11/22 04:27 Plt Count 296 K/uL (152-406) 08/11/22 04:27 Sodium 137 mmol/L (136-145) 08/11/22 04:27 Potassium 4.3 mmol/L (3.5-5.1) D 08/11/22 04:27 BUN 14 mg/dL (7-18) 08/11/22 04:27 Creatinine 1.11 mg/dL (0.70-1.30) 08/11/22 04:27 Glucose 252 mg/dL (74-106) H 08/11/22 04:27 Home Medications: Albuterol Neb [Proventil 0.083% Neb Soln] 2.5 mg NEB [id number] PRN amp 08/11/22 Mometasone/Formoterol [Dulera 100 Mcg/5 Mcg Inhaler] 2 puff IH BID #1 inhaler 08/11/22 predniSONE [Prednisone*] 20 mg PO BID 7 Days #14 tab 08/11/22 New Medications: Mometasone/Formoterol [Dulera 100 Mcg/5 Mcg Inhaler] 2 puff IH BID #1 inhaler predniSONE [Prednisone*] 20 mg PO BID 7 Days #14 tab Physician Discharge Instructions: 1. Please call and schedule a follow-up appointment with your PCP (MONSTER Jett) in 3-5 days 2. Please call and schedule a follow-up appointment with Pulmonology (Dr. Pennington) in 3-5 days - As we discussed, quitting smoking will help your symptoms significantly. When you are ready to quit, please let us or your PCP know, and we would be happy to help. Please feel free to use [id number] nicotine patches or nicotine gum. For prescriptions, please follow-up with your PCP Diet: Regular Activity: Ad albino Followup: Aayush Pennington MD [ACTIVE - CAN ADMIT] - Shauna Connor PAC [Primary Care Provider] - 1 Week Time spent managing pt's care (in minutes): 25
== END 2022-08-11 12:55 | disposition home or self-care (01) ==
LOC: ER 15:30 → ERHOLD 18:18 → 2ND 21:31
PROVIDERS: ADMIT Internal Medicine; ATTEND Internal Medicine
PROC: 5A09357 Assistance with Respiratory Ventilation, Less than 24 Consecutive Hours, Continuous Positive Airway Pressure (ICD-10-PCS; principal; 2022-08-11)
DX: J45.901 Unspecified asthma with (acute) exacerbation (principal); R06.00 Dyspnea, unspecified; E11.65 Type 2 diabetes mellitus with hyperglycemia; G47.33 Obstructive sleep apnea (adult) (pediatric); E66.9 Obesity, unspecified; Z68.35 Body mass index [BMI] 35.0-35.9, adult; Z79.899 Other long term (current) drug therapy; Z99.81 Dependence on supplemental oxygen; Z72.0 Tobacco use; Z88.6 Allergy status to analgesic agent; Z88.8 Allergy status to other drugs, medicaments and biological substances; Z20.822 Contact with and (suspected) exposure to COVID-19
CPT/HCPCS: 0240U; 36415; 71046; 80048; 85025; 94003; 94640; 94660; 94760; 96365; 99285; G0378; J3475; J3535; J7512; J7613; J7644

== ENCOUNTER 2024-06-16 13:43 | Emergency (ER) | payer SELFPAY ==
[2024-06-16] MEDS ORDERED: FAMOTIDINE 20 MG/2 ML VIAL IV ONE (14:09)
[2024-06-16] MEDS ORDERED: ONDANSETRON 4 MG/2 ML VIAL ONE ×2 (14:09→16:05)
[2024-06-16] MEDS ORDERED: MORPHINE 4 MG/ML SYR ONE ×2 (14:09→14:53)
[2024-06-16] MEDS ORDERED: NA CHLORIDE 0.9% 1,000 ML ONE (14:09)
--- NOTE | 2024-06-16 14:38 | RAD REPORT ---
EXAM: Right upper quadrant ultrasound. CLINICAL HISTORY: ABD PAIN COMPARISON: None. FINDINGS: Gallbladder: Normal. Bile ducts: No intrahepatic or extrahepatic biliary dilatation. Common bile duct not well seen Limited imaging of the liver shows mild fatty infiltration. IMPRESSION: Unremarkable exam. Limited visualization of common duct.
[2024-06-16 15:02] LABS: Absolute Eosinophils 0.4 K/uL (0-0.5); Absolute Lymphocytes (CBC) 0.6 K/uL (0.7-4.9); Absolute Monocytes 1.1 K/uL (0.1-1.3); Absolute Neutrophil 11.6 K/uL (1.8-8.0); Basophils % 0.2 % (0-1.3); Eosinophils % 3.3 % (0-4.4); Hematocrit 50.7 % (39.6-49.0); Hemoglobin 16.6 g/dL (13.6-17.9); Lymphocytes % 4.5 % (15.3-44.8); MCH 28.8 pg (27.0-35.0); MCHC 32.6 g/dL (32.0-36.0); MCV 88.3 fL (80-100); MPV 7.6 fL (7.6-11.3); Monocytes % 7.7 % (3.3-12.3); Neutrophils % 84.3 % (41.7-73.7); Platelets 316 thou/uL (152-406); RBC Red Blood Cell Count 5.74 M/uL (4.33-5.43); Red Cell Distribution Width 13.9 % (12.1-15.2)
[2024-06-16 15:26] LABS: Albumin 3.5 g/dL (3.4-5.0); Albumin/Globulin Ratio 0.8 (1.1-1.8); Anion Gap 6.4 mEq/L (5.0-15.0); Bilirubin Total 0.7 mg/dL (0.2-1.0); Globulin 4.2 g/dL (2.3-3.5); Potassium 4.4 mEq/L (3.5-5.1); Protein, Total 7.7 g/dL (6.4-8.2)
[2024-06-16 15:32] LABS: SARS-CoV-2 Antigen CONTROL BLUE LINE VIS/BG OK; SARS-CoV-2 Antigen Rapid Res Negative (Negative)
[2024-06-16] MEDS ORDERED: FENTANYL CITR 100 MCG/2 ML ONE (16:05)
--- NOTE | 2024-06-16 16:23 | RAD REPORT ---
EXAMINATION: CT ABDOMEN AND PELVIS WITH CONTRAST CLINICAL INDICATION: ABD PAIN TECHNIQUE: CT abdomen and pelvis was performed, after the administration of IV contrast, as per [facility] protocol. Axial, sagittal and coronal reconstructions were obtained. One or more of the following dose reduction techniques were used: Automated exposure control, adjustment of the mA and k V according to patient size, and iterative reconstruction. Unless otherwise specified, incidental findings do not require dedicated imaging follow-up. COMPARISON: No prior exam. FINDINGS: LOWER CHEST: The visualized lung bases are clear. LIVER: Significant fatty liver with hepatomegaly present. No focal lesion or biliary dilitation. Donovan ssly unremarkable gallbladder. SPLEEN: Normal size. No focal lesion. PANCREAS: No mass, ductal dilation, or andre-pancreatic fluid. ADRENALS: Normal; no mass. KIDNEYS: Normal size and contour. No hydronephrosis. GASTROINTESTINAL TRACT: No evidence of free air, significant intra-abdominal free fluid, bowel obstru ction or abscess. Evidence of previous right hemicolectomy. Fluid distention is seen in several central small bowel loops as well as the colon. No obstructing lesion is evident. APPENDIX: Absent LYMPH NODES: No lymphadenopathy. MUSCULOSKELETAL: No acute or suspicious osseous abnormality. ADDITIONAL FINDINGS: Small fat-containing umbilical hernia. IMPRESSION: Nonspecific fluid distention of colon and small bowel loops suggests colitis/enteritis pattern. Prominent diffuse fatty liver.
[2024-06-16] MEDS ORDERED: DICYCLOMINE HCL 10 MG CAP ONE (16:37)
--- NOTE | 2024-06-16 16:43 | ER ---
Nurse's Notes [facility] Name: James Cuba Age: 39 yrs Sex: Male : 1985 Arrival Date: 06/16/2024 Time: 13:43 Bed 4 Private MD: Diagnosis: Enterocolitis Presentation: 06/16 13:57 Chief complaint: Patient states: Upper abdominal pain, nausea, diarrhea, body aches, ll1 fatigue started today. Coronavirus screen: Client denies travel out of the [place] in the last 14 days. fatigue, nausea, Client presents with at least one sign or symptom that may indicate coronavirus-19. Standard/surgical mask placed on the client. Ebola Screen: Patient denies travel to an Ebola-affected area in the 21 days before illness onset. Initial Sepsis Screen: Does the patient meet any 2 criteria? No. Patient's initial sepsis screen is negative. Does the patient have a suspected source of infection? No. Patient's initial sepsis screen is negative. Risk Assessment: Do you want to hurt yourself or someone else? Patient reports no desire to harm self or others. Onset of symptoms was June 16, 2024. 13:57 Method Of Arrival: Ambulatory ll1 13:57 Acuity: KIKI 3 ll1 Historical: - Allergies: 13:56 No Known Allergies; ll1 - PMHx: 13:56 Asthma; Back pain; Bipolar disorder; Hypoglycemia; ll1 - PSHx: 13:56 Appendectomy; bowel resection; Tonsillectomy; ll1 - Immunization history:: Adult Immunizations up to date. - Infectious Disease History:: Denies. - Social history:: Smoking status: Patient/guardian denies using tobacco. Screenin:05 [facility] ED Fall Risk Assessment (Adult) History of falling in the last 3 months, rs5 including since admission No falls in past 3 months (0 pts) Confusion or Disorientation No (0 pts) Intoxicated or Sedated No (0 pts) Impaired Gait No (0 pts) Mobility Assist Device Used No (0 pt) Altered Elimination No (0 pt) Score/Fall Risk Level 0 - 2 = Low Risk Oriented to surroundings, Maintained a safe environment. Abuse screen: Denies threats or abuse. Nutritional screening: No deficits noted. Tuberculosis screening: No symptoms or risk factors identified. Assessment: 14:05 General: Appears in no apparent distress. uncomfortable, Behavior is calm, cooperative. bp Pain: Complains of pain in abdomen Pain currently is 8 out of 10 on a pain scale. Quality of pain is described as aching, Is continuous. 14:05 Neuro: Level of Consciousness is awake, alert, obeys commands, Oriented to person, bp place, time, situation. Cardiovascular: Patient's skin is warm and dry. Respiratory: Airway is patent Respiratory effort is even, unlabored, Respiratory pattern is regular, symmetrical. GI: Abdomen is round non-distended, Abd is soft and non tender X 4 quads. : No signs and/or symptoms were reported regarding the genitourinary system. EENT: No signs and/or symptoms were reported regarding the EENT system. Derm: Skin is intact, Skin is pink, warm \T\ dry. Musculoskeletal: Range of motion: intact in all extremities. 15:26 Reassessment: Patient appears in no apparent distress at this time. Patient is alert, rs5 oriented x 3, equal unlabored respirations, skin warm/dry/pink. 16:22 Reassessment: Patient and/or family updated on plan of care and expected duration. Pain rs5 level reassessed. Patient is alert, oriented x 3, equal unlabored respirations, skin warm/dry/pink. 17:07 Reassessment: Patient and/or family updated on plan of care and expected duration. Pain rs5 level reassessed. Patient is alert, oriented x 3, equal unlabored respirations, skin warm/dry/pink. Vital Signs: 13:57 BP 159 / 108; Pulse 117; Resp 20; Temp 98.4; Pulse Ox 95% on R/A; Weight 129.27 kg; ll1 Height 6 ft. 0 in. ; Pain 4/10; 14:58 BP 152 / 90; Pulse 107; Resp 19; Pulse Ox 95% on R/A; rs5 15:25 BP 144 / 81; Pulse 79; Resp 15; Pulse Ox 99% ; rs5 17:07 BP 147 / 88; Pulse 81; Resp 17; Pulse Ox 99% ; rs5 13:57 Body Mass Index 38.65 (129.27 kg, 182.88 cm) ll1 13:57 Pain Scale: Adult ll1 ED Course: 13:45 Patient arrived in ED. mg5 13:46 Analy Shankar FNP-C [facility]. kb 13:46 Dieudonne Edmonds DO is Attending Physician. kb 13:58 Triage completed. ll1 14:01 Vijay Marroquin, NASIR is Primary Nurse. bp 14:05 Patient has correct armband on for positive identification. Placed in gown. Bed in low rs5 position. Call light in reach. Side rails up X2. 14:07 No provider procedures requiring assistance completed. Inserted saline lock: 22 gauge rs5 in right antecubital area, using aseptic technique. Blood collected. Flushed with 10 mL NS. 14:29 US Abdomen Limited In Process Unspecified. EDMS 15:58 CT Abd/Pelvis - IV Contrast Only In Process Unspecified. EDMS 17:07 IV discontinued, intact, bleeding controlled, No redness/swelling at site. Pressure rs5 dressing applied. Administered Medications: 14:10 Drug: Famotidine IVP 20 mg IVP once; dilute with 10 mL 0.9% NaCl; give over 2 minutes bp Route: IVP; Site: right antecubital; 14:30 Follow up: Response: No adverse reaction rs5 14:10 Drug: Ondansetron IVP 4 mg IVP once; over 2 minutes Route: IVP; Site: right antecubital;bp 14:30 Follow up: Response: No adverse reaction rs5 14:10 Drug: morphine IVP or IV 4 mg IVP once over 4 mins Route: IVP; Infused Over: 4 mins; bp Site: right antecubital; 14:30 Follow up: Response: No adverse reaction; Pain is decreased rs5 14:10 Drug: NS 0.9% IV 1000 ml IV at 1 bolus Per protocol; to be given as a bolus over 60 bp minutes Route: IV; Rate: 1 bolus; Site: right antecubital; 15:11 Follow up: Response: No adverse reaction; IV Status: Completed infusion; IV Intake: rs5 1000ml 14:58 Drug: morphine IVP or IV 4 mg IVP once over 4 mins Route: IVP; Infused Over: 4 mins; rs5 Site: right antecubital; 15:30 Follow up: Response: No adverse reaction; Pain is decreased rs5 16:00 Drug: fentaNYL (PF) IVP 25 mcg IVP once Route: IVP; Site: right antecubital; rs5 16:30 Follow up: Response: No adverse reaction; Pain is decreased rs5 16:18 Drug: Ondansetron IVP 4 mg IVP once; over 2 minutes Route: IVP; Site: right antecubital;rs5 16:40 Follow up: Response: No adverse reaction; Pain is decreased rs5 16:40 Drug: Dicyclomine PO 20 mg PO once Route: PO; rs5 17:10 Follow up: Response: No adverse reaction rs5 Medication: 14:59 VIS not applicable for this client. rs5 Intake: 15:11 IV: 1000ml; Total: 1000ml. rs5 Outcome: 16:42 Discharge ordered by MD. kb 17:07 Discharged to home ambulatory, rs5 17:07 Condition: stable 17:07 Discharge instructions given to patient, family, Instructed on discharge instructions, follow up and referral plans. medication usage, Demonstrated understanding of instructions, follow-up care, medications, Prescriptions given X 4, 17:10 Patient left the ED. rs5 Signatures: Dispatcher [employer] EDMS Analy Shankar, APRIL-C [employer] INTERN-CkVijay Rodgers RN Sujey Stokes RN RN ll1 Dayron Coello RN RN rs5 Ani Franz mg5 Corrections: (The following items were deleted from the chart) 13:57 13:56 Allergies: Morphine; ll1 ll1 13:57 13:56 Allergies: Phenergan; ll1 ll1 17:07 15:25 BP 152 / 90; Pulse 107bpm; Resp 15bpm; Pulse Ox 90%; rs5 rs5
--- NOTE | 2024-06-16 16:43 | EDPHYS ---
Physician Documentation [facility] Name: James Cuba Age: 39 yrs Sex: Male : 1985 Arrival Date: 06/16/2024 Time: 13:43 Bed 4 Private MD: ED Physician Dieudonne Edmonds HPI: 06/16 13:54 This 39 yrs old Male presents to ER via Unassigned with complaints of Nausea, Pain All kb Over. 13:54 Pt is a 39 year old male who presents for nausea, bodyaches, fatigue, upper abd kb pressure that started this morning. denies vomiting. Reports diarrhea. . Historical: - Allergies: 13:56 No Known Allergies; ll1 - PMHx: 13:56 Asthma; Back pain; Bipolar disorder; Hypoglycemia; ll1 - PSHx: 13:56 Appendectomy; bowel resection; Tonsillectomy; ll1 - Immunization history:: Adult Immunizations up to date. - Infectious Disease History:: Denies. - Social history:: Smoking status: Patient/guardian denies using tobacco. ROS: 13:54 Constitutional: As per HPI kb Exam: 13:54 Constitutional: This is a well developed, well nourished patient who is awake, alert, kb and in no acute distress. Head/Face: Normocephalic, atraumatic. ENT: Moist Mucous membranes Cardiovascular: Regular rate Respiratory: Respirations even and unlabored. No increased work of breathing. Talking in full sentences Skin: Warm, dry with normal turgor. Normal color. MS/ Extremity: Pulses equal, no cyanosis. Neurovascular intact. Full, normal range of motion. Neuro: Awake and alert, GCS 15, oriented to person, place, time, and situation. 13:58 Abdomen/GI: Inspection: abdomen appears normal, Bowel sounds: normal, Palpation: soft, kb in all quadrants, moderate abdominal tenderness, in the right upper quadrant and left upper quadrant, Vital Signs: 13:57 BP 159 / 108; Pulse 117; Resp 20; Temp 98.4; Pulse Ox 95% on R/A; Weight 129.27 kg; ll1 Height 6 ft. 0 in. ; Pain 4/10; 14:58 BP 152 / 90; Pulse 107; Resp 19; Pulse Ox 95% on R/A; rs5 15:25 BP 144 / 81; Pulse 79; Resp 15; Pulse Ox 99% ; rs5 17:07 BP 147 / 88; Pulse 81; Resp 17; Pulse Ox 99% ; rs5 13:57 Body Mass Index 38.65 (129.27 kg, 182.88 cm) ll1 13:57 Pain Scale: Adult ll1 MDM: 13:46 Medical Screening Exam initiated kb 16:41 Differential diagnosis: viral gastroenteritis, colitis, bowel obstruction, enteritis, kb dehydration, viral illness. Data reviewed: vital signs, nurses notes. Counseling: I had a detailed discussion with the patient and/or guardian regarding the historical points, exam findings, and any diagnostic results supporting the discharge/admit diagnosis, lab results, radiology results, the need for outpatient follow up, a family practitioner, to return to the emergency department if symptoms worsen or persist or if there are any questions or concerns that arise at home. ED course: Pt states he is feeling better. Tolerating po intake. Educated on return precautions. 06/16 13:58 Order name: CBC with Diff; Complete Time: 15:25 kb 06/16 13:58 Order name: CMP; Complete Time: 15:27 kb 06/16 13:58 Order name: Lipase; Complete Time: 15:27 kb 06/16 13:58 Order name: Flu; Complete Time: 15:54 kb 06/16 13:58 Order name: SARS-COV-2 Antigen Rapid; Complete Time: 15:34 kb 06/16 13:58 Order name: CT Abd/Pelvis - IV Contrast Only; Complete Time: 16:24 kb 06/16 13:58 Order name: US Abdomen Limited; Complete Time: 14:39 kb 06/16 13:58 Order name: IV Saline Lock; Complete Time: 14:48 kb 06/16 13:58 Order name: Labs collected and sent; Complete Time: 14:48 kb 06/16 16:38 Order name: PO challenge; Complete Time: 16:53 kb Administered Medications: 14:10 Drug: Famotidine IVP 20 mg IVP once; dilute with 10 mL 0.9% NaCl; give over 2 minutes bp Route: IVP; Site: right antecubital; 14:30 Follow up: Response: No adverse reaction rs5 14:10 Drug: Ondansetron IVP 4 mg IVP once; over 2 minutes Route: IVP; Site: right antecubital;bp 14:30 Follow up: Response: No adverse reaction rs5 14:10 Drug: morphine IVP or IV 4 mg IVP once over 4 mins Route: IVP; Infused Over: 4 mins; bp Site: right antecubital; 14:30 Follow up: Response: No adverse reaction; Pain is decreased rs5 14:10 Drug: NS 0.9% IV 1000 ml IV at 1 bolus Per protocol; to be given as a bolus over 60 bp minutes Route: IV; Rate: 1 bolus; Site: right antecubital; 15:11 Follow up: Response: No adverse reaction; IV Status: Completed infusion; IV Intake: rs5 1000ml 14:58 Drug: morphine IVP or IV 4 mg IVP once over 4 mins Route: IVP; Infused Over: 4 mins; rs5 Site: right antecubital; 15:30 Follow up: Response: No adverse reaction; Pain is decreased rs5 16:00 Drug: fentaNYL (PF) IVP 25 mcg IVP once Route: IVP; Site: right antecubital; rs5 16:30 Follow up: Response: No adverse reaction; Pain is decreased rs5 16:18 Drug: Ondansetron IVP 4 mg IVP once; over 2 minutes Route: IVP; Site: right antecubital;rs5 16:40 Follow up: Response: No adverse reaction; Pain is decreased rs5 16:40 Drug: Dicyclomine PO 20 mg PO once Route: PO; rs5 17:10 Follow up: Response: No adverse reaction rs5 Disposition: 15:07 I was immediately available on-site in the Emergency Department for consultation in the ky3 care of the patient. Disposition Summary: 06/16/24 16:42 Discharge Ordered Notes: Location: Home kb Condition: Stable kb Diagnosis - Enterocolitis kb Followup: kb - With: Emergency Department - When: As needed - Reason: Worsening of condition Followup: kb - With: Private Physician - When: 2 - 3 days - Reason: Recheck today's complaints, Continuance of care, Re-evaluation by your physician Discharge Instructions: - Discharge Summary Sheet kb - Viral Gastroenteritis, Adult, [id number] kb - Colitis kb Forms: - Medication Reconciliation Form kb - Antibiotic Education kb - Prescription Opioid Use kb - Patient Portal Instructions kb - Leadership Thank You Letter kb - Work release form bd Prescriptions: - ondansetron 4 mg Oral Tablet,disintegrating - take 1 tablet ORAL route every 6 hours As needed; 12 tablet; Refills: 0, kb Product Selection Permitted - Cipro 500 mg Oral Tablet - take 1 tablet ORAL route every 12 hours for 10 days; 20 tablet; Refills: 0, kb Product Selection Permitted - Flagyl 500 mg Oral Tablet - take 1 tablet ORAL route every 8 hours for 10 days; 30 tablet; Refills: 0, kb Product Selection Permitted - dicyclomine 20 mg Oral tablet - take 1 tablet ORAL route 4 times per day As needed; 20 tablet; Refills: 0, kb Product Selection Permitted Signatures: Dispatcher [employer] EDMS Analy Shankar, RN LABOR AND DELIVERY-C RN LABOR AND DELIVERY-Vijay Hanson, RN RN bp Sujey George RN RN ll1 Dieudonne Edmonds DO DO ms3 Dayron Coello, RN RN rs5 Corrections: (The following items were deleted from the chart) 13:57 13:56 Allergies: Morphine; ll1 ll1 13:57 13:56 Allergies: Phenergan; ll1 ll1 13:58 13:58 CBC+H.LAB.BRZ ordered. EDMS EDMS 13:58 13:58 COMPREHENSIVE METABOLIC PANEL+C.LAB.BRZ ordered. EDMS EDMS 13:58 13:58 LIPASE+C.LAB.BRZ ordered. EDMS EDMS 13:58 13:58 Urinalysis+U.LAB.BRZ ordered. EDMS EDMS 13:58 13:58 Influenza Screen (A \T\ B)+BA.LAB.BRZ ordered. EDMS EDMS 13:58 13:58 SARS-COV-2 Antigen Rapid+I.LAB.BRZ ordered. EDMS EDMS 13:59 13:59 Abdomen Pelvis W Con+CT.RAD.BRZ ordered. EDMS EDMS 13:59 13:59 Abdomen Limited+US.RAD.BRZ ordered. EDMS EDMS
[2024-06-16 17:14] VITALS: TEMP 98.4
[2024-06-16 17:17] VITALS: O2SAT 99
[2024-06-16 17:18] VITALS: BP 147/88
== END 2024-06-16 17:10 | disposition home or self-care (01) ==
LOC: ER 13:43
DX: K52.9 Noninfective gastroenteritis and colitis, unspecified (principal)
CPT/HCPCS: 36415; 74177; 76705; 80053; 83690; 85025; 87804; 87811; J2405; J3010; J7030; Q9967

== ENCOUNTER 2024-09-30 18:55 | Inpatient (IN) | payer OTHER, SELFPAY ==
[2024-09-30] MEDS ORDERED: METHYLPREDNISOLONE 125 MG INJ ONE (19:50)
[2024-09-30] MEDS ORDERED: ALBUTEROL 2.5 MG/3 ML NEB SOL ONE ×2 (19:50→21:14)
[2024-09-30] MEDS ORDERED: IPRATROPIUM BROM 0.5MG/2.5ML ONE ×2 (19:50→21:14)
[2024-09-30 19:54] LABS: Absolute Basophils 0.1 K/uL (0-0.5); Absolute Eosinophils 0.4 K/uL (0-0.5); Absolute Lymphocytes (CBC) 1.9 K/uL (0.7-4.9); Absolute Monocytes 0.8 K/uL (0.1-1.3); Absolute Neutrophil 6.4 K/uL (1.8-8.0); Basophils % 0.7 % (0-1.3); Eosinophils % 4.7 % (0-4.4); Hematocrit 44.3 % (39.6-49.0); Hemoglobin 15.2 g/dL (13.6-17.9); Lymphocytes % 19.6 % (15.3-44.8); MCH 29.2 pg (27.0-35.0); MCHC 34.3 g/dL (32.0-36.0); MCV 85.1 fL (80-100); MPV 6.9 fL (7.6-11.3); Monocytes % 8.1 % (3.3-12.3); Neutrophils % 66.9 % (41.7-73.7); Nucleated Red Blood Cells % 0.1 % (0-0); Platelets 306 thou/uL (152-406); RBC Red Blood Cell Count 5.21 M/uL (4.33-5.43); Red Cell Distribution Width 13.8 % (12.1-15.2)
[2024-09-30 20:13] LABS: ALT/SGPT 65 U/L (16-61); AST/SGOT 31 U/L (15-37); Albumin 3.3 g/dL (3.4-5.0); Albumin/Globulin Ratio 0.9 (1.1-1.8); Alkaline Phosphatase 73 U/L (45-117); Anion Gap 9.5 mEq/L (5.0-15.0); BUN Blood Urea Nitrogen 12 mg/dL (7-18); Bicarbonate 28 mEq/L (21-32); Bilirubin Total 0.5 mg/dL (0.2-1.0); Globulin 3.7 g/dL (2.3-3.5); Glomerular Filtration Rate 72 ml/min (=/>90); Glucose Level 98 mg/dL (74-106); NT PRO-BNP 36 pg/mL (<125); Potassium 3.5 mEq/L (3.5-5.1); Sodium Level 137 mEq/L (136-145)
[2024-09-30 20:16] LABS: Bilirubin Direct < 0.2 mg/dL (0-0.2); Bilirubin Indirect, Calculated 0.3 mg/dL (0.2-0.8); Troponin High Sensitivity < 3.0 pg/mL (<58.9)
--- NOTE | 2024-09-30 20:18 | RAD REPORT ---
EXAMINATION: ONE VIEW CHEST XR CLINICAL INDICATION: DYSPNEA TECHNIQUE: Frontal chest projection is submitted. Examination is limited by patient positioning and t echnique. COMPARISON: 08/10/2022 FINDINGS: Patchy airspace opacity seen right lung base medially likely pneumonia. The lungs are otherwise clear . The heart is upper limit of normal in size. No displaced fractures identified. IMPRESSION: Patchy airspace opacity right lung base likely pneumonia.
[2024-09-30] MEDS ORDERED: CEFTRIAXONE 1000 MG/VIAL ONE (21:41)
[2024-09-30] MEDS ORDERED: Magnesium Sulfate 2gm IVPB 2 G/50 ML BAG IV ONE (21:41)
[2024-09-30] MEDS ORDERED: ALBUTEROL 2.5 MG/3 ML NEB SOL NEB PRN ×2 (22:01)
[2024-09-30] MEDS ORDERED: ACETAMINOPHEN 500 MG TAB PO PRN (22:01)
[2024-09-30] MEDS ORDERED: IPRATROPIUM BROM 0.5MG/2.5ML NEB PRN ×2 (22:01)
[2024-09-30] MEDS: CEFTRIAXONE 1,000 MG in NA CHLORIDE 0.9% 50 ML IVPB SCH (22:01)
[2024-09-30] MEDS: AZITHROMYCIN IV 500 MG in NA CHLORIDE 0.9% 250 ML IVPB SCH (22:01)
[2024-09-30] MEDS ORDERED: ONDANSETRON 4 MG/2 ML VIAL IV PRN (22:01)
--- NOTE | 2024-09-30 22:48 | EDPHYS ---
Physician Documentation [facility] Name: James Cuba Age: 39 yrs Sex: Male : 1985 Arrival Date: 09/30/2024 Time: 18:55 Bed 27 Private MD: ED Physician Dylan Robison HPI: 09/30 20:15 This 39 yrs old Male presents to ER via Ambulatory with complaints of Breathing rt Difficulty. 20:15 Patient with history of asthma presents to the ED with cough, shortness of breath rt starting yesterday. States that this is consistent with previous episodes of asthma. His rescue inhaler has not provided adequate relief. Denies other acute complaints at this time, symptoms are moderate in severity, no other aggravating or alleviating factors.. Historical: - Allergies: 19:03 No Known Allergies; db - PMHx: 19:03 Asthma; Back pain; Bipolar disorder; Hypoglycemia; db - PSHx: 19:03 Appendectomy; bowel resection; Tonsillectomy; db - Immunization history:: Adult Immunizations unknown. - Infectious Disease History:: Denies. - Social history:: Smoking status: Patient/guardian denies using tobacco, the patient reports quitting approximately 2 years ago. - Family history:: not pertinent. ROS: 20:15 Constitutional: Negative for fever, chills, and weight loss, Abdomen/GI: Negative for rt abdominal pain, nausea, vomiting, diarrhea, and constipation, MS/Extremity: Negative for injury and deformity, Skin: Negative for injury, rash, and discoloration, Neuro: Negative for headache, weakness, numbness, tingling, and seizure, 20:15 Respiratory: Positive for cough, shortness of breath, wheezing, Exam: 20:15 Constitutional: This is a well developed, well nourished patient who is awake, alert, rt and in no acute distress. Head/Face: Normocephalic, atraumatic. Chest/axilla: Normal chest wall appearance and motion. Nontender with no deformity. No lesions are appreciated. Cardiovascular: Regular rate and rhythm with a normal S1 and S2. No gallops, murmurs, or rubs. Normal PMI, no JVD. No pulse deficits. Abdomen/GI: Soft, non-tender, with normal bowel sounds. No distension or tympany. No guarding or rebound. No evidence of tenderness throughout. Skin: Warm, dry with normal turgor. Normal color with no rashes, no lesions, and no evidence of cellulitis. MS/ Extremity: Pulses equal, no cyanosis. Neurovascular intact. Full, normal range of motion. Neuro: Awake and alert, GCS 15, oriented to person, place, time, and situation. Cranial nerves II-XII grossly intact. Motor strength 5/5 in all extremities. Sensory grossly intact. Cerebellar exam normal. Normal gait. 20:15 Respiratory: Wheezes heard on all lung dotson, moderate respiratory distress, 10/02 04:45 ECG was reviewed by the Attending Physician. EKG at 2305 sinus tachycardia rate 105 sp4 otherwise normal. Vital Signs: 09/30 19:00 BP 137 / 95; Pulse 95; Resp 18; Temp 98.5; Pulse Ox 95% ; Height 6 ft. 0 in. ; db 22:00 BP 129 / 55; Pulse 99; Resp 18; Pulse Ox 98% ; me1 23:00 BP 108 / 56; Pulse 106; Resp 19; Pulse Ox 88% on R/A; me1 23:30 BP 123 / 79; Pulse 110; Resp 20; Pulse Ox 92% on 2 lpm NC; me1 [place] Coma Score: 10/02 04:45 Eye Response: spontaneous(4). Motor Response: obeys commands(6). Verbal Response: sp4 oriented(5). Total: 15. MDM: 09/30 19:03 Medical Screening Exam initiated rt 22:49 Differential diagnosis: Anemia Anxiety Reaction asthma, Bronchitis CHF exacerbation, sp4 Chronic Obstructive Pulmonary Disease pneumonia. Antibiotic administration: Rocephin and Zithromax ordered. Data reviewed: vital signs, nurses notes, lab test result(s), radiologic studies, plain films. ED course: EXAMINATION: ONE VIEW CHEST XR CLINICAL INDICATION: DYSPNEA TECHNIQUE: Frontal chest projection is submitted. Examination is limited by patient positioning and technique. COMPARISON: 08/10/2022 FINDINGS: Patchy airspace opacity seen right lung base medially likely pneumonia. The lungs are otherwise clear. The heart is upper limit of normal in size. No displaced fractures identified. IMPRESSION: Patchy airspace opacity right lung base likely pneumonia.. 09/30 19:04 Order name: Basic Metabolic Panel; Complete Time: 21:00 rt 09/30 19:04 Order name: CBC with Diff; Complete Time: 21:00 rt 09/30 19:04 Order name: LFT's; Complete Time: 21:00 rt 09/30 19:04 Order name: NT PRO-BNP; Complete Time: 21:00 rt 09/30 19:04 Order name: Troponin HS; Complete Time: 21:00 rt 09/30 21:08 Order name: Blood Culture Adult (2) sp4 09/30 21:09 Order name: COVID-19 Ag + Flu A+B Ag sp4 09/30 22:03 Order name: Procalcitonin EDMS 09/30 22:08 Order name: Lactate w/ 2H reflex if indic. EDMS 09/30 22:08 Order name: Magnesium EDMS 09/30 22:08 Order name: Phosphorus EDMS 09/30 22:08 Order name: Protime (+INR) EDMS 09/30 22:08 Order name: ABG Arterial Blood Gas EDMS 09/30 22:09 Order name: PTT, Activated Partial Thromb EDMS 09/30 22:09 Order name: Basic Metabolic Panel EDMS 09/30 22:09 Order name: Basic Metabolic Panel EDMS 09/30 22:09 Order name: CBC with Automated Diff EDMS 09/30 22:09 Order name: CBC with Automated Diff EDMS 09/30 22:09 Order name: Lipid Profile EDMS 09/30 22:09 Order name: Lipid Profile EDMS 09/30 22:09 Order name: Troponin High Sensitivity EDMS 10/01 06:01 Order name: Protime (+INR) EDMS 10/01 06:01 Order name: PTT, Activated Partial Thromb EDMS 10/01 06:10 Order name: Phosphorus EDMS 10/01 06:10 Order name: Troponin High Sensitivity EDMS 10/01 06:10 Order name: Magnesium EDMS 10/01 06:21 Order name: Lactate w/ 2H reflex if indic. EDMS 10/01 07:31 Order name: Procalcitonin EDMS 10/01 07:52 Order name: Glucose, Ancillary Testing EDMS 10/01 08:20 Order name: Ghost Lactate-NO COLLECT Timer EDMS 10/01 10:06 Order name: Lactate Sepsis 2 HR Follow-up EDMS 10/01 11:42 Order name: Glucose, Ancillary Testing EDMS 09/30 19:04 Order name: XRAY Chest (1 view); Complete Time: 21:00 rt 09/30 19:04 Order name: EKG; Complete Time: 19:04 rt 09/30 19:04 Order name: Cardiac monitoring; Complete Time: 23:10 rt 09/30 19:04 Order name: EKG - Nurse/Tech; Complete Time: 23:10 rt 09/30 19:04 Order name: IV Saline Lock; Complete Time: 20:52 rt 09/30 19:04 Order name: Labs collected and sent; Complete Time: 20:52 rt 09/30 19:04 Order name: O2 Per Protocol; Complete Time: 20:52 rt 09/30 19:04 Order name: O2 Sat Monitoring; Complete Time: 20:53 rt EC:05 Rate is 105 beats/min. Rhythm is regular, Sinus tachycardia. QRS [place] is Normal. MT sp4 interval is normal. QRS interval is normal. QT interval is normal. No Q waves. T waves are Normal. No ST changes noted. Clinical impression: No evidence of ischemia. Interpreted by me. Reviewed by me. Administered Medications: 19:55 Drug: DuoNeb Nebulize (3:1) (2.5 mg - 0.5 mg) 3 ml Nebulizer once Route: Nebulizer; vc1 22:57 Follow up: Response: No adverse reaction; Wheezing diminished me1 19:55 Drug: MethylPrednisoLONE IVP 125 mg IVP once Route: IVP; Site: left hand; vc1 22:57 Follow up: Response: No adverse reaction me1 21:39 Drug: DuoNeb Nebulize (3:1) (2.5 mg - 0.5 mg) 3 ml Nebulizer once Route: Nebulizer; me1 22:57 Follow up: Response: No adverse reaction; Wheezing diminished me1 21:41 Drug: Magnesium Sulfate IVPB 2 grams IVPB once over 2 hrs Route: IVPB; Infused Over: 2 me1 hrs; Site: left hand; 23:32 Follow up: Response: No adverse reaction; IV Status: Completed infusion; IV Intake: [id number] 21:41 Drug: Rocephin - Rocephin (cefTRIAXone) IVPB 1 grams IVPB once over 30 mins; (mix in 50 me1 mL NS) Route: IVPB; Infused Over: 30 mins; Site: left hand; 23:11 Follow up: Response: No adverse reaction; IV Status: Completed infusion me1 23:32 Drug: Zithromax IVPB 500 mg IVPB once over 1 hrs; mix in 250 mL NS Route: IVPB; Infused me1 Over: 1 hrs; Site: left hand; Disposition Summary: 09/30/24 22:48 Hospitalization Ordered Notes: Hospitalization Status: Inpatient Admission sp4 Provider: [place] sp4 Condition: Stable sp4 Problem: new sp4 Symptoms: have improved sp4 Bed/Room Type: Standard sp4 Location: Telemetry/MedSurg (observation)(10/01/24 14:30) 6 Room Assignment: [facility](10/01/24 14:30) [facility] Diagnosis - Moderate persistent asthma with status asthmaticus sp4 - Community-acquired pneumonia, right lower lung pneumonia sp4 Forms: - Medication Reconciliation Form sp4 - SBAR form sp4 - Leadership Thank You Letter sp4 Signatures: Dispatcher [employer] EDMS Lo Dejesus RN RN vc1 Brigitte Robledo RN RN db Derrek Rogers MD MD rt Jennifer Lopez 6 Dylan Robison MD MD sp4 Olivia Short RN RN me1 Corrections: (The following items were deleted from the chart) 19:04 19:04 BASIC METABOLIC PANEL+C.LAB.BRZ ordered. EDMS EDMS 19:04 19:04 CBC+H.LAB.BRZ ordered. EDMS EDMS 19:04 19:04 HEPATIC FUNCTION+C.LAB.BRZ ordered. EDMS EDMS 19:04 19:04 PROBNP+C.LAB.BRZ ordered. EDMS EDMS 19:04 19:04 Troponin High Sensitivity+C.LAB.BRZ ordered. EDMS EDMS 19:04 19:03 Allergies: No Known Allergies; db db 19:04 19:03 Allergies: Morphine; db db 21:09 21:09 BLOOD CULTURE*+BA.LAB.BRZ ordered. EDMS EDMS 22:53 22:48 Telemetry/MedSurg (observation) sp4 vc1 22:53 22:48 sp4 vc1 10/01 14:30 09/30 22:53 BR ER HOLD vc1 bc6 10/01 14:30 09/30 22:53 ERHOLD- vc1 bc6
--- NOTE | 2024-09-30 22:48 | ER ---
Nurse's Notes [facility] Name: James Cuba Age: 39 yrs Sex: Male : 1985 Arrival Date: 09/30/2024 Time: 18:55 Bed 27 Private MD: Diagnosis: Moderate persistent asthma with status asthmaticus;Community-acquired pneumonia, right lower lung pneumonia Presentation: 09/30 19:00 Chief complaint: Patient states: DIFFICULTY BREATHING STARTED YESTERDAY WHILE AT WORK. db TRIED HOME INHALER WITH MINIMAL RELIEF. HX OF ASTHMA. Coronavirus screen: Client denies travel out of the [place] in the last 14 days. At this time, the client does not indicate any symptoms associated with coronavirus-19. Ebola Screen: Patient negative for fever greater than or equal to 101.5 degrees Fahrenheit, and additional compatible Ebola Virus Disease symptoms Patient denies exposure to infectious person. Patient denies travel to an Ebola-affected area in the 21 days before illness onset. No symptoms or risks identified at this time. Initial Sepsis Screen: Does the patient meet any 2 criteria? No. Patient's initial sepsis screen is negative. Does the patient have a suspected source of infection? No. Patient's initial sepsis screen is negative. Risk Assessment: Do you want to hurt yourself or someone else? Patient reports no desire to harm self or others. Onset of symptoms was September 30, 2024. 19:00 Method Of Arrival: Ambulatory db 19:00 Acuity: KIKI 2 db Triage Assessment: 19:03 General: Appears in no apparent distress. comfortable, Behavior is calm, cooperative. db Pain: Denies pain. Respiratory: Reports shortness of breath Breath sounds are coarse Onset: The symptoms/episode began/occurred yesterday, the patient has mild shortness of breath. Historical: - Allergies: 19:03 No Known Allergies; db - PMHx: 19:03 Asthma; Back pain; Bipolar disorder; Hypoglycemia; db - PSHx: 19:03 Appendectomy; bowel resection; Tonsillectomy; db - Immunization history:: Adult Immunizations unknown. - Infectious Disease History:: Denies. - Social history:: Smoking status: Patient/guardian denies using tobacco, the patient reports quitting approximately 2 years ago. - Family history:: not pertinent. Screenin:15 [facility] ED Fall Risk Assessment (Adult) History of falling in the last 3 months, me1 including since admission No falls in past 3 months (0 pts) Confusion or Disorientation No (0 pts) Intoxicated or Sedated No (0 pts) Impaired Gait No (0 pts) Mobility Assist Device Used No (0 pt) Altered Elimination No (0 pt) Score/Fall Risk Level 0 - 2 = Low Risk Maintained a safe environment, Provided non-skid footwear, Hourly rounding (assess needs \T\ fall precautionary measures) done. Abuse screen: Denies threats or abuse. Nutritional screening: No deficits noted. Tuberculosis screening: No symptoms or risk factors identified. Assessment: 21:15 General: Appears ill, well developed, Behavior is calm, cooperative, appropriate for me1 age, Reports DIFFICULTY BREATHING STARTED YESTERDAY WHILE AT WORK. TRIED HOME INHALER WITH MINIMAL RELIEF. HX OF ASTHMA. Pain: Denies pain. Neuro: Level of Consciousness is awake, alert, obeys commands, Oriented to person, place, time, situation, Appropriate for age. Cardiovascular: Patient's skin is warm and dry. Rhythm is sinus tachycardia. Respiratory: Airway is patent Respiratory effort is even, unlabored, Respiratory pattern is regular, symmetrical, Breath sounds with wheezes bilaterally. GI: No signs and/or symptoms were reported involving the gastrointestinal system. : No signs and/or symptoms were reported regarding the genitourinary system. EENT: No signs and/or symptoms were reported regarding the EENT system. Derm: Skin is intact, is healthy with good turgor, Skin is pink, warm \T\ dry. Musculoskeletal: No signs and/or symptoms reported regarding the musculoskeletal system. Vital Signs: 19:00 BP 137 / 95; Pulse 95; Resp 18; Temp 98.5; Pulse Ox 95% ; Height 6 ft. 0 in. ; db 22:00 BP 129 / 55; Pulse 99; Resp 18; Pulse Ox 98% ; me1 23:00 BP 108 / 56; Pulse 106; Resp 19; Pulse Ox 88% on R/A; me1 23:30 BP 123 / 79; Pulse 110; Resp 20; Pulse Ox 92% on 2 lpm NC; me1 Maliha Coma Score: 10/02 04:45 Eye Response: spontaneous(4). Motor Response: obeys commands(6). Verbal Response: sp4 oriented(5). Total: 15. ED Course: 09/30 19:00 Patient arrived in ED. db 19:00 Derrek Rogers MD is Attending Physician. rt 19:03 Triage completed. db 19:05 Arm band placed on. db 19:50 Inserted saline lock: 20 gauge in left hand, using aseptic technique. Blood collected. vc1 Flushed with 10 mL NS. 20:08 Attending Physician role handed off by Derrek Rogers MD sp4 20:08 Dylan Robison MD is Attending Physician. sp4 20:15 XRAY Chest (1 view) In Process Unspecified. EDMS 21:15 Patient has correct armband on for positive identification. Bed in low position. Call me1 light in reach. Side rails up X2. Provided Education on: POC. Verbalized understanding.. Client placed on continuous cardiac and pulse oximetry monitoring. NIBP monitoring applied. ekg monitor tech on. Pulse ox on. NIBP on. 21:15 No provider procedures requiring assistance completed. me1 21:20 Olivia Short, RN is Primary Nurse. me1 21:31 First set of blood cultures drawn by me. me1 21:34 COVID swab sent to lab. Flu and/or RSV swab sent to lab. me1 21:34 Blood Culture Adult (2) Sent. me1 21:34 COVID-19 Ag + Flu A+B Ag Sent. me1 21:44 Second set of blood cultures drawn by mt. me1 22:47 Prince Caballero MD is Hospitalizing Provider. sp4 23:10 EKG done, by ED staff, reviewed by Dylan Robison MD. me1 23:32 Patient admitted, IV remains in place. me1 Administered Medications: 19:55 Drug: DuoNeb Nebulize (3:1) (2.5 mg - 0.5 mg) 3 ml Nebulizer once Route: Nebulizer; vc1 22:57 Follow up: Response: No adverse reaction; Wheezing diminished me1 19:55 Drug: MethylPrednisoLONE IVP 125 mg IVP once Route: IVP; Site: left hand; vc1 22:57 Follow up: Response: No adverse reaction me1 21:39 Drug: DuoNeb Nebulize (3:1) (2.5 mg - 0.5 mg) 3 ml Nebulizer once Route: Nebulizer; me1 22:57 Follow up: Response: No adverse reaction; Wheezing diminished me1 21:41 Drug: Magnesium Sulfate IVPB 2 grams IVPB once over 2 hrs Route: IVPB; Infused Over: 2 me1 hrs; Site: left hand; 23:32 Follow up: Response: No adverse reaction; IV Status: Completed infusion; IV Intake: [id number] 21:41 Drug: Rocephin - Rocephin (cefTRIAXone) IVPB 1 grams IVPB once over 30 mins; (mix in 50 me1 mL NS) Route: IVPB; Infused Over: 30 mins; Site: left hand; 23:11 Follow up: Response: No adverse reaction; IV Status: Completed infusion me1 23:32 Drug: Zithromax IVPB 500 mg IVPB once over 1 hrs; mix in 250 mL NS Route: IVPB; Infused me1 Over: 1 hrs; Site: left hand; Medication: 21:15 VIS not applicable for this client. me1 Intake: 23:32 IV: 50ml; Total: 50ml. mt1 Outcome: 22:48 Decision to Hospitalize by Provider. sp4 23:32 Admitted to ER Hold. Please see [facility] for further documentation. me1 23:32 Condition: stable 23:32 Instructed on the need for admit, 10/01 14:57 Patient left the ED. ld1 Signatures: Dispatcher [employer] Caroline Leone RN RN ld1 Lo Dejesus RN RN vc1 Brigitte Robledo RN RN db Derrek Rogers MD MD rt Dylan Robison MD MD sp4 Olivia Short RN RN me1 Corrections: (The following items were deleted from the chart) 09/30 19:04 19:03 Allergies: No Known Allergies; db db 19:04 19:03 Allergies: Morphine; db db 23:17 19:00 Chief complaint: Patient states: DIFFICULTY BREATHING STARTED YESTERDAY WHILE AT [employer] [facility] [place]. TRIED HOME INHALER WITH MINIMAL RELIEF. HX OF ASTHMA db
[2024-09-30 22:53] LABS: Influenza A Ag Negative; Influenza B Ag Negative; SARS-CoV-2 Antigen Rapid Res Negative (Negative)
[2024-09-30] MEDS: PANTOPRAZOLE 40 MG INJ IVP SCH (23:09)
[2024-09-30] MEDS ORDERED: SODIUM CHLORIDE 0.9% 10ML INJ IV PRN (23:09)
--- NOTE | 2024-09-30 23:09 | P.HP ---
Certification for Inpatient Patient admitted to: Inpatient With expected LOS: >2 Midnights Practitioner: I am a practitioner with admitting privileges, knowledge of patient current condition, hospital course, and medical plan of care. Services: Services provided to patient in accordance with Admission requirements found in Title 42 Section 412.3 of the Code of Federal Regulations Patient History Date of Service: 09/30/24 Reason for admission: shortness of breath History of Present Illness: Patient is a 39 year old male with morbid obesity, asthma AND GONZALEZ. He presents to the ER complaining of shortness of breath and productive cough with whitish sputum. Associated symptoms include generalized weakness. Patient is on albuterol inhaler and Dulera, complaint with both inhalers. Work up in the ER revealed PNA. He is being admitted with community acquired PNA with asthma exacerbation. Allergies morphine Allergy (Severe, Verified 06/04/21 00:15) Hives promethazine [From Phenergan] Allergy (Verified 06/04/21 00:16) Hives/Rash Home Medications: Albuterol Neb [Proventil 0.083% Neb Soln] 2.5 mg NEB [id number] PRN amp 08/11/22 Mometasone/Formoterol [Dulera 100 Mcg/5 Mcg Inhaler] 2 puff IH BID #1 inhaler 08/11/22 predniSONE [Prednisone*] 20 mg PO BID 7 Days #14 tab 08/11/22 - Past Medical/Surgical History Diabetic: Yes -: Asthma -: kidney stones -: chronic pain -: Diabetes type 2-not currently on medication -: Colitis -: gynecomastia -: tonsillectomy -: tumor removal from chest -: Appendectomy -: Bowel Resection Psychosocial/ Personal History: Patient lives at home with his patient - Family History Father -: Heart disease, Hypertension, Diabetes, Stroke, Liver disease - Social History Alcohol use: Yes CD- Drugs: No Caffeine use: Yes Physical Examination - Physical Exam General: Acute distress, Obese HEENT: Atraumatic, Normocephalic Respiratory: Diminished Neurological: Normal speech - Studies Laboratory Data (last 24 hrs) 09/30/24 09/30/24 19:47 19:47 WBC 9.60 Hgb 15.2 Hct 44.3 Plt Count 306 Sodium 137 Potassium 3.5 BUN 12 Creatinine 1.28 Glucose 98 Total Bilirubin 0.5 AST 31 ALT 65 H Alkaline Phosphatase 73 Assessment and Plan - Problems (Diagnosis) (1) Community acquired pneumonia Current Visit: Yes Status: Acute (2) GONZALEZ (obstructive sleep apnea) Current Visit: Yes Status: Acute (3) Morbid obesity Current Visit: Yes Status: Acute (4) Asthma exacerbation Current Visit: No Status: Acute (5) COPD exacerbation Current Visit: No Status: Acute - Plan Assessment Patient is a 39 year old male with morbid obesity, GONZALEZ and Asthma. He is being admitted with community acquired PNA and asthma exacerbation Asthma exacerbation Community acquired PNA Morbid obesity GONZALEZ PLAN: Will admit inpatient Start ceftriaxone and azithromycin Respiratory cultures sent DuKeniabs and scheduled IV solumedrol PPI IV for GI ppx Resume home medications upon reconciliation - Advance Directives Does patient have a Living Will: No Does patient have a Durable POA for Healthcare: No
[2024-09-30] MEDS ORDERED: AZITHROMYCIN 500 MG INJ IVPB ONE (23:10)
[2024-09-30] MEDS ORDERED: NA CHLORIDE 0.9% 250 ML ONE (23:10)
[2024-09-30] MEDS ORDERED: PANTOPRAZOLE 40 MG INJ ONE (23:39)
[2024-09-30 23:49] VITALS: BMI 40.6
[2024-10-01] MEDS: METHYLPREDNISOLONE 40 MG INJ IV SCH (01:00)
[2024-10-01] MEDS ORDERED: METHYLPREDNISOLONE 40 MG INJ ONE ×2 (01:46→07:29)
[2024-10-01 05:52] LABS: Absolute Lymphocytes (CBC) 0.5 K/uL (0.7-4.9); Absolute Monocytes 0.1 K/uL (0.1-1.3); Absolute Neutrophil 10.1 K/uL (1.8-8.0); Basophils % 0.4 % (0-1.3); Eosinophils % 0.1 % (0-4.4); Hematocrit 44.6 % (39.6-49.0); Hemoglobin 15.1 g/dL (13.6-17.9); Lymphocytes % 4.4 % (15.3-44.8); MCH 29.2 pg (27.0-35.0); MCHC 33.8 g/dL (32.0-36.0); MCV 86.3 fL (80-100); MPV 7.5 fL (7.6-11.3); Monocytes % 0.8 % (3.3-12.3); Neutrophils % 94.3 % (41.7-73.7); Platelets 301 thou/uL (152-406); RBC Red Blood Cell Count 5.16 M/uL (4.33-5.43); Red Cell Distribution Width 14.3 % (12.1-15.2)
[2024-10-01 06:01] LABS: PT Prothrombin Time 11.2 SECONDS (10.0-13.0); PTT, Activated Partial Thromb 27.7 SECONDS (24.3-36.9); Protime INR 0.98
[2024-10-01 06:08] LABS: Anion Gap 8.6 mEq/L (5.0-15.0); Magnesium 2.7 mg/dL (1.6-2.4); Potassium 4.6 mEq/L (3.5-5.1); Troponin High Sensitivity 4.5 pg/mL (<58.9)
[2024-10-01] MEDS: NA CHLORIDE 0.9% 1,000 ML IV ONE (06:38)
[2024-10-01] MEDS ORDERED: ALBUTEROL 2.5 MG/3 ML NEB SOL NEB PRN (07:09)
[2024-10-01] MEDS ORDERED: IPRATROPIUM BROM 0.5MG/2.5ML NEB PRN (07:10)
[2024-10-01] MEDS ORDERED: IPRATROPIUM BROM 0.5MG/2.5ML ONE (07:15)
[2024-10-01] MEDS ORDERED: ALBUTEROL 2.5 MG/3 ML NEB SOL ONE (07:15)
[2024-10-01] MEDS ORDERED: ENOXAPARIN 40 MG/0.4 ML SQ ONE (07:16)
[2024-10-01] MEDS ORDERED: NA CHLORIDE 0.9% 1,000 ML ONE (07:16)
[2024-10-01] MEDS: ENOXAPARIN 40 MG/0.4 ML SQ SCH (07:23)
[2024-10-01] MEDS ORDERED: PANTOPRAZOLE 40 MG INJ ONE (07:28)
[2024-10-01] MEDS ORDERED: CEFTRIAXONE 1000 MG/VIAL ONE (07:28)
[2024-10-01] MEDS ORDERED: NA CHLORIDE 0.9% 250 ML ONE (07:29)
[2024-10-01] MEDS ORDERED: ACETAMINOPHEN 500 MG TAB ONE (07:29)
[2024-10-01] MEDS ORDERED: AZITHROMYCIN 500 MG INJ IVPB ONE (07:29)
[2024-10-01] MEDS: INSULIN LISPRO 100 UNIT/1 ML SQ SCH (08:30)
--- NOTE | 2024-10-01 08:33 | P.PN ---
Subjective Date of Service: 10/01/24 Chief Complaint: shortness of breath Subjective: C/O voiced (Complaints of continued shortness of breath at this time. Denies new c/o) Review of Systems 10-point ROS is otherwise unremarkable General: Weakness Respiratory: Cough, Dry, Shortness of Breath, SOB with Excertion, Wheezing Cardiovascular: Orthopnea Gastrointestinal: Unremarkable Genitourinary: Unremarkable Musculoskeletal: Unremarkable Integumentary: Unremarkable Neurological: Unremarkable Lymphatics: Unremarkable Physical Examination - Vital Signs Temperature: 98.4 F Blood Pressure: 149/90 Pulse: 68 Respirations: 18 Pulse Ox (%): 93 - Physical Exam General: Alert, In no apparent distress HEENT: Atraumatic, PERRLA, EOMI Neck: Supple Respiratory: Crackles/rales, Other (currently on 2L/NC ) Cardiovascular: No edema, Regular rate/rhythm Capillary refill: <2 Seconds Gastrointestinal: Normal bowel sounds, No tenderness Musculoskeletal: No tenderness Integumentary: No rashes Neurological: Normal speech, Normal strength at 5/5 x4 extr, Normal affect External genitalia: Deferred Rectal: Deferred - Studies Laboratory Data (last 24 hrs) 09/30/24 09/30/24 19:47 19:47 WBC 9.60 Hgb 15.2 Hct 44.3 Plt Count 306 Sodium 137 Potassium 3.5 BUN 12 Creatinine 1.28 Glucose 98 Total Bilirubin 0.5 AST 31 ALT 65 H Alkaline Phosphatase 73 Medications List Reviewed: Yes Assessment And Plan - Current Problems (Diagnosis) (1) Asthma exacerbation Current Visit: No Status: Acute Plan: 1. COPD/Asthma exacerbation Pneumonia Elevated lactic - CXR with right lung opacities - Afebrile, WBC 10.6, procal <0.05 - RESPAN; negative - Pulmonology consulted with recs for possible discharge tomorrow on prednisone 10 mg twice a day. 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 Diabetes type II, chronic - Accu-check ACHS - Mild sliding scale for now - Carb controlled diet - Reports Ozempic use at home 3. Hypertension, Chronic - SBP 120-140's - Monitor BP per unit protocol - Continue home meds once verified 4. Renal Insufficiency - Previous admission creatinine range (0.92-1.34) - Current creatinine 1.42 - Received 1L fluid bolus for elevated lact - Continue to monitor kidney function - Avoid Nephrotoxic agents - Monitor output DVT Ppx: Lovenox GI Ppx: IV Protonix Code Status: Full Code Qualifiers: Asthma severity: moderate Asthma persistence: unspecified Qualified Code(s): J45.901 - Unspecified asthma with (acute) exacerbation Discharge Plan: Home Plan to discharge in: 24 Hours - Code Status/Comfort Care Code Status Assessed: Yes Code Status: Full Code
[2024-10-01] MEDS: ARFORMOTEROL TARTRATE 15 MCG/2 ML VIAL.NEB NEB SCH (12:34)
--- NOTE | 2024-10-01 12:36 | P.CNS ---
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 Allergies morphine Allergy (Severe, Verified 06/04/21 00:15) Hives promethazine [From Phenergan] Allergy (Verified 06/04/21 00:16) Hives/Rash Home Medications: Albuterol Neb [Proventil 0.083% Neb Soln] 2.5 mg NEB [id number] PRN amp 08/11/22 Mometasone/Formoterol [Dulera 100 Mcg/5 Mcg Inhaler] 2 puff IH BID #1 inhaler 08/11/22 predniSONE [Prednisone*] 20 mg PO BID 7 Days #14 tab 08/11/22 - Past Medical/Surgical History Diabetic: Yes -: Asthma -: kidney stones -: chronic pain -: Diabetes type 2-not currently on medication -: Colitis -: gynecomastia -: tonsillectomy -: tumor removal from chest -: Appendectomy -: Bowel Resection Psychosocial/ Personal History: Patient lives at home with his patient - Family History Father Medical History: Heart disease, Hypertension, Diabetes, Stroke, Liver disease - Social History Smoking Status: Current every day smoker Alcohol use: Yes CD- Drugs: No Caffeine use: Yes Review of Systems 10-point ROS is otherwise unremarkable General: Weakness Respiratory: Cough, Shortness of Breath Physical Examination Temp Pulse Resp BP Pulse Ox 98.4 F 68 18 149/90 H 93 10/01/24 12:18 10/01/24 12:18 10/01/24 12:18 10/01/24 12:18 10/01/24 12:18 General: Alert, Oriented x3 Respiratory: Clear to auscultation bilaterally, Diminished Cardiovascular: No edema, Regular rate/rhythm, Normal S1 S2 Gastrointestinal: Normal bowel sounds, Soft and benign, Non-distended Laboratory Data (last 24 hrs) 09/30/24 09/30/24 19:47 19:47 WBC 9.60 Hgb 15.2 Hct 44.3 Plt Count 306 Sodium 137 Potassium 3.5 BUN 12 Creatinine 1.28 Glucose 98 Total Bilirubin 0.5 AST 31 ALT 65 H Alkaline Phosphatase 73 - Problems (1) Asthma exacerbation Current Visit: No Status: Acute Plan: Patient is 39 years of age admitted with worsening dyspnea suspect he has asthma exacerbation chest x-ray is clear patient is on Symbicort he quit smoking 2 years ago patient's white count is normal chemistry unremarkable patient has underlying metabolic syndrome symptoms of obstructive sleep apnea scheduled for a sleep study as an outpatient possible discharge tomorrow on prednisone 10 mg twice a day 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
[2024-10-01] MEDS: ALBUTEROL 2.5 MG/3 ML NEB SOL NEB PRN (15:50)
[2024-10-01] MEDS: IPRATROPIUM BROM 0.5MG/2.5ML NEB PRN (15:50)
--- NOTE | 2024-10-01 16:44 | EKG ---
Test Date: 2024-09-30 Test Time: 23:05:12 Hotel Clerk: MEASUREMENT RESULTS: Intervals: Rate: 107 WY: 156 QRSD: 126 QT: 390 QTc: 520 [place]: P: 74 WY: 156 QRS: 74 T: 72 INTERPRETIVE STATEMENTS: Sinus tachycardia Nonspecific intraventricular block Abnormal ECG Compared to ECG 06/03/2021 17:39:31 No significant changes Electronically Signed On 10-01-24 16:43:04 PLATE ROLLER by John Obrien
[2024-10-01] MEDS: AMOX/K CLAV 875 MG TAB PO SCH (21:12)
[2024-10-01] MEDS: BENZONATATE 100 MG CAP PO PRN (21:45)
[2024-10-01] MEDS: ZOLPIDEM TARTRATE 10 MG TABLET PO PRN (21:45)
[2024-10-02 05:09] VITALS: O2SAT 93
[2024-10-02 07:21] LABS: Hematocrit 45.4 % (39.6-49.0); Hemoglobin 14.6 g/dL (13.6-17.9); MCH 28.1 pg (27.0-35.0); MCHC 32.2 g/dL (32.0-36.0); MCV 87.2 fL (80-100); MPV 7.2 fL (7.6-11.3); Platelets 344 thou/uL (152-406); RBC Red Blood Cell Count 5.21 M/uL (4.33-5.43); Red Cell Distribution Width 14.5 % (12.1-15.2)
[2024-10-02 07:35] LABS: Anion Gap 7.2 mEq/L (5.0-15.0); Potassium 4.2 mEq/L (3.5-5.1)
[2024-10-02] MEDS: predniSONE 10 MG TAB PO SCH (08:00)
[2024-10-02 08:40] VITALS: BP 143/79; TEMP 98.4
--- NOTE | 2024-10-02 13:41 | P.DS ---
Admission Date: 09/30/24 Discharge Date: 10/02/24 Disposition: ROUTINE DISCHARGE Discharge Condition: GOOD Reason for Admission: shortness of breath Brief History of Present Illness: Patient is a 39 year old male with morbid obesity, asthma AND GONZALEZ. He presents to the ER complaining of shortness of breath and productive cough with whitish sputum. Associated symptoms include generalized weakness. Patient is on albuterol inhaler and Dulera, complaint with both inhalers. Work up in the ER revealed PNA. He is being admitted with community acquired PNA with asthma exacerbation. Hospital Course: 1. COPD/Asthma exacerbation 2. Diabetes type II, chronic 3. Hypertension, Chronic 4. Renal Insufficiency Patient was admitted to the hospital for asthma exacerbation, suspected pneumonia. He was treated with steroids, nebulizer treatments and antibiotics and had significant improvement in symptoms. He is currently breathing well on room air with no increased work of breathing, states he is feeling much better at this time. He has remained afebrile throughout his hospitalization and clinically doing very well. Patient requesting discharge this morning. His white blood cell count did spike initially was 9.6 and it is up to 23.2 today, this has happened in the past when he has been given IV steroids, I believe this is secondary to the steroids and is not worsening infectious process again he remains afebrile and is breathing well on room air, feeling much better. Patient will be discharged with prescriptions for an albuterol rescue inhaler, prednisone, Augmentin and Breztri. If he is able to afford the Breztri he is not switched from Symbicort to Breztri. He may return to work on Saturday. Instructed to follow-up with his PCP and pulmonology in 1 to 2 weeks and obtain a repeat CBC in 1 week. Vital Signs/Physical Exam: Temp Pulse Resp BP Pulse Ox 98.4 F 86 19 143/79 H 95 10/02/24 08:00 10/02/24 08:00 10/02/24 08:00 10/02/24 08:00 10/02/24 08:00 General: Alert, In no apparent distress, Oriented x3 HEENT: Atraumatic, PERRLA Neck: Supple, JVD not distended Respiratory: Clear to auscultation bilaterally, Normal air movement Cardiovascular: Regular rate/rhythm, Normal S1 S2 Gastrointestinal: Normal bowel sounds, No tenderness Musculoskeletal: No tenderness Integumentary: No rashes Neurological: Normal speech, Normal affect Laboratory Data at Discharge: WBC 23.20 thou/uL (4.3-10.9) H 10/02/24 07:10 Hgb 14.6 g/dL (13.6-17.9) 10/02/24 07:10 Hct 45.4 % (39.6-49.0) 10/02/24 07:10 Plt Count 344 thou/uL (152-406) 10/02/24 07:10 PT 11.2 SECONDS (10.0-13.0) 10/01/24 05:32 INR 0.98 10/01/24 05:32 APTT 27.7 SECONDS (24.3-36.9) 10/01/24 05:32 Sodium 136 mEq/L (136-145) 10/02/24 07:10 Potassium 4.2 mEq/L (3.5-5.1) 10/02/24 07:10 BUN 17 mg/dL (7-18) 10/02/24 07:10 Creatinine 1.11 mg/dL (0.70-1.30) 10/02/24 07:10 Glucose 224 mg/dL (74-106) H 10/02/24 07:10 Phosphorus 2.0 mg/dL (2.5-4.9) L 10/01/24 05:32 Magnesium 2.7 mg/dL (1.6-2.4) H 10/01/24 05:32 Total Bilirubin 0.5 mg/dL (0.2-1.0) 09/30/24 19:47 AST 31 U/L (15-37) 09/30/24 19:47 ALT 65 U/L (16-61) H 09/30/24 19:47 Alkaline Phosphatase 73 U/L (45-117) 09/30/24 19:47 Triglycerides 59 mg/dL (<150) 10/01/24 05:32 Cholesterol 179 mg/dL (<200) 10/01/24 05:32 HDL Cholesterol 58 mg/dL (40-60) 10/01/24 05:32 Cholesterol/HDL Ratio 3.09 10/01/24 05:32 Home Medications: Albuterol Neb [Proventil 0.083% Neb Soln] 2.5 mg NEB [id number] PRN amp 01/07/23 Albuterol Sulfate [Albuterol Sulfate Hfa] 2 puff IH Q6HP PRN #2 inh 10/02/24 Amox/Clavulanate [Augmentin 875-125 Tab*] 875 mg PO BID 7 Days #14 tab 10/02/24 Budesonide/Glycopyr/Formoterol [Breztri Aerosphere Inhaler] 2 puff IH BID #1 inh 10/02/24 predniSONE [Deltasone*] 10 mg PO BID 7 Days #14 tab 10/02/24 New Medications: Albuterol Sulfate [Albuterol Sulfate Hfa] 2 puff IH Q6HP PRN #2 inh PRN Reason: Wheezing Amox/Clavulanate [Augmentin 875-125 Tab*] 875 mg PO BID 7 Days #14 tab Budesonide/Glycopyr/Formoterol [Breztri Aerosphere Inhaler] 2 puff IH BID #1 inh predniSONE [Deltasone*] 10 mg PO BID 7 Days #14 tab Physician Discharge Instructions: Patient was admitted to the hospital for asthma exacerbation, suspected pneumonia. He was treated with steroids, nebulizer treatments and antibiotics and had significant improvement in symptoms. He is currently breathing well on room air with no increased work of breathing, states he is feeling much better at this time. He has remained afebrile throughout his hospitalization and clinically doing very well. Patient requesting discharge this morning. His white blood cell count did spike initially was 9.6 and it is up to 23.2 today, this has happened in the past when he has been given IV steroids, I believe this is secondary to the steroids and is not worsening infectious process again he remains afebrile and is breathing well on room air, feeling much better. Patient will be discharged with prescriptions for an albuterol rescue inhaler, prednisone, Augmentin and Breztri. If he is able to afford the Breztri he is not switched from Symbicort to Breztri. He may return to work on Saturday. Instructed to follow-up with his PCP and pulmonology in 1 to 2 weeks and obtain a repeat CBC in 1 week. Diet: Regular Activity: Ad albino Followup: Aayush Pennington MD [ACTIVE - CAN ADMIT] - 1-2 Weeks Finley Jett,Shauna, PAC [Primary Care Provider] - 1 Week Time spent managing pt's care (in minutes): 45
== END 2024-10-02 12:21 | disposition home or self-care (01) | DRG 202 ==
LOC: ER 18:55 → ERHOLD 22:01 → 2ND 10-01 14:38
PROVIDERS: ADMIT Internal Medicine; ATTEND Hospitalist
PROC: 5A09457 Assistance with Respiratory Ventilation, 24-96 Consecutive Hours, Continuous Positive Airway Pressure (ICD-10-PCS; principal; 2024-10-01)
DX: J45.42 Moderate persistent asthma with status asthmaticus (principal); J18.9 Pneumonia, unspecified organism; E87.21 Acute metabolic acidosis; Z68.41 Body mass index [BMI] 40.0-44.9, adult; J44.0 Chronic obstructive pulmonary disease with (acute) lower respiratory infection; N28.9 Disorder of kidney and ureter, unspecified; G47.33 Obstructive sleep apnea (adult) (pediatric); E66.01 Morbid (severe) obesity due to excess calories; Z88.5 Allergy status to narcotic agent; Z11.52 Encounter for screening for COVID-19; Z79.52 Long term (current) use of systemic steroids; Z90.49 Acquired absence of other specified parts of digestive tract; Z87.891 Personal history of nicotine dependence; Z79.899 Other long term (current) drug therapy
CPT/HCPCS: 36415; 71045; 80048; 80061; 80076; 82947; 83605; 83735; 83880; 84100; 84145; 84484; 85025; 85027; 85610; 85730; 87040; 87428; 93005; 94640; 94660; 94760; 96365; 96366; 96368; 96375; 99285; J0696; J1650; J2470; J2919; J3475; J7030; J7050; J7512; J7605; J7613; J7644